=== PATIENT | female | born 1965 | race Caucasian/White ===

== ENCOUNTER → 2016-12-03 | Outpatient (CLI) | payer OTHER ==
[~2016-12-03] MED LIST: *MAMMOGRAM; /ESOM40CA; ACAR50TA2 PO; ACET-654 PO; ALBU17IN INH; ALTA5CAP; ALTACE5 PO; AMBI10TA PO; AMBI12.52 PO; AMBI6.25 PO; AMIT150T; AMITRIP PO; AMITRIP100 PO; ATOR1TAB18 PO; AZIT250T3 PO; CARV12.5 PO; CELE40TA; DOXYCYC100 PO; DRIS50002 PO; FERR325T PO; FERROUS325 PO; GABA600T PO; GLIP5TAB2 PO; GLUC1000 PO; GLUCOTROL5 PO; GLUCULTRA TOPICAL; HALO10AM IM; HALO10TA PO; HYDR-4274 PO; IMDU60TA; INSULANT SC; KEFLEX500 PO; LAMI25TA PO; LANCMIS; LEXA1TAB PO; LIPI80TA PO; LOPR100T; LYRI300C PO; METF-415 PO; METF1000 PO; METFORM100 PO; METO10TA2 PO; METROGEL TOPICAL; NICO14DI20 TD; NORC5TAB PO; OMEP40CA2 PO; PERC5TAB8; PLAV75TA2 PO; PLAV75TA38 PO; PRIL20CA; PRILOSECOT PO; PROA1AER IN; PROM-190 PO; PROZ20CA11 PO; RANO5TAB; SERT25TA85 PO; TIZA4CAP3 PO; TRAM50TA2 PO; TYLENOL#3 PO; VITA200016 PO; ZOLOFT100 PO
== END ==
LOC: M LAB 15:20
PROVIDERS: ATTEND Internal Medicine
DX: E11.40 Type 2 diabetes mellitus with diabetic neuropathy, unspecified (principal)

== ENCOUNTER → 2016-12-12 | Outpatient (CLI) | payer OTHER ==
--- NOTE | 2016-12-12 13:31 | REPMRS ---
Patient History The patient states she has not had a clinical breast exam in over a year. No known family history of cancer. Digital Mammo Screening Bilat: December 12, 2016 - Exam #: [id number] Bilateral CC and MLO view(s) were taken. Technologist: Jasmine Patterson Technologist Prior study comparison: November 01, 2014, bilateral digital mammo screening bilat performed at [facility]. June 18, 2011, bilateral digital mammo screening bilat performed at [facility]. February 05, 2009, bilateral digital mammo screening bilat performed at [facility]. FINDINGS: There are scattered fibroglandular densities. There has been no change in the appearance of the mammogram from the prior studies. There is a mild amount of scattered fibroglandular density which is fairly symmetric. There is no interval development of dominant mass, architectural distortion, or clustered microcalcification suggestive of malignancy. ASSESSMENT: BI-RADS/ACR category 1 mammogram. Negative. Recommendation Routine screening mammogram in 1 year (for women over age 40). This mammogram was interpreted with the aid of an FDA-approved computer-aided dectection system. Electronically Signed By: Mateo Tadeo MD 12/12/16 1275
== END ==
LOC: M RAD 12:49
PROVIDERS: ATTEND Internal Medicine
DX: Z12.31 Encounter for screening mammogram for malignant neoplasm of breast (principal)

== ENCOUNTER 2016-12-26 18:32 | Emergency (ER) | payer OTHER ==
[2016-12-26 20:26] LABS: BASO % 0.4 % (0.0-1.0); EOS # 0.2 K/mm3 (0.0-0.50); EOS % 3.8 % (0.0-3.0); LARGE UNSTAINED CELL # 0.1 K/mm3 (0.0-0.4); LARGE UNSTAINED CELL % 2.1 % (0.0-4.0); LYMPH # 2.1 K/mm3 (1.5-4.5); LYMPH % 32.1 % (24.0-44.0); MEAN CORPUSCULAR HEMOGLOBIN 31.5 pg (27.0-33.0); MEAN CORPUSCULAR HGB CONC 33.2 g/dl (32.0-36.5); MEAN CORPUSCULAR VOLUME 94.8 fl (80.0-96.0); MONO # 0.3 K/mm3 (0.0-0.8); MONO % 4.2 % (0.0-5.0); NEUTROPHILS # 3.7 K/mm3 (1.8-7.7); NEUTROPHILS % 57.4 % (36.0-66.0); PLATELET COUNT, AUTOMATED 197 k/mm3 (150-450); RED CELL DISTRIBUTION WIDTH 13.9 % (11.5-14.5); WHITE BLOOD COUNT 6.4 K/mm3 (4.0-10.0)
[2016-12-26 21:14] LABS: ANION GAP 8 MEQ/L (8-16); BLOOD UREA NITROGEN 17 MG/DL (7-18); CARBON DIOXIDE LEVEL 29 MEQ/L (21-32); CHLORIDE LEVEL 109 MEQ/L (98-107); CREATININE FOR GFR 0.98 MG/DL (0.55-1.02); GLOMERULAR FILTRATION RATE > 60.0 (>51); GLUCOSE, FASTING 174 MG/DL (70-105); POTASSIUM SERUM 3.8 MEQ/L (3.5-5.1); SODIUM LEVEL 146 MEQ/L (136-145)
--- NOTE | 2016-12-26 21:15 | REP ---
CHEST, PA AND LATERAL: 12/26/2016. Clinical history: Dyspnea. Comparison: 01/17/2016. Findings: The lung rocha are well inflated. There is no pleural effusion, acute infiltrate, pleural thickening, atelectasis, nodule or mass. No apical scarring or pneumothorax. The heart size is not grossly enlarged. There is no specific chamber enlargement, vascular redistribution or pulmonary edema. The aorta is normal for age. Airway is intact. No mediastinal or hilar mass. Bony thorax shows marginal osteophytes without compression deformity. No free air the diaphragm. Impression: 1. No acute cardiopulmonary change. Stable exam. Signed by Yusuf Montyoa MD 12/27/2016 07:22 P
--- NOTE | 2016-12-26 22:52 | EDDOCDS ---
Physician Documentation [facility] Name: Cristina Chung Age: 50 yrs Sex: Female : 1965 Arrival Date: 12/26/2016 Time: 18:32 Bed 17 Private MD: Disposition: 12/26/16 22:36 Discharged to Home/Self Care. Impression: Shortness of breath. - Condition is Stable. - Discharge Instructions: Shortness of Breath, Shortness of Breath, [id number]. - Medication Reconciliation, Local Pharmacy Hours form. - Follow up: [facility]; When: 4 - 5 days; Reason: Continuance of care. - Problem is an acute exacerbation. - Symptoms have improved. Historical: - Allergies: Aspirin (Hives); Zofran (Hives); - Home Meds: 1. zolpidem 12.5 mg Oral TbMP 1 tab once daily 2. Plavix 75 mg Oral tab 1 tab once daily 3. Vitamin D Oral 2000 unit daily 4. pregabalin 300 mg Oral cap 1 cap 2 times per day 5. metformin 1,000 mg Oral tr24 1 tab twice a day 6. hydroxyzine HCl 25 mg Oral tab 1 tab every 6 hours as needed 7. escitalopram oxalate 10 mg oral tab 1 tab once daily 8. atorvastatin 80 mg oral tab 1 tab once daily 9. albuterol sulfate 90 mcg/actuation Inhl HFAA 2 puffs every 4 hours 10. acarbose 50 mg Oral tab 1 tab 3 times per day 11. trujelo 10 unit nightly - PMHx: Diabetes - IDDM: uncontrolled; MS; Pancreatitis; Renal Failure w/o Dialysis; - PSHx: Tubal ligation; Cardiac stents; Carpal Tunnel Repair- Bilateral; Cholecystectomy; - Social history: Smoking status: Patient uses tobacco products, current every day smoker. No barriers to communication noted, The patient speaks fluent Maori. - Family history: Not pertinent. - : The pt / caregiver states he / she is on anticoagulants: Plavix. Home medication list is obtained from the patient. - Exposure Risk Screening:: None identified. 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 2 in. (157.48 cm) (R); Pain 0/10; 19:34 Pulse 60 MON; cf2 19:47 Pulse 62 MON; cf2 19:53 Pulse 58 MON; cf2 19:59 Pulse 58 MON; cf2 20:00 BP 139 / 88; Pulse 72; Resp 16; Temp 97.9; Pulse Ox 98% on R/A; Pain 0/10; cf2 20:06 Pulse 64 MON; cf2 20:14 Pulse 60 MON; cf2 20:21 Pulse 58 MON; cf2 20:29 Pulse 56 MON; cf2 20:36 Pulse 58 MON; cf2 20:42 Pulse 56 MON; cf2 20:47 Pulse 60 MON; cf2 20:53 Pulse 56 MON; cf2 21:04 Pulse 74 MON; cf2 21:09 Pulse 62 MON; cf2 21:17 Pulse 58 MON; cf2 21:24 Pulse 60 MON; cf2 21:29 Pulse 60 MON; cf2 21:42 Pulse 58 MON; cf2 21:49 Pulse 58 MON; cf2 21:54 Pulse 60 MON; cf2 22:01 Pulse 62 MON; cf2 22:07 Pulse 58 MON; cf2 22:15 Pulse 64 MON; cf2 22:20 Pulse 60 MON; cf2 22:26 Pulse 60 MON; cf2 22:31 Pulse 62 MON; cf2 22:37 Pulse 58 MON; cf2 22:41 Pulse 56 MON; cf2 22:45 Pulse 62 MON; cf2 22:46 BP 126 / 81; Pulse 64; Resp 16; Temp 97.5; Pulse Ox 98% on R/A; Pain 0/10; cf2 18:34 Body Mass Index 25.97 (64.41 kg, 157.48 cm) lr2 MDM: 19:26 -Blood Culture (Adults Only), peripheral from different site, or from device/port/PICC mm11 etc. if present ordered. 19:26 Hospice Patient Care Secretary/Pulse Ox/q 15 min VS ordered. mm11 19:26 IV Saline Lock ordered. mm11 19:26 Rhythm Strip to chart ordered. mm11 19:26 B-Type Natiuretic Peptide Ordered. EDMS 19:26 Basic Metabolic Profile Ordered. EDMS 19:26 CBC with Diff Ordered. EDMS 19:26 Cardiac Injury Profile Ordered. EDMS 19:26 D-Dimer Quant Ordered. EDMS 19:26 Troponin Ordered. EDMS 19:27 -Blood Culture Ordered. EDMS 19:27 Chest, 2 View (pa\E\lat) Ordered. EDMS 19:27 ECG WITH READING ER PHYS+CARDIAG ordered. EDMS 19:32 -Blood Culture (Adults Only), peripheral from different site, or from device/port/PICC jlm etc. if present complete. 19:33 BLOOD CULTURES Ordered. EDMS 20:24 Duplex, Ext LOWER veins, bilat Ordered. EDMS 20:43 Financial registration complete. gjb 20:53 [facility] Payment Agreement was scanned into [employer] and attached to record. gjb 21:12 CBC with Diff Reviewed. mm11 21:12 B-Type Natiuretic Peptide Reviewed. mm11 21:12 D-Dimer Quant Reviewed. mm11 21:41 Basic Metabolic Profile Reviewed. mm11 21:41 Cardiac Injury Profile Reviewed. mm11 21:41 Troponin Reviewed. mm11 21:41 Chest, 2 View (pa\E\lat) Reviewed. mm11 Signatures: Dispatcher [employer] EDMS Hamilton Low, DO DO mm11 Nikki Larkin,RN RN js13 Soraida Willams, [employer] [employer] [facility] Camila Campos [facility] Tri Laird,RN RN cf2 The chart was reviewed and I authenticate all verbal orders and agree with the evaluation and treatment provided.Corrections: (The following items were deleted from the chart) 20:24 19:27 Duplex, Ext,LOWER veins,unilat+US ordered. EDMS EDMS Attachments: 20:53 [facility] Payment Agreement gjb MTDD
--- NOTE | 2016-12-26 22:52 | EDDOCDS ---
Nurse's Notes [facility] Name: Cristina Chung Age: 50 yrs Sex: Female : 1965 Arrival Date: 12/26/2016 Time: 18:32 Bed 17 Private MD: Diagnosis: Shortness of breath Presentation: 12/26 18:44 Presenting complaint: Patient states: Patient states she was sent from Dr. Franco 13 office to be evaluated for her left leg swelling and SOB. Patient states her primary MD wants her to have exam to r/o DVT/ PE. Adult Sepsis Screening: The patient does not have new or worsening altered mentation. Patient's respiratory rate is less than 22. Systolic blood pressure is greater than 100. Patient has a qSOFA score of 0- Negative Sepsis Screen. Suicide/Homicide risk assessment- the patient denies having any suicidal and/or homicidal ideations and does not present with any other emotional, behavioral or mental health complaints. Status: Patient is not a customer servicer or dependent. Transition of care: patient was received from a primary care office; Dr Franco. 18:44 Acuity: BEAU Level 3 [facility] 18:44 Method Of Arrival: Walkin/Carried/Asstd 13 Triage Assessment: 18:50 General: Appears in no apparent distress, Behavior is appropriate for age, cooperative. js13 Pain: Denies pain. Pt Declines HIV testing. Respiratory: Onset: The symptoms/episode began/occurred a couple weeks ago. Derm: Skin is pink, warm & dry. 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 zolpidem 12.5 mg Oral TbMP 1 tab once daily 2. Plavix 75 mg Oral tab 1 tab once daily 3. Vitamin D Oral 2000 unit daily 4. pregabalin 300 mg Oral cap 1 cap 2 times per day 5. metformin 1,000 mg Oral tr24 1 tab twice a day 6. hydroxyzine HCl 25 mg Oral tab 1 tab every 6 hours as needed 7. escitalopram oxalate 10 mg oral tab 1 tab once daily 8. atorvastatin 80 mg oral tab 1 tab once daily 9. albuterol sulfate 90 mcg/actuation Inhl HFAA 2 puffs every 4 hours 10. acarbose 50 mg Oral tab 1 tab 3 times per day 11. trujelo 10 unit nightly - PMHx: Diabetes - IDDM: uncontrolled; [place]; Pancreatitis; Renal Failure w/o Dialysis; - PSHx: Tubal ligation; Cardiac stents; Carpal Tunnel Repair- Bilateral; Cholecystectomy; - Social history: Smoking status: Patient uses tobacco products, current every day smoker. No barriers to communication noted, The patient speaks fluent Vietnamese. - Family history: Not pertinent. - : The pt / caregiver states he / she is on anticoagulants: Plavix. Home medication list is obtained from the patient. - Exposure Risk Screening:: None identified. Screenin:22 Screening information is obtained from the patient. Fall risk: No risks identified. cf2 Assistance ADL's: requires no assistance with activities of daily living. Abuse/DV Screen: The patient / caregiver reports he/she is: not in a situation that causes fear, pain or injury. Nutritional screening: No deficits noted. Advance Directives: Further advance directive information is declined. home support is adequate. Assessment: 20:22 Adult Sepsis Screening: The patient does not have new or worsening altered mentation. cf2 Patient's respiratory rate is less than 22. Systolic blood pressure is greater than 100. Patient has a qSOFA score of 0- Negative Sepsis Screen. General: Appears in no apparent distress, comfortable, Behavior is appropriate for age, cooperative. Pain: Denies pain. Neurological: No deficits noted. EENT: Cardiovascular: Capillary refill < 3 seconds Clubbing of nail beds is absent JVD is absent Rhythm is regular. Cardiovascular: Chest pain is denied Chest pain began Respiratory: Airway is patent Respiratory effort is even, unlabored, Breath sounds are clear. 20:42 Reassessment: Patient appears in no apparent distress at this time. Patient denies pain cf2 at this time. GI: No deficits noted. : No deficits noted. Derm: No deficits noted. Musculoskeletal: No deficits noted. Injury Description: No known injury. 22:46 Reassessment: Patient appears in no apparent distress at this time. Patient denies pain cf2 at this time. Adult Sepsis Screening: The patient does not have new or worsening altered mentation. Patient's respiratory rate is less than 22. Systolic blood pressure is greater than 100. Patient has a qSOFA score of 0- Negative Sepsis Screen. Vital Signs: 18:34 BP 164 / 92; Pulse 64; Resp 17; Temp 96.4(TE); Pulse Ox 94% on R/A; Weight 64.41 kg lr2 (R); Height 5 ft. 2 in. (157.48 cm) (R); Pain 0/10; 19:34 Pulse 60 MON; cf2 19:47 Pulse 62 MON; cf2 19:53 Pulse 58 MON; cf2 19:59 Pulse 58 MON; cf2 20:00 BP 139 / 88; Pulse 72; Resp 16; Temp 97.9; Pulse Ox 98% on R/A; Pain 0/10; cf2 20:06 Pulse 64 MON; cf2 20:14 Pulse 60 MON; cf2 20:21 Pulse 58 MON; cf2 20:29 Pulse 56 MON; cf2 20:36 Pulse 58 MON; cf2 20:42 Pulse 56 MON; cf2 20:47 Pulse 60 MON; cf2 20:53 Pulse 56 MON; cf2 21:04 Pulse 74 MON; cf2 21:09 Pulse 62 MON; cf2 21:17 Pulse 58 MON; cf2 21:24 Pulse 60 MON; cf2 21:29 Pulse 60 MON; cf2 21:42 Pulse 58 MON; cf2 21:49 Pulse 58 MON; cf2 21:54 Pulse 60 MON; cf2 22:01 Pulse 62 MON; cf2 22:07 Pulse 58 MON; cf2 22:15 Pulse 64 MON; cf2 22:20 Pulse 60 MON; cf2 22:26 Pulse 60 MON; cf2 22:31 Pulse 62 MON; cf2 22:37 Pulse 58 MON; cf2 22:41 Pulse 56 MON; cf2 22:45 Pulse 62 MON; cf2 22:46 BP 126 / 81; Pulse 64; Resp 16; Temp 97.5; Pulse Ox 98% on R/A; Pain 0/10; cf2 18:34 Body Mass Index 25.97 (64.41 kg, 157.48 cm) lr2 Vitals: 18:34 Log In Time: December 26, 2016 at 18:32. lr2 ED Course: 18:33 Patient visited by Christi Angeles. lr2 18:33 Patient moved to Waiting lr2 18:38 Patient moved to Pre RCE lr2 18:46 Triage Initiated js13 18:51 Patient visited by Nikki Larkin RN. js13 18:51 Patient moved to Triage 1 rs6 19:03 Patient moved to 17 nn1 19:09 Tri Laird,MARÍA is Primary Nurse. cf2 19:09 Patient visited by Tri Laird RN. cf2 19:10 Patient visited by Tri Laird RN. cf2 19:14 Hamilton Low DO is Attending Physician. mm11 19:14 Patient visited by Hamilton Low DO. mm11 19:24 Patient visited by Hamilton Low DO. mm11 19:40 EKG done. (by ED staff). Reviewed by Hamilton Low DO. jmv 19:41 Patient visited by Lito López PCA. jmv 19:55 -Blood Culture Sent. mb9 19:55 B-Type Natiuretic Peptide Sent. mb9 19:55 Basic Metabolic Profile Sent. mb9 19:55 CBC with Diff Sent. mb9 19:55 Cardiac Injury Profile Sent. mb9 19:55 D-Dimer Quant Sent. mb9 19:55 Troponin Sent. mb9 19:55 Inserted saline lock: 18 gauge in left forearm and blood collected. The patient mb9 tolerated the procedure well. 20:11 Patient visited by Tri Laird RN. cf2 20:22 Patient visited by Tri Laird RN. cf2 20:22 The patient / caregiver is instructed regarding the plan of care and ED course. Patient cf2 has correct armband on for positive identification. Placed in gown. Bed in low position. Call light in reach. Side rails up X 1. Side rails up X2. nurse discharge on. Pulse ox on. NIBP on. Property :Personal belongings accompany Pt. Door closed. Noise minimized. Visitors limited. Lights dimmed. Moved to private room. Verbal reassurance given. Warm blanket given. Pillow given. Head of bed elevated. 20:22 No procedures done that require assistance. cf2 20:25 Patient visited by Tri Laird RN. cf2 20:44 Patient visited by Tri Laird RN. cf2 20:53 [facility] Payment Agreement was scanned into [employer] and attached to record. gjb 21:23 Chest, 2 View (pa\E\lat) Returned. EDMS 21:31 Patient visited by Tri Laird RN. cf2 22:02 Patient visited by Tri Laird RN. cf2 22:34 Patient visited by Hamilton Low DO. mm11 22:35 [facility] is Referral Physician. mm11 22:39 Patient visited by Tri Laird RN. cf2 22:46 Patient visited by Tri Laird RN. cf2 22:50 Discontinued lock. cf2 Order Results: Lab Order: B-Type Natiuretic Peptide; SPEC'M 12/26/16 19:52 Test: BRAIN NATRIURETIC PEPTIDE; Value: 10.6; Range: <100; Units: PG/ML; Status: F Lab Order: Basic Metabolic Profile; SPEC'M 12/26/16 20:34 Test: GLUCOSE, FASTING; Value: 174; Range: 70-105; Abnormal: Above high normal; Units: MG/DL; Status: F Test: BLOOD UREA NITROGEN; Value: 17; Range: 7-18; Units: MG/DL; Status: F Test: CREATININE FOR GFR; Value: 0.98; Range: 0.55-1.02; Units: MG/DL; Status: F Test: GLOMERULAR FILTRATION RATE; Value: > 60.0; Range: >51; Status: F Test: SODIUM LEVEL; Value: 146; Range: 136-145; Abnormal: Above high normal; Units: MEQ/L; Status: F Test: POTASSIUM SERUM; Value: 3.8; Range: 3.5-5.1; Units: MEQ/L; Status: F Test: CHLORIDE LEVEL; Value: 109; Range: 98-107; Abnormal: Above high normal; Units: MEQ/L; Status: F Test: CARBON DIOXIDE LEVEL; Value: 29; Range: 21-32; Units: MEQ/L; Status: F Test: ANION GAP; Value: 8; Range: 8-16; Units: MEQ/L; Status: F Test: CALCIUM LEVEL; Value: 9.0; Range: 8.5-10.1; Units: MG/DL; Status: F Test Note: ; Units are mL/min/1.73 m2 Chronic Kidney Disease Staging per NKF: Stage I & II GFR >=60 Normal to Mildly Decreased Stage III GFR 30-59 Moderately Decreased Stage IV GFR 15-29 Severely Decreased Stage V GFR <15 Very Little GFR Left ESRD GFR <15 on HEATING FIXTURE TENDER Lab Order: CBC with Diff; RONNELL'M 12/26/16 19:52 Test: WHITE BLOOD COUNT; Value: 6.4; Range: 4.0-10.0; Units: K/mm3; Status: F Test: RED BLOOD COUNT; Value: 4.22; Range: 4.00-5.40; Units: M/mm3; Status: F Test: HEMOGLOBIN; Value: 13.3; Range: 12.0-16.0; Units: g/dl; Status: F Test: HEMATOCRIT; Value: 40.0; Range: 36.0-47.0; Units: %; Status: F Test: MEAN CORPUSCULAR VOLUME; Value: 94.8; Range: 80.0-96.0; Units: fl; Status: F Test: MEAN CORPUSCULAR HEMOGLOBIN; Value: 31.5; Range: 27.0-33.0; Units: pg; Status: F Test: MEAN CORPUSCULAR HGB CONC; Value: 33.2; Range: 32.0-36.5; Units: g/dl; Status: F Test: RED CELL DISTRIBUTION WIDTH; Value: 13.9; Range: 11.5-14.5; Units: %; Status: F Test: PLATELET COUNT, AUTOMATED; Value: 197; Range: 150-450; Units: k/mm3; Status: F Test: NEUTROPHILS %; Value: 57.4; Range: 36.0-66.0; Units: %; Status: F Test: LYMPH %; Value: 32.1; Range: 24.0-44.0; Units: %; Status: F Test: MONO %; Value: 4.2; Range: 0.0-5.0; Units: %; Status: F Test: EOS %; Value: 3.8; Range: 0.0-3.0; Abnormal: Above high normal; Units: %; Status: F Test: BASO %; Value: 0.4; Range: 0.0-1.0; Units: %; Status: F Test: LARGE UNSTAINED CELL %; Value: 2.1; Range: 0.0-4.0; Units: %; Status: F Test: NEUTROPHILS #; Value: 3.7; Range: 1.8-7.7; Units: K/mm3; Status: F Test: LYMPH #; Value: 2.1; Range: 1.5-4.5; Units: K/mm3; Status: F Test: MONO #; Value: 0.3; Range: 0.0-0.8; Units: K/mm3; Status: F Test: EOS #; Value: 0.2; Range: 0.0-0.50; Units: K/mm3; Status: F Test: BASO #; Value: 0.0; Range: 0.0-0.2; Units: K/mm3; Status: F Test: LARGE UNSTAINED CELL #; Value: 0.1; Range: 0.0-0.4; Units: K/mm3; Status: F Lab Order: Cardiac Injury Profile; [facility] 12/26/16 20:34 Test: CPK CREATINE PHOSPHOKINASE; Value: 97; Range: 26-192; Units: U/L; Status: F Test: CK-MB VALUE MASS; Value: 2.3; Range: 0.0-3.6; Units: NG/ML; Status: F Test: MB/CK RELATIVE INDEX; Value: 2.37; Range: < OR =4; Status: F Test Note: ; DIAGNOSIS CRITERIA MMB ng/ml Relative Index (RI) NON-AMI < or = 5 N/A CAMPA ZONE > 5 < or = 4 AMI > 5 > 4 Lab Order: D-Dimer Quant; [facility]' 12/26/16 19:52 Test: D-DIMER QUANT; Value: < 270.0; Range: <500; Units: ng/ml; Status: F Lab Order: Troponin; [facility]' 12/26/16 20:34 Test: TROPONIN I; Value: < 0.02; Range: < 0.10; Units: NG/ML; Status: F Test Note: ; Troponin I Reference Interval for Celotor LOCI: 99th Percentile= 0.00-0.045 ng/ml Risk Stratification: <= 0.10 ng/ml Decreased Risk for Adverse Clinical Events. 0.10-1.50 ng/ml Increased Risk for Adverse Clinical Events. Evaluation of additional criterion and/or repeat testing in 2-6 hours is suggested to rule out myocardial damage. >= 1.50 ng/ml Indicative of Myocardial Injury. Radiology Order: Chest, 2 View (pa\E\lat) Test: Chest, 2 View (pa\E\lat) REASON FOR EXAMINATION: Shortness of Breath; CHEST, PA AND LATERAL: 12/26/2016.; ; Clinical history: Dyspnea.; ; Comparison: 01/17/2016.; ; Findings: The lung rocha are well inflated. There is no pleural effusion, acute; infiltrate, pleural thickening, atelectasis, nodule or mass. No apical scarring; or pneumothorax. The heart size is not grossly enlarged. There is no specific; chamber enlargement, vascular redistribution or pulmonary edema. The aorta is; normal for age. Airway is intact. No mediastinal or hilar mass. Bony thorax; shows marginal osteophytes without compression deformity. No free air the; diaphragm.; ; Impression:; No acute cardiopulmonary change. Stable exam.; ; ; ; ; Unreviewed; Outcome: 22:36 Discharge ordered by Provider. mm11 22:50 Discharge Assessment: Patient awake, alert and oriented x 3. No cognitive and/or cf2 functional deficits noted. Patient verbalized understanding of disposition instructions. Patient awake and alert. Oriented to person, place and time. patient administered narcotics - no. The following High Risk Discharge criteria are identified: None. Discharged to home ambulatory, with family, with significant other. Condition: stable Condition: improved. Discharge instructions given to patient, family, Instructed on discharge instructions, follow up and referral plans. Demonstrated understanding of instructions, Pt was receptive of discharge instructions/ teaching. No special radiology studies were completed. 22:51 Patient left the ED. cf2 Signatures: Dispatcher [employer] EDMS Hamilton Low, DO mm11 Nikki Larkin,RN RN js13 Rajinder SwiftRN RN mb9 Susi Daniel, PUBLIC HEALTH SPECIALIST PUBLIC HEALTH SPECIALIST rs6 Juanita HuertaRN RN nn1 Camila Augustin ChristinaRN RN cf2 Lito López, PUBLIC HEALTH SPECIALIST PUBLIC HEALTH SPECIALIST vannessav Christi Angeles2 MTDD
--- NOTE | 2016-12-27 12:52 | ECGEPIP ---
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
--- NOTE | 2016-12-28 23:53 | EDDOCDS ---
Physician Documentation [facility] Name: Cristina Chung Age: 50 yrs Sex: Female : 1965 Arrival Date: 12/26/2016 Time: 18:32 Bed 17 Private MD: Disposition: 12/26/16 22:36 Discharged to Home/Self Care. Impression: Shortness of breath. - Condition is Stable. - Discharge Instructions: Shortness of Breath, Shortness of Breath, [id number]-Glia. - Medication Reconciliation, Local Pharmacy Hours form. - [facility]: [facility]; When: 4 - 5 days; Reason: Continuance of care. - Problem is an acute exacerbation. - Symptoms have improved. Historical: - Allergies: Aspirin (Hives); Zofran (Hives); - Home Meds: 1. zolpidem 12.5 mg Oral TbMP 1 tab once daily 2. Plavix 75 mg Oral tab 1 tab once daily 3. Vitamin D Oral 2000 unit daily 4. pregabalin 300 mg Oral cap 1 cap 2 times per day 5. metformin 1,000 mg Oral tr24 1 tab twice a day 6. hydroxyzine HCl 25 mg Oral tab 1 tab every 6 hours as needed 7. escitalopram oxalate 10 mg oral tab 1 tab once daily 8. atorvastatin 80 mg oral tab 1 tab once daily 9. albuterol sulfate 90 mcg/actuation Inhl HFAA 2 puffs every 4 hours 10. acarbose 50 mg Oral tab 1 tab 3 times per day 11. trujelo 10 unit nightly - PMHx: Diabetes - IDDM: uncontrolled; [place]; Pancreatitis; Renal Failure w/o Dialysis; - PSHx: Tubal ligation; Cardiac stents; Carpal Tunnel Repair- Bilateral; Cholecystectomy; - Social history: Smoking status: Patient uses tobacco products, current every day smoker. No barriers to communication noted, The patient speaks fluent Bengali. - Family history: Not pertinent. - : The pt / caregiver states he / she is on anticoagulants: Plavix. Home medication list is obtained from the patient. - Exposure Risk Screening:: None identified. 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 2 in. (157.48 cm) (R); Pain 0/10; 19:34 Pulse 60 MON; cf2 19:47 Pulse 62 MON; cf2 19:53 Pulse 58 MON; cf2 19:59 Pulse 58 MON; cf2 20:00 BP 139 / 88; Pulse 72; Resp 16; Temp 97.9; Pulse Ox 98% on R/A; Pain 0/10; cf2 20:06 Pulse 64 MON; cf2 20:14 Pulse 60 MON; cf2 20:21 Pulse 58 MON; cf2 20:29 Pulse 56 MON; cf2 20:36 Pulse 58 MON; cf2 20:42 Pulse 56 MON; cf2 20:47 Pulse 60 MON; cf2 20:53 Pulse 56 MON; cf2 21:04 Pulse 74 MON; cf2 21:09 Pulse 62 MON; cf2 21:17 Pulse 58 MON; cf2 21:24 Pulse 60 MON; cf2 21:29 Pulse 60 MON; cf2 21:42 Pulse 58 MON; cf2 21:49 Pulse 58 MON; cf2 21:54 Pulse 60 MON; cf2 22:01 Pulse 62 MON; cf2 22:07 Pulse 58 MON; cf2 22:15 Pulse 64 MON; cf2 22:20 Pulse 60 MON; cf2 22:26 Pulse 60 MON; cf2 22:31 Pulse 62 MON; cf2 22:37 Pulse 58 MON; cf2 22:41 Pulse 56 MON; cf2 22:45 Pulse 62 MON; cf2 22:46 BP 126 / 81; Pulse 64; Resp 16; Temp 97.5; Pulse Ox 98% on R/A; Pain 0/10; cf2 18:34 Body Mass Index 25.97 (64.41 kg, 157.48 cm) lr2 MDM: 19:26 -Blood Culture (Adults Only), peripheral from different site, or from device/port/PICC mm11 etc. if present ordered. 19:26 Modern Greek Studies Professor/Pulse Ox/q 15 min VS ordered. mm11 19:26 IV Saline Lock ordered. mm11 19:26 Rhythm Strip to chart ordered. mm11 19:26 B-Type Natiuretic Peptide Ordered. EDMS 19:26 Basic Metabolic Profile Ordered. EDMS 19:26 CBC with Diff Ordered. EDMS 19:26 Cardiac Injury Profile Ordered. EDMS 19:26 D-Dimer Quant Ordered. EDMS 19:26 Troponin Ordered. EDMS 19:27 -Blood Culture Ordered. EDMS 19:27 Chest, 2 View (pa\E\lat) Ordered. EDMS 19:27 ECG WITH READING ER PHYS+CARDIAG ordered. EDMS 19:32 -Blood Culture (Adults Only), peripheral from different site, or from device/port/PICC jlm etc. if present complete. 19:33 BLOOD CULTURES Ordered. EDMS 20:24 Duplex, Ext LOWER veins, bilat Ordered. EDMS 20:43 Financial registration complete. [facility] 20:53 [facility] Payment Agreement was scanned into [employer] and attached to record. gjb 21:12 CBC with Diff Reviewed. mm11 21:12 B-Type Natiuretic Peptide Reviewed. mm11 21:12 D-Dimer Quant Reviewed. mm11 21:41 Basic Metabolic Profile Reviewed. mm11 21:41 Cardiac Injury Profile Reviewed. mm11 21:41 Troponin Reviewed. mm11 21:41 Chest, 2 View (pa\E\lat) Reviewed. mm11 12/27 10:25 T-Sheet-- Draft Copy was scanned into [employer]it and attached to record. gb 16:19 ECG/EKG was scanned into [employer]it and attached to record. gb 16:19 Radiology Report was scanned into [employer] and attached to record. gb Signatures: Dispatcher [employer] EDAK Em Marie, Reg Reg gb Hamilton Low, DO mm11 Nikki Larkin,RN RN js13 Soraida Willams, Urban Planning Professor Unit Camila Campos [facility] Tri Laird,RN RN cf2 The chart was reviewed and I authenticate all verbal orders and agree with the evaluation and treatment provided.Corrections: (The following items were deleted from the chart) 12/26 20:24 19:27 Duplex, Ext,LOWER veins,unilat+US ordered. EDMS EDMS Attachments: 20:53 [facility] Payment Agreement [facility] 12/27 10:25 T-Sheet-- Draft Copy gb 16:19 ECG/EKG gb Chart Complete MTDD
--- NOTE | 2016-12-28 23:53 | EDDOCDS ---
Physician Documentation [facility] Name: Cristina Chung Age: 50 yrs Sex: Female : 1965 Arrival Date: 12/26/2016 Time: 18:32 Bed 17 Private MD: Disposition: 12/26/16 22:36 Discharged to Home/Self Care. Impression: Shortness of breath. - Condition is Stable. - Discharge Instructions: Shortness of Breath, Shortness of Breath, [id number]. - Medication Reconciliation, Local Pharmacy Hours form. - Follow up: [facility]; When: 4 - 5 days; Reason: Continuance of care. - Problem is an acute exacerbation. - Symptoms have improved. Historical: - Allergies: Aspirin (Hives); Zofran (Hives); - Home Meds: 1. zolpidem 12.5 mg Oral TbMP 1 tab once daily 2. Plavix 75 mg Oral tab 1 tab once daily 3. Vitamin D Oral 2000 unit daily 4. pregabalin 300 mg Oral cap 1 cap 2 times per day 5. metformin 1,000 mg Oral tr24 1 tab twice a day 6. hydroxyzine HCl 25 mg Oral tab 1 tab every 6 hours as needed 7. escitalopram oxalate 10 mg oral tab 1 tab once daily 8. atorvastatin 80 mg oral tab 1 tab once daily 9. albuterol sulfate 90 mcg/actuation Inhl HFAA 2 puffs every 4 hours 10. acarbose 50 mg Oral tab 1 tab 3 times per day 11. trujelo 10 unit nightly - PMHx: Diabetes - IDDM: uncontrolled; [place]; Pancreatitis; Renal Failure w/o Dialysis; - PSHx: Tubal ligation; Cardiac stents; Carpal Tunnel Repair- Bilateral; Cholecystectomy; - Social history: Smoking status: Patient uses tobacco products, current every day smoker. No barriers to communication noted, The patient speaks fluent Azeri. - Family history: Not pertinent. - : The pt / caregiver states he / she is on anticoagulants: Plavix. Home medication list is obtained from the patient. - Exposure Risk Screening:: None identified. 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 2 in. (157.48 cm) (R); Pain 0/10; 19:34 Pulse 60 MON; cf2 19:47 Pulse 62 MON; cf2 19:53 Pulse 58 MON; cf2 19:59 Pulse 58 MON; cf2 20:00 BP 139 / 88; Pulse 72; Resp 16; Temp 97.9; Pulse Ox 98% on R/A; Pain 0/10; cf2 20:06 Pulse 64 MON; cf2 20:14 Pulse 60 MON; cf2 20:21 Pulse 58 MON; cf2 20:29 Pulse 56 MON; cf2 20:36 Pulse 58 MON; cf2 20:42 Pulse 56 MON; cf2 20:47 Pulse 60 MON; cf2 20:53 Pulse 56 MON; cf2 21:04 Pulse 74 MON; cf2 21:09 Pulse 62 MON; cf2 21:17 Pulse 58 MON; cf2 21:24 Pulse 60 MON; cf2 21:29 Pulse 60 MON; cf2 21:42 Pulse 58 MON; cf2 21:49 Pulse 58 MON; cf2 21:54 Pulse 60 MON; cf2 22:01 Pulse 62 MON; cf2 22:07 Pulse 58 MON; cf2 22:15 Pulse 64 MON; cf2 22:20 Pulse 60 MON; cf2 22:26 Pulse 60 MON; cf2 22:31 Pulse 62 MON; cf2 22:37 Pulse 58 MON; cf2 22:41 Pulse 56 MON; cf2 22:45 Pulse 62 MON; cf2 22:46 BP 126 / 81; Pulse 64; Resp 16; Temp 97.5; Pulse Ox 98% on R/A; Pain 0/10; cf2 18:34 Body Mass Index 25.97 (64.41 kg, 157.48 cm) lr2 MDM: 19:26 -Blood Culture (Adults Only), peripheral from different site, or from device/port/PICC mm11 etc. if present ordered. 19:26 Director Of Student Financial Services/Pulse Ox/q 15 min VS ordered. mm11 19:26 IV Saline Lock ordered. mm11 19:26 Rhythm Strip to chart ordered. mm11 19:26 B-Type Natiuretic Peptide Ordered. EDMS 19:26 Basic Metabolic Profile Ordered. EDMS 19:26 CBC with Diff Ordered. EDMS 19:26 Cardiac Injury Profile Ordered. EDMS 19:26 D-Dimer Quant Ordered. EDMS 19:26 Troponin Ordered. EDMS 19:27 -Blood Culture Ordered. EDMS 19:27 Chest, 2 View (pa\E\lat) Ordered. EDMS 19:27 ECG WITH READING ER PHYS+CARDIAG ordered. EDMS 19:32 -Blood Culture (Adults Only), peripheral from different site, or from device/port/PICC jlm etc. if present complete. 19:33 BLOOD CULTURES Ordered. EDMS 20:24 Duplex, Ext LOWER veins, bilat Ordered. EDMS 20:43 Financial registration complete. [facility] 20:53 [facility] Payment Agreement was scanned into [employer] and attached to record. gjb 21:12 CBC with Diff Reviewed. mm11 21:12 B-Type Natiuretic Peptide Reviewed. mm11 21:12 D-Dimer Quant Reviewed. mm11 21:41 Basic Metabolic Profile Reviewed. mm11 21:41 Cardiac Injury Profile Reviewed. mm11 21:41 Troponin Reviewed. mm11 21:41 Chest, 2 View (pa\E\lat) Reviewed. mm11 12/27 10:25 T-Sheet-- Draft Copy was scanned into [employer] and attached to record. gb 16:19 ECG/EKG was scanned into [employer] and attached to record. gb 16:19 Radiology Report was scanned into [employer] and attached to record. gb Signatures: Dispatcher [employer] EDKS Em Marie, Reg Reg gb Hamilton Low, DO mm11 Nikki Larkin,RN RN js13 Soraida Willams, Vinyl Flooring Installer Unit Camila Campos [facility] Tri Laird,RN RN cf2 The chart was reviewed and I authenticate all verbal orders and agree with the evaluation and treatment provided.Corrections: (The following items were deleted from the chart) 12/26 20:24 19:27 Duplex, Ext,LOWER veins,unilat+US ordered. EDMS EDMS Attachments: 20:53 [facility] Payment Agreement [facility] 12/27 10:25 T-Sheet-- Draft Copy gb 16:19 ECG/EKG gb Chart Complete MTDD
--- NOTE | 2016-12-28 23:54 | EDDOCDS ---
Nurse's Notes [facility] Name: Vikash Chung Age: 50 yrs Sex: Female : 1965 Arrival Date: 12/26/2016 Time: 18:32 Bed 17 Private MD: Diagnosis: Shortness of breath Presentation: 12/26 18:44 Presenting complaint: Patient states: Patient states she was sent from Dr. Franco 13 office to be evaluated for her left leg swelling and SOB. Patient states her primary MD wants her to have exam to r/o DVT/ PE. Adult Sepsis Screening: The patient does not have new or worsening altered mentation. Patient's respiratory rate is less than 22. Systolic blood pressure is greater than 100. Patient has a qSOFA score of 0- Negative Sepsis Screen. Suicide/Homicide risk assessment- the patient denies having any suicidal and/or homicidal ideations and does not present with any other emotional, behavioral or mental health complaints. Status: Patient is not a emergency services director or dependent. Transition of care: patient was received from a primary care office; Dr Franco. 18:44 Acuity: BEAU Level 3 [facility] 18:44 Method Of Arrival: Walkin/Carried/Asstd 13 Triage Assessment: 18:50 General: Appears in no apparent distress, Behavior is appropriate for age, cooperative. js13 Pain: Denies pain. Pt Declines HIV testing. Respiratory: Onset: The symptoms/episode began/occurred a couple weeks ago. Derm: Skin is pink, warm & dry. VICE ADMIRAL: 18:50 LMP N/A - Post-menopause js13 Historical: - Allergies: Aspirin (Hives); Zofran (Hives); - Home Meds: 1. zolpidem 12.5 mg Oral TbMP 1 tab once daily 2. Plavix 75 mg Oral tab 1 tab once daily 3. Vitamin D Oral 2000 unit daily 4. pregabalin 300 mg Oral cap 1 cap 2 times per day 5. metformin 1,000 mg Oral tr24 1 tab twice a day 6. hydroxyzine HCl 25 mg Oral tab 1 tab every 6 hours as needed 7. escitalopram oxalate 10 mg oral tab 1 tab once daily 8. atorvastatin 80 mg oral tab 1 tab once daily 9. albuterol sulfate 90 mcg/actuation Inhl HFAA 2 puffs every 4 hours 10. acarbose 50 mg Oral tab 1 tab 3 times per day 11. trujelo 10 unit nightly - PMHx: Diabetes - IDDM: uncontrolled; [place]; Pancreatitis; Renal Failure w/o Dialysis; - PSHx: Tubal ligation; Cardiac stents; Carpal Tunnel Repair- Bilateral; Cholecystectomy; - Social history: Smoking status: Patient uses tobacco products, current every day smoker. No barriers to communication noted, The patient speaks fluent Palestinian. - Family history: Not pertinent. - : The pt / caregiver states he / she is on anticoagulants: Plavix. Home medication list is obtained from the patient. - Exposure Risk Screening:: None identified. Screenin:22 Screening information is obtained from the patient. Fall risk: No risks identified. cf2 Assistance ADL's: requires no assistance with activities of daily living. Abuse/DV Screen: The patient / caregiver reports he/she is: not in a situation that causes fear, pain or injury. Nutritional screening: No deficits noted. Advance Directives: Further advance directive information is declined. home support is adequate. Assessment: 20:22 Adult Sepsis Screening: The patient does not have new or worsening altered mentation. cf2 Patient's respiratory rate is less than 22. Systolic blood pressure is greater than 100. Patient has a qSOFA score of 0- Negative Sepsis Screen. General: Appears in no apparent distress, comfortable, Behavior is appropriate for age, cooperative. Pain: Denies pain. Neurological: No deficits noted. EENT: Cardiovascular: Capillary refill < 3 seconds Clubbing of nail beds is absent JVD is absent Rhythm is regular. Cardiovascular: Chest pain is denied Chest pain began Respiratory: Airway is patent Respiratory effort is even, unlabored, Breath sounds are clear. 20:42 Reassessment: Patient appears in no apparent distress at this time. Patient denies pain cf2 at this time. GI: No deficits noted. : No deficits noted. Derm: No deficits noted. Musculoskeletal: No deficits noted. Injury Description: No known injury. 22:46 Reassessment: Patient appears in no apparent distress at this time. Patient denies pain cf2 at this time. Adult Sepsis Screening: The patient does not have new or worsening altered mentation. Patient's respiratory rate is less than 22. Systolic blood pressure is greater than 100. Patient has a qSOFA score of 0- Negative Sepsis Screen. Vital Signs: 18:34 BP 164 / 92; Pulse 64; Resp 17; Temp 96.4(TE); Pulse Ox 94% on R/A; Weight 64.41 kg lr2 (R); Height 5 ft. 2 in. (157.48 cm) (R); Pain 0/10; 19:34 Pulse 60 MON; cf2 19:47 Pulse 62 MON; cf2 19:53 Pulse 58 MON; cf2 19:59 Pulse 58 MON; cf2 20:00 BP 139 / 88; Pulse 72; Resp 16; Temp 97.9; Pulse Ox 98% on R/A; Pain 0/10; cf2 20:06 Pulse 64 MON; cf2 20:14 Pulse 60 MON; cf2 20:21 Pulse 58 MON; cf2 20:29 Pulse 56 MON; cf2 20:36 Pulse 58 MON; cf2 20:42 Pulse 56 MON; cf2 20:47 Pulse 60 MON; cf2 20:53 Pulse 56 MON; cf2 21:04 Pulse 74 MON; cf2 21:09 Pulse 62 MON; cf2 21:17 Pulse 58 MON; cf2 21:24 Pulse 60 MON; cf2 21:29 Pulse 60 MON; cf2 21:42 Pulse 58 MON; cf2 21:49 Pulse 58 MON; cf2 21:54 Pulse 60 MON; cf2 22:01 Pulse 62 MON; cf2 22:07 Pulse 58 MON; cf2 22:15 Pulse 64 MON; cf2 22:20 Pulse 60 MON; cf2 22:26 Pulse 60 MON; cf2 22:31 Pulse 62 MON; cf2 22:37 Pulse 58 MON; cf2 22:41 Pulse 56 MON; cf2 22:45 Pulse 62 MON; cf2 22:46 BP 126 / 81; Pulse 64; Resp 16; Temp 97.5; Pulse Ox 98% on R/A; Pain 0/10; cf2 18:34 Body Mass Index 25.97 (64.41 kg, 157.48 cm) lr2 Vitals: 18:34 Log In Time: December 26, 2016 at 18:32. lr2 ED Course: 18:33 Patient visited by Christi Angeles. lr2 18:33 Patient moved to Waiting lr2 18:38 Patient moved to Pre RCE lr2 18:46 Triage Initiated js13 18:51 Patient visited by Nikki Larkin RN. js13 18:51 Patient moved to Triage 1 rs6 19:03 Patient moved to 17 nn1 19:09 Tri Laird,MARÍA is Primary Nurse. cf2 19:09 Patient visited by Tri Laird RN. cf2 19:10 Patient visited by Tri Laird RN. cf2 19:14 Alon Low DO is Attending Physician. mm11 19:14 Patient visited by Alon Low DO. mm11 19:24 Patient visited by Alon Low DO. mm11 19:40 EKG done. (by ED staff). Reviewed by Alon Low DO. jmv 19:41 Patient visited by Lito López PCA. jmv 19:55 -Blood Culture Sent. mb9 19:55 B-Type Natiuretic Peptide Sent. mb9 19:55 Basic Metabolic Profile Sent. mb9 19:55 CBC with Diff Sent. mb9 19:55 Cardiac Injury Profile Sent. mb9 19:55 D-Dimer Quant Sent. mb9 19:55 Troponin Sent. mb9 19:55 Inserted saline lock: 18 gauge in left forearm and blood collected. The patient mb9 tolerated the procedure well. 20:11 Patient visited by Tri Laird RN. cf2 20:22 Patient visited by Tri Laird RN. cf2 20:22 The patient / caregiver is instructed regarding the plan of care and ED course. Patient cf2 has correct armband on for positive identification. Placed in gown. Bed in low position. Call light in reach. Side rails up X 1. Side rails up X2. monitoring and evaluation advisor on. Pulse ox on. NIBP on. Property :Personal belongings accompany Pt. Door closed. Noise minimized. Visitors limited. Lights dimmed. Moved to private room. Verbal reassurance given. Warm blanket given. Pillow given. Head of bed elevated. 20:22 No procedures done that require assistance. cf2 20:25 Patient visited by Tri Laird RN. cf2 20:44 Patient visited by Tri Laird RN. cf2 20:53 [facility] Payment Agreement was scanned into Jig[employer] and attached to record. gjb 21:23 Chest, 2 View (pa\E\lat) Returned. EDMS 21:31 Patient visited by Tri Laird RN. cf2 22:02 Patient visited by Tri Laird RN. cf2 22:34 Patient visited by Alon Low DO. mm11 22:35 [facility] is Referral Physician. mm11 22:39 Patient visited by Tri Laird RN. cf2 22:46 Patient visited by Tri Laird RN. cf2 22:50 Discontinued lock. cf2 12/27 10:25 T-Sheet-- Draft Copy was scanned into Jiglu and attached to record. gb 13:27 EKG-ADULT Returned. EDMS 16:19 ECG/EKG was scanned into [employer] and attached to record. gb 16:19 Radiology Report was scanned into MED[employer] and attached to record. gb 19:39 Chest, 2 View (pa\E\lat) Returned. EDMS Order Results: Lab Order: -Blood Culture; [facility] 12/26/16 20:34 Test: BLOOD CULTURE; Value: No growth after 24 hours . All specimens observed; Status: F Test: BLOOD CULTURE; Value: for 5 days. Results final at that time.; Status: F Test: BLOOD CULTURE; Value: No Growth after 48 hours. All Specimens observed; Status: F Test: BLOOD CULTURE; Value: for 7 days. Results final at that time.; Status: F Lab Order: B-Type Natiuretic Peptide; [facility] 12/26/16 19:52 Test: BRAIN NATRIURETIC PEPTIDE; Value: 10.6; Range: <100; Units: PG/ML; Status: F Lab Order: Basic Metabolic Profile; [facility] 12/26/16 20:34 Test: GLUCOSE, FASTING; Value: 174; Range: 70-105; Abnormal: Above high normal; Units: MG/DL; Status: F Test: BLOOD UREA NITROGEN; Value: 17; Range: 7-18; Units: MG/DL; Status: F Test: CREATININE FOR GFR; Value: 0.98; Range: 0.55-1.02; Units: MG/DL; Status: F Test: GLOMERULAR FILTRATION RATE; Value: > 60.0; Range: >51; Status: F Test: SODIUM LEVEL; Value: 146; Range: 136-145; Abnormal: Above high normal; Units: MEQ/L; Status: F Test: POTASSIUM SERUM; Value: 3.8; Range: 3.5-5.1; Units: MEQ/L; Status: F Test: CHLORIDE LEVEL; Value: 109; Range: 98-107; Abnormal: Above high normal; Units: MEQ/L; Status: F Test: CARBON DIOXIDE LEVEL; Value: 29; Range: 21-32; Units: MEQ/L; Status: F Test: ANION GAP; Value: 8; Range: 8-16; Units: MEQ/L; Status: F Test: CALCIUM LEVEL; Value: 9.0; Range: 8.5-10.1; Units: MG/DL; Status: F Test Note: ; Units are mL/min/1.73 m2 Chronic Kidney Disease Staging per NKF: Stage I & II GFR >=60 Normal to Mildly Decreased Stage III GFR 30-59 Moderately Decreased Stage IV GFR 15-29 Severely Decreased Stage V GFR <15 Very Little GFR Left ESRD GFR <15 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 Lab Order: CBC with Diff; SPEC'M 12/26/16 19:52 Test: WHITE BLOOD COUNT; Value: 6.4; Range: 4.0-10.0; Units: K/mm3; Status: F Test: RED BLOOD COUNT; Value: 4.22; Range: 4.00-5.40; Units: M/mm3; Status: F Test: HEMOGLOBIN; Value: 13.3; Range: 12.0-16.0; Units: g/dl; Status: F Test: HEMATOCRIT; Value: 40.0; Range: 36.0-47.0; Units: %; Status: F Test: MEAN CORPUSCULAR VOLUME; Value: 94.8; Range: 80.0-96.0; Units: fl; Status: F Test: MEAN CORPUSCULAR HEMOGLOBIN; Value: 31.5; Range: 27.0-33.0; Units: pg; Status: F Test: MEAN CORPUSCULAR HGB CONC; Value: 33.2; Range: 32.0-36.5; Units: g/dl; Status: F Test: RED CELL DISTRIBUTION WIDTH; Value: 13.9; Range: 11.5-14.5; Units: %; Status: F Test: PLATELET COUNT, AUTOMATED; Value: 197; Range: 150-450; Units: k/mm3; Status: F Test: NEUTROPHILS %; Value: 57.4; Range: 36.0-66.0; Units: %; Status: F Test: LYMPH %; Value: 32.1; Range: 24.0-44.0; Units: %; Status: F Test: MONO %; Value: 4.2; Range: 0.0-5.0; Units: %; Status: F Test: EOS %; Value: 3.8; Range: 0.0-3.0; Abnormal: Above high normal; Units: %; Status: F Test: BASO %; Value: 0.4; Range: 0.0-1.0; Units: %; Status: F Test: LARGE UNSTAINED CELL %; Value: 2.1; Range: 0.0-4.0; Units: %; Status: F Test: NEUTROPHILS #; Value: 3.7; Range: 1.8-7.7; Units: K/mm3; Status: F Test: LYMPH #; Value: 2.1; Range: 1.5-4.5; Units: K/mm3; Status: F Test: MONO #; Value: 0.3; Range: 0.0-0.8; Units: K/mm3; Status: F Test: EOS #; Value: 0.2; Range: 0.0-0.50; Units: K/mm3; Status: F Test: BASO #; Value: 0.0; Range: 0.0-0.2; Units: K/mm3; Status: F Test: LARGE UNSTAINED CELL #; Value: 0.1; Range: 0.0-0.4; Units: K/mm3; Status: F Lab Order: Cardiac Injury Profile; SPEC'M 12/26/16 20:34 Test: CPK CREATINE PHOSPHOKINASE; Value: 97; Range: 26-192; Units: U/L; Status: F Test: CK-MB VALUE MASS; Value: 2.3; Range: 0.0-3.6; Units: NG/ML; Status: F Test: MB/CK RELATIVE INDEX; Value: 2.37; Range: < OR =4; Status: F Test Note: ; DIAGNOSIS CRITERIA MMB ng/ml Relative Index (RI) NON-AMI < or = 5 N/A CAMPA ZONE > 5 < or = 4 AMI > 5 > 4 Lab Order: D-Dimer Quant; SPEC'M 12/26/16 19:52 Test: D-DIMER QUANT; Value: < 270.0; Range: <500; Units: ng/ml; Status: F Lab Order: Troponin; SPEC'M 12/26/16 20:34 Test: TROPONIN I; Value: < 0.02; Range: < 0.10; Units: NG/ML; Status: F Test Note: ; Troponin I Reference Interval for [employer] LOCI: 99th Percentile= 0.00-0.045 ng/ml Risk Stratification: <= 0.10 ng/ml Decreased Risk for Adverse Clinical Events. 0.10-1.50 ng/ml Increased Risk for Adverse Clinical Events. Evaluation of additional criterion and/or repeat testing in 2-6 hours is suggested to rule out myocardial damage. >= 1.50 ng/ml Indicative of Myocardial Injury. Lab Order: BLOOD CULTURES; SPEC'M 12/26/16 19:52 Test: BLOOD CULTURE; Value: No growth after 24 hours . All specimens observed; Status: F Test: BLOOD CULTURE; Value: for 5 days. Results final at that time.; Status: F Test: BLOOD CULTURE; Value: No Growth after 48 hours. All Specimens observed; Status: F Test: BLOOD CULTURE; Value: for 7 days. Results final at that time.; Status: F Radiology Order: Chest, 2 View (pa\E\lat) Test: Chest, 2 View (pa\E\lat) REASON FOR EXAMINATION: Shortness of Breath; CHEST, PA AND LATERAL: 12/26/2016.; ; Clinical history: Dyspnea.; ; Comparison: 01/17/2016.; ; Findings: The lung rocha are well inflated. There is no pleural effusion, acute; infiltrate, pleural thickening, atelectasis, nodule or mass. No apical scarring; or pneumothorax. The heart size is not grossly enlarged. There is no specific; chamber enlargement, vascular redistribution or pulmonary edema. The aorta is; normal for age. Airway is intact. No mediastinal or hilar mass. Bony thorax; shows marginal osteophytes without compression deformity. No free air the; diaphragm.; ; Impression:; ; 1. No acute cardiopulmonary change. 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 mm11 22:50 Discharge Assessment: Patient awake, alert and oriented x 3. No cognitive and/or cf2 functional deficits noted. Patient verbalized understanding of disposition instructions. Patient awake and alert. Oriented to person, place and time. patient administered narcotics - no. The following High Risk Discharge criteria are identified: None. Discharged to home ambulatory, with family, with significant other. Condition: stable Condition: improved. Discharge instructions given to patient, family, Instructed on discharge instructions, follow up and referral plans. Demonstrated understanding of instructions, Pt was receptive of discharge instructions/ teaching. No special radiology studies were completed. 22:51 Patient left the ED. cf2 Signatures: Dispatcher [employer] EDMS Em Marie, Alon Shelley, DO mm11 Nikki Larkin,RN RN js13 Rajinder Swift,MARÍA RN mb9 Susi Daniel, REJECT OPENER AND FILLER REJECT OPENER AND FILLER rs6 Juanita Huerta,RN RN nn1 Camila Augustin ChristinaRN RN cf2 Lito López, REJECT OPENER AND FILLER REJECT OPENER AND FILLER vannessav Christi Angeles2 Chart Complete MTDD
--- NOTE | 2016-12-29 06:26 | REPUSA ---
Clinical history: Pain, swelling. Findings: The common femoral, superficial femoral, popliteal, and other deep venous structures compre ss normally and demonstrate normal color Doppler flow. Normal venous waveforms with augmentation are seen. Impression: No evidence of deep vein thrombosis in either femoral popliteal venous system.
== END 2016-12-26 22:51 | disposition home or self-care (01) ==
LOC: M ED 18:32
DX: R06.02 Shortness of breath (principal); E10.9 Type 1 diabetes mellitus without complications; N18.9 Chronic kidney disease, unspecified; I25.2 Old myocardial infarction; Z72.0 Tobacco use; Z98.61 Coronary angioplasty status; Z79.02 Long term (current) use of antithrombotics/antiplatelets; Z92.240 Personal history of inhaled steroid therapy; Z79.4 Long term (current) use of insulin; Z79.899 Other long term (current) drug therapy; Z88.6 Allergy status to analgesic agent; Z88.8 Allergy status to other drugs, medicaments and biological substances

== ENCOUNTER → 2016-12-26 | Outpatient (REF) | payer OTHER | LOC: M SFHCPLAZ 17:12 | DX: E11.40 Type 2 diabetes mellitus with diabetic neuropathy, unspecified (principal) ==

== ENCOUNTER → 2017-01-01 | Outpatient (CLI) | payer OTHER | LOC: M LAB 15:20 | PROVIDERS: ATTEND Student in an Organized Health Care Education/Training Program | DX: R06.02 Shortness of breath (principal) ==

== ENCOUNTER → 2017-01-01 | Outpatient (CLI) | payer OTHER ==
[~2017-01-01] MED LIST changes: +ISOVUE-370 76% 100ML VIAL (Q9967) As Ordered ONE
--- NOTE | 2017-01-01 15:32 | REP ---
Clinical: Acute chest pain and shortness of breath. Technique: Axial contrast enhanced images from the thoracic inlet to the upper abdomen using 100 ml Isovue 370 intravenous contrast material with coronal and sagittal re-formations. Findings: Satisfactory enhancement of the pulmonary vasculature is achieved and no filling defects are identified to suggest pulmonary embolus. Thoracic aorta is normal caliber without aneurysm or dissection. Heart and pericardium are normal. Bilateral lung rocha are well aerated and clear without acute pulmonary parenchymal consolidation or atelectasis. No nodule or mass lesion. No pleural effusion/reaction. No pneumothorax. No adenopathy. Impression: No evidence for pulmonary embolus. No acute pleuroparenchymal or mediastinal process. Signed by Piyush Mcdonald MD 01/01/2017 03:23 P
== END ==
LOC: M RAD 14:54
PROVIDERS: ATTEND Internal Medicine
DX: R06.02 Shortness of breath (principal)

== ENCOUNTER → 2017-04-16 | Outpatient (REF) | payer OTHER ==
[~2017-04-16] MED LIST changes: -ISOVUE-370 76% 100ML VIAL (Q9967) As Ordered ONE; +NORC1TAB4 PO; -NORC5TAB PO; +SERT25TA PO; -SERT25TA85 PO
== END ==
LOC: M SFHCPLAZ 15:12
DX: E11.65 Type 2 diabetes mellitus with hyperglycemia (principal)

== ENCOUNTER → 2017-04-29 | Outpatient (CLI) | payer OTHER ==
[2017-04-29 16:16] LABS: ALBUMIN 4.1 GM/DL (3.2-5.2); ALBUMIN/GLOBULIN RATIO 1.46 (1.00-1.93); ALKALINE PHOSPHATASE 113 U/L (45-117); ALT/SGPT 68 U/L (12-78); ANION GAP 8 MEQ/L (8-16); AST/SGOT 39 U/L (15-37); BILIRUBIN,TOTAL 0.4 MG/DL (0.2-1.0); BLOOD UREA NITROGEN 18 MG/DL (7-18); CALCIUM LEVEL 9.6 MG/DL (8.5-10.1); CARBON DIOXIDE LEVEL 27 MEQ/L (21-32); CHLORIDE LEVEL 111 MEQ/L (98-107); CHOLESTEROL LEVEL 91 MG/DL (<200); GLOMERULAR FILTRATION RATE > 60.0 (>51); GLUCOSE, FASTING 78 MG/DL (70-105); SODIUM LEVEL 146 MEQ/L (136-145); TOTAL PROTEIN 6.9 GM/DL (6.4-8.2); TRIGLYCERIDES LEVEL 96 MG/DL (<150)
== END ==
LOC: M LAB 14:28
PROVIDERS: ATTEND Internal Medicine
DX: E11.65 Type 2 diabetes mellitus with hyperglycemia (principal)

== ENCOUNTER → 2017-04-29 | Outpatient (CLI) | payer OTHER ==
--- NOTE | 2017-04-29 15:45 | REP ---
MRCP: MRCP exam is accomplished utilizing multiple heavily T2-weighted sequences in the axial and coronal planes. MIP reconstruction images are performed. Comparison made with prior study of 10/27/2008. Patient has had a prior cholecystectomy. There is not significant intrahepatic or extrahepatic biliary dilatation. The common bile duct had maximum diameter of 5 to 6 mm. There is again no evidence of dilatation of the pancreatic duct. The main pancreatic duct once again appears to drain through the minor papilla compatible with pancreas divisum. There is no stricture or filling defect of the common bile duct. Adjacent upper abdominal structures appear unremarkable and unchanged. No free fluid or adenopathy is seen in the visualized abdomen. IMPRESSION: Status post cholecystectomy. No biliary dilatation. There are again findings compatible with pancreas divisum. Signed by Rocco Maldonado MD 04/29/2017 07:48 P
== END ==
LOC: M RAD 13:21
PROVIDERS: ATTEND Internal Medicine
DX: K86.1 Other chronic pancreatitis (principal)

== ENCOUNTER → 2017-07-06 | Outpatient (CLI) | payer OTHER ==
[~2017-07-06] MED LIST changes: -ACET-654 PO; +ACET1TAB17 PO; +AMAN100T PO; -ATOR1TAB18 PO; +ATOR80TA59 PO; +AZIT-12 PO; -AZIT250T3 PO; +BUPR75TA5 PO; +CHLO125TA PO; +DIPH50TA3 PO; -HALO10TA PO; +HALO10TA2 PO; +HYDR-3363 PO; -HYDR-4274 PO; +HYDR50TA70 PO; +LAMO150T PO; -METF1000 PO; +METF10004 PO; +METO5TAB2 PO; +MIRT15TA3 PO; +NEXI20CA PO; +PLAV1TAB2 PO; -PLAV75TA38 PO; -PROA1AER IN; +PROAAER10 IN; +REGL5TAB2 PO; +RISP0.5T3 PO; +SERO200T PO; +TOUJ1.2I SC; +TRAZO50TA PO; +VENL150C43 PO; +VENL75CA47 PO; +ZOFR4TAB3 PO
[2017-07-06 18:22] LABS: BASO % 0.3 % (0.0-1.0); EOS # 0.2 K/mm3 (0.0-0.50); LARGE UNSTAINED CELL # 0.1 K/mm3 (0.0-0.4); LARGE UNSTAINED CELL % 1.8 % (0.0-4.0); LYMPH # 2.1 K/mm3 (1.5-4.5); LYMPH % 35.9 % (24.0-44.0); MEAN CORPUSCULAR HEMOGLOBIN 32.3 pg (27.0-33.0); MEAN CORPUSCULAR HGB CONC 33.4 g/dl (32.0-36.5); MEAN CORPUSCULAR VOLUME 96.7 fl (80.0-96.0); MONO # 0.3 K/mm3 (0.0-0.8); MONO % 5.1 % (0.0-5.0); NEUTROPHILS % 52.8 % (36.0-66.0); PLATELET COUNT, AUTOMATED 191 k/mm3 (150-450); RED CELL DISTRIBUTION WIDTH 14.4 % (11.5-14.5); WHITE BLOOD COUNT 5.7 K/mm3 (4.0-10.0)
[2017-07-06 18:51] LABS: ERYTHROCYTE SEDIMENTATION RATE 14 mm/hr (0-30)
[2017-07-06 20:26] LABS: VITAMIN B12 LEVEL 315 PG/ML
[2017-07-06 20:27] LABS: FOLATE > 24.0 NG/ML
[2017-07-06 20:35] LABS: ALBUMIN 4.3 GM/DL (3.2-5.2); ALBUMIN/GLOBULIN RATIO 1.65 (1.00-1.93); ALKALINE PHOSPHATASE 101 U/L (45-117); ALT/SGPT 151 U/L (12-78); ANION GAP 13 MEQ/L (8-16); AST/SGOT 72 U/L (15-37); BILIRUBIN,TOTAL 0.5 MG/DL (0.2-1.0); BLOOD UREA NITROGEN 21 MG/DL (7-18); CALCIUM LEVEL 8.1 MG/DL (8.5-10.1); CARBON DIOXIDE LEVEL 23 MEQ/L (21-32); CHLORIDE LEVEL 112 MEQ/L (98-107); CREATININE FOR GFR 1.33 MG/DL (0.55-1.02); GLOMERULAR FILTRATION RATE 44.6 (>51); GLUCOSE, FASTING 103 MG/DL (70-105); POTASSIUM SERUM 4.3 MEQ/L (3.5-5.1); SODIUM LEVEL 148 MEQ/L (136-145); TOTAL PROTEIN 6.9 GM/DL (6.4-8.2)
[2017-07-07 12:01] LABS: ALBUMIN 4.49 GM/DL (3.29-5.55); GAMMA GLOBULIN % 8.3 % (11.1-18.8)
[2017-07-10 00:07] LABS: VITAMIN E LEVEL 6.4 mg/L (5.3-16.8)
[2017-07-24 06:50] LABS: Lyme Disease IgM Ab Quantitati <0.80
[2017-07-24 06:51] LABS: Lyme Disease IgG/IgM Antibodie <0.91
== END ==
LOC: M LAB 15:25
PROVIDERS: ATTEND Psychiatry & Neurology Neurology
DX: G62.9 Polyneuropathy, unspecified (principal)

== ENCOUNTER 2017-07-20 13:52 | Emergency (ER) | payer OTHER ==
[~2017-07-20] VITALS: Ht 157.5 cm; Wt 54.0 kg
[~2017-07-20 13:52] MED LIST changes: -AMAN100T PO; -BUPR75TA5 PO; -CHLO125TA PO; -DIPH50TA3 PO; -HYDR-3363 PO; -LAMO150T PO; -METO5TAB2 PO; -MIRT15TA3 PO; -NEXI20CA PO; -REGL5TAB2 PO; -RISP0.5T3 PO; -SERO200T PO; -TOUJ1.2I SC; -TRAZO50TA PO; -VENL150C43 PO; -VENL75CA47 PO; -ZOFR4TAB3 PO
[2017-07-20] MEDS ORDERED: MORPHINE 2 MG/ML 1ML SYRINGE IV ONE (16:15)
[2017-07-20] MEDS ORDERED: NS 1,000 ML IV ONE ×2 (16:15→17:45)
[2017-07-20 17:09] LABS: BASO % 0.2 % (0.0-1.0); EOS # 0.1 K/mm3 (0.0-0.50); EOS % 1.6 % (0.0-3.0); LARGE UNSTAINED CELL # 0.2 K/mm3 (0.0-0.4); LARGE UNSTAINED CELL % 1.9 % (0.0-4.0); LYMPH # 2.8 K/mm3 (1.5-4.5); LYMPH % 33.1 % (24.0-44.0); MEAN CORPUSCULAR HEMOGLOBIN 32.3 pg (27.0-33.0); MEAN CORPUSCULAR HGB CONC 35.4 g/dl (32.0-36.5); MEAN CORPUSCULAR VOLUME 91.2 fl (80.0-96.0); MONO # 0.6 K/mm3 (0.0-0.8); MONO % 7.3 % (0.0-5.0); NEUTROPHILS # 4.5 K/mm3 (1.8-7.7); NEUTROPHILS % 55.8 % (36.0-66.0); PLATELET COUNT, AUTOMATED 246 k/mm3 (150-450); RED CELL DISTRIBUTION WIDTH 13.6 % (11.5-14.5)
[2017-07-20 17:27] LABS: INR 1.12
[2017-07-20 17:31] LABS: ALBUMIN 4.6 GM/DL (3.2-5.2); ALBUMIN/GLOBULIN RATIO 1.48 (1.00-1.93); BILIRUBIN,DIRECT 0.1 MG/DL (0.0-0.2); BILIRUBIN,TOTAL 0.5 MG/DL (0.2-1.0); CALCIUM LEVEL 9.3 MG/DL (8.5-10.1); CREATININE FOR GFR 1.24 MG/DL (0.55-1.02); GLOMERULAR FILTRATION RATE 48.4 (>51); POTASSIUM SERUM 3.5 MEQ/L (3.5-5.1); TOTAL PROTEIN 7.7 GM/DL (6.4-8.2)
--- NOTE | 2017-07-20 17:37 | REP ---
Clinical: Lower chest and abdominal pain . Comparison: 12/26/2016 . Findings: The mediastinum and cardiac silhouette are stable and within normal limits for portable technique. The lung rocha are clear without acute consolidation, effusion, or pneumothorax. Skeletal structures are intact. Impression: No acute cardiopulmonary process appreciated. Signed by Piyush Mcdonald MD 07/20/2017 05:29 P
[2017-07-20] MEDS ORDERED: LYRI300C PO (17:48)
[2017-07-20] MEDS ORDERED: SERO200T PO (17:48)
[2017-07-20] MEDS ORDERED: VENL150C43 PO (17:48)
[2017-07-20] MEDS ORDERED: TOUJ1.2I SC (17:48)
[2017-07-20] MEDS ORDERED: VENL75CA47 PO (17:48)
[2017-07-20] MEDS ORDERED: AMAN100T PO (17:48)
[2017-07-20] MEDS ORDERED: METF10004 PO (17:48)
[2017-07-20] MEDS ORDERED: MIRT15TA3 PO (17:48)
[2017-07-20] MEDS ORDERED: LAMO150T PO (17:48)
[2017-07-20] MEDS ORDERED: PLAV1TAB2 PO (17:48)
[2017-07-20] MEDS ORDERED: NEXI20CA PO (17:48)
[2017-07-20] MEDS ORDERED: ATOR80TA59 PO (17:48)
[2017-07-20] MEDS ORDERED: CARV12.5 PO (17:48)
[2017-07-20] MEDS ORDERED: VITA200016 PO (17:48)
[2017-07-20] MEDS ORDERED: BUPR75TA5 PO (17:48)
[2017-07-20] MEDS ORDERED: ISOVUE-370 76% 100ML VIAL (Q9967) As Ordered ONE (17:51)
--- NOTE | 2017-07-20 18:15 | REP ---
Clinical: Acute abdominal pain. Technique: Axial contrast enhanced images from the lung bases to the pubic symphysis using 100 ml Isovue 370 intravenous contrast material with coronal and sagittal re-formations. Comparison: 01/17/2016. Findings: Lung bases are clear. Visualized heart and pericardium within normal limits. Liver, spleen, pancreas, bilateral adrenal glands and kidneys are normal. The patient is status post cholecystectomy. The enteric system is without obstruction or acute inflammatory process and a normal terminal ileum and appendix are identified in the right lower quadrant. Pelvis demonstrates normal bladder and age-appropriate uterus / adnexa. Evidence for bilateral tubal ligation. No ascites. No free air. No obvious adenopathy. Abdominal aorta without aneurysm or dissection. Musculoskeletal structures demonstrate degenerative disc disease at the L4-5 level. Impression: 1. No acute abdominopelvic pathology appreciated. 2. Advanced degenerative disc osteophyte complex at the L4-5 level. Signed by Piyush Mcdonald MD 07/20/2017 06:07 P
[2017-07-20] MEDS ORDERED: ZOFR4TAB3 PO (19:43)
[2017-07-20] MEDS ORDERED: REGL5TAB2 PO (19:52)
[2017-07-20 20:07] VITALS: BP 136/75
[2017-07-21] MEDS ORDERED: METO5TAB2 PO (17:22)
== END 2017-07-20 21:00 | disposition home or self-care (01) ==
LOC: M ED 13:52
DX: R11.10 Vomiting, unspecified (principal); R19.7 Diarrhea, unspecified; I25.10 Atherosclerotic heart disease of native coronary artery without angina pectoris; I25.2 Old myocardial infarction; E10.9 Type 1 diabetes mellitus without complications; I10 Essential (primary) hypertension; G47.30 Sleep apnea, unspecified; F41.9 Anxiety disorder, unspecified; F32.9 Major depressive disorder, single episode, unspecified; Z95.5 Presence of coronary angioplasty implant and graft; M25.78 Osteophyte, vertebrae; Z79.899 Other long term (current) drug therapy; Z79.84 Long term (current) use of oral hypoglycemic drugs; Z88.6 Allergy status to analgesic agent; Z88.0 Allergy status to penicillin; Z88.8 Allergy status to other drugs, medicaments and biological substances; Z91.040 Latex allergy status
CPT/HCPCS: 71010; 74177; 80048; 80076; 82150; 83605; 83690; 85025; 85610; 85730; 87040; 96374; 99283; Q9967

== ENCOUNTER 2017-07-21 12:44 | Inpatient (IN) | payer OTHER ==
[~2017-07-21] VITALS: Ht 157.5 cm; Wt 47.4 kg
[2017-07-21] MEDS: VENLAFAXINE **XR** 75MG CAPSULE PO SCH (09:00)
[2017-07-21] MEDS: CLOPIDOGREL 75 MG TAB PO SCH (09:00)
[2017-07-21] MEDS: VITAMIN D 1,000 INTERNATIONAL UNITS TABLET PO SCH (09:00)
[2017-07-21] MEDS: buPROPion 75 MG TAB PO SCH (09:00)
[~2017-07-21 12:44] MED LIST changes: +AMAN100T PO; +BUPR75TA5 PO; +LAMO150T PO; +MIRT15TA3 PO; +NEXI20CA PO; +REGL5TAB2 PO; +SERO200T PO; +TOUJ1.2I SC; +VENL150C43 PO; +VENL75CA47 PO; +ZOFR4TAB3 PO
[2017-07-21] MEDS ORDERED: LORazepam 0.5 MG TAB PO ONE (15:00)
[2017-07-21 15:29] LABS: MEAN CORPUSCULAR HEMOGLOBIN 32.5 pg (27.0-33.0); MEAN CORPUSCULAR HGB CONC 34.3 g/dl (32.0-36.5); MEAN CORPUSCULAR VOLUME 94.7 fl (80.0-96.0); RED CELL DISTRIBUTION WIDTH 13.8 % (11.5-14.5); WHITE BLOOD COUNT 8.2 K/mm3 (4.0-10.0)
[2017-07-21 16:01] LABS: METHADONE URINE NEGATIVE (NEGATIVE)
[2017-07-21 16:02] LABS: ALBUMIN 4.8 GM/DL (3.2-5.2); ALBUMIN/GLOBULIN RATIO 1.66 (1.00-1.93); ALKALINE PHOSPHATASE 126 U/L (45-117); ALT/SGPT 98 U/L (12-78); ANION GAP 10 MEQ/L (8-16); AST/SGOT 59 U/L (15-37); BILIRUBIN,DIRECT < 0.1 MG/DL (0.0-0.2); BILIRUBIN,TOTAL 0.5 MG/DL (0.2-1.0); BLOOD UREA NITROGEN 30 MG/DL (7-18); CALCIUM LEVEL 9.8 MG/DL (8.5-10.1); CARBON DIOXIDE LEVEL 22 MEQ/L (21-32); CHLORIDE LEVEL 114 MEQ/L (98-107); GLOMERULAR FILTRATION RATE > 60.0 (>51); GLUCOSE, FASTING 169 MG/DL (70-105); POTASSIUM SERUM 4.6 MEQ/L (3.5-5.1); SODIUM LEVEL 146 MEQ/L (136-145); TOTAL PROTEIN 7.7 GM/DL (6.4-8.2)
[2017-07-21] MEDS ORDERED: METO5TAB2 PO (17:22)
[2017-07-21] MEDS: MIRTAZAPINE 15 MG TAB PO SCH (20:49)
[2017-07-21] MEDS: metFORMIN (GLUCOPHAGE) 1000 MG TABLET PO SCH (20:49)
[2017-07-21] MEDS: QUEtiapine FUMARATE 200 MG TAB PO SCH (20:49)
[2017-07-21] MEDS: ATORVASTATIN 20 MG TAB PO SCH (20:50)
[2017-07-21] MEDS: PREGABALIN 75 MG CAP(LYRICA) PO SCH (20:50)
[2017-07-21] MEDS: HumaLOG INSULIN (NovoLOG) PER UNIT SC SCH (21:00)
[2017-07-21] MEDS: PANTOPRAZOLE 20 MG TAB PO SCH (21:00)
[2017-07-21] MEDS: METOCLOPRAMIDE 5 MG TAB PO SCH (21:00)
[2017-07-21] MEDS: CARVedilol 12.5 MG TAB PO SCH (21:11)
[2017-07-21] MEDS: cloNIDine 0.1 MG TAB PO SCH (21:12)
[2017-07-22] MEDS: HumaLOG INSULIN (NovoLOG) PER UNIT SC SCH ×4 (06:39→21:00)
[2017-07-22] MEDS: METOCLOPRAMIDE 5 MG TAB PO SCH ×5 (06:45→21:11)
[2017-07-22 07:00] VITALS: BP_SYST 118; BP_SYST 141; BP_DIAS 66; BP_DIAS 71
[2017-07-22] MEDS: buPROPion 75 MG TAB PO SCH (09:37)
[2017-07-22] MEDS: PREGABALIN 75 MG CAP(LYRICA) PO SCH ×2 (09:37→21:10)
[2017-07-22] MEDS: PANTOPRAZOLE 20 MG TAB PO SCH ×2 (09:37→21:09)
[2017-07-22] MEDS: CARVedilol 12.5 MG TAB PO SCH ×2 (09:37→21:09)
[2017-07-22] MEDS: VENLAFAXINE **XR** 75MG CAPSULE PO SCH (09:37)
[2017-07-22] MEDS: VITAMIN D 1,000 INTERNATIONAL UNITS TABLET PO SCH (09:38)
[2017-07-22] MEDS: CLOPIDOGREL 75 MG TAB PO SCH (09:38)
[2017-07-22] MEDS: cloNIDine 0.1 MG TAB PO SCH ×3 (09:38→21:00)
[2017-07-22] MEDS: metFORMIN (GLUCOPHAGE) 1000 MG TABLET PO SCH ×2 (09:38→17:02)
--- NOTE | 2017-07-22 15:55 | MHHPEPDOC ---
[facility] History & Physical History and Physical DATE OF ADMISSION: Jul 21, 2017 at 17:20 LEGAL STATUS AT ADMISSION: 9.39 CHIEF COMPLAINT: " I was having a nervous breakdown". Patient couldn't explain in detail because she didn't remember at all why she was brought to the hospital. HISTORY OF THE PRESENT ILLNESS: According to history, the patient was brought to the Ed by EMS because her sister found her shaking and shivering, completely naked in a corner of her house. According to her sister, patient grabbed a hammer and was about to hammer her head with it. At the Emergency room she was pacing and was heard when she talked to herself saying "PLEASE STOP". She was observed to be restless, paranoid and responding to internal stimuli. has a history of bipolar disorder, medication non compliance and trauma. Her sister said at the ED she tought patient had not been taking her medications and sister thought patient had been having command A/V hallucinations for the past week. Apparently she thought jeremy sutton she was served at lunch time was a cockroach. This morning she expressed she knew she was here because she had a nervous breakdown and stated she was not taking her medications because she had diarrhea but she said she would take them now, at the [facility]. she also expressed having memory problems. She coundn't contribute to provide more information because she was very sleepy and confused. PSYCHIATRIC REVIEW OF SYSTEMS: Affective: Anxious Anxiety: High Trauma: Couldn't be assessed due to patients's mental status Psychosis: She's responding to internal stimuli Personally: Needs further assessment PAST PSYCHIATRIC HISTORY: Prior Psychiatric Disorder: H/O bipolar disorder Outpatient Treatment: Could not be assessed due to patient's mental status ( confused and sleepy) Suicidal/Self injurious: Could not be assessed. Psychotropic Medication History: She has been on several psychiatric medications. ALLERGIES: Please see below. FAMILY PSYCHIATRIC HISTORY: Could not be assessed due to patient's mental status. SOCIAL HISTORY: Early Relations/development: Could not be assessed due to patient's mental status Sibling order: Could not be assessed due to patient's mental status Paternal relationships: Could not be assessed due to patient's mental status. Education: Could not be assessed due to patient's mental status. Occupational: Could not be assessed due to patient's mental status. Legal: Could not be assessed due to patient's mental status. Martial: Could not be assessed due to patient's mental status. Economic: Could not be assessed due to patient's mental status. Supports: Could not be assessed due to patient's mental status. Abuse/trauma: Could not be assessed due to patient's altered mental status. SUBSTANCE ABUSE HISTORY: Could not be assessed at this time. PAST MEDICAL/SURGICAL HISTORY: 1. GERD 2. HYPERTENSION 3. HYPOTHYROIDISM VITAL SIGNS: See below MENTAL STATUS EXAMINATION: General appearance: Patient is a 51-year old female, who is sleepy, cooperative , dressed in [facility], with very poor eye contact, confused Speech: Sparse, soft spoken. Thought processes: Disorganized. Thought content: Not goal-directed. Abstract reasoning and computation: Unable to assess at this time due to altered mental status. Description of associations: Unable to assess at this time, patient almost didn' t speak. Description of abnormal or psychotic thoughts: Patient is responding to internal stimuli. Judgment: Poor Insight: Poor Orientation: Patient is not oriented Recent and remote memory: Poor Attention span and concentration: Poor Fund of knowledge: Unable to assess due to altered mental status Mood: Affect: Blunted DIAGNOSES: 1. Unspecified psychotic disorder; rule out bipolar disorder; rule out schizophrenia ASSESSMENT: Patient will need to be reassessed tomorrow because due to her confusion on, as sleepiness and altered perceptions couldn't be fully evaluated. She spoke very little, closed her eyes and remained with her eyes closed for long periods of time as if she will be responding to internal stimuli. Then she expressed having problems with memory because she hasn't had "her nervous breakdown" PROBLEM LIST: 1. Altered thoughts. 2. Altered perceptions. 3. Noncompliance 4. Risk for self injury. INITIAL TREATMENT PLAN: 1. Patient was admitted on a 9. 39 2. Complete history was obtained. 3. With patients permission, family will be contacted and database will be expanded. 4. Patients medication regimen will be reviewed and changed accordingly. 5. Patient will be provided with protected environment. 6. Patient will be treated with individual, group, and milieu therapies. 7. Patient will receive supportive psych-education. 8. Discharge planning will commence immediately. 9. Outpatient follow-up treatment will be strongly recommended. 10. The initial treatment plan will focus initially on: * Depression. * Risk for suicide. * Substance abuse. ESTIMATED LENGTH OF STAY: 7-10 DAYS. TIME SPENT COUNSELING AND COORDINATING INITIAL CARE: 30 minutes. Laboratory Data 24H Labs Laboratory Tests 2 07/21/17 20:46: Bedside Glucose (Misc Panel) 108H 07/22/17 06:32: Bedside Glucose (Misc Panel) 98 07/22/17 11:46: Bedside Glucose (Misc Panel) 96 FSBS Laboratory Tests Test 07/21/17 20:46 07/22/17 06:32 07/22/17 11:46 Range/Units Bedside Glucose (Misc Panel) 108 98 96 70-105 MG/DL Medications Scheduled (Rona Medina) 300 Unit/Ml Inj, 8 UNIT SC BID, (Reported) Amantadine HCl (Amantadine HCl) 100 Mg Tab, 100 MG PO BID, (Reported) Atorvastatin Calcium (Atorvastatin Calcium) 80 Mg Tab, 80 MG PO QHS, (Reported) Bupropion HCl (Bupropion HCl) 75 Mg Tab, 75 MG PO DAILY, (Reported) Carvedilol (Carvedilol) 12.5 Mg Tab, 12.5 MG PO BID, (Reported) Clopidogrel Bisulfate (Plavix) 75 Mg Tab, 75 MG PO DAILY, (Reported) Esomeprazole Magnesium Trihydr (Nexium) 20 Mg Cap, 20 MG PO BID, (Reported) Lamotrigine (Lamotrigine) 150 Mg Tab, 150 MG PO DAILY, (Reported) Metformin Hydrochloride (Metformin HCl) 1,000 Mg Tab, 1,000 MG PO BID, (Reported ) Metoclopramide HCl (Metoclopramide HCl) 5 Mg Tab, 5 MG PO ACHS, (Reported) Mirtazapine (Mirtazapine) 15 Mg Tab, 15 MG PO QHS, (Reported) Pregabalin (Lyrica) 300 Mg Cap, 300 MG PO BID, (Reported) Quetiapine Fumerate (Seroquel) 200 Mg Tab, 200 MG PO QHS, (Reported) Venlafaxine HCl (Venlafaxine HCl ER) 75 Mg Capcr, 75 MG PO DAILY, (Reported) 225MG TOTAL DAILY Venlafaxine Hydrochloride (Venlafaxine HCl ER) 150 Mg Cap, 150 MG PO DAILY, ( Reported) 225MG TOTAL DAILY Vitamin D (Vitamin D) 2,000 Unit Cap, 2,000 UNIT PO DAILY, (Reported) Scheduled PRN Trazodone HCl (Trazodone HCl) 50 Mg Tab, 50 MG PO QHSP PRN for INSOMNIA Allergies Coded Allergies: Aspirin (Verified Allergy, Severe, HIVES, DIFFICULTY BREATHING, 07/21/17) Ondansetron (Unverified Allergy, Intermediate, HIVES, 01/17/16) Latex (Verified Allergy, Unknown, 07/21/17) Penicillins (Verified Allergy, Unknown, 07/20/17) Alprazolam (Verified Adverse Reaction, Mild, FLIPS OUT, 07/21/17) DANNIE RUBALCAVA MD Jul 22, 2017 15:55
[2017-07-22 18:00] VITALS: BP 92/50
[2017-07-22] MEDS: MIRTAZAPINE 15 MG TAB PO SCH (21:10)
[2017-07-22] MEDS: ATORVASTATIN 20 MG TAB PO SCH (21:11)
[2017-07-22] MEDS: QUEtiapine FUMARATE 200 MG TAB PO SCH (21:11)
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
[2017-07-23] MEDS: HumaLOG INSULIN (NovoLOG) PER UNIT SC SCH ×4 (06:34→21:00)
[2017-07-23] MEDS: METOCLOPRAMIDE 5 MG TAB PO SCH ×4 (06:35→21:06)
[2017-07-23 06:54] VITALS: BP 109/55
[2017-07-23] MEDS: cloNIDine 0.1 MG TAB PO SCH ×3 (09:00→21:00)
[2017-07-23] MEDS: CARVedilol 12.5 MG TAB PO SCH ×2 (09:00→21:06)
[2017-07-23] MEDS: buPROPion 75 MG TAB PO SCH (09:03)
[2017-07-23] MEDS: PANTOPRAZOLE 20 MG TAB PO SCH ×2 (09:03→21:06)
[2017-07-23] MEDS: metFORMIN (GLUCOPHAGE) 1000 MG TABLET PO SCH ×2 (09:03→17:22)
[2017-07-23] MEDS: VENLAFAXINE **XR** 75MG CAPSULE PO SCH (09:04)
[2017-07-23] MEDS: VITAMIN D 1,000 INTERNATIONAL UNITS TABLET PO SCH (09:04)
[2017-07-23] MEDS: PREGABALIN 75 MG CAP(LYRICA) PO SCH ×2 (09:04→21:07)
[2017-07-23] MEDS: CLOPIDOGREL 75 MG TAB PO SCH (09:04)
[2017-07-23 18:00] VITALS: BP 133/78
[2017-07-23] MEDS: MIRTAZAPINE 15 MG TAB PO SCH (21:06)
[2017-07-23] MEDS: QUEtiapine FUMARATE 200 MG TAB PO SCH (21:06)
[2017-07-23] MEDS: ATORVASTATIN 20 MG TAB PO SCH (21:07)
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
[2017-07-23] MEDS ORDERED: MAALOX 30 ML SUSP *UDC PO PRN (23:15)
[2017-07-23] MEDS ORDERED: ACETAMINOPHEN TAB 650MG DOSE (2X325MG) PO PRN (23:15)
[2017-07-23] MEDS ORDERED: MOM 30ML SUSPENSION UDC PO PRN (23:15)
[2017-07-23] MEDS ORDERED: traZODone 50 MG TAB PO PRN (23:15)
[2017-07-24 05:17] LABS: BILIRUBIN,TOTAL 0.2 MG/DL (0.2-1.0); CALCIUM LEVEL 8.7 MG/DL (8.5-10.1); GLOMERULAR FILTRATION RATE 27.4 (>51); POTASSIUM SERUM 4.2 MEQ/L (3.5-5.1); TOTAL PROTEIN 5.3 GM/DL (6.4-8.2)
[2017-07-24 05:18] LABS: ALBUMIN 3.3 GM/DL (3.2-5.2); ALBUMIN/GLOBULIN RATIO 1.65 (1.00-1.93)
[2017-07-24 05:28] LABS: THYROXINE (T4) 6.7 UG/DL (4.5-12.0)
[2017-07-24 05:29] LABS: CREATININE FOR GFR 2.03 MG/DL (0.55-1.02)
[2017-07-24 07:12] VITALS: BP 118/60
[2017-07-24] MEDS: HumaLOG INSULIN (NovoLOG) PER UNIT SC SCH ×4 (07:26→20:38)
[2017-07-24] MEDS: METOCLOPRAMIDE 5 MG TAB PO SCH ×4 (07:27→20:37)
[2017-07-24] MEDS: metFORMIN (GLUCOPHAGE) 1000 MG TABLET PO SCH ×2 (07:27→17:30)
[2017-07-24] MEDS: cloNIDine 0.1 MG TAB PO SCH ×3 (09:00→20:38)
[2017-07-24] MEDS: CARVedilol 12.5 MG TAB PO SCH ×2 (09:17→20:37)
[2017-07-24] MEDS: CLOPIDOGREL 75 MG TAB PO SCH (09:17)
[2017-07-24] MEDS: VITAMIN D 1,000 INTERNATIONAL UNITS TABLET PO SCH (09:17)
[2017-07-24] MEDS: buPROPion 75 MG TAB PO SCH (09:17)
[2017-07-24] MEDS: PANTOPRAZOLE 20 MG TAB PO SCH ×2 (09:17→20:37)
[2017-07-24] MEDS: PREGABALIN 75 MG CAP(LYRICA) PO SCH ×2 (09:18→20:36)
[2017-07-24] MEDS: VENLAFAXINE **XR** 75MG CAPSULE PO SCH (09:18)
[2017-07-24] MEDS: AMANTADINE 100 MG CAP PO SCH ×2 (11:03→20:36)
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
[2017-07-24 18:00] VITALS: BP 113/64
[2017-07-24] MEDS: MIRTAZAPINE 15 MG TAB PO SCH (20:36)
[2017-07-24] MEDS: QUEtiapine FUMARATE 200 MG TAB PO SCH (20:37)
[2017-07-24] MEDS: ATORVASTATIN 20 MG TAB PO SCH (20:38)
[2017-07-25] MEDS: METOCLOPRAMIDE 5 MG TAB PO SCH ×4 (06:39→21:10)
[2017-07-25] MEDS: HumaLOG INSULIN (NovoLOG) PER UNIT SC SCH ×4 (06:40→21:00)
[2017-07-25 06:53] VITALS: BP 93/60
[2017-07-25] MEDS: PANTOPRAZOLE 20 MG TAB PO SCH ×2 (09:00→21:10)
[2017-07-25] MEDS: AMANTADINE 100 MG CAP PO SCH ×2 (09:00→21:09)
[2017-07-25] MEDS: VENLAFAXINE **XR** 75MG CAPSULE PO SCH (09:00)
[2017-07-25] MEDS: cloNIDine 0.1 MG TAB PO SCH ×3 (09:00→21:00)
[2017-07-25] MEDS ORDERED: VENLAFAXINE **XR** 75MG CAPSULE PO SCH (09:00)
[2017-07-25] MEDS: buPROPion 75 MG TAB PO SCH (09:01)
[2017-07-25] MEDS: metFORMIN (GLUCOPHAGE) 1000 MG TABLET PO SCH ×2 (09:01→17:12)
[2017-07-25] MEDS: CLOPIDOGREL 75 MG TAB PO SCH (09:01)
[2017-07-25] MEDS: VITAMIN D 1,000 INTERNATIONAL UNITS TABLET PO SCH (09:01)
[2017-07-25] MEDS: PREGABALIN 75 MG CAP(LYRICA) PO SCH ×2 (09:01→21:09)
[2017-07-25] MEDS: CARVedilol 12.5 MG TAB PO SCH ×2 (09:06→21:10)
[2017-07-25 18:20] VITALS: BP 98/58
[2017-07-25] MEDS: MIRTAZAPINE 15 MG TAB PO SCH (21:10)
[2017-07-25] MEDS: QUEtiapine FUMARATE 200 MG TAB PO SCH (21:10)
[2017-07-25] MEDS: ATORVASTATIN 20 MG TAB PO SCH (21:10)
[2017-07-26] MEDS: METOCLOPRAMIDE 5 MG TAB PO SCH ×4 (06:36→20:38)
[2017-07-26] MEDS: HumaLOG INSULIN (NovoLOG) PER UNIT SC SCH ×4 (06:36→20:33)
[2017-07-26] MEDS: VENLAFAXINE **XR** 75MG CAPSULE PO SCH (09:00)
[2017-07-26] MEDS: CARVedilol 12.5 MG TAB PO SCH ×2 (09:00→20:39)
[2017-07-26] MEDS: PANTOPRAZOLE 20 MG TAB PO SCH ×2 (09:00→20:38)
[2017-07-26] MEDS: AMANTADINE 100 MG CAP PO SCH ×2 (09:00→20:38)
[2017-07-26] MEDS: cloNIDine 0.1 MG TAB PO SCH ×3 (09:00→20:32)
[2017-07-26] MEDS: metFORMIN (GLUCOPHAGE) 1000 MG TABLET PO SCH ×2 (09:00→17:01)
[2017-07-26] MEDS: PREGABALIN 75 MG CAP(LYRICA) PO SCH ×2 (09:00→20:38)
[2017-07-26] MEDS: VITAMIN D 1,000 INTERNATIONAL UNITS TABLET PO SCH (09:01)
[2017-07-26] MEDS: CLOPIDOGREL 75 MG TAB PO SCH (09:01)
[2017-07-26] MEDS: buPROPion 75 MG TAB PO SCH (09:01)
[2017-07-26 18:17] VITALS: BP 120/62
[2017-07-26] MEDS: ATORVASTATIN 20 MG TAB PO SCH (20:38)
--- NOTE | 2017-07-26 21:06 | MHIPN ---
DATE: 07/25/2017 SUBJECTIVE: The patient today states, "I'm doing better to go home." She says that she slept well. She says she has not heard any voices for the past two days. MENTAL STATUS EXAMINATION: This patient is alert and oriented times three. Eye contact is fairly good. Psychomotor activity is normal. There is no formal thought disorder noted. She says that her mood is good. Affect is constricted but appropriate. She denies hearing any voices. Concentration is fair. Memory is fair. Insight and judgment are poor. DIAGNOSES: 1. Unspecified psychotic disorder. 2. Rule out bipolar disorder. 3. Rule out schizophrenia. TREATMENT PLAN: At this point, we will further observe and evaluate this patient for continued resolution of her psychotic symptoms, and continue stabilization of her mood. ALANNAH
[2017-07-26] MEDS: QUEtiapine FUMARATE 200 MG TAB PO SCH (21:43)
[2017-07-26] MEDS: MIRTAZAPINE 15 MG TAB PO SCH (21:43)
[2017-07-27] MEDS: METOCLOPRAMIDE 5 MG TAB PO SCH ×2 (06:46→12:00)
[2017-07-27] MEDS: HumaLOG INSULIN (NovoLOG) PER UNIT SC SCH ×2 (06:57→12:00)
[2017-07-27] MEDS: VENLAFAXINE **XR** 75MG CAPSULE PO SCH (08:21)
[2017-07-27] MEDS: metFORMIN (GLUCOPHAGE) 1000 MG TABLET PO SCH (08:21)
[2017-07-27] MEDS: CLOPIDOGREL 75 MG TAB PO SCH (08:21)
[2017-07-27] MEDS: VITAMIN D 1,000 INTERNATIONAL UNITS TABLET PO SCH (08:21)
[2017-07-27] MEDS: PANTOPRAZOLE 20 MG TAB PO SCH (08:21)
[2017-07-27] MEDS: AMANTADINE 100 MG CAP PO SCH (08:22)
[2017-07-27] MEDS: PREGABALIN 75 MG CAP(LYRICA) PO SCH (08:22)
[2017-07-27] MEDS: buPROPion 75 MG TAB PO SCH (08:22)
[2017-07-27] MEDS: cloNIDine 0.1 MG TAB PO SCH (08:25)
[2017-07-27 08:26] VITALS: BP 98/63
[2017-07-27] MEDS: CARVedilol 12.5 MG TAB PO SCH (08:26)
[2017-07-27] MEDS ORDERED: TRAZO50TA PO (10:25)
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
== END 2017-07-27 12:10 | disposition home or self-care (01) | DRG 751 ==
LOC: M ED 12:44 → M ED INP 17:20 → M PSY 18:15
PROVIDERS: ADMIT Psychiatry & Neurology Psychiatry; ATTEND Psychiatry & Neurology Psychiatry
DX: F29 Unspecified psychosis not due to a substance or known physiological condition (principal); K76.0 Fatty (change of) liver, not elsewhere classified; F20.9 Schizophrenia, unspecified; E55.9 Vitamin D deficiency, unspecified; E11.9 Type 2 diabetes mellitus without complications; G62.9 Polyneuropathy, unspecified; F31.9 Bipolar disorder, unspecified; F43.10 Post-traumatic stress disorder, unspecified; Z62.810 Personal history of physical and sexual abuse in childhood; Z79.899 Other long term (current) drug therapy; Z79.82 Long term (current) use of aspirin; Z88.0 Allergy status to penicillin; Z91.040 Latex allergy status; Z88.8 Allergy status to other drugs, medicaments and biological substances; G47.00 Insomnia, unspecified; J45.909 Unspecified asthma, uncomplicated; I25.10 Atherosclerotic heart disease of native coronary artery without angina pectoris; E78.5 Hyperlipidemia, unspecified; I10 Essential (primary) hypertension; F41.9 Anxiety disorder, unspecified; Z95.810 Presence of automatic (implantable) cardiac defibrillator; K21.9 Gastro-esophageal reflux disease without esophagitis; M54.5 Low back pain; N39.3 Stress incontinence (female) (male); Z68.1 Body mass index [BMI] 19.9 or less, adult; F17.200 Nicotine dependence, unspecified, uncomplicated

== ENCOUNTER → 2017-08-27 | Outpatient (REF) | payer OTHER ==
[~2017-08-27] MED LIST changes: +CHLO125TA PO; +DIPH50TA3 PO; +HYDR-3363 PO; +METO5TAB2 PO; +RISP0.5T3 PO; +TRAZO50TA PO
[2017-08-27 19:08] LABS: ANION GAP 8 MEQ/L (8-16); BLOOD UREA NITROGEN 21 MG/DL (7-18); CALCIUM LEVEL 9.5 MG/DL (8.5-10.1); CARBON DIOXIDE LEVEL 29 MEQ/L (21-32); CHLORIDE LEVEL 106 MEQ/L (98-107); CREATININE FOR GFR 0.89 MG/DL (0.55-1.02); GLOMERULAR FILTRATION RATE > 60.0 (>51); GLUCOSE, FASTING 170 MG/DL (70-105); POTASSIUM SERUM 4.3 MEQ/L (3.5-5.1); SODIUM LEVEL 143 MEQ/L (136-145)
== END ==
LOC: M SFHCPLAZ 14:10
PROVIDERS: ATTEND Family Medicine
DX: R60.0 Localized edema (principal); E11.9 Type 2 diabetes mellitus without complications

== ENCOUNTER 2017-09-01 11:28 | Emergency (ER) | payer OTHER ==
[~2017-09-01] VITALS: Ht 157.5 cm; Wt 55.1 kg
[~2017-09-01 11:28] MED LIST changes: -CHLO125TA PO; -DIPH50TA3 PO; -HYDR-3363 PO; -RISP0.5T3 PO
[2017-09-01] MEDS ORDERED: RISP0.5T3 PO (12:05)
[2017-09-01] MEDS ORDERED: DIPH50TA3 PO (12:05)
[2017-09-01] MEDS ORDERED: CHLO125TA PO (12:05)
--- NOTE | 2017-09-01 12:43 | REP ---
CT Head without contrast HISTORY: Altered mental status COMPARISON: 01/20/2016 There is no intraparenchymal hemorrhage, acute infarct, mass or midline shift. The ventricular system is normal in appearance. There is no extra cerebral collection. There is no fracture. The visualized sinuses are clear. IMPRESSION: There is no intracranial lesion. Signed by Timur Yeh MD 09/01/2017 12:34 P
[2017-09-01 13:20] LABS: MEAN CORPUSCULAR HEMOGLOBIN 31.1 pg (27.0-33.0); MEAN CORPUSCULAR HGB CONC 33.1 g/dl (32.0-36.5); RED CELL DISTRIBUTION WIDTH 14.8 % (11.5-14.5)
[2017-09-01 13:59] LABS: METHADONE URINE NEGATIVE (NEGATIVE)
[2017-09-01 14:00] LABS: ALBUMIN 3.8 GM/DL (3.2-5.2); ALBUMIN/GLOBULIN RATIO 1.31 (1.00-1.93); ALKALINE PHOSPHATASE 122 U/L (45-117); ALT/SGPT 56 U/L (12-78); ANION GAP 10 MEQ/L (8-16); AST/SGOT 35 U/L (15-37); BILIRUBIN,DIRECT 0.2 MG/DL (0.0-0.2); BILIRUBIN,TOTAL 0.4 MG/DL (0.2-1.0); BLOOD UREA NITROGEN 20 MG/DL (7-18); CALCIUM LEVEL 9.2 MG/DL (8.5-10.1); CARBON DIOXIDE LEVEL 24 MEQ/L (21-32); CHLORIDE LEVEL 109 MEQ/L (98-107); CREATININE FOR GFR 0.77 MG/DL (0.55-1.02); GLOMERULAR FILTRATION RATE > 60.0 (>51); GLUCOSE, FASTING 66 MG/DL (70-105); POTASSIUM SERUM 3.9 MEQ/L (3.5-5.1); SODIUM LEVEL 143 MEQ/L (136-145); TOTAL PROTEIN 6.7 GM/DL (6.4-8.2)
[2017-09-01] MEDS ORDERED: HYDR-3363 PO (14:28)
[2017-09-01 14:48] VITALS: BP 125/75
== END 2017-09-01 14:50 | disposition home or self-care (01) ==
LOC: M ED 11:28
DX: F31.89 Other bipolar disorder (principal); I25.10 Atherosclerotic heart disease of native coronary artery without angina pectoris; I10 Essential (primary) hypertension; G43.909 Migraine, unspecified, not intractable, without status migrainosus; Z98.61 Coronary angioplasty status; Z88.0 Allergy status to penicillin; Z88.6 Allergy status to analgesic agent; Z88.8 Allergy status to other drugs, medicaments and biological substances; Z91.048 Other nonmedicinal substance allergy status; Z79.84 Long term (current) use of oral hypoglycemic drugs; Z79.899 Other long term (current) drug therapy

== ENCOUNTER 2017-12-11 19:43 | Emergency (ER) | payer OTHER, MEDICAID | END 2017-12-11 22:43 | disposition home or self-care (01) | LOC: M ED 19:43 | DX: F60.4 Histrionic personality disorder (principal); I51.9 Heart disease, unspecified; E11.9 Type 2 diabetes mellitus without complications; I10 Essential (primary) hypertension; K21.9 Gastro-esophageal reflux disease without esophagitis; F17.200 Nicotine dependence, unspecified, uncomplicated; Z79.84 Long term (current) use of oral hypoglycemic drugs; Z79.899 Other long term (current) drug therapy; Z88.6 Allergy status to analgesic agent; Z88.0 Allergy status to penicillin; Z88.8 Allergy status to other drugs, medicaments and biological substances; Z91.89 Other specified personal risk factors, not elsewhere classified | CPT/HCPCS: 99284 ==

== ENCOUNTER 2017-12-19 13:59 | Inpatient (IN) | payer MEDICAID, OTHER ==
[2017-12-19 15:22] LABS: MEAN CORPUSCULAR HEMOGLOBIN 29.5 pg (27.0-33.0); MEAN CORPUSCULAR HGB CONC 33.3 g/dl (32.0-36.5); MEAN CORPUSCULAR VOLUME 88.4 fl (80.0-96.0); PLATELET COUNT, AUTOMATED 259 10^3/uL (150-450); RED BLOOD COUNT 4.41 10^6/uL (4.00-5.40); RED CELL DISTRIBUTION WIDTH 14.4 % (11.5-14.5)
[2017-12-19 15:48] LABS: ALBUMIN 4.5 GM/DL (3.2-5.2); ALKALINE PHOSPHATASE 130 U/L (45-117); ALT/SGPT 44 U/L (12-78); ANION GAP 6 MEQ/L (8-16); AST/SGOT 49 U/L (7-37); BILIRUBIN,DIRECT 0.1 MG/DL (0.0-0.2); BILIRUBIN,TOTAL 0.3 MG/DL (0.2-1.0); BLOOD UREA NITROGEN 18 MG/DL (7-18); CALCIUM LEVEL 9.1 MG/DL (8.5-10.1); CARBON DIOXIDE LEVEL 28 MEQ/L (21-32); CHLORIDE LEVEL 108 MEQ/L (98-107); CREATININE FOR GFR 0.89 MG/DL (0.55-1.30); ETHYL ALCOHOL (ETHANOL) 0.004 % (0.000-0.010); GLOMERULAR FILTRATION RATE > 60.0 (>51); GLUCOSE, FASTING 127 MG/DL (70-100); POTASSIUM SERUM 4.1 MEQ/L (3.5-5.1); SALICYLATE LEVEL 6.2 MG/DL (5.0-30.0); SODIUM LEVEL 142 MEQ/L (136-145); THYROID STIMULATING HORMONE 0.434 uIU/ML (0.358-3.740); TOTAL PROTEIN 7.5 GM/DL (6.4-8.2)
[2017-12-19 15:50] LABS: ACETAMINOPHEN LEVEL < 2.0 UG/ML (10.0-30.0)
[2017-12-19 16:20] LABS: AMPHETAMINES LEVEL URINE NEGATIVE (NEGATIVE); BARBITURATES URINE NEGATIVE (NEGATIVE); BENZODIAZEPINES URINE NEGATIVE (NEGATIVE); CANNABINOIDS URINE POSITIVE (NEGATIVE); COCAINE METABOLITE URINE NEGATIVE (NEGATIVE); METHADONE URINE NEGATIVE (NEGATIVE); OPIATES URINE NEGATIVE (NEGATIVE); PHENCYCLIDINE URINE NEGATIVE (NEGATIVE)
[2017-12-19] MEDS: ACETAMINOPHEN 325 MG TAB PO (17:50)
[2017-12-19] MEDS ORDERED: MOM 30ML SUSPENSION UDC PO (18:15)
[2017-12-19] MEDS ORDERED: MAALOX 30 ML SUSP *UDC PO (18:15)
[2017-12-19] MEDS: traZODone 50 MG TAB PO (21:45)
[2017-12-19] MEDS: ACETAMINOPHEN TAB 650MG DOSE (2X325MG) PO (21:52)
[2017-12-20] MEDS ORDERED: GLUCOSE 4 GM CHEW TABLET PO (12:00)
[2017-12-20] MEDS ORDERED: GLUCAGON FOR INJ 1 MG VIAL (J1610) SC (12:00)
[2017-12-20] MEDS ORDERED: DEXTROSE 50% 50 ML SYRINGE IV (12:00)
[2017-12-20] MEDS: HumaLOG INSULIN (NovoLOG) PER UNIT SC ×2 (12:48→17:29)
[2017-12-20] MEDS: FUROSEMIDE 20 MG TAB PO (13:03)
[2017-12-20] MEDS: CLOPIDOGREL 75 MG TAB PO (13:03)
[2017-12-20] MEDS: VITAMIN D 1,000 INTERNATIONAL UNITS TABLET PO (13:03)
[2017-12-20] MEDS: metFORMIN (GLUCOPHAGE) 1000 MG TABLET PO (17:25)
[2017-12-20 17:46] LABS: BEDSIDE GLUCOSE 151 MG/DL (70-105)
[2017-12-20] MEDS: METHOCARBAMOL 750 MG TAB PO (18:04)
[2017-12-20] MEDS: LEVEMIR (INSULIN DETEMIR) 1 UNITS/0.01ML SC (23:38)
[2017-12-20] MEDS: PANTOPRAZOLE 20 MG TAB PO (23:39)
[2017-12-20] MEDS: CARVedilol 6.25 MG TAB PO (23:39)
[2017-12-20] MEDS: GABAPENTIN 300 MG CAP PO (23:41)
[2017-12-20] MEDS: ATORVASTATIN 20 MG TAB PO (23:41)
[2017-12-21] MEDS: HumaLOG INSULIN (NovoLOG) PER UNIT SC ×3 (06:53→17:04)
[2017-12-21] MEDS: PANTOPRAZOLE 20 MG TAB PO ×2 (08:22→20:44)
[2017-12-21] MEDS: CLOPIDOGREL 75 MG TAB PO (08:22)
[2017-12-21] MEDS: metFORMIN (GLUCOPHAGE) 1000 MG TABLET PO ×2 (08:22→17:04)
[2017-12-21] MEDS: FUROSEMIDE 20 MG TAB PO (08:22)
[2017-12-21] MEDS: METHOCARBAMOL 750 MG TAB PO (08:22)
[2017-12-21] MEDS: VITAMIN D 1,000 INTERNATIONAL UNITS TABLET PO (08:22)
[2017-12-21] MEDS: CARVedilol 6.25 MG TAB PO ×2 (08:23→20:44)
[2017-12-21] MEDS: ACETAMINOPHEN TAB 650MG DOSE (2X325MG) PO (08:23)
[2017-12-21 09:12] LABS: ALBUMIN 4.3 GM/DL (3.2-5.2); ALKALINE PHOSPHATASE 131 U/L (45-117); ALT/SGPT 36 U/L (12-78); AMYLASE 103 U/L (25-115); AST/SGOT 28 U/L (7-37); BILIRUBIN,DIRECT < 0.1 MG/DL (0.0-0.2); BILIRUBIN,TOTAL 0.3 MG/DL (0.2-1.0); CHOLESTEROL LEVEL 154 MG/DL (<200); CHOLESTEROL RISK RATIO 2.566 (<5); ESTIMATED AVERAGE GLUCOSE 163 MG/DL (60-110); HDL CHOLESTEROL 60 MG/DL (>40); HEMOGLOBIN A1c 7.3 %; LDL CHOLESTEROL 61.2 MG/DL (<100); LIPASE 502 U/L (73-393); NON-HDL-C 94 MG/DL; TOTAL PROTEIN 7.6 GM/DL (6.4-8.2); TRIGLYCERIDES LEVEL 164 MG/DL (<150)
[2017-12-21 11:29] LABS: BEDSIDE GLUCOSE 251 MG/DL (70-105)
[2017-12-21] MEDS: VENLAFAXINE **XR** 75MG CAPSULE PO (11:59)
[2017-12-21] MEDS: risperiDONE 1 MG TAB PO (11:59)
[2017-12-21 12:37] LABS: BEDSIDE GLUCOSE 218 MG/DL (70-105)
[2017-12-21 12:37] LABS: BEDSIDE GLUCOSE 260 MG/DL (70-105)
[2017-12-21 12:37] LABS: BEDSIDE GLUCOSE 145 MG/DL (70-105)
[2017-12-21 17:06] LABS: BEDSIDE GLUCOSE 139 MG/DL (70-105)
[2017-12-21] MEDS: risperiDONE 2 MG TAB PO (20:44)
[2017-12-21] MEDS: GABAPENTIN 300 MG CAP PO (20:44)
[2017-12-21] MEDS: ATORVASTATIN 20 MG TAB PO (20:44)
[2017-12-21] MEDS: LEVEMIR (INSULIN DETEMIR) 1 UNITS/0.01ML SC (20:46)
[2017-12-21 20:47] LABS: BEDSIDE GLUCOSE 124 MG/DL (70-105)
[2017-12-22 06:41] LABS: BEDSIDE GLUCOSE 158 MG/DL (70-105)
[2017-12-22] MEDS: HumaLOG INSULIN (NovoLOG) PER UNIT SC ×3 (06:44→17:05)
[2017-12-22] MEDS: FUROSEMIDE 20 MG TAB PO (08:44)
[2017-12-22] MEDS: VITAMIN D 1,000 INTERNATIONAL UNITS TABLET PO (08:44)
[2017-12-22] MEDS: PANTOPRAZOLE 20 MG TAB PO ×2 (08:44→20:21)
[2017-12-22] MEDS: VENLAFAXINE **XR** 75MG CAPSULE PO (08:44)
[2017-12-22] MEDS: metFORMIN (GLUCOPHAGE) 1000 MG TABLET PO ×2 (08:44→17:05)
[2017-12-22] MEDS: CLOPIDOGREL 75 MG TAB PO (08:45)
[2017-12-22] MEDS: risperiDONE 1 MG TAB PO (08:45)
[2017-12-22] MEDS: CARVedilol 6.25 MG TAB PO ×2 (08:45→20:22)
[2017-12-22 09:48] LABS: ALBUMIN 4.5 GM/DL (3.2-5.2); ALBUMIN/GLOBULIN RATIO 1.32 (1.00-1.93); ALKALINE PHOSPHATASE 136 U/L (45-117); ALT/SGPT 37 U/L (12-78); AMYLASE 84 U/L (25-115); ANION GAP 4 MEQ/L (8-16); AST/SGOT 37 U/L (7-37); BILIRUBIN,TOTAL 0.4 MG/DL (0.2-1.0); BLOOD UREA NITROGEN 22 MG/DL (7-18); CALCIUM LEVEL 10.1 MG/DL (8.5-10.1); CARBON DIOXIDE LEVEL 31 MEQ/L (21-32); CHLORIDE LEVEL 103 MEQ/L (98-107); CREATININE FOR GFR 0.94 MG/DL (0.55-1.30); GLOMERULAR FILTRATION RATE > 60.0 (>51); GLUCOSE, FASTING 189 MG/DL (70-100); LIPASE 271 U/L (73-393); POTASSIUM SERUM 4.3 MEQ/L (3.5-5.1); SODIUM LEVEL 138 MEQ/L (136-145); TOTAL PROTEIN 7.9 GM/DL (6.4-8.2)
[2017-12-22] MEDS ORDERED: traZODone 100 MG TAB PO (10:15)
[2017-12-22] MEDS: risperiDONE 2 MG TAB PO ×2 (10:37→20:22)
[2017-12-22 11:59] LABS: BEDSIDE GLUCOSE 192 MG/DL (70-105)
[2017-12-22 16:52] LABS: BEDSIDE GLUCOSE 133 MG/DL (70-105)
[2017-12-22] MEDS: ATORVASTATIN 20 MG TAB PO (20:21)
[2017-12-22] MEDS: GABAPENTIN 300 MG CAP PO (20:22)
[2017-12-22] MEDS: LEVEMIR (INSULIN DETEMIR) 1 UNITS/0.01ML SC (20:24)
[2017-12-22 20:32] LABS: BEDSIDE GLUCOSE 124 MG/DL (70-105)
[2017-12-23] MEDS: HumaLOG INSULIN (NovoLOG) PER UNIT SC ×3 (06:34→17:03)
[2017-12-23 06:36] LABS: BEDSIDE GLUCOSE 115 MG/DL (70-105)
[2017-12-23] MEDS ORDERED: **PENDING PPD ENTRY XX (09:00)
[2017-12-23] MEDS: VENLAFAXINE **XR** 75MG CAPSULE PO (09:35)
[2017-12-23] MEDS: FUROSEMIDE 20 MG TAB PO (09:35)
[2017-12-23] MEDS: risperiDONE 2 MG TAB PO (09:35)
[2017-12-23] MEDS: PANTOPRAZOLE 20 MG TAB PO ×2 (09:35→20:27)
[2017-12-23] MEDS: metFORMIN (GLUCOPHAGE) 1000 MG TABLET PO ×2 (09:35→17:03)
[2017-12-23] MEDS: VITAMIN D 1,000 INTERNATIONAL UNITS TABLET PO (09:36)
[2017-12-23] MEDS: CLOPIDOGREL 75 MG TAB PO (09:36)
[2017-12-23] MEDS: CARVedilol 6.25 MG TAB PO ×2 (09:36→20:27)
[2017-12-23] MEDS: TUBERCULIN PPD 5 UNITS/0.1 ML ID ×2 (11:00→14:58)
[2017-12-23 11:24] LABS: BEDSIDE GLUCOSE 291 MG/DL (70-105)
[2017-12-23] MEDS: risperiDONE LONG-ACTING 37.5 MG/2 ML INJ (J2794) IM (12:17)
[2017-12-23 17:34] LABS: BEDSIDE GLUCOSE 194 MG/DL (70-105)
[2017-12-23] MEDS: risperiDONE 3 MG TAB PO (20:27)
[2017-12-23] MEDS: GABAPENTIN 300 MG CAP PO (20:27)
[2017-12-23] MEDS: ATORVASTATIN 20 MG TAB PO (20:27)
[2017-12-23 20:29] LABS: BEDSIDE GLUCOSE 211 MG/DL (70-105)
[2017-12-23] MEDS: LEVEMIR (INSULIN DETEMIR) 1 UNITS/0.01ML SC (20:29)
[2017-12-24 06:41] LABS: BEDSIDE GLUCOSE 164 MG/DL (70-105)
[2017-12-24] MEDS: HumaLOG INSULIN (NovoLOG) PER UNIT SC ×3 (07:50→17:03)
[2017-12-24] MEDS: VITAMIN D 1,000 INTERNATIONAL UNITS TABLET PO (08:20)
[2017-12-24] MEDS: CLOPIDOGREL 75 MG TAB PO (08:20)
[2017-12-24] MEDS: risperiDONE 3 MG TAB PO ×2 (08:20→21:52)
[2017-12-24] MEDS: CARVedilol 6.25 MG TAB PO ×2 (08:21→21:52)
[2017-12-24] MEDS: FUROSEMIDE 20 MG TAB PO (08:21)
[2017-12-24] MEDS: PANTOPRAZOLE 20 MG TAB PO ×2 (08:21→21:51)
[2017-12-24] MEDS: metFORMIN (GLUCOPHAGE) 1000 MG TABLET PO ×2 (08:21→17:01)
[2017-12-24] MEDS: VENLAFAXINE **XR** 75MG CAPSULE PO (08:22)
[2017-12-24 11:44] LABS: BEDSIDE GLUCOSE 98 MG/DL (70-105)
[2017-12-24 17:07] LABS: BEDSIDE GLUCOSE 221 MG/DL (70-105)
[2017-12-24] MEDS: METHOCARBAMOL 750 MG TAB PO (18:40)
[2017-12-24] MEDS: GABAPENTIN 300 MG CAP PO (21:51)
[2017-12-24] MEDS: ATORVASTATIN 20 MG TAB PO (21:51)
[2017-12-24] MEDS: LEVEMIR (INSULIN DETEMIR) 1 UNITS/0.01ML SC (21:52)
[2017-12-24 21:56] LABS: BEDSIDE GLUCOSE 153 MG/DL (70-105)
[2017-12-25 06:27] LABS: BEDSIDE GLUCOSE 160 MG/DL (70-105)
[2017-12-25] MEDS: HumaLOG INSULIN (NovoLOG) PER UNIT SC ×4 (06:35→17:02)
[2017-12-25] MEDS: CARVedilol 6.25 MG TAB PO ×2 (08:47→20:40)
[2017-12-25] MEDS: PANTOPRAZOLE 20 MG TAB PO ×2 (08:48→20:39)
[2017-12-25] MEDS: metFORMIN (GLUCOPHAGE) 1000 MG TABLET PO ×2 (08:48→17:02)
[2017-12-25] MEDS: risperiDONE 3 MG TAB PO (08:48)
[2017-12-25] MEDS: CLOPIDOGREL 75 MG TAB PO (08:48)
[2017-12-25] MEDS: VITAMIN D 1,000 INTERNATIONAL UNITS TABLET PO (08:48)
[2017-12-25] MEDS: VENLAFAXINE **XR** 75MG CAPSULE PO (08:48)
[2017-12-25] MEDS: FUROSEMIDE 20 MG TAB PO (08:48)
[2017-12-25] MEDS ORDERED: PPD DOCUMENTATION ENTRY MISC XX (10:00)
[2017-12-25 11:44] LABS: BEDSIDE GLUCOSE 175 MG/DL (70-105)
[2017-12-25] MEDS: PPD DOCUMENTATION ENTRY MISC XX (15:28)
[2017-12-25 17:07] LABS: BEDSIDE GLUCOSE 173 MG/DL (70-105)
[2017-12-25] MEDS: hydrOXYzine 50 MG TAB PO (17:08)
[2017-12-25] MEDS: ATORVASTATIN 20 MG TAB PO (20:39)
[2017-12-25] MEDS: GABAPENTIN 300 MG CAP PO (20:39)
[2017-12-25] MEDS: risperiDONE 2 MG TAB PO (20:40)
[2017-12-25] MEDS: LEVEMIR (INSULIN DETEMIR) 1 UNITS/0.01ML SC (20:40)
[2017-12-25 20:41] LABS: BEDSIDE GLUCOSE 125 MG/DL (70-105)
[2017-12-26] MEDS: HumaLOG INSULIN (NovoLOG) PER UNIT SC ×3 (06:32→17:00)
[2017-12-26 06:35] LABS: BEDSIDE GLUCOSE 170 MG/DL (70-105)
[2017-12-26] MEDS: metFORMIN (GLUCOPHAGE) 1000 MG TABLET PO ×2 (07:28→17:01)
[2017-12-26] MEDS: CLOPIDOGREL 75 MG TAB PO (08:03)
[2017-12-26] MEDS: FUROSEMIDE 20 MG TAB PO (08:03)
[2017-12-26] MEDS: risperiDONE 2 MG TAB PO ×2 (08:03→20:44)
[2017-12-26] MEDS: VENLAFAXINE **XR** 75MG CAPSULE PO (08:03)
[2017-12-26] MEDS: CARVedilol 6.25 MG TAB PO ×2 (08:04→20:44)
[2017-12-26] MEDS: VITAMIN D 1,000 INTERNATIONAL UNITS TABLET PO (08:04)
[2017-12-26] MEDS: PANTOPRAZOLE 20 MG TAB PO ×2 (08:04→20:44)
[2017-12-26 11:57] LABS: BEDSIDE GLUCOSE 241 MG/DL (70-105)
[2017-12-26 17:18] LABS: BEDSIDE GLUCOSE 173 MG/DL (70-105)
[2017-12-26] MEDS: hydrOXYzine 50 MG TAB PO (18:07)
[2017-12-26] MEDS: GABAPENTIN 300 MG CAP PO (20:44)
[2017-12-26] MEDS: ATORVASTATIN 20 MG TAB PO (20:44)
[2017-12-26] MEDS: LEVEMIR (INSULIN DETEMIR) 1 UNITS/0.01ML SC (20:45)
[2017-12-26 20:48] LABS: BEDSIDE GLUCOSE 125 MG/DL (70-105)
[2017-12-27 06:30] LABS: BEDSIDE GLUCOSE 112 MG/DL (70-105)
[2017-12-27] MEDS: HumaLOG INSULIN (NovoLOG) PER UNIT SC ×3 (06:31→17:29)
[2017-12-27] MEDS: CLOPIDOGREL 75 MG TAB PO (08:27)
[2017-12-27] MEDS: PANTOPRAZOLE 20 MG TAB PO ×2 (08:27→20:17)
[2017-12-27] MEDS: CARVedilol 6.25 MG TAB PO ×2 (08:27→20:18)
[2017-12-27] MEDS: VENLAFAXINE **XR** 75MG CAPSULE PO (08:27)
[2017-12-27] MEDS: VITAMIN D 1,000 INTERNATIONAL UNITS TABLET PO (08:28)
[2017-12-27] MEDS: metFORMIN (GLUCOPHAGE) 1000 MG TABLET PO ×2 (08:28→17:31)
[2017-12-27] MEDS: risperiDONE 2 MG TAB PO ×2 (08:28→20:18)
[2017-12-27] MEDS: FUROSEMIDE 20 MG TAB PO (08:28)
[2017-12-27 12:25] LABS: BEDSIDE GLUCOSE 151 MG/DL (70-105)
[2017-12-27] MEDS: METHOCARBAMOL 750 MG TAB PO (13:40)
[2017-12-27] MEDS: hydrOXYzine 50 MG TAB PO (13:40)
[2017-12-27 17:42] LABS: BEDSIDE GLUCOSE 245 MG/DL (70-105)
[2017-12-27] MEDS: LEVEMIR (INSULIN DETEMIR) 1 UNITS/0.01ML SC (20:17)
[2017-12-27] MEDS: ATORVASTATIN 20 MG TAB PO (20:17)
[2017-12-27] MEDS: GABAPENTIN 300 MG CAP PO (20:17)
[2017-12-27 20:31] LABS: BEDSIDE GLUCOSE 136 MG/DL (70-105)
[2017-12-28] MEDS: HumaLOG INSULIN (NovoLOG) PER UNIT SC ×3 (06:36→17:23)
[2017-12-28 06:52] LABS: BEDSIDE GLUCOSE 214 MG/DL (70-105)
[2017-12-28] MEDS: VENLAFAXINE **XR** 75MG CAPSULE PO (08:29)
[2017-12-28] MEDS: VITAMIN D 1,000 INTERNATIONAL UNITS TABLET PO (08:29)
[2017-12-28] MEDS: risperiDONE 2 MG TAB PO ×2 (08:29→20:18)
[2017-12-28] MEDS: metFORMIN (GLUCOPHAGE) 1000 MG TABLET PO ×2 (08:29→18:13)
[2017-12-28] MEDS: PANTOPRAZOLE 20 MG TAB PO ×2 (08:33→20:20)
[2017-12-28] MEDS: CARVedilol 6.25 MG TAB PO ×2 (08:33→20:19)
[2017-12-28] MEDS: FUROSEMIDE 20 MG TAB PO (08:33)
[2017-12-28] MEDS: CLOPIDOGREL 75 MG TAB PO (08:33)
[2017-12-28 15:14] LABS: BEDSIDE GLUCOSE 256 MG/DL (70-105)
[2017-12-28 17:48] LABS: BEDSIDE GLUCOSE 145 MG/DL (70-105)
[2017-12-28] MEDS: GABAPENTIN 300 MG CAP PO (20:20)
[2017-12-28] MEDS: DOXEPIN 25 MG CAP PO (20:20)
[2017-12-28] MEDS: ATORVASTATIN 20 MG TAB PO (20:20)
[2017-12-28] MEDS: LEVEMIR (INSULIN DETEMIR) 1 UNITS/0.01ML SC (20:21)
[2017-12-28 20:24] LABS: BEDSIDE GLUCOSE 153 MG/DL (70-105)
[2017-12-29] MEDS: HumaLOG INSULIN (NovoLOG) PER UNIT SC ×3 (06:39→17:07)
[2017-12-29 06:43] LABS: BEDSIDE GLUCOSE 148 MG/DL (70-105)
[2017-12-29] MEDS: risperiDONE 2 MG TAB PO ×2 (08:36→20:29)
[2017-12-29] MEDS: CLOPIDOGREL 75 MG TAB PO (08:36)
[2017-12-29] MEDS: FUROSEMIDE 20 MG TAB PO (08:36)
[2017-12-29] MEDS: VITAMIN D 1,000 INTERNATIONAL UNITS TABLET PO (08:36)
[2017-12-29] MEDS: metFORMIN (GLUCOPHAGE) 1000 MG TABLET PO ×2 (08:36→17:06)
[2017-12-29] MEDS: CARVedilol 6.25 MG TAB PO ×2 (08:36→20:34)
[2017-12-29] MEDS: PANTOPRAZOLE 20 MG TAB PO ×2 (08:36→20:29)
[2017-12-29] MEDS: VENLAFAXINE **XR** 75MG CAPSULE PO (08:36)
[2017-12-29 11:41] LABS: BEDSIDE GLUCOSE 199 MG/DL (70-105)
[2017-12-29 17:32] LABS: BEDSIDE GLUCOSE 212 MG/DL (70-105)
[2017-12-29] MEDS: DOXEPIN 25 MG CAP PO (20:28)
[2017-12-29] MEDS: LEVEMIR (INSULIN DETEMIR) 1 UNITS/0.01ML SC (20:28)
[2017-12-29] MEDS: ATORVASTATIN 20 MG TAB PO (20:29)
[2017-12-29] MEDS: GABAPENTIN 300 MG CAP PO (20:29)
[2017-12-29 20:30] LABS: BEDSIDE GLUCOSE 123 MG/DL (70-105)
[2017-12-30 06:32] LABS: BEDSIDE GLUCOSE 134 MG/DL (70-105)
[2017-12-30] MEDS: HumaLOG INSULIN (NovoLOG) PER UNIT SC ×3 (06:34→17:22)
[2017-12-30] MEDS: VITAMIN D 1,000 INTERNATIONAL UNITS TABLET PO (09:00)
[2017-12-30] MEDS: metFORMIN (GLUCOPHAGE) 1000 MG TABLET PO ×2 (09:00→18:30)
[2017-12-30] MEDS: PANTOPRAZOLE 20 MG TAB PO ×2 (09:02→20:08)
[2017-12-30] MEDS: CARVedilol 6.25 MG TAB PO ×2 (09:02→20:12)
[2017-12-30] MEDS: CLOPIDOGREL 75 MG TAB PO (09:02)
[2017-12-30] MEDS: risperiDONE 2 MG TAB PO ×2 (09:02→20:09)
[2017-12-30] MEDS: FUROSEMIDE 20 MG TAB PO (09:03)
[2017-12-30] MEDS: VENLAFAXINE **XR** 75MG CAPSULE PO (09:03)
[2017-12-30 12:15] LABS: BEDSIDE GLUCOSE 203 MG/DL (70-105)
[2017-12-30] MEDS: DOXEPIN 25 MG CAP PO (20:08)
[2017-12-30] MEDS: GABAPENTIN 300 MG CAP PO (20:08)
[2017-12-30] MEDS: ATORVASTATIN 20 MG TAB PO (20:09)
[2017-12-30 20:11] LABS: BEDSIDE GLUCOSE 165 MG/DL (70-105)
[2017-12-30] MEDS: LEVEMIR (INSULIN DETEMIR) 1 UNITS/0.01ML SC (20:13)
[2017-12-31] MEDS: HumaLOG INSULIN (NovoLOG) PER UNIT SC ×3 (06:49→17:24)
[2017-12-31 06:52] LABS: BEDSIDE GLUCOSE 144 MG/DL (70-105)
[2017-12-31] MEDS: metFORMIN (GLUCOPHAGE) 1000 MG TABLET PO ×2 (07:10→17:24)
[2017-12-31] MEDS: CLOPIDOGREL 75 MG TAB PO (08:33)
[2017-12-31] MEDS: VENLAFAXINE **XR** 75MG CAPSULE PO (08:33)
[2017-12-31] MEDS: risperiDONE 2 MG TAB PO ×2 (08:34→20:08)
[2017-12-31] MEDS: FUROSEMIDE 20 MG TAB PO (08:34)
[2017-12-31] MEDS: PANTOPRAZOLE 20 MG TAB PO ×2 (08:34→20:08)
[2017-12-31] MEDS: CARVedilol 6.25 MG TAB PO ×2 (08:34→20:09)
[2017-12-31] MEDS: VITAMIN D 1,000 INTERNATIONAL UNITS TABLET PO (08:34)
[2017-12-31 12:02] LABS: BEDSIDE GLUCOSE 199 MG/DL (70-105)
[2017-12-31 12:37] LABS: BEDSIDE GLUCOSE 260 MG/DL (70-105)
[2017-12-31] MEDS: ATORVASTATIN 20 MG TAB PO (20:08)
[2017-12-31] MEDS: DOXEPIN 25 MG CAP PO (20:08)
[2017-12-31] MEDS: GABAPENTIN 300 MG CAP PO (20:08)
[2017-12-31] MEDS: LEVEMIR (INSULIN DETEMIR) 1 UNITS/0.01ML SC (20:09)
[2017-12-31 23:06] LABS: BEDSIDE GLUCOSE 168 MG/DL (70-105)
[2018-01-01] MEDS: HumaLOG INSULIN (NovoLOG) PER UNIT SC ×3 (06:35→17:41)
[2018-01-01 06:56] LABS: BEDSIDE GLUCOSE 135 MG/DL (70-105)
[2018-01-01] MEDS: ACETAMINOPHEN TAB 650MG DOSE (2X325MG) PO ×2 (07:05→15:29)
[2018-01-01] MEDS: metFORMIN (GLUCOPHAGE) 1000 MG TABLET PO ×2 (08:24→17:40)
[2018-01-01] MEDS: VITAMIN D 1,000 INTERNATIONAL UNITS TABLET PO (08:25)
[2018-01-01] MEDS: CARVedilol 6.25 MG TAB PO ×2 (08:25→20:25)
[2018-01-01] MEDS: PANTOPRAZOLE 20 MG TAB PO ×2 (08:25→20:21)
[2018-01-01] MEDS: VENLAFAXINE **XR** 75MG CAPSULE PO (08:25)
[2018-01-01] MEDS: FUROSEMIDE 20 MG TAB PO (08:25)
[2018-01-01] MEDS: CLOPIDOGREL 75 MG TAB PO (08:25)
[2018-01-01] MEDS: risperiDONE 2 MG TAB PO ×2 (08:25→20:22)
[2018-01-01] MEDS: METHOCARBAMOL 750 MG TAB PO ×2 (08:27→20:22)
[2018-01-01 12:03] LABS: BEDSIDE GLUCOSE 222 MG/DL (70-105)
[2018-01-01 12:34] LABS: BEDSIDE GLUCOSE 171 MG/DL (70-105)
[2018-01-01] MEDS: hydrOXYzine 50 MG TAB PO (16:08)
[2018-01-01 16:49] LABS: BEDSIDE GLUCOSE 199 MG/DL (70-105)
[2018-01-01] MEDS: ATORVASTATIN 20 MG TAB PO (20:21)
[2018-01-01] MEDS: GABAPENTIN 300 MG CAP PO (20:22)
[2018-01-01] MEDS: DOXEPIN 25 MG CAP PO (20:22)
[2018-01-01] MEDS: LEVEMIR (INSULIN DETEMIR) 1 UNITS/0.01ML SC (20:34)
[2018-01-02 06:48] LABS: BEDSIDE GLUCOSE 140 MG/DL (70-105)
[2018-01-02] MEDS: metFORMIN (GLUCOPHAGE) 1000 MG TABLET PO ×2 (07:38→17:14)
[2018-01-02] MEDS: HumaLOG INSULIN (NovoLOG) PER UNIT SC ×3 (07:41→17:15)
[2018-01-02] MEDS: CARVedilol 6.25 MG TAB PO ×2 (08:22→20:20)
[2018-01-02] MEDS: CLOPIDOGREL 75 MG TAB PO (08:22)
[2018-01-02] MEDS: VENLAFAXINE **XR** 75MG CAPSULE PO (08:22)
[2018-01-02] MEDS: FUROSEMIDE 20 MG TAB PO (08:22)
[2018-01-02] MEDS: PANTOPRAZOLE 20 MG TAB PO ×2 (08:22→20:21)
[2018-01-02] MEDS: VITAMIN D 1,000 INTERNATIONAL UNITS TABLET PO (08:22)
[2018-01-02] MEDS: risperiDONE 2 MG TAB PO ×2 (08:22→20:21)
[2018-01-02 12:13] LABS: BEDSIDE GLUCOSE 125 MG/DL (70-105)
[2018-01-02] MEDS: METHOCARBAMOL 750 MG TAB PO (17:16)
[2018-01-02] MEDS: GABAPENTIN 300 MG CAP PO (20:21)
[2018-01-02] MEDS: DOXEPIN 25 MG CAP PO (20:21)
[2018-01-02] MEDS: ATORVASTATIN 20 MG TAB PO (20:21)
[2018-01-02] MEDS: LEVEMIR (INSULIN DETEMIR) 1 UNITS/0.01ML SC (20:22)
[2018-01-02 20:50] LABS: BEDSIDE GLUCOSE 175 MG/DL (70-105)
[2018-01-03 06:38] LABS: BEDSIDE GLUCOSE 138 MG/DL (70-105)
[2018-01-03] MEDS: HumaLOG INSULIN (NovoLOG) PER UNIT SC ×3 (06:47→17:13)
[2018-01-03] MEDS: metFORMIN (GLUCOPHAGE) 1000 MG TABLET PO ×2 (07:09→17:12)
[2018-01-03] MEDS: FUROSEMIDE 20 MG TAB PO (08:17)
[2018-01-03] MEDS: PANTOPRAZOLE 20 MG TAB PO ×2 (08:17→20:03)
[2018-01-03] MEDS: risperiDONE 2 MG TAB PO ×2 (08:17→20:03)
[2018-01-03] MEDS: CARVedilol 6.25 MG TAB PO ×2 (08:17→20:04)
[2018-01-03] MEDS: CLOPIDOGREL 75 MG TAB PO (08:17)
[2018-01-03] MEDS: VENLAFAXINE **XR** 75MG CAPSULE PO (08:17)
[2018-01-03] MEDS: METHOCARBAMOL 750 MG TAB PO ×2 (08:17→15:09)
[2018-01-03] MEDS: VITAMIN D 1,000 INTERNATIONAL UNITS TABLET PO (08:17)
[2018-01-03 13:38] LABS: BEDSIDE GLUCOSE 188 MG/DL (70-105)
[2018-01-03 17:07] LABS: BEDSIDE GLUCOSE 225 MG/DL (70-105)
[2018-01-03] MEDS: GABAPENTIN 300 MG CAP PO (20:03)
[2018-01-03] MEDS: ATORVASTATIN 20 MG TAB PO (20:03)
[2018-01-03] MEDS: DOXEPIN 25 MG CAP PO (20:03)
[2018-01-03 20:06] LABS: BEDSIDE GLUCOSE 82 MG/DL (70-105)
[2018-01-03] MEDS: LEVEMIR (INSULIN DETEMIR) 1 UNITS/0.01ML SC (20:06)
[2018-01-03 20:43] LABS: BEDSIDE GLUCOSE 96 MG/DL (70-105)
[2018-01-04] MEDS: HumaLOG INSULIN (NovoLOG) PER UNIT SC ×3 (06:39→17:01)
[2018-01-04 06:45] LABS: BEDSIDE GLUCOSE 144 MG/DL (70-105)
[2018-01-04] MEDS: CLOPIDOGREL 75 MG TAB PO (08:10)
[2018-01-04] MEDS: VITAMIN D 1,000 INTERNATIONAL UNITS TABLET PO (08:11)
[2018-01-04] MEDS: risperiDONE 2 MG TAB PO ×2 (08:11→20:10)
[2018-01-04] MEDS: VENLAFAXINE **XR** 75MG CAPSULE PO (08:11)
[2018-01-04] MEDS: CARVedilol 6.25 MG TAB PO ×2 (08:11→20:10)
[2018-01-04] MEDS: FUROSEMIDE 20 MG TAB PO (08:11)
[2018-01-04] MEDS: metFORMIN (GLUCOPHAGE) 1000 MG TABLET PO ×2 (08:11→17:01)
[2018-01-04] MEDS: PANTOPRAZOLE 20 MG TAB PO ×2 (08:11→20:10)
[2018-01-04] MEDS: METHOCARBAMOL 750 MG TAB PO ×2 (11:50→20:13)
[2018-01-04 12:01] LABS: BEDSIDE GLUCOSE 172 MG/DL (70-105)
[2018-01-04 15:55] LABS: BEDSIDE GLUCOSE 106 MG/DL (70-105)
[2018-01-04] MEDS: ATORVASTATIN 20 MG TAB PO (20:10)
[2018-01-04] MEDS: DOXEPIN 25 MG CAP PO (20:10)
[2018-01-04] MEDS: GABAPENTIN 300 MG CAP PO (20:10)
[2018-01-04] MEDS: LEVEMIR (INSULIN DETEMIR) 1 UNITS/0.01ML SC (20:11)
[2018-01-04] MEDS: QUEtiapine FUMARATE 12.5 MG HALF-TAB PO (20:14)
[2018-01-05] MEDS: HumaLOG INSULIN (NovoLOG) PER UNIT SC ×3 (06:30→17:09)
[2018-01-05] MEDS: BENZTROPINE 1 MG TAB PO ×2 (08:28→20:36)
[2018-01-05] MEDS: risperiDONE 3 MG TAB PO ×2 (08:28→20:36)
[2018-01-05] MEDS: CLOPIDOGREL 75 MG TAB PO (08:28)
[2018-01-05] MEDS: CARVedilol 6.25 MG TAB PO ×2 (08:28→20:37)
[2018-01-05] MEDS: VENLAFAXINE **XR** 75MG CAPSULE PO (08:28)
[2018-01-05] MEDS: metFORMIN (GLUCOPHAGE) 1000 MG TABLET PO ×2 (08:28→17:09)
[2018-01-05] MEDS: VITAMIN D 1,000 INTERNATIONAL UNITS TABLET PO (08:29)
[2018-01-05] MEDS: FUROSEMIDE 20 MG TAB PO (08:29)
[2018-01-05] MEDS: PANTOPRAZOLE 20 MG TAB PO ×2 (08:29→20:36)
[2018-01-05 08:57] LABS: BEDSIDE GLUCOSE 127 MG/DL (70-105)
[2018-01-05 08:57] LABS: BEDSIDE GLUCOSE 187 MG/DL (70-105)
[2018-01-05 08:57] LABS: BEDSIDE GLUCOSE 171 MG/DL (70-105)
[2018-01-05 11:51] LABS: BEDSIDE GLUCOSE 116 MG/DL (70-105)
[2018-01-05] MEDS: METHOCARBAMOL 750 MG TAB PO ×2 (15:26→20:36)
[2018-01-05 17:25] LABS: BEDSIDE GLUCOSE 140 MG/DL (70-105)
[2018-01-05 20:19] LABS: BEDSIDE GLUCOSE 95 MG/DL (70-105)
[2018-01-05] MEDS: GABAPENTIN 300 MG CAP PO (20:36)
[2018-01-05] MEDS: DOXEPIN 25 MG CAP PO (20:36)
[2018-01-05] MEDS: ATORVASTATIN 20 MG TAB PO (20:36)
[2018-01-05] MEDS: LEVEMIR (INSULIN DETEMIR) 1 UNITS/0.01ML SC (20:37)
[2018-01-06 06:31] LABS: BEDSIDE GLUCOSE 164 MG/DL (70-105)
[2018-01-06] MEDS: metFORMIN (GLUCOPHAGE) 1000 MG TABLET PO ×2 (06:48→17:05)
[2018-01-06] MEDS: HumaLOG INSULIN (NovoLOG) PER UNIT SC ×3 (06:48→16:52)
[2018-01-06] MEDS: CLOPIDOGREL 75 MG TAB PO (08:01)
[2018-01-06] MEDS: VENLAFAXINE **XR** 75MG CAPSULE PO (08:01)
[2018-01-06] MEDS: BENZTROPINE 1 MG TAB PO ×2 (08:01→20:18)
[2018-01-06] MEDS: VITAMIN D 1,000 INTERNATIONAL UNITS TABLET PO (08:01)
[2018-01-06] MEDS: FUROSEMIDE 20 MG TAB PO (08:01)
[2018-01-06] MEDS: risperiDONE 3 MG TAB PO ×2 (08:01→20:19)
[2018-01-06] MEDS: PANTOPRAZOLE 20 MG TAB PO ×2 (08:01→20:18)
[2018-01-06] MEDS: CARVedilol 6.25 MG TAB PO ×2 (08:03→20:19)
[2018-01-06] MEDS: risperiDONE LONG-ACTING 37.5 MG/2 ML INJ (J2794) IM (09:31)
[2018-01-06 11:58] LABS: BEDSIDE GLUCOSE 128 MG/DL (70-105)
[2018-01-06] MEDS: ACETAMINOPHEN TAB 650MG DOSE (2X325MG) PO (16:54)
[2018-01-06 17:29] LABS: BEDSIDE GLUCOSE 207 MG/DL (70-105)
[2018-01-06] MEDS: DOXEPIN 25 MG CAP PO (20:18)
[2018-01-06] MEDS: GABAPENTIN 300 MG CAP PO (20:19)
[2018-01-06] MEDS: ATORVASTATIN 20 MG TAB PO (20:19)
[2018-01-06] MEDS: METHOCARBAMOL 750 MG TAB PO (20:22)
[2018-01-06 20:23] LABS: BEDSIDE GLUCOSE 133 MG/DL (70-105)
[2018-01-06] MEDS: LEVEMIR (INSULIN DETEMIR) 1 UNITS/0.01ML SC (20:45)
[2018-01-07 06:24] LABS: BEDSIDE GLUCOSE 166 MG/DL (70-105)
[2018-01-07] MEDS: HumaLOG INSULIN (NovoLOG) PER UNIT SC ×2 (06:33→12:18)
[2018-01-07] MEDS: VENLAFAXINE **XR** 75MG CAPSULE PO (08:18)
[2018-01-07] MEDS: BENZTROPINE 1 MG TAB PO (08:18)
[2018-01-07] MEDS: CLOPIDOGREL 75 MG TAB PO (08:18)
[2018-01-07] MEDS: FUROSEMIDE 20 MG TAB PO (08:18)
[2018-01-07] MEDS: metFORMIN (GLUCOPHAGE) 1000 MG TABLET PO (08:19)
[2018-01-07] MEDS: VITAMIN D 1,000 INTERNATIONAL UNITS TABLET PO (08:19)
[2018-01-07] MEDS: PANTOPRAZOLE 20 MG TAB PO (08:19)
[2018-01-07] MEDS: risperiDONE 3 MG TAB PO (08:19)
[2018-01-07] MEDS: CARVedilol 6.25 MG TAB PO (08:19)
[2018-01-07 11:55] LABS: BEDSIDE GLUCOSE 158 MG/DL (70-105)
[2018-01-07] MEDS: METHOCARBAMOL 750 MG TAB PO (14:09)
[2018-01-07] MEDS: hydrOXYzine 50 MG TAB PO (14:09)
== END 2018-01-07 14:15 | DRG 885 ==
LOC: M PSY 12-20 08:33 → M ED 13:59 → M ED INP 18:13 → M PSY 20:28
DX: F31.9 Bipolar disorder, unspecified (principal); K86.1 Other chronic pancreatitis; F43.10 Post-traumatic stress disorder, unspecified; F12.10 Cannabis abuse, uncomplicated; Z79.899 Other long term (current) drug therapy; Z88.0 Allergy status to penicillin; Z88.8 Allergy status to other drugs, medicaments and biological substances; Z88.6 Allergy status to analgesic agent; F17.210 Nicotine dependence, cigarettes, uncomplicated; J45.909 Unspecified asthma, uncomplicated; I25.10 Atherosclerotic heart disease of native coronary artery without angina pectoris; E11.9 Type 2 diabetes mellitus without complications; Z79.4 Long term (current) use of insulin; Z95.810 Presence of automatic (implantable) cardiac defibrillator; I10 Essential (primary) hypertension; M54.5 Low back pain; K21.9 Gastro-esophageal reflux disease without esophagitis; E78.5 Hyperlipidemia, unspecified; G62.9 Polyneuropathy, unspecified; F41.9 Anxiety disorder, unspecified; Z62.810 Personal history of physical and sexual abuse in childhood

== ENCOUNTER → 2018-05-18 | Outpatient (CLI) | payer OTHER ==
[2018-05-18 16:26] LABS: BASO % 0.5 % (0.0-1.0); EOS # 0.3 10^3/uL (0.0-0.50); EOS % 3.7 % (0.0-3.0); HEMATOCRIT 39.4 % (36.0-47.0); HEMOGLOBIN 12.2 g/dl (12.0-15.5); LYMPH # 2.2 10^3/uL (1.5-4.5); LYMPH % 26.4 % (24.0-44.0); MEAN CORPUSCULAR HEMOGLOBIN 24.3 pg (27.0-33.0); MEAN CORPUSCULAR VOLUME 78.5 fl (80.0-96.0); MONO # 0.5 10^3/uL (0.0-0.8); MONO % 6.3 % (0.0-5.0); NEUTROPHILS # 5.1 10^3/uL (1.8-7.7); NEUTROPHILS % 62.1 % (36.0-66.0); PLATELET COUNT, AUTOMATED 295 10^3/uL (150-450); RED BLOOD COUNT 5.02 10^6/uL (4.00-5.40); RED CELL DISTRIBUTION WIDTH 16.5 % (11.5-14.5); WHITE BLOOD COUNT 8.2 10^3/uL (4.0-10.0)
[2018-05-18 16:45] LABS: ESTIMATED AVERAGE GLUCOSE 260 MG/DL (60-110); HEMOGLOBIN A1c 10.7 %
[2018-05-18 16:49] LABS: ALBUMIN 3.6 GM/DL (3.2-5.2); ALBUMIN/GLOBULIN RATIO 1.09 (1.00-1.93); ALKALINE PHOSPHATASE 164 U/L (45-117); ALT/SGPT 34 U/L (12-78); ANION GAP 12 MEQ/L (8-16); AST/SGOT 15 U/L (7-37); BILIRUBIN,TOTAL 0.3 MG/DL (0.2-1.0); BLOOD UREA NITROGEN 16 MG/DL (7-18); CALCIUM LEVEL 8.9 MG/DL (8.5-10.1); CARBON DIOXIDE LEVEL 25 MEQ/L (21-32); CHLORIDE LEVEL 102 MEQ/L (98-107); CREATININE FOR GFR 1.03 MG/DL (0.55-1.30); FERRITIN 4 NG/ML (8-252); GLOMERULAR FILTRATION RATE 59.7 (>51); GLUCOSE, FASTING 366 MG/DL (70-100); POTASSIUM SERUM 4.2 MEQ/L (3.5-5.1); RHEUMATOID FACTOR QUANT < 10.0 IU/ML (<15.0); SODIUM LEVEL 139 MEQ/L (136-145); THYROID STIMULATING HORMONE 0.495 uIU/ML (0.358-3.740); TOTAL PROTEIN 6.9 GM/DL (6.4-8.2)
[2018-05-18 17:29] LABS: ERYTHROCYTE SEDIMENTATION RATE 19 mm/hr (0-30)
[2018-05-19 10:56] LABS: VITAMIN B12 LEVEL 454 PG/ML (247-911)
[2018-05-19 10:57] LABS: FOLATE > 24.0 NG/ML (>5.4)
[2018-05-20 11:54] LABS: ALBUMIN 4.15 GM/DL (3.29-5.55); ALBUMIN % 60.1 % (55.8-66.1); ALPHA-1-GLOBULIN % 4.6 % (2.9-4.9); ALPHA-1-GLOBULINS 0.32 GM/DL (0.17-0.41); ALPHA-2-GLOBULINS 0.93 GM/DL (0.42-0.99); ALPHA-2-GLOBULINS % 13.5 % (7.1-11.8); BETA-1-GLOBULINS 0.54 GM/DL (0.28-0.60); BETA-1-GLOBULINS % 7.8 % (4.7-7.2); BETA-2-GLOBULINS 0.32 GM/DL (0.19-0.55); BETA-2-GLOBULINS % 4.7 % (3.2-6.5); GAMMA GLOBULIN % 9.3 % (11.1-18.8); GAMMA GLOBULINS 0.64 GM/DL (0.65-1.58)
[2018-05-25 08:53] LABS: DRVV SCREEN 49.2 SEC
[2018-05-25 08:59] LABS: PTT LUPUS TYPE ANTICOAG SCREEN 1.1 (0-1.2)
[2018-05-26 10:32] LABS: ANTINUCLEAR ANTIBODIES DIRECT Negative (Negative); VITAMIN B1 LEVEL WHOLE BLOOD 181.6 nmol/L (66.5-200.0); VITAMIN B6,PYRIDOXAL PHOSPHATE 11.8 ug/L (2.0-32.8); VITAMIN E(ALPHA TOCOPHEROL) 9.1 mg/L (7.0-25.1); VITAMIN E(GAMMA TOCOPHEROL) 2.5 mg/L (0.5-5.5)
== END ==
LOC: M WUC 13:25
DX: G62.9 Polyneuropathy, unspecified (principal)
CPT/HCPCS: 82746

== ENCOUNTER → 2018-11-05 | Outpatient (REF) | payer OTHER ==
[~2018-11-05] MED LIST changes: -ACET1TAB17 PO; +ACET1TAB55 PO; +AMAN100C18 PO; +BENZ-18 PO; +CARV6.25 PO; +CHLO125TA PO; +CLOP75TA2 PO; +COGE1INJ PO; +DIPH50CA PO; +DIPH50TA3 PO; +DOXE100CA PO; -DRIS50002 PO; +DRIS50003 PO; +EFFE150C2 PO; +FURO20TA2 PO; -GABA600T PO; +GABA600T4 PO; +HYDR-3363 PO; +HYDR-643 PO; +INSUDET SC; +LAMI1TAB8 PO; -LAMO150T PO; +LAMO150T2 PO; +LASI20TA3 PO; +METH75TA PO; +NEUR600T PO; +PROT20TA11 PO; +RISP0.5T3 PO; +RISP1TAB3 PO; +RISP37INJ IM; +RISP3TAB20 PO; +SERT50TA PO; +TIZA4CAP PO; -TIZA4CAP3 PO; +TRAZ-163 PO; +VIST50CA PO; +VITAD1000T PO; +ZOFR4TAB14 PO; -ZOFR4TAB3 PO
[2018-11-05 16:01] LABS: CALCIUM LEVEL 9.4 MG/DL (8.5-10.1); CREATININE FOR GFR 1.09 MG/DL (0.55-1.30); GLOMERULAR FILTRATION RATE 55.9 (>51); POTASSIUM SERUM 4.1 MEQ/L (3.5-5.1)
[2018-11-05 16:30] LABS: HEMOGLOBIN A1c 13.2 %
== END ==
LOC: M SFHCPLAZ 14:05
DX: E11.40 Type 2 diabetes mellitus with diabetic neuropathy, unspecified (principal)

== ENCOUNTER → 2018-11-11 | Outpatient (REF) | payer OTHER ==
[2018-11-11 16:57] LABS: CREATININE, URINE 56.7 MG/DL; MALB URINE SIEMENS 26.6 MG/L; MAU/CREAT RATIO 46.9 MCG/MG (0.0-30.0)
== END ==
LOC: M LAB REF 13:40
PROVIDERS: ATTEND Internal Medicine
DX: E11.40 Type 2 diabetes mellitus with diabetic neuropathy, unspecified (principal)

== ENCOUNTER → 2018-11-18 | Outpatient (REF) | payer OTHER | LOC: M SFHCPLAZ 19:23 | PROVIDERS: ATTEND Internal Medicine | DX: Z12.4 Encounter for screening for malignant neoplasm of cervix (principal) ==

== ENCOUNTER → 2018-12-01 | Outpatient (CLI) | payer OTHER ==
--- NOTE | 2018-12-01 11:34 | REPMRS ---
Patient History The patient states she has not had a clinical breast exam in over a year. Patient is postmenopausal. No known family history of cancer. Digital Woman Screen Mammo: December 01, 2018 - Exam #: [id number] Bilateral CC and MLO view(s) were taken. Technologist: Seble Bustillo, Technologist Prior study comparison: December 12, 2016, bilateral digital mammo screening bilat, performed at [facility]. November 01, 2014, bilateral digital mammo screening bilat, performed at [facility]. June 18, 2011, bilateral digital mammo screening bilat, performed at [facility]. FINDINGS: There are scattered fibroglandular densities. There has been no change in the appearance of the mammogram from the prior studies. There is a mild amount of scattered fibroglandular density which is fairly symmetric. There is no interval development of dominant mass, architectural distortion, or clustered microcalcification suggestive of malignancy. 3-D tomosynthesis shows no additional findings. Assessment: BI-RADS/ACR category 1 mammogram. Negative. Recommendation Routine screening mammogram of both breasts in 1 year (for women over age 40). This patient's Lifetime Breast Cancer RIsk is estimated at 8.7 %. This mammogram was interpreted with the aid of an FDA-approved computer-aided dectection system. Electronically Signed By: Mateo Tadeo MD 12/01/18 [id number]
== END ==
LOC: M WHC 10:44
PROVIDERS: ATTEND Internal Medicine
DX: Z12.31 Encounter for screening mammogram for malignant neoplasm of breast (principal)

== ENCOUNTER → 2018-12-09 | Outpatient (CLI) | payer OTHER ==
[2018-12-14 00:19] LABS: DOXEPIN 39 ng/mL (Not Estab.)
== END ==
LOC: M WUC 10:52
PROVIDERS: ATTEND Psychiatry & Neurology Psychiatry
DX: F33.3 Major depressive disorder, recurrent, severe with psychotic symptoms (principal)
CPT/HCPCS: 36415; G0480

== ENCOUNTER → 2019-05-12 | Outpatient (REF) | payer OTHER ==
[~2019-05-12] MED LIST changes: -/ESOM40CA; +NEXI1CAP3; -NORC1TAB4 PO; +NORC1TAB7 PO; +SERT-141 PO; -SERT25TA PO; +SERT25TA85 PO; -SERT50TA PO; +TRAZ1TAB10 PO; -TRAZO50TA PO
[2019-05-12 16:17] LABS: ALBUMIN 3.8 GM/DL (3.2-5.2); ALT/SGPT 30 U/L (12-78); BILIRUBIN,TOTAL 0.3 MG/DL (0.2-1.0); BLOOD UREA NITROGEN 18 MG/DL (7-18); CALCIUM LEVEL 9.6 MG/DL (8.5-10.1); CARBON DIOXIDE LEVEL 25 MEQ/L (21-32); CHLORIDE LEVEL 105 MEQ/L (98-107); GLOMERULAR FILTRATION RATE 55.1 (>51); GLUCOSE, FASTING 239 MG/DL (70-100); IMMUNOGLOBULIN A 97.8 MG/DL (70-400); POTASSIUM SERUM 4.3 MEQ/L (3.5-5.1); SODIUM LEVEL 138 MEQ/L (136-145); TOTAL PROTEIN 7.3 GM/DL (6.4-8.2)
[2019-05-12 16:27] LABS: MAU/CREAT RATIO 111.1 MCG/MG (0.0-30.0)
[2019-05-12 16:47] LABS: HEMOGLOBIN A1c 12.5 %
[2019-05-13 10:16] LABS: HEPATITIS B SURFACE ANTIGEN NEGATIVE (NEGATIVE)
[2019-05-13 10:45] LABS: HEPATITIS C VIRUS ABY INDEX 0.1 INDEX (<0.8)
[2019-05-15 00:07] LABS: ALPHA 1 ANTITRYPSIN 149 mg/dL (90-200); ANTI-MITOCHONDRIAL ANTIBODY 52.6 Units (0.0-20.0); ANTINUCLEAR ANTIBODIES DIRECT Negative (Negative); CERULOPLASMIN 33.9 mg/dL (19.0-39.0); LIVER-KIDNEY MICROSOMAL ABY <20.1 Units (0.0-20.0)
== END ==
LOC: M SFHCPLAZ 14:43
DX: E11.40 Type 2 diabetes mellitus with diabetic neuropathy, unspecified (principal); R94.5 Abnormal results of liver function studies

== ENCOUNTER → 2019-06-22 | Outpatient (CLI) | payer OTHER ==
[~2019-06-22] MED LIST changes: +CHOL100029 PO; -LAMO150T2 PO; +LAMO150T3 PO; +METH750T2 PO; -METH75TA PO; -OMEP40CA2 PO; +OMEP40CA97 PO; -TRAZ-163 PO; +TRAZ-257 PO; -VITAD1000T PO
--- NOTE | 2019-06-22 15:08 | REP ---
MRCP: Limited MRCP exam is accomplished with heavily T2-weighted sequences performed in the axial and coronal planes. The patient became claustrophobic and the later imaging sequences, including the MIP images could not be performed. Correlation made with prior CT 07/20/2017. There is no evidence of intrahepatic or extrahepatic biliary dilatation, common bile duct has a maximum diameter of 6 mm. There is no evidence of choledocholithiasis. The patient has had prior cholecystectomy. There is no pancreatic duct dilatation. There appears to be pancreas divisum. The visualized portions of the liver, spleen, adrenals, pancreas and kidneys are otherwise unremarkable. I do not see adenopathy or free fluid in the visualized abdomen. IMPRESSION: Somewhat limited exam as discussed above, however, there is no evidence of intrahepatic or extrahepatic biliary dilatation and no evidence of choledocholithiasis. Pancreatic duct is normal in caliber. There appears to be pancreas divisum. Patient is status post cholecystectomy. Electronically Signed by Rocco Maldonado MD 06/23/2019 07:46 A
== END ==
LOC: M RAD 12:39
PROVIDERS: ATTEND Internal Medicine
DX: R94.5 Abnormal results of liver function studies (principal); R76.8 Other specified abnormal immunological findings in serum

== ENCOUNTER → 2019-08-05 | Outpatient (REF) | payer OTHER ==
[~2019-08-05] MED LIST changes: +LAMO150T2 PO; -LAMO150T3 PO; +OMEP40CA2 PO; -OMEP40CA97 PO; +TRAZ-163 PO; -TRAZ-257 PO
[2019-08-05 19:33] LABS: CALCIUM LEVEL 9.7 MG/DL (8.5-10.1); CREATININE FOR GFR 1.36 MG/DL (0.55-1.30); GLOMERULAR FILTRATION RATE 43.1 (>51); POTASSIUM SERUM 5.5 MEQ/L (3.5-5.1)
[2019-08-05 19:34] LABS: ALBUMIN 3.7 GM/DL (3.2-5.2); BILIRUBIN,TOTAL 0.2 MG/DL (0.2-1.0); TOTAL PROTEIN 7.2 GM/DL (6.4-8.2)
[2019-08-05 19:43] LABS: HEMATOCRIT 41.6 % (36.0-47.0); HEMOGLOBIN 12.9 g/dl (12.0-15.5); MEAN CORPUSCULAR HEMOGLOBIN 24.2 pg (27.0-33.0); MEAN CORPUSCULAR VOLUME 77.9 fl (80.0-96.0); PLATELET COUNT, AUTOMATED 348 10^3/uL (150-450); RED BLOOD COUNT 5.34 10^6/uL (4.00-5.40); WHITE BLOOD COUNT 10.9 10^3/uL (4.0-10.0)
[2019-08-05 19:49] LABS: HEMOGLOBIN A1c 9.5 %
== END ==
LOC: M SFHCPLAZ 15:12
DX: E11.40 Type 2 diabetes mellitus with diabetic neuropathy, unspecified (principal); R94.5 Abnormal results of liver function studies; D63.8 Anemia in other chronic diseases classified elsewhere

== ENCOUNTER → 2019-09-09 | Outpatient (CLI) | payer OTHER ==
[~2019-09-09] MED LIST changes: -OMEP40CA2 PO; +OMEP40CA97 PO
[2019-09-13 00:07] LABS: DOXEPIN 48 ng/mL (Not Estab.)
== END ==
LOC: M WUC 13:29
PROVIDERS: ATTEND Psychiatry & Neurology Psychiatry
DX: F33.3 Major depressive disorder, recurrent, severe with psychotic symptoms (principal)
CPT/HCPCS: 36415; G0480

== ENCOUNTER → 2019-12-30 | Outpatient (REF) | payer OTHER ==
[~2019-12-30] MED LIST changes: -ACAR50TA2 PO; +ACAR50TA3 PO; -LAMO150T2 PO; +LAMO150T3 PO; -TRAZ-163 PO; +TRAZ-257 PO
[2019-12-30 17:07] LABS: BASO # 0.1 10^3/uL (0.0-0.2); BASO % 0.5 % (0.0-1.0); EOS # 0.4 10^3/uL (0.0-0.5); EOS % 4.2 % (0.0-3.0); HEMATOCRIT 50.1 % (36.0-47.0); HEMOGLOBIN 16.4 g/dl (12.0-15.5); LYMPH # 2.7 10^3/uL (1.5-5.0); MEAN CORPUSCULAR HEMOGLOBIN 29.2 pg (27.0-33.0); MEAN CORPUSCULAR HGB CONC 32.7 g/dl (32.0-36.5); MEAN CORPUSCULAR VOLUME 89.3 fl (80.0-96.0); MONO # 0.5 10^3/uL (0.0-0.8); MONO % 5.4 % (0.0-5.0); NEUTROPHILS # 5.6 10^3/uL (1.5-8.5); NEUTROPHILS % 60.2 % (36.0-66.0); PLATELET COUNT, AUTOMATED 236 10^3/uL (150-450); RED BLOOD COUNT 5.61 10^6/uL (4.00-5.40); WHITE BLOOD COUNT 9.3 10^3/uL (4.0-10.0)
[2019-12-30 17:34] LABS: HEMOGLOBIN A1c 13.4 %
[2019-12-30 19:18] LABS: CALCIUM LEVEL 9.3 MG/DL (8.5-10.1); CREATININE FOR GFR 1.1 MG/DL (0.55-1.30); GLOMERULAR FILTRATION RATE 54.9 (>51); POTASSIUM SERUM 4.4 MEQ/L (3.5-5.1)
== END ==
LOC: M SFHCPLAZ 14:11
DX: E11.40 Type 2 diabetes mellitus with diabetic neuropathy, unspecified (principal); D63.8 Anemia in other chronic diseases classified elsewhere

== ENCOUNTER 2020-03-02 18:39 | Emergency (ER) | payer OTHER ==
[~2020-03-02] VITALS: Ht 157.5 cm; Wt 71.2 kg
[2020-03-02] MEDS ORDERED: BASA100I (19:05)
[2020-03-02] MEDS ORDERED: AUGM875T28 PO (21:00)
[2020-03-02] MEDS ORDERED: AUGMENTIN 875 MG TAB PO ONE (21:15)
[2020-03-02 21:18] VITALS: BP 134/77
== END 2020-03-02 21:19 | disposition home or self-care (01) ==
LOC: M ED 18:39
DX: N75.1 Abscess of Bartholin's gland (principal); E11.9 Type 2 diabetes mellitus without complications; I10 Essential (primary) hypertension; E78.5 Hyperlipidemia, unspecified; I25.2 Old myocardial infarction; F17.210 Nicotine dependence, cigarettes, uncomplicated; Z79.02 Long term (current) use of antithrombotics/antiplatelets; Z91.048 Other nonmedicinal substance allergy status; Z88.8 Allergy status to other drugs, medicaments and biological substances; Z88.6 Allergy status to analgesic agent

== ENCOUNTER → 2020-07-05 | Outpatient (CLI) | payer OTHER ==
[~2020-07-05] MED LIST changes: +AUGM875T28 PO; +BASA100I
[2020-07-05 19:27] LABS: BASO % 0.3 % (0.0-1.0); EOS # 0.2 10^3/uL (0.0-0.5); EOS % 1.7 % (0.0-3.0); HEMATOCRIT 49.4 % (36.0-47.0); HEMOGLOBIN 16.5 g/dl (12.0-15.5); LYMPH # 3.2 10^3/uL (1.5-5.0); LYMPH % 27.4 % (24.0-44.0); MEAN CORPUSCULAR HEMOGLOBIN 31.1 pg (27.0-33.0); MEAN CORPUSCULAR HGB CONC 33.4 g/dl (32.0-36.5); MEAN CORPUSCULAR VOLUME 93.2 fl (80.0-96.0); MONO # 0.7 10^3/uL (0.0-0.8); NEUTROPHILS # 7.3 10^3/uL (1.5-8.5); NEUTROPHILS % 63.9 % (36.0-66.0); PLATELET COUNT, AUTOMATED 280 10^3/uL (150-450); WHITE BLOOD COUNT 11.5 10^3/uL (4.0-10.0)
[2020-07-05 19:52] LABS: ALBUMIN 3.6 GM/DL (3.2-5.2); BILIRUBIN,TOTAL 0.3 MG/DL (0.2-1.0); CALCIUM LEVEL 9.4 MG/DL (8.5-10.1); CREATININE FOR GFR 1.13 MG/DL (0.55-1.30); GLOMERULAR FILTRATION RATE 53.2 (>51)
== END ==
LOC: M WUC 15:47
PROVIDERS: ATTEND Physician Assistant
DX: R10.9 Unspecified abdominal pain (principal)

== ENCOUNTER → 2021-01-24 | Outpatient (REF) | payer OTHER ==
[~2021-01-24] MED LIST changes: +METH-1165 PO; -METH750T2 PO; +RISP-7 PO; +RISP-8 PO; -RISP0.5T3 PO; -RISP1TAB3 PO
[2021-01-24 19:16] LABS: HEMOGLOBIN A1c 12.5 %
== END ==
LOC: M SFHCPLAZ 15:16
DX: E11.40 Type 2 diabetes mellitus with diabetic neuropathy, unspecified (principal)

== ENCOUNTER → 2021-05-02 | Outpatient (CLI) | payer OTHER ==
[~2021-05-02] MED LIST changes: +OMEP40CA4 PO; -OMEP40CA97 PO
[2021-05-02 16:05] LABS: HEMOGLOBIN A1c 11.7 %
== END ==
LOC: M LAB 14:49
PROVIDERS: ATTEND Student in an Organized Health Care Education/Training Program
DX: E11.40 Type 2 diabetes mellitus with diabetic neuropathy, unspecified (principal)

== ENCOUNTER → 2021-05-02 | Outpatient (REF) | payer OTHER | LOC: M SFHCPLAZ 14:26 | DX: Z53.9 Procedure and treatment not carried out, unspecified reason (principal); E11.40 Type 2 diabetes mellitus with diabetic neuropathy, unspecified ==

== ENCOUNTER → 2021-05-23 | Outpatient (REF) | payer OTHER | LOC: M SFHCPLAZ 11:55 | DX: Z13.9 Encounter for screening, unspecified (principal) ==

== ENCOUNTER → 2021-06-25 | Outpatient (CLI) | payer OTHER ==
--- NOTE | 2021-06-25 16:31 | REPMRS ---
Patient History The patient states she has not had a clinical breast exam in over a year. No known family history of cancer. Patient states no breast complaints today. Patient has signed MRS History Sheet. Digital Woman Screen Mammo: June 25, 2021 - Exam #: [id number] Bilateral CC and MLO view(s) were taken. Technologist: Seble Bustillo, Technologist Prior study comparison: December 01, 2018, bilateral digital woman screen mammo performed at [facility] and [facility]. December 12, 2016, bilateral digital mammo screening bilat, performed at [facility]. November 01, 2014, bilateral digital mammo screening bilat, performed at [facility]. FINDINGS: There are scattered fibroglandular densities. The Volpara volumetric breast density category is:B. There has been no change in the appearance of the mammogram from the prior studies. There is a mild amount of scattered fibroglandular density which is fairly symmetric. There is no interval development of dominant mass, architectural distortion, or grouped microcalcification suggestive of malignancy. 3-D tomosynthesis shows no additional findings. Assessment: BI-RADS/ACR category 1 mammogram. Negative Mammogram. Recommendation Routine screening mammogram of both breasts in 1 year (for women over age 40). This patient's [facility] Lifetime Breast Cancer Risk is estimated at 8.1 %. This mammogram was interpreted with the aid of an FDA-approved computer-aided dectection system. Electronically Signed By: Mateo Tadeo MD 06/25/21 0913
== END ==
LOC: M WHC 15:44
PROVIDERS: ATTEND Student in an Organized Health Care Education/Training Program
DX: Z12.31 Encounter for screening mammogram for malignant neoplasm of breast (principal)

== ENCOUNTER → 2021-09-06 | Outpatient (REF) | payer OTHER | LOC: M SFHCPLAZ 09:54 | PROVIDERS: ATTEND Family Medicine | DX: Z53.9 Procedure and treatment not carried out, unspecified reason (principal) ==

== ENCOUNTER → 2021-09-17 | Outpatient (CLI) | payer OTHER ==
[2021-09-17 15:00] LABS: CHOLESTEROL LEVEL 159 MG/DL (<200); HDL CHOLESTEROL 30 MG/DL (>40); HEPATITIS B SURFACE ANTIBODY NEGATIVE (POSITIVE); NON-HDL-C 129 MG/DL; TRIGLYCERIDES LEVEL 698 MG/DL (<150)
[2021-09-17 15:21] LABS: HEMOGLOBIN A1c 11.4 %
[2021-09-19 23:12] LABS: HEPATITIS BE ANTIBODY Negative (Negative); HIV-1 RNA BY PCR Negative (Negative)
== END ==
LOC: M LAB 12:37
PROVIDERS: ATTEND Student in an Organized Health Care Education/Training Program
DX: E11.40 Type 2 diabetes mellitus with diabetic neuropathy, unspecified (principal)

== ENCOUNTER → 2021-10-17 | Outpatient (CLI) | payer OTHER ==
--- NOTE | 2021-10-17 10:20 | REP ---
INDICATION: SMOKER COMPARISON: Chest CT dated 06/22/2014, 01/01/2017 TECHNIQUE: Axial noncontrast images from the thoracic inlet to the upper abdomen using low-dose lung screening technique (LDCT). FINDINGS: Bilateral lung rocha are relatively well aerated and essentially clear. No acute consolidation, suspicious nodule or mass. No effusion. No pneumothorax. Tracheobronchial tree is patent. Mediastinum is grossly normal. IMPRESSION: Lung-RADS category 1. Management recommendations include annual low-dose CT surveillance. <Electronically signed by Piyush Mcdonald > 10/17/21 [id number]
== END ==
LOC: M RAD 09:21
PROVIDERS: ATTEND Student in an Organized Health Care Education/Training Program
DX: Z12.2 Encounter for screening for malignant neoplasm of respiratory organs (principal); Z87.891 Personal history of nicotine dependence

== ENCOUNTER → 2021-12-09 | Outpatient (CLI) | payer OTHER ==
[~2021-12-09] MED LIST changes: -BASA100I; +BASA100I SC; +BENZ-52 PO; +EZET10TA21 PO; +FERR325T19 PO; +PANT20TA6 PO; +STEG5TAB PO
== END ==
LOC: M LABSMTC 10:58
PROVIDERS: ATTEND Anesthesiology
DX: Z01.812 Encounter for preprocedural laboratory examination (principal); Z20.822 Contact with and (suspected) exposure to COVID-19

== ENCOUNTER → 2021-12-13 | Day surgery (SDC) | payer OTHER ==
[~2021-12-13] VITALS: Ht 157.5 cm; Wt 68.0 kg
[~2021-12-13] MED LIST changes: +NS 1,000 ML IV ONE
== END | disposition home or self-care (01) ==
LOC: M OPP 06:43
PROVIDERS: ATTEND Internal Medicine Gastroenterology
DX: Z86.010 Personal history of colon polyps (principal); Z53.8 Procedure and treatment not carried out for other reasons

== ENCOUNTER → 2021-12-18 | Outpatient (CLI) | payer OTHER ==
[~2021-12-18] MED LIST changes: -NS 1,000 ML IV ONE
== END ==
LOC: M LABSMTC 10:38
PROVIDERS: ATTEND Anesthesiology
DX: Z01.818 Encounter for other preprocedural examination (principal); Z11.52 Encounter for screening for COVID-19

== ENCOUNTER 2021-12-23 13:01 | Day surgery (SDC) | payer OTHER ==
[~2021-12-23] VITALS: Ht 157.5 cm; Wt 66.7 kg
[~2021-12-23 13:01] MED LIST changes: +NS 1,000 ML IV ONE
[2021-12-23] MEDS ORDERED: LIDOCAINE 2% 100MG/5ML SDV (FOR ANES.) As Ordered ONE (14:24)
[2021-12-23] MEDS ORDERED: propofoL 200 MG/20 ML VIAL As Ordered ONE (14:24)
[2021-12-23 15:15] VITALS: BP 173/88
== END 2021-12-23 15:17 | disposition home or self-care (01) ==
LOC: M OPP 13:01
PROVIDERS: ATTEND Internal Medicine Gastroenterology
DX: Z86.010 Personal history of colon polyps (principal); Z09 Encounter for follow-up examination after completed treatment for conditions other than malignant neoplasm; Z80.0 Family history of malignant neoplasm of digestive organs; Z79.84 Long term (current) use of oral hypoglycemic drugs; Z79.891 Long term (current) use of opiate analgesic; Z79.899 Other long term (current) drug therapy; Z88.8 Allergy status to other drugs, medicaments and biological substances; Z91.048 Other nonmedicinal substance allergy status; F17.210 Nicotine dependence, cigarettes, uncomplicated

== ENCOUNTER → 2022-03-17 | Outpatient (CLI) | payer OTHER ==
[~2022-03-17] MED LIST changes: -NS 1,000 ML IV ONE
== END ==
LOC: M LABSMTC 09:34
PROVIDERS: ATTEND Anesthesiology
DX: Z20.828 Contact with and (suspected) exposure to other viral communicable diseases (principal); Z11.59 Encounter for screening for other viral diseases

== ENCOUNTER 2022-03-21 06:46 | Day surgery (SDC) | payer OTHER ==
[~2022-03-21] VITALS: Ht 157.5 cm; Wt 65.3 kg
[~2022-03-21 06:46] MED LIST changes: +NS 1,000 ML IV ONE
[2022-03-21 07:20] VITALS: BP 154/82
[2022-03-21] MEDS ORDERED: HumuLIN R (REGULAR) INSULIN (NovoLIN R) **100U/ML** PER UNIT SQ ONE (07:45)
== END 2022-03-21 08:35 | disposition home or self-care (01) ==
LOC: M OPP 06:46
PROVIDERS: ATTEND Internal Medicine Gastroenterology
DX: Z86.010 Personal history of colon polyps (principal); Z53.8 Procedure and treatment not carried out for other reasons

== ENCOUNTER → 2023-01-21 | Outpatient (REF) | payer OTHER ==
[~2023-01-21] MED LIST changes: -BENZ-52 PO; +BENZ1TAB5 PO; +CLOP75TA99 PO; -NS 1,000 ML IV ONE; -PLAV1TAB2 PO
[2023-01-21 16:37] LABS: HEMATOCRIT 53.2 % (36.0-47.0); HEMOGLOBIN 17.6 g/dl (12.0-15.5); MEAN CORPUSCULAR HEMOGLOBIN 31.5 pg (27.0-33.0); MEAN CORPUSCULAR HGB CONC 33.1 g/dl (32.0-36.5); MEAN CORPUSCULAR VOLUME 95.3 fl (80.0-96.0); PLATELET COUNT, AUTOMATED 275 10^3/uL (150-450); RED BLOOD COUNT 5.58 10^6/uL (4.00-5.40); WHITE BLOOD COUNT 9.9 10^3/uL (4.0-10.0)
[2023-01-21 17:02] LABS: ALBUMIN 3.5 G/DL (3.2-5.2); ALKALINE PHOSPHATASE 126 U/L (46-116); ALT/SGPT 23 U/L (7.0-40); AST/SGOT 15 U/L (<34); BILIRUBIN,TOTAL 0.3 MG/DL (0.3-1.2); BLOOD UREA NITROGEN 16 MG/DL (9-23); CALCIUM LEVEL 9.4 MG/DL (8.5-10.1); CARBON DIOXIDE LEVEL 28 MMOL/L (20-31); CHLORIDE LEVEL 104 MMOL/L (98-107); CHOLESTEROL LEVEL 98 MG/DL (<200); CHOLESTEROL RISK RATIO 3.69 (<5); CREATININE FOR GFR 0.76 MG/DL (0.55-1.30); GLOMERULAR FILTRATION RATE > 60.0 (>51); GLUCOSE, FASTING 139 MG/DL (60-100); HDL CHOLESTEROL 26.5 MG/DL (>40); LDL CHOLESTEROL 29.5 MG/DL (<100); NON-HDL-C 71.5 MG/DL; POTASSIUM SERUM 4.4 MMOL/L (3.5-5.1); SODIUM LEVEL 140 MMOL/L (136-145); TOTAL PROTEIN 6.4 G/DL (5.7-8.2); TRIGLYCERIDES LEVEL 210 MG/DL (<150)
[2023-01-21 17:30] LABS: HIV 1&2 SCREEN CENTAUR NEGATIVE (NEGATIVE)
[2023-01-21 17:31] LABS: HEMOGLOBIN A1c 9.8 % (4.0-6.0)
== END ==
LOC: M LAB REF 16:15
PROVIDERS: ATTEND Physician Assistant
DX: Z11.59 Encounter for screening for other viral diseases (principal); E11.65 Type 2 diabetes mellitus with hyperglycemia; Z11.4 Encounter for screening for human immunodeficiency virus [HIV]; Z79.4 Long term (current) use of insulin

== ENCOUNTER → 2023-01-28 | Outpatient (REF) | payer OTHER ==
[2023-01-28 18:21] LABS: CREATININE, URINE 33.8 MG/DL; MAU/CREAT RATIO 23.6 MCG/MG (0.0-30.0)
== END ==
LOC: M LAB REF 16:53
PROVIDERS: ATTEND Physician Assistant
DX: E11.65 Type 2 diabetes mellitus with hyperglycemia (principal); Z79.4 Long term (current) use of insulin

== ENCOUNTER 2023-04-19 12:20 | Inpatient (IN) | payer MEDICAID, OTHER ==
[~2023-04-19] VITALS: Ht 157.5 cm; Wt 58.3 kg
[2023-04-19 14:04] LABS: AMPHETAMINES LEVEL URINE NEGATIVE (NEGATIVE); BARBITURATES URINE NEGATIVE (NEGATIVE); BENZODIAZEPINES URINE NEGATIVE (NEGATIVE); COCAINE METABOLITE URINE NEGATIVE (NEGATIVE); METHADONE URINE NEGATIVE (NEGATIVE); OPIATES URINE NEGATIVE (NEGATIVE); PHENCYCLIDINE URINE NEGATIVE (NEGATIVE)
[2023-04-19 14:05] LABS: CANNABINOIDS URINE POSITIVE (NEGATIVE)
[2023-04-19 14:33] LABS: HEMATOCRIT 55.4 % (36.0-47.0); HEMOGLOBIN 18.4 g/dl (12.0-15.5); MEAN CORPUSCULAR HEMOGLOBIN 31.3 pg (27.0-33.0); MEAN CORPUSCULAR HGB CONC 33.2 g/dl (32.0-36.5); MEAN CORPUSCULAR VOLUME 94.2 fl (80.0-96.0); PLATELET COUNT, AUTOMATED 260 10^3/uL (150-450); RED BLOOD COUNT 5.88 10^6/uL (4.00-5.40); WHITE BLOOD COUNT 12.4 10^3/uL (4.0-10.0)
[2023-04-19 14:54] LABS: ETHYL ALCOHOL (ETHANOL) < 0.003 % (0.000-0.010)
[2023-04-19 14:55] LABS: ACETAMINOPHEN LEVEL < 2.0 UG/ML (10.0-20.0)
[2023-04-19 14:56] LABS: ALBUMIN 4.3 G/DL (3.2-5.2); ALKALINE PHOSPHATASE 133 U/L (46-116); ALT/SGPT 64 U/L (7.0-40); AST/SGOT 58 U/L (<34); BILIRUBIN,DIRECT 0.2 MG/DL (<0.4); BILIRUBIN,TOTAL 0.5 MG/DL (0.3-1.2); BLOOD UREA NITROGEN 14 MG/DL (9-23); CALCIUM LEVEL 9.2 MG/DL (8.5-10.1); CARBON DIOXIDE LEVEL 26 MMOL/L (20-31); CHLORIDE LEVEL 107 MMOL/L (98-107); CREATININE FOR GFR 0.83 MG/DL (0.55-1.30); GLOMERULAR FILTRATION RATE > 60.0 (>51); GLUCOSE, FASTING 104 MG/DL (60-100); POTASSIUM SERUM 4.2 MMOL/L (3.5-5.1); SALICYLATE LEVEL < 3.0 MG/DL (<30); SODIUM LEVEL 142 MMOL/L (136-145); TOTAL PROTEIN 6.9 G/DL (5.7-8.2)
[2023-04-19 14:58] LABS: THYROID STIMULATING HORMONE 1.084 uIU/ML (0.55-4.78)
[2023-04-19] MEDS ORDERED: INVE1.31 PO (15:44)
[2023-04-19] MEDS ORDERED: DOXE75CA2 PO (15:44)
[2023-04-19] MEDS ORDERED: MAALOX 30 ML SUSP *UDC PO PRN (20:05)
[2023-04-19] MEDS ORDERED: MOM 30ML SUSPENSION UDC PO PRN (20:05)
[2023-04-19] MEDS ORDERED: ACETAMINOPHEN TAB 650MG DOSE (2X325MG) PO PRN (20:05)
[2023-04-19] MEDS ORDERED: GABA600T4 PO (20:44)
[2023-04-19] MEDS ORDERED: CARV6.25 PO (20:44)
[2023-04-19] MEDS ORDERED: CLOP75TA2 PO (20:44)
[2023-04-19] MEDS ORDERED: ATOR80TA59 PO (20:44)
[2023-04-19] MEDS ORDERED: RISP-8 PO (20:44)
[2023-04-19] MEDS ORDERED: FERR325T19 PO (20:45)
[2023-04-19] MEDS ORDERED: STEG15TA PO (20:45)
[2023-04-19] MEDS ORDERED: EZET10TA21 PO (20:45)
[2023-04-19] MEDS ORDERED: PANT20TA6 PO (20:45)
[2023-04-19] MEDS ORDERED: DEXTROSE 50% 50ML SYRINGE IV PRN (20:55)
[2023-04-19] MEDS ORDERED: HOME MED LIST COMPLETE! XX SCH (20:55)
[2023-04-19] MEDS ORDERED: GLUCOSE 4GM CHEW TABLET PO PRN (20:55)
[2023-04-19] MEDS ORDERED: GLUCAGON INJ 1MG VIAL SC PRN (20:55)
[2023-04-19] MEDS: INSULIN LISPRO (NovoLOG) PER UNIT SC SCH (21:00)
[2023-04-19 21:26] VITALS: BP 130/72; TEMP 96.8; O2SAT 95
[2023-04-19] MEDS: ATORVASTATIN 20 MG TAB PO SCH (22:07)
[2023-04-19] MEDS: GABAPENTIN 300 MG CAP PO SCH (22:07)
[2023-04-19] MEDS: DOXEPIN 25 MG CAP PO SCH (22:07)
[2023-04-19] MEDS: LEVEMIR (INSULIN DETEMIR) 1 UNITS/0.01ML SC SCH (22:08)
[2023-04-19] MEDS: EZETIMIBE 10MG TABLET (ZETIA) PO SCH (22:20)
[2023-04-19] MEDS: CARVedilol 6.25 MG TAB PO SCH (22:21)
[2023-04-20 06:18] VITALS: BP 143/74; TEMP 96.4; O2SAT 95
[2023-04-20] MEDS: INSULIN LISPRO (NovoLOG) PER UNIT SC SCH ×4 (06:40→20:41)
[2023-04-20] MEDS: PANTOPRAZOLE 20 MG TAB PO SCH (09:00)
[2023-04-20] MEDS: CLOPIDOGREL 75 MG TAB PO SCH (09:42)
[2023-04-20] MEDS: FERROUS SULFATE 325MG TAB PO SCH (09:42)
[2023-04-20] MEDS: CARVedilol 6.25 MG TAB PO SCH ×2 (09:58→20:39)
[2023-04-20] MEDS ORDERED: VENLAFAXINE **XR** 37.5 MG CAPSULE PO ONE (16:00)
[2023-04-20 16:41] VITALS: BP 140/67; TEMP 97.3; O2SAT 95
[2023-04-20] MEDS: EZETIMIBE 10MG TABLET (ZETIA) PO SCH (20:38)
[2023-04-20] MEDS: risperiDONE 2 MG TAB PO SCH (20:39)
[2023-04-20] MEDS: ATORVASTATIN 20 MG TAB PO SCH (20:39)
[2023-04-20] MEDS: GABAPENTIN 300 MG CAP PO SCH (20:39)
[2023-04-20] MEDS: DOXEPIN 25 MG CAP PO SCH (20:39)
[2023-04-20] MEDS: LEVEMIR (INSULIN DETEMIR) 1 UNITS/0.01ML SC SCH (20:41)
[2023-04-21 06:48] VITALS: BP 116/72; TEMP 98.2; O2SAT 95
[2023-04-21] MEDS: INSULIN LISPRO (NovoLOG) PER UNIT SC SCH ×4 (06:57→21:12)
[2023-04-21] MEDS: PANTOPRAZOLE 20 MG TAB PO SCH (09:00)
[2023-04-21] MEDS ORDERED: VENLAFAXINE **XR** 75MG CAPSULE PO SCH (09:00)
[2023-04-21] MEDS: CARVedilol 6.25 MG TAB PO SCH ×2 (09:00→21:08)
[2023-04-21] MEDS: FERROUS SULFATE 325MG TAB PO SCH (09:38)
[2023-04-21] MEDS: CLOPIDOGREL 75 MG TAB PO SCH (09:38)
[2023-04-21] MEDS ORDERED: VENLAFAXINE **XR** 75MG CAPSULE PO ONE (14:50)
[2023-04-21] MEDS: BENZTROPINE 1 MG TAB PO SCH (15:16)
[2023-04-21 16:13] VITALS: BP 148/84; TEMP 96.9; O2SAT 97
[2023-04-21] MEDS: EZETIMIBE 10MG TABLET (ZETIA) PO SCH (21:07)
[2023-04-21] MEDS: DOXEPIN 25 MG CAP PO SCH (21:08)
[2023-04-21] MEDS: GABAPENTIN 300 MG CAP PO SCH (21:08)
[2023-04-21] MEDS: risperiDONE 2 MG TAB PO SCH (21:08)
[2023-04-21] MEDS: ATORVASTATIN 20 MG TAB PO SCH (21:08)
[2023-04-21] MEDS: LEVEMIR (INSULIN DETEMIR) 1 UNITS/0.01ML SC SCH (21:09)
[2023-04-22 06:24] VITALS: BP 134/70; TEMP 96.9; O2SAT 97
[2023-04-22] MEDS: INSULIN LISPRO (NovoLOG) PER UNIT SC SCH ×4 (06:42→21:00)
[2023-04-22] MEDS: PANTOPRAZOLE 20 MG TAB PO SCH (09:00)
[2023-04-22 09:07] VITALS: BP 132/82
[2023-04-22] MEDS: CARVedilol 6.25 MG TAB PO SCH ×2 (09:09→21:29)
[2023-04-22] MEDS: VENLAFAXINE **XR** 75MG CAPSULE PO SCH (09:09)
[2023-04-22] MEDS: risperiDONE 1 MG TAB PO SCH (09:09)
[2023-04-22] MEDS: CLOPIDOGREL 75 MG TAB PO SCH (09:09)
[2023-04-22] MEDS: FERROUS SULFATE 325MG TAB PO SCH (09:09)
[2023-04-22] MEDS: BENZTROPINE 1 MG TAB PO SCH (09:09)
[2023-04-22 15:59] VITALS: BP 139/79; TEMP 97.5; O2SAT 100
[2023-04-22] MEDS: EZETIMIBE 10MG TABLET (ZETIA) PO SCH (21:28)
[2023-04-22] MEDS: GABAPENTIN 300 MG CAP PO SCH (21:28)
[2023-04-22] MEDS: risperiDONE 2 MG TAB PO SCH (21:28)
[2023-04-22] MEDS: DOXEPIN 25 MG CAP PO SCH (21:29)
[2023-04-22] MEDS: ATORVASTATIN 20 MG TAB PO SCH (21:29)
[2023-04-22] MEDS: LEVEMIR (INSULIN DETEMIR) 1 UNITS/0.01ML SC SCH (21:38)
[2023-04-23 06:09] VITALS: BP 130/81; TEMP 96.1; O2SAT 95
[2023-04-23] MEDS: INSULIN LISPRO (NovoLOG) PER UNIT SC SCH ×4 (06:59→21:00)
[2023-04-23 08:43] VITALS: BP 141/67
[2023-04-23] MEDS: CARVedilol 6.25 MG TAB PO SCH ×2 (08:45→21:36)
[2023-04-23] MEDS: CLOPIDOGREL 75 MG TAB PO SCH (08:45)
[2023-04-23] MEDS: PANTOPRAZOLE 20 MG TAB PO SCH (08:45)
[2023-04-23] MEDS: FERROUS SULFATE 325MG TAB PO SCH (08:45)
[2023-04-23] MEDS: BENZTROPINE 1 MG TAB PO SCH (08:46)
[2023-04-23] MEDS: VENLAFAXINE **XR** 75MG CAPSULE PO SCH (08:46)
[2023-04-23] MEDS: risperiDONE 1 MG TAB PO SCH (08:46)
[2023-04-23 18:34] VITALS: BP 152/78; TEMP 98.1; O2SAT 97
[2023-04-23] MEDS: ATORVASTATIN 20 MG TAB PO SCH (21:35)
[2023-04-23] MEDS: GABAPENTIN 300 MG CAP PO SCH (21:35)
[2023-04-23] MEDS: EZETIMIBE 10MG TABLET (ZETIA) PO SCH (21:35)
[2023-04-23] MEDS: DOXEPIN 25 MG CAP PO SCH (21:35)
[2023-04-23] MEDS: risperiDONE 2 MG TAB PO SCH (21:35)
[2023-04-23] MEDS: LEVEMIR (INSULIN DETEMIR) 1 UNITS/0.01ML SC SCH (21:41)
[2023-04-24 06:05] VITALS: BP 136/78; TEMP 98.2; O2SAT 98
[2023-04-24] MEDS: INSULIN LISPRO (NovoLOG) PER UNIT SC SCH ×4 (07:01→21:00)
[2023-04-24 08:43] VITALS: BP 116/68
[2023-04-24] MEDS: CARVedilol 6.25 MG TAB PO SCH ×2 (08:44→21:12)
[2023-04-24] MEDS: CLOPIDOGREL 75 MG TAB PO SCH (08:47)
[2023-04-24] MEDS: FERROUS SULFATE 325MG TAB PO SCH (08:47)
[2023-04-24] MEDS: risperiDONE 1 MG TAB PO SCH (08:47)
[2023-04-24] MEDS: BENZTROPINE 1 MG TAB PO SCH (08:47)
[2023-04-24] MEDS: PANTOPRAZOLE 20 MG TAB PO SCH (08:47)
[2023-04-24] MEDS: VENLAFAXINE **XR** 75MG CAPSULE PO SCH (08:47)
[2023-04-24 16:58] VITALS: BP 134/69; TEMP 97.3; O2SAT 98
[2023-04-24] MEDS: DOXEPIN 25 MG CAP PO SCH (21:11)
[2023-04-24] MEDS: GABAPENTIN 300 MG CAP PO SCH (21:11)
[2023-04-24] MEDS: ATORVASTATIN 20 MG TAB PO SCH (21:11)
[2023-04-24] MEDS: risperiDONE 2 MG TAB PO SCH (21:11)
[2023-04-24] MEDS: EZETIMIBE 10MG TABLET (ZETIA) PO SCH (21:12)
[2023-04-24] MEDS: LEVEMIR (INSULIN DETEMIR) 1 UNITS/0.01ML SC SCH (21:12)
[2023-04-25] MEDS: INSULIN LISPRO (NovoLOG) PER UNIT SC SCH ×4 (06:45→20:41)
[2023-04-25] MEDS: risperiDONE 1 MG TAB PO SCH (08:19)
[2023-04-25] MEDS: PANTOPRAZOLE 20 MG TAB PO SCH (08:19)
[2023-04-25] MEDS: BENZTROPINE 1 MG TAB PO SCH (08:19)
[2023-04-25] MEDS: VENLAFAXINE **XR** 75MG CAPSULE PO SCH (08:19)
[2023-04-25] MEDS: FERROUS SULFATE 325MG TAB PO SCH (08:19)
[2023-04-25] MEDS: CLOPIDOGREL 75 MG TAB PO SCH (08:19)
[2023-04-25] MEDS: CARVedilol 6.25 MG TAB PO SCH ×2 (08:20→20:39)
[2023-04-25 16:17] VITALS: BP 131/80; TEMP 97.2; O2SAT 96
[2023-04-25] MEDS: DOXEPIN 25 MG CAP PO SCH (20:38)
[2023-04-25] MEDS: GABAPENTIN 300 MG CAP PO SCH (20:38)
[2023-04-25] MEDS: ATORVASTATIN 20 MG TAB PO SCH (20:39)
[2023-04-25] MEDS: traZODone 50 MG TAB PO PRN (20:39)
[2023-04-25] MEDS: risperiDONE 2 MG TAB PO SCH (20:39)
[2023-04-25] MEDS: EZETIMIBE 10MG TABLET (ZETIA) PO SCH (20:39)
[2023-04-25] MEDS: LEVEMIR (INSULIN DETEMIR) 1 UNITS/0.01ML SC SCH (20:41)
[2023-04-26] MEDS: INSULIN LISPRO (NovoLOG) PER UNIT SC SCH ×4 (06:40→22:16)
[2023-04-26 06:45] VITALS: BP 116/79; TEMP 97.5; O2SAT 96
[2023-04-26] MEDS: PANTOPRAZOLE 20 MG TAB PO SCH (09:00)
[2023-04-26] MEDS: CARVedilol 6.25 MG TAB PO SCH ×2 (09:00→22:10)
[2023-04-26 09:21] VITALS: BP 118/80
[2023-04-26] MEDS: BENZTROPINE 1 MG TAB PO SCH (09:22)
[2023-04-26] MEDS: risperiDONE 1 MG TAB PO SCH (09:22)
[2023-04-26] MEDS: VENLAFAXINE **XR** 75MG CAPSULE PO SCH (09:22)
[2023-04-26] MEDS: CLOPIDOGREL 75 MG TAB PO SCH (09:22)
[2023-04-26] MEDS: FERROUS SULFATE 325MG TAB PO SCH (09:22)
[2023-04-26 16:21] VITALS: BP 132/69; TEMP 97.8; O2SAT 100
[2023-04-26] MEDS: EZETIMIBE 10MG TABLET (ZETIA) PO SCH (22:10)
[2023-04-26] MEDS: traZODone 50 MG TAB PO PRN (22:10)
[2023-04-26] MEDS: ATORVASTATIN 20 MG TAB PO SCH (22:10)
[2023-04-26] MEDS: risperiDONE 2 MG TAB PO SCH (22:11)
[2023-04-26] MEDS: DOXEPIN 25 MG CAP PO SCH (22:11)
[2023-04-26] MEDS: GABAPENTIN 300 MG CAP PO SCH (22:11)
[2023-04-26] MEDS: LEVEMIR (INSULIN DETEMIR) 1 UNITS/0.01ML SC SCH (22:16)
[2023-04-27 06:28] VITALS: BP 127/84; TEMP 97.6; O2SAT 99
[2023-04-27] MEDS: INSULIN LISPRO (NovoLOG) PER UNIT SC SCH ×2 (07:58→11:57)
[2023-04-27 08:21] VITALS: BP 150/70
[2023-04-27] MEDS: VENLAFAXINE **XR** 75MG CAPSULE PO SCH (09:41)
[2023-04-27] MEDS: CLOPIDOGREL 75 MG TAB PO SCH (09:41)
[2023-04-27] MEDS: PANTOPRAZOLE 20 MG TAB PO SCH (09:41)
[2023-04-27] MEDS: FERROUS SULFATE 325MG TAB PO SCH (09:41)
[2023-04-27 09:42] VITALS: BP 150/70
[2023-04-27] MEDS: BENZTROPINE 1 MG TAB PO SCH (09:42)
[2023-04-27] MEDS: CARVedilol 6.25 MG TAB PO SCH (09:42)
[2023-04-27] MEDS: risperiDONE 1 MG TAB PO SCH (09:42)
== END 2023-04-27 13:18 | disposition home or self-care (01) | DRG 750 ==
LOC: M ED 12:20 → M ED INP 20:02 → M PSY 21:07
PROVIDERS: ADMIT Student in an Organized Health Care Education/Training Program; ATTEND Student in an Organized Health Care Education/Training Program
DX: F20.9 Schizophrenia, unspecified (principal); E11.40 Type 2 diabetes mellitus with diabetic neuropathy, unspecified; I11.0 Hypertensive heart disease with heart failure; K76.0 Fatty (change of) liver, not elsewhere classified; F17.210 Nicotine dependence, cigarettes, uncomplicated; D50.9 Iron deficiency anemia, unspecified; I50.22 Chronic systolic (congestive) heart failure; F79 Unspecified intellectual disabilities; Z88.6 Allergy status to analgesic agent; Z88.5 Allergy status to narcotic agent; Z88.8 Allergy status to other drugs, medicaments and biological substances; Z79.899 Other long term (current) drug therapy; Z79.4 Long term (current) use of insulin; J45.909 Unspecified asthma, uncomplicated; I25.10 Atherosclerotic heart disease of native coronary artery without angina pectoris; I25.2 Old myocardial infarction; Z95.2 Presence of prosthetic heart valve; K21.9 Gastro-esophageal reflux disease without esophagitis; F41.9 Anxiety disorder, unspecified; E78.5 Hyperlipidemia, unspecified; E55.9 Vitamin D deficiency, unspecified; M54.50 Low back pain, unspecified; G89.29 Other chronic pain

== ENCOUNTER 2023-04-28 23:00 | Inpatient (IN) | payer MEDICAID, OTHER ==
[~2023-04-28] VITALS: Ht 154.9 cm; Wt 58.1 kg
[~2023-04-28 23:00] MED LIST changes: +DOXE75CA2 PO; +INVE1.31 PO; +STEG15TA PO
[2023-04-29 00:43] LABS: HEMATOCRIT 48.8 % (36.0-47.0); HEMOGLOBIN 16.4 g/dl (12.0-15.5); MEAN CORPUSCULAR HEMOGLOBIN 31.7 pg (27.0-33.0); MEAN CORPUSCULAR HGB CONC 33.6 g/dl (32.0-36.5); MEAN CORPUSCULAR VOLUME 94.2 fl (80.0-96.0); PLATELET COUNT, AUTOMATED 209 10^3/uL (150-450); RED BLOOD COUNT 5.18 10^6/uL (4.00-5.40); WHITE BLOOD COUNT 8.7 10^3/uL (4.0-10.0)
[2023-04-29 01:06] LABS: ETHYL ALCOHOL (ETHANOL) 0.003 % (0.000-0.010)
[2023-04-29 01:08] LABS: ACETAMINOPHEN LEVEL < 2.0 UG/ML (10.0-20.0); ALBUMIN 3.7 G/DL (3.2-5.2); ALKALINE PHOSPHATASE 113 U/L (46-116); ALT/SGPT 62 U/L (7.0-40); AST/SGOT 27 U/L (<34); BILIRUBIN,DIRECT 0.2 MG/DL (<0.4); BILIRUBIN,TOTAL 0.6 MG/DL (0.3-1.2); BLOOD UREA NITROGEN 18 MG/DL (9-23); CALCIUM LEVEL 9.2 MG/DL (8.5-10.1); CARBON DIOXIDE LEVEL 27 MMOL/L (20-31); CHLORIDE LEVEL 103 MMOL/L (98-107); CREATININE FOR GFR 0.64 MG/DL (0.55-1.30); GLOMERULAR FILTRATION RATE > 60.0 (>51); GLUCOSE, FASTING 285 MG/DL (60-100); POTASSIUM SERUM 4.1 MMOL/L (3.5-5.1); SALICYLATE LEVEL < 3.0 MG/DL (<30); SODIUM LEVEL 137 MMOL/L (136-145); TOTAL PROTEIN 6.3 G/DL (5.7-8.2)
[2023-04-29 01:10] LABS: THYROID STIMULATING HORMONE 0.927 uIU/ML (0.55-4.78)
[2023-04-29] MEDS ORDERED: HOME MED LIST COMPLETE! XX SCH (01:55)
[2023-04-29 05:10] LABS: APPEARANCE, URINE CLEAR (CLEAR); BACTERIA, URINE AUTO NEGATIVE (NEGATIVE); BILIRUBIN, URINE AUTO NEGATIVE (NEGATIVE); BLOOD, URINE BLOOD 2+ (NEGATIVE); COLOR, URINE YELLOW (YELLOW); GLUCOSE, URINE (UA) AUTO 3+ mg/dL (NEGATIVE); KETONE, URINE AUTO NEGATIVE (NEGATIVE); LEUKOCYTE ESTERASE, URINE AUTO NEGATIVE (NEGATIVE); MUCUS, URINE SMALL (NEGATIVE); NITRITE, URINE AUTO NEGATIVE (NEGATIVE); PROTEIN, URINE AUTO 1+ mg/dL (NEGATIVE); RBC, URINE AUTO 5 /HPF (0-3); SPECIFIC GRAVITY URINE AUTO 1.022 (1.002-1.035); SQUAMOUS EPITHELIAL CELL UR AU 1 /HPF (0-6); UROBILINOGEN, URINE AUTO 0.2 mg/dL (0.0-2.0); WBC, URINE AUTO 1 /HPF (0-3)
[2023-04-29 06:41] LABS: AMPHETAMINES LEVEL URINE NEGATIVE (NEGATIVE); BARBITURATES URINE NEGATIVE (NEGATIVE); BENZODIAZEPINES URINE NEGATIVE (NEGATIVE); COCAINE METABOLITE URINE NEGATIVE (NEGATIVE); METHADONE URINE NEGATIVE (NEGATIVE); OPIATES URINE NEGATIVE (NEGATIVE); PHENCYCLIDINE URINE NEGATIVE (NEGATIVE)
[2023-04-29 06:47] LABS: CANNABINOIDS URINE POSITIVE (NEGATIVE)
[2023-04-29] MEDS: PANTOPRAZOLE 20 MG TAB PO SCH (09:00)
[2023-04-29] MEDS ORDERED: VENLAFAXINE **XR** 75MG CAPSULE PO SCH (09:00)
[2023-04-29] MEDS ORDERED: diphenhydrAMINE 25MG CAP PO PRN (12:20)
[2023-04-29] MEDS ORDERED: GLUCAGON INJ 1MG VIAL SC PRN (12:20)
[2023-04-29] MEDS ORDERED: MAALOX 30 ML SUSP *UDC PO PRN (12:20)
[2023-04-29] MEDS ORDERED: MOM 30ML SUSPENSION UDC PO PRN (12:20)
[2023-04-29] MEDS ORDERED: GLUCOSE 4GM CHEW TABLET PO PRN (12:20)
[2023-04-29] MEDS ORDERED: DEXTROSE 50% 50ML SYRINGE IV PRN (12:20)
[2023-04-29] MEDS ORDERED: ACETAMINOPHEN TAB 650MG DOSE (2X325MG) PO PRN (12:20)
[2023-04-29] MEDS ORDERED: OLANZapine 5 MG TAB PO PRN (12:20)
[2023-04-29] MEDS ORDERED: IBUPROFEN 400MG TAB PO PRN (12:20)
[2023-04-29] MEDS ORDERED: METF-877 PO (14:29)
[2023-04-29] MEDS: risperiDONE 1 MG TAB PO SCH (14:30)
[2023-04-29] MEDS: BENZTROPINE 1 MG TAB PO SCH (14:30)
[2023-04-29] MEDS: FERROUS SULFATE 325MG TAB PO SCH (14:30)
[2023-04-29] MEDS: CLOPIDOGREL 75 MG TAB PO SCH (14:31)
[2023-04-29] MEDS: CARVedilol 6.25 MG TAB PO SCH ×2 (14:31→20:45)
[2023-04-29] MEDS: VENLAFAXINE **XR** 75MG CAPSULE PO SCH (14:33)
[2023-04-29] MEDS: INSULIN LISPRO (NovoLOG) PER UNIT SC SCH ×2 (17:46→20:45)
[2023-04-29] MEDS: NICOTINE 21MG/24HR 1 EA TRANSDERMAL TD SCH (17:48)
[2023-04-29] MEDS: ATORVASTATIN 20 MG TAB PO SCH (20:43)
[2023-04-29] MEDS: risperiDONE 2 MG TAB PO SCH (20:43)
[2023-04-29] MEDS: DOXEPIN 25 MG CAP PO SCH (20:43)
[2023-04-29] MEDS: GABAPENTIN 300 MG CAP PO SCH (20:43)
[2023-04-29] MEDS: EZETIMIBE 10MG TABLET (ZETIA) PO SCH (20:43)
[2023-04-29] MEDS: traZODone 50 MG TAB PO PRN (20:43)
[2023-04-29] MEDS: LEVEMIR (INSULIN DETEMIR) 1 UNITS/0.01ML SC SCH (20:45)
[2023-04-30] MEDS: INSULIN LISPRO (NovoLOG) PER UNIT SC SCH ×4 (06:54→20:33)
[2023-04-30 06:56] VITALS: BP 151/85; TEMP 98.9; O2SAT 94
[2023-04-30] MEDS: VENLAFAXINE **XR** 75MG CAPSULE PO SCH (09:57)
[2023-04-30] MEDS: BENZTROPINE 1 MG TAB PO SCH (09:57)
[2023-04-30] MEDS: CLOPIDOGREL 75 MG TAB PO SCH (09:57)
[2023-04-30] MEDS: PANTOPRAZOLE 20 MG TAB PO SCH (09:57)
[2023-04-30] MEDS: FERROUS SULFATE 325MG TAB PO SCH (09:57)
[2023-04-30] MEDS: risperiDONE 1 MG TAB PO SCH (09:57)
[2023-04-30] MEDS: NICOTINE 21MG/24HR 1 EA TRANSDERMAL TD SCH (09:58)
[2023-04-30] MEDS: CARVedilol 6.25 MG TAB PO SCH ×2 (10:40→20:28)
[2023-04-30] MEDS ORDERED: LORazepam 2 MG TAB PO PRN (12:05)
[2023-04-30] MEDS: THIAMINE 100 MG TAB PO SCH ×2 (12:19→20:22)
[2023-04-30] MEDS: FOLIC ACID 1MG TAB PO SCH (12:20)
[2023-04-30] MEDS: MULTIVITAMINS/MINERALS THERAP 1 TAB PO SCH (12:20)
[2023-04-30 14:00] VITALS: BP 130/68
[2023-04-30 14:13] VITALS: BP 130/68; TEMP 96.8; O2SAT 95
[2023-04-30] MEDS: GABAPENTIN 300 MG CAP PO SCH (20:22)
[2023-04-30] MEDS: ATORVASTATIN 20 MG TAB PO SCH (20:22)
[2023-04-30] MEDS: DOXEPIN 25 MG CAP PO SCH (20:22)
[2023-04-30] MEDS: EZETIMIBE 10MG TABLET (ZETIA) PO SCH (20:22)
[2023-04-30] MEDS: risperiDONE 2 MG TAB PO SCH (20:22)
[2023-04-30] MEDS: traZODone 50 MG TAB PO PRN (20:22)
[2023-04-30] MEDS: LEVEMIR (INSULIN DETEMIR) 1 UNITS/0.01ML SC SCH (20:33)
[2023-04-30 22:15] VITALS: BP 148/67
[2023-05-01 06:27] VITALS: BP 142/68; TEMP 98; O2SAT 94
[2023-05-01] MEDS: INSULIN LISPRO (NovoLOG) PER UNIT SC SCH ×4 (06:43→20:47)
[2023-05-01 06:49] VITALS: BP 142/68
[2023-05-01 08:34] VITALS: BP 154/80
[2023-05-01] MEDS: FOLIC ACID 1MG TAB PO SCH (08:34)
[2023-05-01] MEDS: MULTIVITAMINS/MINERALS THERAP 1 TAB PO SCH (08:34)
[2023-05-01] MEDS: FERROUS SULFATE 325MG TAB PO SCH (08:34)
[2023-05-01] MEDS: VENLAFAXINE **XR** 75MG CAPSULE PO SCH (08:34)
[2023-05-01] MEDS: risperiDONE 1 MG TAB PO SCH (08:34)
[2023-05-01] MEDS: CARVedilol 6.25 MG TAB PO SCH ×2 (08:35→20:45)
[2023-05-01] MEDS: PANTOPRAZOLE 20 MG TAB PO SCH (08:35)
[2023-05-01] MEDS: NICOTINE 21MG/24HR 1 EA TRANSDERMAL TD SCH (08:35)
[2023-05-01] MEDS: BENZTROPINE 1 MG TAB PO SCH (08:35)
[2023-05-01] MEDS: THIAMINE 100 MG TAB PO SCH ×2 (08:35→20:43)
[2023-05-01] MEDS: CLOPIDOGREL 75 MG TAB PO SCH (08:35)
[2023-05-01 14:00] VITALS: BP 133/69; TEMP 97.9; O2SAT 97
[2023-05-01] MEDS: risperiDONE 2 MG TAB PO SCH (20:43)
[2023-05-01] MEDS: EZETIMIBE 10MG TABLET (ZETIA) PO SCH (20:43)
[2023-05-01] MEDS: ATORVASTATIN 20 MG TAB PO SCH (20:43)
[2023-05-01] MEDS: DOXEPIN 25 MG CAP PO SCH (20:44)
[2023-05-01] MEDS: GABAPENTIN 300 MG CAP PO SCH (20:44)
[2023-05-01] MEDS: LEVEMIR (INSULIN DETEMIR) 1 UNITS/0.01ML SC SCH (20:47)
[2023-05-02 06:23] VITALS: BP 134/73; TEMP 99.1; O2SAT 96
[2023-05-02] MEDS: INSULIN LISPRO (NovoLOG) PER UNIT SC SCH ×4 (06:52→21:07)
[2023-05-02 08:00] VITALS: BP 138/76
[2023-05-02] MEDS: PANTOPRAZOLE 20 MG TAB PO SCH (08:59)
[2023-05-02] MEDS: THIAMINE 100 MG TAB PO SCH (08:59)
[2023-05-02] MEDS: VENLAFAXINE **XR** 75MG CAPSULE PO SCH (08:59)
[2023-05-02] MEDS: risperiDONE 1 MG TAB PO SCH (09:00)
[2023-05-02] MEDS: FERROUS SULFATE 325MG TAB PO SCH (09:00)
[2023-05-02] MEDS: MULTIVITAMINS/MINERALS THERAP 1 TAB PO SCH (09:00)
[2023-05-02] MEDS: BENZTROPINE 1 MG TAB PO SCH (09:00)
[2023-05-02] MEDS: FOLIC ACID 1MG TAB PO SCH (09:00)
[2023-05-02] MEDS: CARVedilol 6.25 MG TAB PO SCH ×2 (09:01→21:06)
[2023-05-02] MEDS: NICOTINE 21MG/24HR 1 EA TRANSDERMAL TD SCH (09:01)
[2023-05-02] MEDS: CLOPIDOGREL 75 MG TAB PO SCH (09:01)
[2023-05-02 16:30] VITALS: BP 129/64
[2023-05-02 18:00] VITALS: BP 129/64; TEMP 96.7; O2SAT 97
[2023-05-02] MEDS: EZETIMIBE 10MG TABLET (ZETIA) PO SCH (21:03)
[2023-05-02] MEDS: DOXEPIN 25 MG CAP PO SCH (21:04)
[2023-05-02] MEDS: GABAPENTIN 300 MG CAP PO SCH (21:04)
[2023-05-02] MEDS: risperiDONE 2 MG TAB PO SCH (21:04)
[2023-05-02] MEDS: ATORVASTATIN 20 MG TAB PO SCH (21:04)
[2023-05-02] MEDS: LEVEMIR (INSULIN DETEMIR) 1 UNITS/0.01ML SC SCH (21:05)
[2023-05-03 06:48] VITALS: BP 134/67; TEMP 97.5; O2SAT 95
[2023-05-03] MEDS: INSULIN LISPRO (NovoLOG) PER UNIT SC SCH ×4 (07:03→21:07)
[2023-05-03] MEDS: CLOPIDOGREL 75 MG TAB PO SCH (08:52)
[2023-05-03] MEDS: CARVedilol 6.25 MG TAB PO SCH ×2 (08:52→21:06)
[2023-05-03] MEDS: VENLAFAXINE **XR** 75MG CAPSULE PO SCH (08:53)
[2023-05-03] MEDS: risperiDONE 1 MG TAB PO SCH (08:53)
[2023-05-03] MEDS: FERROUS SULFATE 325MG TAB PO SCH (08:53)
[2023-05-03] MEDS: PANTOPRAZOLE 20 MG TAB PO SCH (08:53)
[2023-05-03] MEDS: BENZTROPINE 1 MG TAB PO SCH (08:54)
[2023-05-03] MEDS: NICOTINE 21MG/24HR 1 EA TRANSDERMAL TD SCH (08:59)
[2023-05-03 18:00] VITALS: BP 128/70; TEMP 97.6
[2023-05-03] MEDS: EZETIMIBE 10MG TABLET (ZETIA) PO SCH (21:06)
[2023-05-03] MEDS: GABAPENTIN 300 MG CAP PO SCH (21:06)
[2023-05-03] MEDS: risperiDONE 2 MG TAB PO SCH (21:06)
[2023-05-03] MEDS: traZODone 50 MG TAB PO PRN (21:06)
[2023-05-03] MEDS: ATORVASTATIN 20 MG TAB PO SCH (21:06)
[2023-05-03] MEDS: DOXEPIN 25 MG CAP PO SCH (21:06)
[2023-05-03] MEDS: LEVEMIR (INSULIN DETEMIR) 1 UNITS/0.01ML SC SCH (21:07)
[2023-05-04] MEDS: INSULIN LISPRO (NovoLOG) PER UNIT SC SCH ×4 (06:35→21:23)
[2023-05-04 06:51] VITALS: BP 132/69; TEMP 97.2; O2SAT 95
[2023-05-04] MEDS: FERROUS SULFATE 325MG TAB PO SCH (08:27)
[2023-05-04] MEDS: PANTOPRAZOLE 20 MG TAB PO SCH (08:27)
[2023-05-04] MEDS: risperiDONE 1 MG TAB PO SCH (08:27)
[2023-05-04] MEDS: VENLAFAXINE **XR** 75MG CAPSULE PO SCH (08:27)
[2023-05-04] MEDS: BENZTROPINE 1 MG TAB PO SCH (08:28)
[2023-05-04] MEDS: CARVedilol 6.25 MG TAB PO SCH ×2 (08:28→21:20)
[2023-05-04] MEDS: NICOTINE 21MG/24HR 1 EA TRANSDERMAL TD SCH (08:28)
[2023-05-04] MEDS: CLOPIDOGREL 75 MG TAB PO SCH (08:28)
[2023-05-04 15:10] VITALS: BP 113/61; TEMP 96.8; O2SAT 96
[2023-05-04] MEDS: DOXEPIN 25 MG CAP PO SCH (21:15)
[2023-05-04] MEDS: ATORVASTATIN 20 MG TAB PO SCH (21:15)
[2023-05-04] MEDS: GABAPENTIN 300 MG CAP PO SCH (21:15)
[2023-05-04] MEDS: traZODone 50 MG TAB PO PRN (21:15)
[2023-05-04] MEDS: EZETIMIBE 10MG TABLET (ZETIA) PO SCH (21:15)
[2023-05-04] MEDS: risperiDONE 2 MG TAB PO SCH (21:15)
[2023-05-04] MEDS: LEVEMIR (INSULIN DETEMIR) 1 UNITS/0.01ML SC SCH (21:16)
[2023-05-05] MEDS: INSULIN LISPRO (NovoLOG) PER UNIT SC SCH ×4 (06:36→21:26)
[2023-05-05 07:01] VITALS: BP 124/64; TEMP 97.8; O2SAT 97
[2023-05-05] MEDS: PANTOPRAZOLE 20 MG TAB PO SCH (08:37)
[2023-05-05] MEDS: NICOTINE 21MG/24HR 1 EA TRANSDERMAL TD SCH (08:37)
[2023-05-05] MEDS: VENLAFAXINE **XR** 75MG CAPSULE PO SCH (08:37)
[2023-05-05] MEDS: risperiDONE 1 MG TAB PO SCH (08:37)
[2023-05-05] MEDS: BENZTROPINE 1 MG TAB PO SCH (08:37)
[2023-05-05] MEDS: FERROUS SULFATE 325MG TAB PO SCH (08:37)
[2023-05-05] MEDS: CLOPIDOGREL 75 MG TAB PO SCH (08:37)
[2023-05-05] MEDS: CARVedilol 6.25 MG TAB PO SCH ×2 (08:38→21:24)
[2023-05-05 16:45] VITALS: BP 121/77; TEMP 98.2; O2SAT 100
[2023-05-05] MEDS: ATORVASTATIN 20 MG TAB PO SCH (21:09)
[2023-05-05] MEDS: EZETIMIBE 10MG TABLET (ZETIA) PO SCH (21:09)
[2023-05-05] MEDS: risperiDONE 2 MG TAB PO SCH (21:09)
[2023-05-05] MEDS: DOXEPIN 25 MG CAP PO SCH (21:09)
[2023-05-05] MEDS: LEVEMIR (INSULIN DETEMIR) 1 UNITS/0.01ML SC SCH (21:09)
[2023-05-05] MEDS: traZODone 50 MG TAB PO PRN (21:09)
[2023-05-05] MEDS: GABAPENTIN 300 MG CAP PO SCH (21:09)
[2023-05-06] MEDS: INSULIN LISPRO (NovoLOG) PER UNIT SC SCH ×4 (06:44→21:56)
[2023-05-06 06:46] VITALS: BP 120/65; TEMP 96.8; O2SAT 96
[2023-05-06] MEDS: CARVedilol 6.25 MG TAB PO SCH ×2 (10:06→21:57)
[2023-05-06] MEDS: BENZTROPINE 1 MG TAB PO SCH (10:07)
[2023-05-06] MEDS: risperiDONE 1 MG TAB PO SCH (10:07)
[2023-05-06] MEDS: NICOTINE 21MG/24HR 1 EA TRANSDERMAL TD SCH (10:07)
[2023-05-06] MEDS: VENLAFAXINE **XR** 75MG CAPSULE PO SCH (10:07)
[2023-05-06] MEDS: PANTOPRAZOLE 20 MG TAB PO SCH (10:09)
[2023-05-06] MEDS: CLOPIDOGREL 75 MG TAB PO SCH (10:09)
[2023-05-06] MEDS: FERROUS SULFATE 325MG TAB PO SCH (10:11)
[2023-05-06 16:46] VITALS: BP 138/82; TEMP 97.5; O2SAT 100
[2023-05-06] MEDS: LEVEMIR (INSULIN DETEMIR) 1 UNITS/0.01ML SC SCH (21:56)
[2023-05-06] MEDS: risperiDONE 2 MG TAB PO SCH (21:57)
[2023-05-06] MEDS: GABAPENTIN 300 MG CAP PO SCH (21:57)
[2023-05-06] MEDS: EZETIMIBE 10MG TABLET (ZETIA) PO SCH (21:57)
[2023-05-06] MEDS: ATORVASTATIN 20 MG TAB PO SCH (21:57)
[2023-05-06] MEDS: traZODone 50 MG TAB PO PRN (21:57)
[2023-05-06] MEDS: DOXEPIN 25 MG CAP PO SCH (21:57)
[2023-05-07 06:13] VITALS: BP 106/55; TEMP 97; O2SAT 98
[2023-05-07] MEDS: INSULIN LISPRO (NovoLOG) PER UNIT SC SCH ×4 (06:53→21:11)
[2023-05-07] MEDS: FERROUS SULFATE 325MG TAB PO SCH (09:54)
[2023-05-07] MEDS: PANTOPRAZOLE 20 MG TAB PO SCH (09:54)
[2023-05-07] MEDS: CLOPIDOGREL 75 MG TAB PO SCH (09:54)
[2023-05-07] MEDS: VENLAFAXINE **XR** 75MG CAPSULE PO SCH (09:55)
[2023-05-07] MEDS: risperiDONE 1 MG TAB PO SCH (09:55)
[2023-05-07] MEDS: BENZTROPINE 1 MG TAB PO SCH (09:55)
[2023-05-07] MEDS: NICOTINE 21MG/24HR 1 EA TRANSDERMAL TD SCH (09:56)
[2023-05-07 10:04] VITALS: BP 121/70
[2023-05-07] MEDS: CARVedilol 6.25 MG TAB PO SCH ×2 (10:04→21:05)
[2023-05-07 18:55] VITALS: BP 123/79; TEMP 98.9
[2023-05-07] MEDS: traZODone 50 MG TAB PO PRN (21:05)
[2023-05-07] MEDS: risperiDONE 2 MG TAB PO SCH (21:05)
[2023-05-07] MEDS: DOXEPIN 25 MG CAP PO SCH (21:05)
[2023-05-07] MEDS: GABAPENTIN 300 MG CAP PO SCH (21:05)
[2023-05-07] MEDS: ATORVASTATIN 20 MG TAB PO SCH (21:05)
[2023-05-07] MEDS: EZETIMIBE 10MG TABLET (ZETIA) PO SCH (21:06)
[2023-05-07] MEDS: LEVEMIR (INSULIN DETEMIR) 1 UNITS/0.01ML SC SCH (21:10)
[2023-05-08 06:20] VITALS: BP 113/60; TEMP 96.6; O2SAT 95
[2023-05-08] MEDS: INSULIN LISPRO (NovoLOG) PER UNIT SC SCH ×4 (06:50→22:12)
[2023-05-08] MEDS: CARVedilol 6.25 MG TAB PO SCH ×2 (08:46→21:16)
[2023-05-08] MEDS: BENZTROPINE 1 MG TAB PO SCH (08:47)
[2023-05-08] MEDS: CLOPIDOGREL 75 MG TAB PO SCH (08:47)
[2023-05-08] MEDS: FERROUS SULFATE 325MG TAB PO SCH (08:47)
[2023-05-08] MEDS: VENLAFAXINE **XR** 75MG CAPSULE PO SCH (08:47)
[2023-05-08] MEDS: PANTOPRAZOLE 20 MG TAB PO SCH (08:48)
[2023-05-08] MEDS: risperiDONE 1 MG TAB PO SCH (08:48)
[2023-05-08] MEDS: NICOTINE 21MG/24HR 1 EA TRANSDERMAL TD SCH (08:49)
[2023-05-08] MEDS ORDERED: PILL CUTTER 1 EACH XX PRN (11:25)
[2023-05-08 18:00] VITALS: BP 102/61; TEMP 98.1
[2023-05-08] MEDS: traZODone 50 MG TAB PO PRN (21:16)
[2023-05-08] MEDS: DOXEPIN 25 MG CAP PO SCH (21:16)
[2023-05-08] MEDS: LEVEMIR (INSULIN DETEMIR) 1 UNITS/0.01ML SC SCH (21:16)
[2023-05-08] MEDS: EZETIMIBE 10MG TABLET (ZETIA) PO SCH (21:16)
[2023-05-08] MEDS: risperiDONE 2 MG TAB PO SCH (21:16)
[2023-05-08] MEDS: GABAPENTIN 300 MG CAP PO SCH (21:16)
[2023-05-08] MEDS: ATORVASTATIN 20 MG TAB PO SCH (21:16)
[2023-05-09] MEDS: INSULIN LISPRO (NovoLOG) PER UNIT SC SCH ×4 (06:39→21:26)
[2023-05-09 07:07] VITALS: BP 108/89; TEMP 96.9; O2SAT 98
[2023-05-09] MEDS: NICOTINE 21MG/24HR 1 EA TRANSDERMAL TD SCH (09:00)
[2023-05-09] MEDS ORDERED: DONEPEZIL 5 MG TAB PO SCH (09:00)
[2023-05-09] MEDS: CLOPIDOGREL 75 MG TAB PO SCH (09:51)
[2023-05-09] MEDS: PANTOPRAZOLE 20 MG TAB PO SCH (09:51)
[2023-05-09] MEDS: FERROUS SULFATE 325MG TAB PO SCH (09:51)
[2023-05-09] MEDS: BENZTROPINE 1 MG TAB PO SCH (09:51)
[2023-05-09] MEDS: VENLAFAXINE **XR** 75MG CAPSULE PO SCH (09:51)
[2023-05-09] MEDS: risperiDONE 1 MG TAB PO SCH (09:52)
[2023-05-09] MEDS: CARVedilol 6.25 MG TAB PO SCH ×2 (09:54→21:11)
[2023-05-09 17:00] VITALS: BP 144/78; TEMP 97.5; O2SAT 97
[2023-05-09] MEDS: DOXEPIN 25 MG CAP PO SCH (21:10)
[2023-05-09] MEDS: EZETIMIBE 10MG TABLET (ZETIA) PO SCH (21:10)
[2023-05-09] MEDS: GABAPENTIN 300 MG CAP PO SCH (21:10)
[2023-05-09] MEDS: LEVEMIR (INSULIN DETEMIR) 1 UNITS/0.01ML SC SCH (21:11)
[2023-05-09] MEDS: traZODone 50 MG TAB PO PRN (21:11)
[2023-05-09] MEDS: risperiDONE 2 MG TAB PO SCH (21:11)
[2023-05-09] MEDS: ATORVASTATIN 20 MG TAB PO SCH (21:11)
[2023-05-10 06:59] VITALS: BP 131/74; TEMP 97.9; O2SAT 96
[2023-05-10] MEDS: INSULIN LISPRO (NovoLOG) PER UNIT SC SCH ×4 (07:12→21:29)
[2023-05-10] MEDS: BENZTROPINE 1 MG TAB PO SCH (09:33)
[2023-05-10] MEDS: CLOPIDOGREL 75 MG TAB PO SCH (09:33)
[2023-05-10] MEDS: FERROUS SULFATE 325MG TAB PO SCH (09:34)
[2023-05-10] MEDS: NICOTINE 21MG/24HR 1 EA TRANSDERMAL TD SCH (09:34)
[2023-05-10] MEDS: risperiDONE 1 MG TAB PO SCH (09:34)
[2023-05-10] MEDS: PANTOPRAZOLE 20 MG TAB PO SCH (09:34)
[2023-05-10] MEDS: VENLAFAXINE **XR** 75MG CAPSULE PO SCH (09:34)
[2023-05-10] MEDS: CARVedilol 6.25 MG TAB PO SCH ×2 (09:34→21:31)
[2023-05-10 17:00] VITALS: BP 107/61; TEMP 98; O2SAT 96
[2023-05-10] MEDS: risperiDONE 2 MG TAB PO SCH (21:30)
[2023-05-10] MEDS: LEVEMIR (INSULIN DETEMIR) 1 UNITS/0.01ML SC SCH (21:30)
[2023-05-10] MEDS: ATORVASTATIN 20 MG TAB PO SCH (21:30)
[2023-05-10] MEDS: DOXEPIN 25 MG CAP PO SCH (21:30)
[2023-05-10] MEDS: traZODone 50 MG TAB PO PRN (21:31)
[2023-05-10] MEDS: EZETIMIBE 10MG TABLET (ZETIA) PO SCH (21:31)
[2023-05-10] MEDS: GABAPENTIN 300 MG CAP PO SCH (21:31)
[2023-05-11 06:41] VITALS: BP 111/59; TEMP 96.9; O2SAT 97
[2023-05-11] MEDS: INSULIN LISPRO (NovoLOG) PER UNIT SC SCH ×4 (07:00→21:00)
[2023-05-11 09:06] VITALS: BP 110/70
[2023-05-11] MEDS: VENLAFAXINE **XR** 75MG CAPSULE PO SCH (09:07)
[2023-05-11] MEDS: FERROUS SULFATE 325MG TAB PO SCH (09:07)
[2023-05-11] MEDS: BENZTROPINE 1 MG TAB PO SCH (09:07)
[2023-05-11] MEDS: PANTOPRAZOLE 20 MG TAB PO SCH (09:08)
[2023-05-11] MEDS: risperiDONE 1 MG TAB PO SCH (09:08)
[2023-05-11] MEDS: CLOPIDOGREL 75 MG TAB PO SCH (09:08)
[2023-05-11] MEDS: CARVedilol 6.25 MG TAB PO SCH ×2 (09:09→21:17)
[2023-05-11] MEDS: NICOTINE 21MG/24HR 1 EA TRANSDERMAL TD SCH (09:11)
[2023-05-11 18:00] VITALS: BP 114/82; TEMP 97.7
[2023-05-11] MEDS: GABAPENTIN 300 MG CAP PO SCH (21:17)
[2023-05-11] MEDS: EZETIMIBE 10MG TABLET (ZETIA) PO SCH (21:17)
[2023-05-11] MEDS: LEVEMIR (INSULIN DETEMIR) 1 UNITS/0.01ML SC SCH (21:17)
[2023-05-11] MEDS: ATORVASTATIN 20 MG TAB PO SCH (21:18)
[2023-05-11] MEDS: DOXEPIN 25 MG CAP PO SCH (21:18)
[2023-05-11] MEDS: risperiDONE 2 MG TAB PO SCH (21:18)
[2023-05-12 06:31] VITALS: BP 119/56; TEMP 97.3; O2SAT 96
[2023-05-12] MEDS: INSULIN LISPRO (NovoLOG) PER UNIT SC SCH ×4 (06:40→21:14)
[2023-05-12 09:52] VITALS: BP 110/60
[2023-05-12] MEDS: risperiDONE 1 MG TAB PO SCH (09:52)
[2023-05-12] MEDS: CARVedilol 6.25 MG TAB PO SCH ×2 (09:53→21:11)
[2023-05-12] MEDS: VENLAFAXINE **XR** 75MG CAPSULE PO SCH (09:53)
[2023-05-12] MEDS: CLOPIDOGREL 75 MG TAB PO SCH (09:53)
[2023-05-12] MEDS: PANTOPRAZOLE 20 MG TAB PO SCH (09:53)
[2023-05-12] MEDS: FERROUS SULFATE 325MG TAB PO SCH (09:53)
[2023-05-12] MEDS: BENZTROPINE 1 MG TAB PO SCH (09:53)
[2023-05-12] MEDS: NICOTINE 21MG/24HR 1 EA TRANSDERMAL TD SCH (09:54)
[2023-05-12 17:58] VITALS: BP 126/65; TEMP 96.9
[2023-05-12] MEDS: LEVEMIR (INSULIN DETEMIR) 1 UNITS/0.01ML SC SCH (21:05)
[2023-05-12] MEDS: risperiDONE 2 MG TAB PO SCH (21:05)
[2023-05-12] MEDS: ATORVASTATIN 20 MG TAB PO SCH (21:05)
[2023-05-12] MEDS: DOXEPIN 25 MG CAP PO SCH (21:05)
[2023-05-12] MEDS: GABAPENTIN 300 MG CAP PO SCH (21:05)
[2023-05-12] MEDS: EZETIMIBE 10MG TABLET (ZETIA) PO SCH (21:05)
[2023-05-13 06:32] VITALS: BP 101/60; TEMP 97.4; O2SAT 98
[2023-05-13] MEDS: INSULIN LISPRO (NovoLOG) PER UNIT SC SCH ×2 (06:36→12:25)
[2023-05-13] MEDS: BENZTROPINE 1 MG TAB PO SCH (08:51)
[2023-05-13] MEDS: VENLAFAXINE **XR** 75MG CAPSULE PO SCH (08:51)
[2023-05-13] MEDS: PANTOPRAZOLE 20 MG TAB PO SCH (08:51)
[2023-05-13 08:52] VITALS: BP 117/66
[2023-05-13] MEDS: risperiDONE 1 MG TAB PO SCH (08:52)
[2023-05-13] MEDS: CLOPIDOGREL 75 MG TAB PO SCH (08:52)
[2023-05-13 08:53] VITALS: BP 117/66
[2023-05-13] MEDS: CARVedilol 6.25 MG TAB PO SCH (08:53)
[2023-05-13] MEDS: FERROUS SULFATE 325MG TAB PO SCH (08:53)
[2023-05-13] MEDS: NICOTINE 21MG/24HR 1 EA TRANSDERMAL TD SCH (08:53)
== END 2023-05-13 13:54 | disposition home or self-care (01) | DRG 750 ==
LOC: M ED 23:00 → M ED INP 04-29 12:18 → M PSY 04-29 17:09
PROVIDERS: ADMIT Student in an Organized Health Care Education/Training Program; ATTEND Student in an Organized Health Care Education/Training Program
DX: F20.9 Schizophrenia, unspecified (principal); F12.90 Cannabis use, unspecified, uncomplicated; F17.200 Nicotine dependence, unspecified, uncomplicated; F79 Unspecified intellectual disabilities; R41.9 Unspecified symptoms and signs involving cognitive functions and awareness; Z88.8 Allergy status to other drugs, medicaments and biological substances; Z88.6 Allergy status to analgesic agent; Z88.5 Allergy status to narcotic agent; Z79.899 Other long term (current) drug therapy; Z79.4 Long term (current) use of insulin; E78.5 Hyperlipidemia, unspecified; K21.9 Gastro-esophageal reflux disease without esophagitis; E11.51 Type 2 diabetes mellitus with diabetic peripheral angiopathy without gangrene; D50.9 Iron deficiency anemia, unspecified; I10 Essential (primary) hypertension; I25.10 Atherosclerotic heart disease of native coronary artery without angina pectoris; Z95.2 Presence of prosthetic heart valve; G93.41 Metabolic encephalopathy; D75.1 Secondary polycythemia; F10.20 Alcohol dependence, uncomplicated; Z91.128 Patient's intentional underdosing of medication regimen for other reason

== ENCOUNTER 2023-07-15 10:41 | Emergency (ER) | payer MEDICAID, OTHER ==
[~2023-07-15] VITALS: Ht 157.5 cm; Wt 62.7 kg
[2023-07-15] MEDS: THIAMINE 100 MG TAB PO SCH ×2 (09:00→21:23)
[~2023-07-15 10:41] MED LIST changes: +METF-877 PO
[2023-07-15] MEDS ORDERED: OLANZapine ORAL DISINTEGRATING TAB 5MG PO ONE (10:55)
[2023-07-15] MEDS ORDERED: MED REC IN PROGRESS XX SCH (11:15)
[2023-07-15 11:45] LABS: HEMATOCRIT 42.7 % (36.0-47.0); HEMOGLOBIN 14.3 g/dl (12.0-15.5); MEAN CORPUSCULAR HEMOGLOBIN 31.4 pg (27.0-33.0); MEAN CORPUSCULAR HGB CONC 33.5 g/dl (32.0-36.5); MEAN CORPUSCULAR VOLUME 93.6 fl (80.0-96.0); PLATELET COUNT, AUTOMATED 239 10^3/uL (150-450); RED BLOOD COUNT 4.56 10^6/uL (4.00-5.40); WHITE BLOOD COUNT 14.8 10^3/uL (4.0-10.0)
[2023-07-15 12:11] LABS: AMPHETAMINES LEVEL URINE NEGATIVE (NEGATIVE); BARBITURATES URINE NEGATIVE (NEGATIVE); CANNABINOIDS URINE NEGATIVE (NEGATIVE); COCAINE METABOLITE URINE NEGATIVE (NEGATIVE); METHADONE URINE NEGATIVE (NEGATIVE); OPIATES URINE NEGATIVE (NEGATIVE); PHENCYCLIDINE URINE NEGATIVE (NEGATIVE)
[2023-07-15 12:12] LABS: BENZODIAZEPINES URINE NEGATIVE (NEGATIVE)
[2023-07-15 12:13] LABS: ETHYL ALCOHOL (ETHANOL) < 0.003 % (0.000-0.010)
[2023-07-15 12:15] LABS: SALICYLATE LEVEL < 3.0 MG/DL (<30)
[2023-07-15 12:16] LABS: ACETAMINOPHEN LEVEL < 2.0 UG/ML (10.0-20.0); ALBUMIN 3.8 G/DL (3.2-5.2); ALKALINE PHOSPHATASE 125 U/L (46-116); ALT/SGPT 46 U/L (7.0-40); AST/SGOT 30 U/L (<34); BILIRUBIN,DIRECT < 0.1 MG/DL (<0.4); BILIRUBIN,TOTAL 0.3 MG/DL (0.3-1.2); BLOOD UREA NITROGEN 19 MG/DL (9-23); CALCIUM LEVEL 9.6 MG/DL (8.5-10.1); CARBON DIOXIDE LEVEL 26 MMOL/L (20-31); CHLORIDE LEVEL 102 MMOL/L (98-107); GLOMERULAR FILTRATION RATE > 60.0 (>51); GLUCOSE, FASTING 286 MG/DL (60-100); POTASSIUM SERUM 4.4 MMOL/L (3.5-5.1); SODIUM LEVEL 136 MMOL/L (136-145); TOTAL PROTEIN 6.6 G/DL (5.7-8.2)
[2023-07-15 12:17] LABS: THYROID STIMULATING HORMONE 2.363 uIU/ML (0.55-4.78)
[2023-07-15] MEDS ORDERED: MELATON (14:18)
[2023-07-15] MEDS ORDERED: GUMMY PO (14:21)
[2023-07-15] MEDS ORDERED: MELATONIN 10 MG PO (14:21)
[2023-07-15] MEDS ORDERED: HOME MED LIST COMPLETE! XX SCH (14:25)
[2023-07-15] MEDS ORDERED: LORazepam 0.5 MG TAB PO STA (15:01)
[2023-07-15] MEDS: INSULIN LISPRO (NovoLOG) PER UNIT SC SCH (18:02)
[2023-07-15] MEDS ORDERED: LORazepam 2 MG TAB PO PRN (18:55)
[2023-07-15] MEDS ORDERED: traZODone 50 MG TAB PO ONE (19:30)
[2023-07-15] MEDS ORDERED: ATORVASTATIN 20 MG TAB PO SCH (21:00)
[2023-07-15] MEDS ORDERED: EZETIMIBE 10MG TABLET (ZETIA) PO SCH (21:00)
[2023-07-15] MEDS ORDERED: GABAPENTIN 300 MG CAP PO SCH (21:00)
[2023-07-15] MEDS ORDERED: THIAMINE 100 MG TAB PO SCH (21:00)
[2023-07-15] MEDS ORDERED: LEVEMIR (INSULIN DETEMIR) 1 UNITS/0.01ML SC SCH (21:00)
[2023-07-15 21:23] VITALS: BP 169/74
[2023-07-15] MEDS: CARVedilol 6.25 MG TAB PO SCH (21:23)
[2023-07-16] MEDS ORDERED: FOLIC ACID 1MG TAB PO SCH (09:00)
[2023-07-16] MEDS ORDERED: PANTOPRAZOLE 20 MG TAB PO SCH (09:00)
[2023-07-16] MEDS ORDERED: MULTIVITAMINS/MINERALS THERAP 1 TAB PO SCH (09:00)
[2023-07-16] MEDS ORDERED: CLOPIDOGREL 75 MG TAB PO SCH (09:00)
[2023-07-16] MEDS: INSULIN LISPRO (NovoLOG) PER UNIT SC SCH (09:04)
[2023-07-16] MEDS: CARVedilol 6.25 MG TAB PO SCH (09:04)
[2023-07-16] MEDS: THIAMINE 100 MG TAB PO SCH (09:04)
[2023-07-16 11:55] VITALS: BP 151/74; TEMP 97.6; O2SAT 94
== END 2023-07-16 11:59 | disposition home or self-care (01) ==
LOC: EDBD 10:41 → M ED 10:41
DX: F06.70 Mild neurocognitive disorder due to known physiological condition without behavioral disturbance (principal); I25.10 Atherosclerotic heart disease of native coronary artery without angina pectoris; E11.9 Type 2 diabetes mellitus without complications; I10 Essential (primary) hypertension; F20.9 Schizophrenia, unspecified; D50.9 Iron deficiency anemia, unspecified; Z95.5 Presence of coronary angioplasty implant and graft; F17.200 Nicotine dependence, unspecified, uncomplicated
CPT/HCPCS: 80048; 80076; 80143; 80307; 82077; 84443; 85027; 87635; 93005; 99284; J1815

== ENCOUNTER 2023-07-21 02:09 | Emergency (ER) | payer OTHER ==
[~2023-07-21 02:09] MED LIST changes: +GUMMY PO; +MELATON; +MELATONIN 10 MG PO
[2023-07-21] MEDS ORDERED: traZODone 50 MG TAB PO ONE (03:25)
[2023-07-21 03:54] VITALS: TEMP 98.7; O2SAT 98
[2023-07-21 04:00] VITALS: BP 117/62
[2023-07-21] MEDS ORDERED: HumuLIN R (REGULAR) INSULIN (NovoLIN R) **100U/ML** PER UNIT SC ONE (04:10)
[2023-07-21] MEDS ORDERED: TRAZ-189 PO (04:12)
[2023-07-21] MEDS ORDERED: MELA10TA14 PO (16:46)
[2023-07-21] MEDS ORDERED: TRAZ-257 PO (16:52)
== END 2023-07-21 04:30 | disposition home or self-care (01) ==
LOC: M ED 02:09 → EDBD 02:09 → M ED 04:30
DX: F03.918 Unspecified dementia, unspecified severity, with other behavioral disturbance (principal); F02.82 Dementia in other diseases classified elsewhere, unspecified severity, with psychotic disturbance; E11.65 Type 2 diabetes mellitus with hyperglycemia; I10 Essential (primary) hypertension; E78.5 Hyperlipidemia, unspecified; K21.9 Gastro-esophageal reflux disease without esophagitis; Z79.84 Long term (current) use of oral hypoglycemic drugs; Z88.5 Allergy status to narcotic agent; Z88.6 Allergy status to analgesic agent; Z88.8 Allergy status to other drugs, medicaments and biological substances; Z91.048 Other nonmedicinal substance allergy status; Z79.02 Long term (current) use of antithrombotics/antiplatelets; Z79.891 Long term (current) use of opiate analgesic; Z79.899 Other long term (current) drug therapy
CPT/HCPCS: 96372; 99284; J1815

== ENCOUNTER 2023-07-21 08:28 | Inpatient (IN) | payer OTHER ==
[~2023-07-21] VITALS: Ht 157.5 cm; Wt 63.4 kg
[~2023-07-21 08:28] MED LIST changes: +TRAZ-189 PO
[2023-07-21] MEDS ORDERED: NORCO, ANEXSIA 5/325MG TABLET (HYDROcodone/ACETAMINOPHEN) PO ONE (10:15)
[2023-07-21 11:25] LABS: HEMATOCRIT 39.5 % (36.0-47.0); HEMOGLOBIN 13.2 g/dl (12.0-15.5); MEAN CORPUSCULAR HEMOGLOBIN 31.4 pg (27.0-33.0); MEAN CORPUSCULAR HGB CONC 33.4 g/dl (32.0-36.5); MEAN CORPUSCULAR VOLUME 93.8 fl (80.0-96.0); PLATELET COUNT, AUTOMATED 227 10^3/uL (150-450); RED BLOOD COUNT 4.21 10^6/uL (4.00-5.40); WHITE BLOOD COUNT 16.8 10^3/uL (4.0-10.0)
[2023-07-21 11:38] LABS: ETHYL ALCOHOL (ETHANOL) < 0.003 % (0.000-0.010)
[2023-07-21 11:40] LABS: ACETAMINOPHEN LEVEL 5.6 UG/ML (10.0-20.0); SALICYLATE LEVEL < 3.0 MG/DL (<30)
[2023-07-21 11:41] LABS: ALBUMIN 3.9 G/DL (3.2-5.2); ALKALINE PHOSPHATASE 127 U/L (46-116); ALT/SGPT 39 U/L (7.0-40); AST/SGOT 25 U/L (<34); BILIRUBIN,DIRECT 0.1 MG/DL (<0.4); BILIRUBIN,TOTAL 0.3 MG/DL (0.3-1.2); BLOOD UREA NITROGEN 23 MG/DL (9-23); CALCIUM LEVEL 9.1 MG/DL (8.5-10.1); CARBON DIOXIDE LEVEL 25 MMOL/L (20-31); CHLORIDE LEVEL 100 MMOL/L (98-107); GLOMERULAR FILTRATION RATE > 60.0 (>51); GLUCOSE, FASTING 338 MG/DL (60-100); POTASSIUM SERUM 4.7 MMOL/L (3.5-5.1); SODIUM LEVEL 133 MMOL/L (136-145); THYROID STIMULATING HORMONE 1.894 uIU/ML (0.55-4.78); TOTAL PROTEIN 6.4 G/DL (5.7-8.2)
[2023-07-21 11:48] LABS: AMPHETAMINES LEVEL URINE NEGATIVE (NEGATIVE); BARBITURATES URINE NEGATIVE (NEGATIVE); BENZODIAZEPINES URINE NEGATIVE (NEGATIVE); CANNABINOIDS URINE NEGATIVE (NEGATIVE); COCAINE METABOLITE URINE NEGATIVE (NEGATIVE); METHADONE URINE NEGATIVE (NEGATIVE); PHENCYCLIDINE URINE NEGATIVE (NEGATIVE)
[2023-07-21 11:57] LABS: OPIATES URINE POSITIVE (NEGATIVE)
[2023-07-21] MEDS ORDERED: LORazepam 2 MG TAB PO STA (12:00)
[2023-07-21] MEDS ORDERED: NS 1,000 ML IV ONE (12:35)
[2023-07-21] MEDS ORDERED: HumuLIN R (REGULAR) INSULIN (NovoLIN R) **100U/ML** PER UNIT IV ONE (14:40)
[2023-07-21] MEDS ORDERED: MED REC IN PROGRESS XX SCH (16:10)
[2023-07-21] MEDS ORDERED: DEXTROSE 50% 50ML SYRINGE IV PRN (16:20)
[2023-07-21] MEDS ORDERED: MOM 30ML SUSPENSION UDC PO PRN (16:20)
[2023-07-21] MEDS ORDERED: GLUCAGON INJ 1MG VIAL SC PRN (16:20)
[2023-07-21] MEDS ORDERED: ACETAMINOPHEN TAB 650MG DOSE (2X325MG) PO PRN (16:20)
[2023-07-21] MEDS ORDERED: GLUCOSE 4GM CHEW TABLET PO PRN (16:20)
[2023-07-21] MEDS ORDERED: ISOVUE-370 76% 100ML VIAL As Ordered ONE (16:30)
[2023-07-21] MEDS ORDERED: MELA10TA14 PO (16:46)
[2023-07-21] MEDS ORDERED: HOME MED LIST COMPLETE! XX SCH (16:50)
[2023-07-21] MEDS ORDERED: TRAZ-257 PO (16:52)
[2023-07-21] MEDS: LIDOCAINE 5% (LIDODERM) PATCH TD SCH (16:56)
[2023-07-21 17:04] LABS: VENOUS BASE EXCESS -1.4 (-2.0-2.0); VENOUS HCO3 22.3 MMOL/L (23.0-27.0); VENOUS O2 SATURATION 99.4 % (60.0-80.0); VENOUS PARTIAL PRESSURE CO2 34.4 mmHg (38.0-50.0); VENOUS PARTIAL PRESSURE O2 212.4 mmHg (30.0-50.0); VENOUS PH 7.429 UNITS (7.330-7.430); VENOUS STANDARD HCO3 23.3 MMOL/L; VENOUS TOTAL CO2 23.3 MMOL/L (24.0-28.0)
[2023-07-21 17:55] LABS: HEMOGLOBIN A1c 9.5 % (4.0-6.0)
[2023-07-21] MEDS: INSULIN LISPRO (NovoLOG) PER UNIT SC SCH ×2 (18:15→21:16)
[2023-07-21 19:19] LABS: PROCALCITONIN 0.17 ng/ml
[2023-07-21] MEDS: oxyCODONE 5MG TAB PO PRN (20:03)
[2023-07-21] MEDS ORDERED: DOXEPIN 25 MG CAP PO SCH (21:00)
[2023-07-21] MEDS ORDERED: LEVEMIR (INSULIN DETEMIR) 1 UNITS/0.01ML SC SCH (21:00)
[2023-07-21] MEDS: DOCUSATE SODIUM 100MG CAPSULE PO SCH (21:06)
[2023-07-21] MEDS: CARVedilol 6.25 MG TAB PO SCH (21:08)
[2023-07-21] MEDS: ATORVASTATIN 20 MG TAB PO SCH (21:09)
[2023-07-21] MEDS: traZODone 100 MG TAB PO SCH (21:09)
[2023-07-21] MEDS: EZETIMIBE 10MG TABLET (ZETIA) PO SCH (21:10)
[2023-07-21] MEDS: risperiDONE 2 MG TAB PO SCH (21:10)
[2023-07-21] MEDS: GABAPENTIN 300 MG CAP PO SCH (21:10)
[2023-07-21] MEDS: RAMELTEON 8 MG TAB (ROZEREM) PO SCH (21:10)
[2023-07-21] MEDS: METAMUCIL (PSYLLIUM) PACKET PO SCH (21:11)
[2023-07-21] MEDS: MIRALAX *UNIT DOSE* 17GM PACKET PO SCH (21:12)
[2023-07-21 23:00] VITALS: BP 109/69; TEMP 98; O2SAT 95
[2023-07-22] MEDS: ACETAMINOPHEN 500 MG TAB PO PRN ×2 (00:08→21:00)
[2023-07-22] MEDS: oxyCODONE 5MG TAB PO PRN ×5 (00:08→22:48)
[2023-07-22 05:52] VITALS: BP 102/54; TEMP 97.9; O2SAT 91
[2023-07-22 06:10] LABS: HEMATOCRIT 35.7 % (36.0-47.0); HEMOGLOBIN 11.9 g/dl (12.0-15.5); MEAN CORPUSCULAR HEMOGLOBIN 31.3 pg (27.0-33.0); MEAN CORPUSCULAR HGB CONC 33.3 g/dl (32.0-36.5); MEAN CORPUSCULAR VOLUME 93.9 fl (80.0-96.0); PLATELET COUNT, AUTOMATED 219 10^3/uL (150-450); WHITE BLOOD COUNT 9.8 10^3/uL (4.0-10.0)
[2023-07-22 06:42] LABS: BLOOD UREA NITROGEN 19 MG/DL (9-23); CALCIUM LEVEL 8.2 MG/DL (8.5-10.1); CARBON DIOXIDE LEVEL 27 MMOL/L (20-31); CHLORIDE LEVEL 103 MMOL/L (98-107); CREATININE FOR GFR 0.65 MG/DL (0.55-1.30); GLOMERULAR FILTRATION RATE > 60.0 (>51); GLUCOSE, FASTING 320 MG/DL (60-100); POTASSIUM SERUM 4.2 MMOL/L (3.5-5.1); SODIUM LEVEL 135 MMOL/L (136-145)
[2023-07-22] MEDS: ENOXAPARIN 40MG/0.4ML SYRINGE (J1650 PER 10MG) SC SCH (08:22)
[2023-07-22] MEDS: LIDOCAINE 5% (LIDODERM) PATCH TD SCH (08:22)
[2023-07-22] MEDS: risperiDONE 1 MG TAB PO SCH (08:23)
[2023-07-22] MEDS: PANTOPRAZOLE 20 MG TAB PO SCH (08:23)
[2023-07-22] MEDS: DOCUSATE SODIUM 100MG CAPSULE PO SCH ×2 (08:23→20:54)
[2023-07-22] MEDS: CLOPIDOGREL 75 MG TAB PO SCH (08:23)
[2023-07-22] MEDS: SENNA 8.6 MG TAB (SENOKOT) PO SCH ×2 (08:23→20:54)
[2023-07-22] MEDS: METAMUCIL (PSYLLIUM) PACKET PO SCH ×2 (08:24→20:57)
[2023-07-22] MEDS: MIRALAX *UNIT DOSE* 17GM PACKET PO SCH ×2 (08:24→20:53)
[2023-07-22] MEDS: INSULIN LISPRO (NovoLOG) PER UNIT SC SCH ×4 (08:24→20:57)
[2023-07-22 08:25] VITALS: O2SAT 90
[2023-07-22] MEDS: CARVedilol 6.25 MG TAB PO SCH ×2 (08:27→20:55)
[2023-07-22 08:30] VITALS: O2SAT 84
[2023-07-22 08:35] VITALS: O2SAT 90
[2023-07-22] MEDS ORDERED: VENLAFAXINE **XR** 75MG CAPSULE PO SCH (09:00)
[2023-07-22] MEDS: VENLAFAXINE **XR** 75MG CAPSULE PO SCH (14:08)
[2023-07-22 14:10] VITALS: BP 110/72; TEMP 98; O2SAT 92
[2023-07-22] MEDS: LACTULOSE 20GM/30ML SYRUP UDC PO SCH ×2 (16:57→20:53)
[2023-07-22] MEDS: NICOTINE 21MG/24HR 1 EA TRANSDERMAL TD SCH (16:58)
[2023-07-22] MEDS ORDERED: ISOVUE-370 76% 100ML VIAL As Ordered ONE (17:25)
[2023-07-22 20:16] VITALS: BP 134/80; TEMP 97.9; O2SAT 94
[2023-07-22] MEDS: risperiDONE 2 MG TAB PO SCH (20:54)
[2023-07-22] MEDS: EZETIMIBE 10MG TABLET (ZETIA) PO SCH (20:54)
[2023-07-22] MEDS: RAMELTEON 8 MG TAB (ROZEREM) PO SCH (20:54)
[2023-07-22] MEDS: GABAPENTIN 300 MG CAP PO SCH (20:54)
[2023-07-22] MEDS: traZODone 100 MG TAB PO SCH (20:54)
[2023-07-22] MEDS: ATORVASTATIN 20 MG TAB PO SCH (20:54)
[2023-07-22] MEDS: LEVEMIR (INSULIN DETEMIR) 1 UNITS/0.01ML SC SCH (20:56)
[2023-07-23] MEDS: LACTULOSE 20GM/30ML SYRUP UDC PO SCH ×9 (01:00→22:00)
[2023-07-23] MEDS: oxyCODONE 5MG TAB PO PRN ×4 (05:25→21:27)
[2023-07-23 05:34] VITALS: BP 149/81; TEMP 97.3; O2SAT 93
[2023-07-23 06:20] LABS: HEMATOCRIT 35.2 % (36.0-47.0); HEMOGLOBIN 11.7 g/dl (12.0-15.5); MEAN CORPUSCULAR HEMOGLOBIN 31.5 pg (27.0-33.0); MEAN CORPUSCULAR HGB CONC 33.2 g/dl (32.0-36.5); MEAN CORPUSCULAR VOLUME 94.9 fl (80.0-96.0); PLATELET COUNT, AUTOMATED 206 10^3/uL (150-450); RED BLOOD COUNT 3.71 10^6/uL (4.00-5.40); WHITE BLOOD COUNT 9.2 10^3/uL (4.0-10.0)
[2023-07-23] MEDS: ENOXAPARIN 40MG/0.4ML SYRINGE (J1650 PER 10MG) SC SCH (08:18)
[2023-07-23] MEDS: INSULIN LISPRO (NovoLOG) PER UNIT SC SCH ×4 (08:18→21:27)
[2023-07-23] MEDS: VENLAFAXINE **XR** 75MG CAPSULE PO SCH (08:19)
[2023-07-23] MEDS: CARVedilol 6.25 MG TAB PO SCH ×2 (08:19→21:23)
[2023-07-23] MEDS: SENNA 8.6 MG TAB (SENOKOT) PO SCH ×2 (08:19→21:00)
[2023-07-23] MEDS: PANTOPRAZOLE 20 MG TAB PO SCH (08:19)
[2023-07-23 08:20] LABS: TOTAL 25(OH) VITAMIN D 16.2 NG/ML (20.0-100.0)
[2023-07-23] MEDS: DOCUSATE SODIUM 100MG CAPSULE PO SCH ×2 (08:20→21:00)
[2023-07-23] MEDS: NICOTINE 21MG/24HR 1 EA TRANSDERMAL TD SCH (08:20)
[2023-07-23] MEDS: MIRALAX *UNIT DOSE* 17GM PACKET PO SCH ×2 (08:21→21:00)
[2023-07-23] MEDS: LIDOCAINE 5% (LIDODERM) PATCH TD SCH (08:21)
[2023-07-23] MEDS: METAMUCIL (PSYLLIUM) PACKET PO SCH ×2 (08:21→21:00)
[2023-07-23] MEDS: CLOPIDOGREL 75 MG TAB PO SCH (08:21)
[2023-07-23] MEDS ORDERED: CALCIUM/VITAMIN D 500 MG TAB PO SCH (09:00)
[2023-07-23] MEDS: risperiDONE 1 MG TAB PO SCH (10:44)
[2023-07-23 12:11] LABS: BLOOD UREA NITROGEN 12 MG/DL (9-23); CALCIUM LEVEL 8.3 MG/DL (8.5-10.1); CARBON DIOXIDE LEVEL 29 MMOL/L (20-31); CHLORIDE LEVEL 102 MMOL/L (98-107); CREATININE FOR GFR 0.56 MG/DL (0.55-1.30); GLOMERULAR FILTRATION RATE > 60.0 (>51); GLUCOSE, FASTING 207 MG/DL (60-100); POTASSIUM SERUM 4.3 MMOL/L (3.5-5.1); SODIUM LEVEL 135 MMOL/L (136-145)
[2023-07-23 12:55] LABS: HEMATOCRIT 35.7 % (36.0-47.0); MEAN CORPUSCULAR HEMOGLOBIN 31.7 pg (27.0-33.0); MEAN CORPUSCULAR HGB CONC 33.6 g/dl (32.0-36.5); MEAN CORPUSCULAR VOLUME 94.4 fl (80.0-96.0); PLATELET COUNT, AUTOMATED 212 10^3/uL (150-450); RED BLOOD COUNT 3.78 10^6/uL (4.00-5.40); WHITE BLOOD COUNT 9.8 10^3/uL (4.0-10.0)
[2023-07-23] MEDS: VITAMIN D 1,000 INTERNATIONAL UNITS TABLET PO SCH (13:01)
[2023-07-23] MEDS: CALCIUM/VITAMIN D 500 MG TAB PO SCH ×2 (13:02→21:22)
[2023-07-23 14:00] VITALS: BP 136/82; TEMP 97.3; O2SAT 90
[2023-07-23 19:49] VITALS: BP 137/79; TEMP 98.2; O2SAT 93
[2023-07-23] MEDS: EZETIMIBE 10MG TABLET (ZETIA) PO SCH (21:21)
[2023-07-23] MEDS: ATORVASTATIN 20 MG TAB PO SCH (21:21)
[2023-07-23] MEDS: GABAPENTIN 300 MG CAP PO SCH (21:22)
[2023-07-23] MEDS: risperiDONE 2 MG TAB PO SCH (21:25)
[2023-07-23] MEDS: traZODone 100 MG TAB PO SCH (21:25)
[2023-07-23] MEDS: RAMELTEON 8 MG TAB (ROZEREM) PO SCH (21:25)
[2023-07-23] MEDS: LEVEMIR (INSULIN DETEMIR) 1 UNITS/0.01ML SC SCH (21:26)
[2023-07-24 06:37] VITALS: BP 133/74; TEMP 95.9; O2SAT 91
[2023-07-24] MEDS: CLOPIDOGREL 75 MG TAB PO SCH (08:04)
[2023-07-24] MEDS: LIDOCAINE 5% (LIDODERM) PATCH TD SCH (08:04)
[2023-07-24] MEDS: CALCIUM/VITAMIN D 500 MG TAB PO SCH (08:04)
[2023-07-24] MEDS: VITAMIN D 1,000 INTERNATIONAL UNITS TABLET PO SCH (08:04)
[2023-07-24] MEDS: DOCUSATE SODIUM 100MG CAPSULE PO SCH (08:05)
[2023-07-24] MEDS: VENLAFAXINE **XR** 75MG CAPSULE PO SCH (08:05)
[2023-07-24] MEDS: NICOTINE 21MG/24HR 1 EA TRANSDERMAL TD SCH (08:05)
[2023-07-24] MEDS: PANTOPRAZOLE 20 MG TAB PO SCH (08:05)
[2023-07-24 08:06] VITALS: BP 133/74
[2023-07-24] MEDS: ENOXAPARIN 40MG/0.4ML SYRINGE (J1650 PER 10MG) SC SCH (08:06)
[2023-07-24] MEDS: METAMUCIL (PSYLLIUM) PACKET PO SCH (08:07)
[2023-07-24] MEDS: MIRALAX *UNIT DOSE* 17GM PACKET PO SCH (08:07)
[2023-07-24] MEDS: INSULIN LISPRO (NovoLOG) PER UNIT SC SCH ×2 (08:07→12:56)
[2023-07-24] MEDS: SENNA 8.6 MG TAB (SENOKOT) PO SCH (08:08)
[2023-07-24] MEDS ORDERED: CARVedilol 12.5 MG TAB PO SCH (09:00)
[2023-07-24] MEDS ORDERED: LEVEMIR (INSULIN DETEMIR) 1 UNITS/0.01ML SC SCH ×2 (09:00)
[2023-07-24] MEDS: oxyCODONE 5MG TAB PO PRN (12:55)
[2023-07-24] MEDS: risperiDONE 1 MG TAB PO SCH (12:55)
[2023-07-24] MEDS ORDERED: CARV12.5 PO (13:14)
[2023-07-24] MEDS ORDERED: VITAD1000T PO (13:14)
[2023-07-24] MEDS ORDERED: CALCD50TA PO (13:14)
[2023-07-24] MEDS ORDERED: MIRA3350 PO (13:14)
[2023-07-24] MEDS ORDERED: META0.52 PO (13:14)
[2023-07-24] MEDS ORDERED: LIDO5TD TD (13:14)
[2023-07-24] MEDS ORDERED: OXYC-517 PO (13:15)
[2023-07-27] MEDS ORDERED: FERROUS SULFATE 325MG TAB PO SCH (09:00)
== END 2023-07-24 16:10 | disposition home or self-care (01) | DRG 52 ==
LOC: M ED 08:28 → EDBD 08:28 → M ED INP 16:20 → ENRESERV 21:09 → M MS5PR 22:45
PROVIDERS: ADMIT Student in an Organized Health Care Education/Training Program; ATTEND Student in an Organized Health Care Education/Training Program
DX: G93.41 Metabolic encephalopathy (principal); J96.21 Acute and chronic respiratory failure with hypoxia; E11.40 Type 2 diabetes mellitus with diabetic neuropathy, unspecified; E11.51 Type 2 diabetes mellitus with diabetic peripheral angiopathy without gangrene; D50.9 Iron deficiency anemia, unspecified; F12.90 Cannabis use, unspecified, uncomplicated; F20.9 Schizophrenia, unspecified; G30.9 Alzheimer's disease, unspecified; F02.80 Dementia in other diseases classified elsewhere, unspecified severity, without behavioral disturbance, psychotic disturbance, mood disturbance, and anxiety; K59.00 Constipation, unspecified; F32.A Depression, unspecified; R25.1 Tremor, unspecified; E78.5 Hyperlipidemia, unspecified; I25.10 Atherosclerotic heart disease of native coronary artery without angina pectoris; K21.9 Gastro-esophageal reflux disease without esophagitis; S42.201A Unspecified fracture of upper end of right humerus, initial encounter for closed fracture; W01.0XXA Fall on same level from slipping, tripping and stumbling without subsequent striking against object, initial encounter; Y92.009 Unspecified place in unspecified non-institutional (private) residence as the place of occurrence of the external cause; Z88.6 Allergy status to analgesic agent; Z88.5 Allergy status to narcotic agent; Z88.8 Allergy status to other drugs, medicaments and biological substances; Z79.899 Other long term (current) drug therapy; Z79.4 Long term (current) use of insulin; Z95.2 Presence of prosthetic heart valve; F79 Unspecified intellectual disabilities

== ENCOUNTER 2023-07-26 15:37 | Inpatient (IN) | payer OTHER ==
[~2023-07-26] VITALS: Ht 157.5 cm; Wt 64.1 kg
[~2023-07-26 15:37] MED LIST changes: +CALCD50TA PO; +LIDO5TD TD; +MELA10TA14 PO; +META0.52 PO; +MIRA3350 PO; +OXYC-517 PO; +VITAD1000T PO
[2023-07-26] MEDS ORDERED: BENZ1TAB5 (16:02)
[2023-07-26 16:41] LABS: HEMATOCRIT 37.8 % (36.0-47.0); HEMOGLOBIN 12.5 g/dl (12.0-15.5); MEAN CORPUSCULAR HEMOGLOBIN 31.4 pg (27.0-33.0); MEAN CORPUSCULAR HGB CONC 33.1 g/dl (32.0-36.5); PLATELET COUNT, AUTOMATED 277 10^3/uL (150-450); RED BLOOD COUNT 3.98 10^6/uL (4.00-5.40); WHITE BLOOD COUNT 14.9 10^3/uL (4.0-10.0)
[2023-07-26 16:59] LABS: AMPHETAMINES LEVEL URINE NEGATIVE (NEGATIVE); BARBITURATES URINE NEGATIVE (NEGATIVE); BENZODIAZEPINES URINE NEGATIVE (NEGATIVE); CANNABINOIDS URINE NEGATIVE (NEGATIVE); COCAINE METABOLITE URINE NEGATIVE (NEGATIVE); METHADONE URINE NEGATIVE (NEGATIVE); OPIATES URINE NEGATIVE (NEGATIVE); PHENCYCLIDINE URINE NEGATIVE (NEGATIVE)
[2023-07-26 17:02] LABS: ETHYL ALCOHOL (ETHANOL) < 0.003 % (0.000-0.010)
[2023-07-26 17:03] LABS: ACETAMINOPHEN LEVEL < 2.0 UG/ML (10.0-20.0); ALBUMIN 3.2 G/DL (3.2-5.2); ALKALINE PHOSPHATASE 99 U/L (46-116); ALT/SGPT 28 U/L (7.0-40); AST/SGOT 17 U/L (<34); BILIRUBIN,DIRECT 0.2 MG/DL (<0.4); BILIRUBIN,TOTAL 0.7 MG/DL (0.3-1.2); BLOOD UREA NITROGEN 18 MG/DL (9-23); CALCIUM LEVEL 10.1 MG/DL (8.5-10.1); CARBON DIOXIDE LEVEL 31 MMOL/L (20-31); CHLORIDE LEVEL 98 MMOL/L (98-107); CREATININE FOR GFR 0.63 MG/DL (0.55-1.30); GLOMERULAR FILTRATION RATE > 60.0 (>51); GLUCOSE, FASTING 253 MG/DL (60-100); POTASSIUM SERUM 4.3 MMOL/L (3.5-5.1); SALICYLATE LEVEL < 3.0 MG/DL (<30); SODIUM LEVEL 136 MMOL/L (136-145); TOTAL PROTEIN 6.3 G/DL (5.7-8.2)
[2023-07-26 17:06] LABS: THYROID STIMULATING HORMONE 3.768 uIU/ML (0.55-4.78)
[2023-07-26] MEDS ORDERED: cefTRIAXone SOD 2 GM in D5W MINI-BAG PLUS 50 ML IV ONE (20:30)
[2023-07-26] MEDS ORDERED: FERR325T3 PO (21:02)
[2023-07-26] MEDS ORDERED: PANT20TA6 PO (21:02)
[2023-07-26] MEDS ORDERED: MIRA3350 PO (21:02)
[2023-07-26] MEDS ORDERED: VITA500054 PO (21:08)
[2023-07-26] MEDS ORDERED: LIDO1PAD TOP (21:08)
[2023-07-26] MEDS ORDERED: OXYC-517 PO (21:08)
[2023-07-26] MEDS ORDERED: CALCD50TA PO (21:08)
[2023-07-26] MEDS ORDERED: CARV12.5 PO (21:35)
[2023-07-26] MEDS ORDERED: QC F0.52 PO (21:38)
[2023-07-26] MEDS ORDERED: HOME MED LIST COMPLETE! XX SCH (21:40)
[2023-07-26] MEDS ORDERED: SODIUM CHLORIDE 0.9% 1000ML IV STA (23:33)
[2023-07-26] MEDS ORDERED: NICOTINE 21MG/24HR 1 EA TRANSDERMAL TD PRN (23:35)
[2023-07-26] MEDS ORDERED: DEXTROSE 50% 50ML SYRINGE IV PRN (23:35)
[2023-07-26] MEDS ORDERED: GLUCAGON INJ 1MG VIAL SC PRN (23:35)
[2023-07-26] MEDS ORDERED: GLUCOSE 4GM CHEW TABLET PO PRN (23:35)
[2023-07-26] MEDS ORDERED: MOM 30ML SUSPENSION UDC PO PRN (23:35)
[2023-07-27] VITALS (8 sets, daily range): BP systolic 116–149; BP diastolic 58–77; TEMP 97.5–99.4; O2SAT 86–97
[2023-07-27] MEDS: risperiDONE 2 MG TAB PO SCH ×2 (00:13→20:01)
[2023-07-27] MEDS: GABAPENTIN 300 MG CAP PO SCH ×2 (00:14→19:58)
[2023-07-27] MEDS: DOCUSATE SODIUM 100MG CAPSULE PO SCH ×3 (00:14→19:58)
[2023-07-27] MEDS: CARVedilol 12.5 MG TAB PO SCH ×3 (00:14→20:10)
[2023-07-27] MEDS: EZETIMIBE 10MG TABLET (ZETIA) PO SCH ×2 (00:14→19:58)
[2023-07-27] MEDS: ULTRACET TAB PO PRN ×2 (00:17→16:42)
[2023-07-27] MEDS: LIDOCAINE 5% (LIDODERM) PATCH TD SCH (01:20)
[2023-07-27] MEDS: ACETAMINOPHEN TAB 650MG DOSE (2X325MG) PO PRN ×2 (03:56→19:58)
[2023-07-27 04:38] LABS: MEAN CORPUSCULAR HEMOGLOBIN 31.3 pg (27.0-33.0); MEAN CORPUSCULAR HGB CONC 32.9 g/dl (32.0-36.5); MEAN CORPUSCULAR VOLUME 95.1 fl (80.0-96.0); PLATELET COUNT, AUTOMATED 259 10^3/uL (150-450); RED BLOOD COUNT 3.26 10^6/uL (4.00-5.40); WHITE BLOOD COUNT 10.2 10^3/uL (4.0-10.0)
[2023-07-27 04:52] LABS: HEMOGLOBIN 10.2 g/dl (12.0-15.5)
[2023-07-27 04:58] LABS: ALBUMIN 2.6 G/DL (3.2-5.2); ALKALINE PHOSPHATASE 86 U/L (46-116); ALT/SGPT 21 U/L (7.0-40); AST/SGOT 11 U/L (<34); BILIRUBIN,TOTAL 0.3 MG/DL (0.3-1.2); BLOOD UREA NITROGEN 16 MG/DL (9-23); CALCIUM LEVEL 8.5 MG/DL (8.5-10.1); CARBON DIOXIDE LEVEL 27 MMOL/L (20-31); CHLORIDE LEVEL 104 MMOL/L (98-107); GLOMERULAR FILTRATION RATE > 60.0 (>51); GLUCOSE, FASTING 264 MG/DL (60-100); SODIUM LEVEL 138 MMOL/L (136-145); TOTAL PROTEIN 5.1 G/DL (5.7-8.2)
[2023-07-27] MEDS: INSULIN LISPRO (NovoLOG) PER UNIT SC SCH ×3 (08:36→18:34)
[2023-07-27] MEDS ORDERED: VENLAFAXINE **XR** 75MG CAPSULE PO SCH (09:00)
[2023-07-27] MEDS: ENOXAPARIN 40MG/0.4ML SYRINGE (J1650 PER 10MG) SC SCH (09:55)
[2023-07-27] MEDS: VENLAFAXINE **XR** 75MG CAPSULE PO SCH (09:56)
[2023-07-27] MEDS: PANTOPRAZOLE 20 MG TAB PO SCH (09:56)
[2023-07-27] MEDS: CLOPIDOGREL 75 MG TAB PO SCH (09:56)
[2023-07-27] MEDS: risperiDONE 1 MG TAB PO SCH ×2 (09:56→19:58)
[2023-07-27] MEDS ORDERED: ATORVASTATIN 20 MG TAB PO SCH (21:00)
[2023-07-27] MEDS ORDERED: cefTRIAXone SOD 1 GM in D5W MINI-BAG PLUS 50 ML IV SCH (21:00)
[2023-07-27] MEDS ORDERED: INSULIN LISPRO (NovoLOG) PER UNIT SC SCH (21:00)
[2023-07-27] MEDS ORDERED: RAMELTEON 8 MG TAB (ROZEREM) PO SCH (21:00)
[2023-07-28] MEDS: LIDOCAINE 5% (LIDODERM) PATCH TD SCH (03:46)
[2023-07-28] MEDS: ULTRACET TAB PO PRN ×2 (03:49→11:46)
[2023-07-28 06:34] VITALS: BP 141/80; TEMP 98.6; O2SAT 93
[2023-07-28] MEDS: CLOPIDOGREL 75 MG TAB PO SCH (08:35)
[2023-07-28] MEDS: PANTOPRAZOLE 20 MG TAB PO SCH (08:36)
[2023-07-28] MEDS: risperiDONE 1 MG TAB PO SCH (08:36)
[2023-07-28] MEDS: DOCUSATE SODIUM 100MG CAPSULE PO SCH (08:36)
[2023-07-28] MEDS: VENLAFAXINE **XR** 75MG CAPSULE PO SCH (08:36)
[2023-07-28] MEDS: INSULIN LISPRO (NovoLOG) PER UNIT SC SCH ×2 (08:36→11:48)
[2023-07-28 08:37] VITALS: BP 141/80
[2023-07-28] MEDS: ENOXAPARIN 40MG/0.4ML SYRINGE (J1650 PER 10MG) SC SCH (08:37)
[2023-07-28] MEDS: CARVedilol 12.5 MG TAB PO SCH (08:37)
[2023-07-28] MEDS: ACETAMINOPHEN TAB 650MG DOSE (2X325MG) PO PRN (08:41)
[2023-07-28] MEDS ORDERED: LEVO1TAB40 PO (12:56)
[2023-07-28] MEDS ORDERED: ROZE8TAB16 PO (18:18)
[2023-07-30] MEDS ORDERED: LEVO1TAB40 PO (11:58)
[2023-07-30] MEDS ORDERED: ROZE8TAB16 PO (11:58)
== END 2023-07-28 15:00 | disposition home or self-care (01) | DRG 720 ==
LOC: M ED 15:37 → M ED INP 23:33 → ENRESERV 07-27 00:21 → M ICU 07-27 00:48 → M MS5PR 07-27 18:15
PROVIDERS: ADMIT Family Medicine; ATTEND Family Medicine
DX: A41.9 Sepsis, unspecified organism (principal); G93.40 Encephalopathy, unspecified; E11.42 Type 2 diabetes mellitus with diabetic polyneuropathy; R45.851 Suicidal ideations; F20.9 Schizophrenia, unspecified; G30.9 Alzheimer's disease, unspecified; F02.80 Dementia in other diseases classified elsewhere, unspecified severity, without behavioral disturbance, psychotic disturbance, mood disturbance, and anxiety; E78.5 Hyperlipidemia, unspecified; I10 Essential (primary) hypertension; I25.10 Atherosclerotic heart disease of native coronary artery without angina pectoris; K21.9 Gastro-esophageal reflux disease without esophagitis; N39.0 Urinary tract infection, site not specified; Z88.6 Allergy status to analgesic agent; Z88.5 Allergy status to narcotic agent; Z88.8 Allergy status to other drugs, medicaments and biological substances; Z79.899 Other long term (current) drug therapy; Z79.4 Long term (current) use of insulin; Z95.2 Presence of prosthetic heart valve; F17.200 Nicotine dependence, unspecified, uncomplicated; F12.90 Cannabis use, unspecified, uncomplicated; G47.33 Obstructive sleep apnea (adult) (pediatric)

== ENCOUNTER 2023-07-29 02:25 | Emergency (ER) | payer OTHER ==
[~2023-07-29] VITALS: Ht 157.5 cm; Wt 64.1 kg
[2023-07-29 02:25] VITALS: BP 177/79; TEMP 98.8; O2SAT 98
[~2023-07-29 02:25] MED LIST changes: +BENZ1TAB5; +FERR325T3 PO; +LEVO1TAB40 PO; +LIDO1PAD TOP; +QC F0.52 PO; +ROZE8TAB16 PO; +VITA500054 PO
[2023-07-30] MEDS ORDERED: ROZE8TAB16 PO (11:58)
[2023-07-30] MEDS ORDERED: LEVO1TAB40 PO (11:58)
== END 2023-07-29 04:07 | disposition left against medical advice (07) ==
LOC: M ED 02:25
DX: Z53.21 Procedure and treatment not carried out due to patient leaving prior to being seen by health care provider (principal)

== ENCOUNTER 2023-07-29 04:47 | Emergency (ER) | payer OTHER ==
[~2023-07-29] VITALS: Ht 157.5 cm; Wt 64.1 kg
[2023-07-29] MEDS ORDERED: LIDOCAINE 5% (LIDODERM) PATCH TD ONE ×2 (05:25→11:10)
[2023-07-29] MEDS ORDERED: NICOTINE 21MG/24HR 1 EA TRANSDERMAL TD ONE (05:25)
[2023-07-29 05:44] LABS: HEMATOCRIT 36.2 % (36.0-47.0); HEMOGLOBIN 11.9 g/dl (12.0-15.5); MEAN CORPUSCULAR HEMOGLOBIN 31.2 pg (27.0-33.0); MEAN CORPUSCULAR HGB CONC 32.9 g/dl (32.0-36.5); PLATELET COUNT, AUTOMATED 330 10^3/uL (150-450); RED BLOOD COUNT 3.81 10^6/uL (4.00-5.40); WHITE BLOOD COUNT 12.7 10^3/uL (4.0-10.0)
[2023-07-29 06:09] LABS: ETHYL ALCOHOL (ETHANOL) < 0.003 % (0.000-0.010)
[2023-07-29 06:10] LABS: SALICYLATE LEVEL < 3.0 MG/DL (<30)
[2023-07-29 06:11] LABS: ACETAMINOPHEN LEVEL < 2.0 UG/ML (10.0-20.0)
[2023-07-29 06:13] LABS: THYROID STIMULATING HORMONE 3.377 uIU/ML (0.55-4.78)
[2023-07-29 06:18] LABS: ALBUMIN 3.2 G/DL (3.2-5.2); ALKALINE PHOSPHATASE 107 U/L (46-116); ALT/SGPT 24 U/L (7.0-40); AST/SGOT 10 U/L (<34); BILIRUBIN,DIRECT 0.2 MG/DL (<0.4); BILIRUBIN,TOTAL 0.5 MG/DL (0.3-1.2); BLOOD UREA NITROGEN 21 MG/DL (9-23); CARBON DIOXIDE LEVEL 28 MMOL/L (20-31); CHLORIDE LEVEL 101 MMOL/L (98-107); GLOMERULAR FILTRATION RATE > 60.0 (>51); GLUCOSE, FASTING 286 MG/DL (60-100); POTASSIUM SERUM 4.2 MMOL/L (3.5-5.1); SODIUM LEVEL 139 MMOL/L (136-145); TOTAL PROTEIN 6.2 G/DL (5.7-8.2)
[2023-07-29 06:19] LABS: AMPHETAMINES LEVEL URINE NEGATIVE (NEGATIVE); BARBITURATES URINE NEGATIVE (NEGATIVE); BENZODIAZEPINES URINE NEGATIVE (NEGATIVE); CANNABINOIDS URINE NEGATIVE (NEGATIVE); COCAINE METABOLITE URINE NEGATIVE (NEGATIVE); METHADONE URINE NEGATIVE (NEGATIVE); PHENCYCLIDINE URINE NEGATIVE (NEGATIVE)
[2023-07-29 06:20] LABS: OPIATES URINE POSITIVE (NEGATIVE)
[2023-07-29] MEDS ORDERED: ACETAMINOPHEN 500 MG TAB PO PRN (08:10)
[2023-07-29] MEDS ORDERED: MED REC CURRENTLY UNOBTAINABLE XX SCH (08:30)
[2023-07-29] MEDS ORDERED: HOME MED LIST COMPLETE! XX SCH (16:25)
[2023-07-29 18:25] VITALS: BP 186/76; TEMP 98.4; O2SAT 96
[2023-07-30] MEDS ORDERED: ROZE8TAB16 PO (11:58)
[2023-07-30] MEDS ORDERED: LEVO1TAB40 PO (11:58)
== END 2023-07-29 18:40 | disposition home or self-care (01) ==
LOC: M ED 04:47
DX: F03.90 Unspecified dementia, unspecified severity, without behavioral disturbance, psychotic disturbance, mood disturbance, and anxiety (principal); R45.851 Suicidal ideations; E11.9 Type 2 diabetes mellitus without complications; I10 Essential (primary) hypertension; K21.9 Gastro-esophageal reflux disease without esophagitis; E78.5 Hyperlipidemia, unspecified; G30.9 Alzheimer's disease, unspecified; F17.200 Nicotine dependence, unspecified, uncomplicated; Z88.5 Allergy status to narcotic agent; Z88.6 Allergy status to analgesic agent; Z88.8 Allergy status to other drugs, medicaments and biological substances; Z91.048 Other nonmedicinal substance allergy status; Z79.02 Long term (current) use of antithrombotics/antiplatelets; Z79.4 Long term (current) use of insulin; Z79.891 Long term (current) use of opiate analgesic; Z79.899 Other long term (current) drug therapy

== ENCOUNTER → 2023-09-07 | Outpatient (REF) | payer OTHER ==
[~2023-09-07] MED LIST changes: +HALO5TAB33 PO; +HUMA100I5 SC; +INSU100I48 SQ; +MIRT-10 PO; +PERCOCET PO; +PRED20TA PO; +TRAZ-252 PO
[2023-09-07 18:27] LABS: BASO % 0.4 % (0.0-1.0); EOS # 0.2 10^3/uL (0.0-0.5); EOS % 2.2 % (0.0-3.0); HEMATOCRIT 47.4 % (36.0-47.0); HEMOGLOBIN 15.8 g/dl (12.0-15.5); MEAN CORPUSCULAR HGB CONC 33.3 g/dl (32.0-36.5); MONO # 0.5 10^3/uL (0.0-0.8); MONO % 5.1 % (2.0-8.0); NEUTROPHILS # 5.4 10^3/uL (1.5-8.5); NEUTROPHILS % 58.4 % (36.0-66.0); PLATELET COUNT, AUTOMATED 284 10^3/uL (150-450); RED BLOOD COUNT 4.94 10^6/uL (4.00-5.40); WHITE BLOOD COUNT 9.2 10^3/uL (4.0-10.0)
[2023-09-08 04:00] LABS: ALBUMIN 3.8 G/DL (3.2-5.2); ALKALINE PHOSPHATASE 201 U/L (46-116); ALT/SGPT 50 U/L (7.0-40); AST/SGOT 32 U/L (<34); BILIRUBIN,TOTAL 0.2 MG/DL (0.3-1.2); BLOOD UREA NITROGEN 14 MG/DL (9-23); CARBON DIOXIDE LEVEL 27 MMOL/L (20-31); CHLORIDE LEVEL 103 MMOL/L (98-107); CHOLESTEROL LEVEL 99 MG/DL (<200); CREATININE FOR GFR 0.66 MG/DL (0.55-1.30); GLOMERULAR FILTRATION RATE > 60.0 (>51); GLUCOSE, FASTING 235 MG/DL (60-100); HDL CHOLESTEROL 41.2 MG/DL (>40); LDL CHOLESTEROL 14.8 MG/DL (<100); MAGNESIUM LEVEL 1.6 MG/DL (1.8-2.4); NON-HDL-C 57.8 MG/DL; POTASSIUM SERUM 4.8 MMOL/L (3.5-5.1); SODIUM LEVEL 137 MMOL/L (136-145); THYROID STIMULATING HORMONE 1.507 uIU/ML (0.55-4.78); TOTAL 25(OH) VITAMIN D 35.5 NG/ML (20.0-100.0); TOTAL PROTEIN 6.6 G/DL (5.7-8.2); TRIGLYCERIDES LEVEL 215 MG/DL (<150)
== END ==
LOC: M LAB REF 17:00
PROVIDERS: ATTEND Nurse Practitioner Family
DX: Z13.228 Encounter for screening for other metabolic disorders (principal)

== ENCOUNTER → 2023-09-11 | Outpatient (CLI) | payer OTHER | LOC: M PLAIMG 11:16 | PROVIDERS: ATTEND Orthopaedic Surgery | DX: S42.211A Unspecified displaced fracture of surgical neck of right humerus, initial encounter for closed fracture (principal) ==

== ENCOUNTER → 2023-10-29 | Outpatient (CLI) | payer OTHER ==
[~2023-10-29] MED LIST changes: +CEFD1CAP9 PO; -EFFE150C2 PO; +EFFE150C3 PO; +MIRT1TAB16 PO
== END ==
LOC: M SOG 10:42
PROVIDERS: ATTEND Orthopaedic Surgery
DX: S42.291P Other displaced fracture of upper end of right humerus, subsequent encounter for fracture with malunion (principal); Y93.9 Activity, unspecified; Y92.9 Unspecified place or not applicable

== ENCOUNTER 2023-11-02 09:32 | Observation (INO) | payer OTHER ==
[~2023-11-02] VITALS: Ht 157.5 cm; Wt 63.1 kg
[2023-11-02 10:38] LABS: APPEARANCE, URINE CLEAR (CLEAR); BACTERIA, URINE AUTO NEGATIVE (NEGATIVE); BILIRUBIN, URINE AUTO NEGATIVE (NEGATIVE); BLOOD, URINE BLOOD 1+ (NEGATIVE); COLOR, URINE STRAW (YELLOW); GLUCOSE, URINE (UA) AUTO 3+ mg/dL (NEGATIVE); KETONE, URINE AUTO NEGATIVE (NEGATIVE); LEUKOCYTE ESTERASE, URINE AUTO NEGATIVE (NEGATIVE); NITRITE, URINE AUTO NEGATIVE (NEGATIVE); PROTEIN, URINE AUTO NEGATIVE (NEGATIVE); RBC, URINE AUTO 0 /HPF (0-3); SPECIFIC GRAVITY URINE AUTO 1.006 (1.002-1.035); SQUAMOUS EPITHELIAL CELL UR AU 0 /HPF (0-6); UROBILINOGEN, URINE AUTO 0.2 mg/dL (0.0-2.0); WBC, URINE AUTO 0 /HPF (0-3)
[2023-11-02 12:03] LABS: BASO # 0.1 10^3/uL (0.0-0.2); BASO % 0.4 % (0.0-1.0); EOS # 0.3 10^3/uL (0.0-0.5); EOS % 2.9 % (0.0-3.0); HEMATOCRIT 43.7 % (36.0-47.0); HEMOGLOBIN 14.5 g/dl (12.0-15.5); LYMPH # 3.4 10^3/uL (1.5-5.0); LYMPH % 29.7 % (24.0-44.0); MEAN CORPUSCULAR HEMOGLOBIN 30.5 pg (27.0-33.0); MEAN CORPUSCULAR HGB CONC 33.2 g/dl (32.0-36.5); MONO # 0.7 10^3/uL (0.0-0.8); MONO % 5.6 % (2.0-8.0); NEUTROPHILS % 60.5 % (36.0-66.0); PLATELET COUNT, AUTOMATED 316 10^3/uL (150-450); RED BLOOD COUNT 4.75 10^6/uL (4.00-5.40); WHITE BLOOD COUNT 11.6 10^3/uL (4.0-10.0)
[2023-11-02 12:31] LABS: ETHYL ALCOHOL (ETHANOL) < 0.003 % (0.000-0.010)
[2023-11-02 12:33] LABS: ALBUMIN 3.6 G/DL (3.2-5.2); ALKALINE PHOSPHATASE 150 U/L (46-116); ALT/SGPT 46 U/L (7.0-40); AST/SGOT 33 U/L (<34); BILIRUBIN,DIRECT < 0.1 MG/DL (<0.4); BILIRUBIN,TOTAL 0.2 MG/DL (0.3-1.2); BLOOD UREA NITROGEN 14 MG/DL (9-23); CALCIUM LEVEL 10.2 MG/DL (8.5-10.1); CARBON DIOXIDE LEVEL 24 MMOL/L (20-31); CHLORIDE LEVEL 107 MMOL/L (98-107); CREATININE FOR GFR 0.56 MG/DL (0.55-1.30); GLOMERULAR FILTRATION RATE > 60.0 (>51); GLUCOSE, FASTING 130 MG/DL (60-100); POTASSIUM SERUM 4.4 MMOL/L (3.5-5.1); SALICYLATE LEVEL < 3.0 MG/DL (<30); SODIUM LEVEL 140 MMOL/L (136-145); TOTAL PROTEIN 6.4 G/DL (5.7-8.2)
[2023-11-02 12:35] LABS: THYROID STIMULATING HORMONE 1.566 uIU/ML (0.55-4.78)
[2023-11-02] MEDS ORDERED: NS 1,000 ML IV ONE (12:45)
[2023-11-02 12:47] LABS: RSV AMPLIFICATION NEGATIVE (NEGATIVE)
[2023-11-02 13:20] LABS: AMPHETAMINES LEVEL URINE NEGATIVE (NEGATIVE); BARBITURATES URINE NEGATIVE (NEGATIVE); BENZODIAZEPINES URINE NEGATIVE (NEGATIVE); COCAINE METABOLITE URINE NEGATIVE (NEGATIVE); METHADONE URINE NEGATIVE (NEGATIVE)
[2023-11-02 13:21] LABS: CANNABINOIDS URINE NEGATIVE (NEGATIVE); OPIATES URINE NEGATIVE (NEGATIVE); PHENCYCLIDINE URINE NEGATIVE (NEGATIVE)
[2023-11-02] MEDS ORDERED: MED REC IN PROGRESS XX SCH (13:25)
[2023-11-02] MEDS ORDERED: HOME MED LIST COMPLETE! XX SCH (14:00)
[2023-11-02] MEDS ORDERED: ACETAMINOPHEN TAB 650MG DOSE (2X325MG) PO PRN (14:25)
[2023-11-02] MEDS ORDERED: MOM 30ML SUSPENSION UDC PO PRN (14:25)
[2023-11-02 14:26] LABS: VITAMIN B12 LEVEL 433 PG/ML (211-911)
[2023-11-02 14:35] LABS: PROCALCITONIN <0.04 ng/ml
[2023-11-02 14:37] LABS: FOLATE 20.17 NG/ML (>5.4)
[2023-11-02] MEDS: NS 1,000 ML IV SCH ×2 (15:21→23:46)
[2023-11-02] MEDS ORDERED: GLUCOSE 4GM CHEW TABLET PO PRN (15:45)
[2023-11-02] MEDS ORDERED: DEXTROSE 50% 50ML SYRINGE IV PRN (15:45)
[2023-11-02] MEDS ORDERED: GLUCAGON INJ 1MG VIAL SC PRN (15:45)
[2023-11-02] MEDS: INSULIN LISPRO (NovoLOG) PER UNIT SC SCH (17:12)
[2023-11-02] MEDS ORDERED: INSULIN LISPRO (NovoLOG) PER UNIT SC SCH ×2 (17:30→21:00)
[2023-11-02] MEDS ORDERED: PROHANCE 279.3MG/ML 5ML VIAL As Ordered ONE (18:08)
[2023-11-02] MEDS: DOCUSATE SODIUM 100MG CAPSULE PO SCH (20:21)
[2023-11-02] MEDS: CARVedilol 12.5 MG TAB PO SCH (20:21)
[2023-11-02 20:22] VITALS: BP 131/83; TEMP 97.2; O2SAT 96
[2023-11-02] MEDS: LEVEMIR (INSULIN DETEMIR) 1 UNITS/0.01ML SC SCH (20:22)
[2023-11-02] MEDS ORDERED: ATORVASTATIN 20 MG TAB PO SCH (21:00)
[2023-11-02] MEDS ORDERED: EZETIMIBE 10MG TABLET (ZETIA) PO SCH (21:00)
[2023-11-02] MEDS ORDERED: GABAPENTIN 300 MG CAP PO SCH (21:00)
[2023-11-02] MEDS ORDERED: risperiDONE 1 MG TAB PO SCH (21:00)
[2023-11-02] MEDS ORDERED: MIRTAZAPINE 15 MG TAB PO SCH (23:40)
[2023-11-03 05:18] VITALS: BP 157/99; TEMP 97.7; O2SAT 97
[2023-11-03 06:35] LABS: HEMOGLOBIN 13.5 g/dl (12.0-15.5); MEAN CORPUSCULAR HEMOGLOBIN 31.1 pg (27.0-33.0); MEAN CORPUSCULAR HGB CONC 33.8 g/dl (32.0-36.5); MEAN CORPUSCULAR VOLUME 92.2 fl (80.0-96.0); PLATELET COUNT, AUTOMATED 291 10^3/uL (150-450); RED BLOOD COUNT 4.34 10^6/uL (4.00-5.40)
[2023-11-03 07:03] LABS: BLOOD UREA NITROGEN 13 MG/DL (9-23); CALCIUM LEVEL 9.5 MG/DL (8.5-10.1); CARBON DIOXIDE LEVEL 25 MMOL/L (20-31); CHLORIDE LEVEL 109 MMOL/L (98-107); CREATININE FOR GFR 0.58 MG/DL (0.55-1.30); GLOMERULAR FILTRATION RATE > 60.0 (>51); GLUCOSE, FASTING 104 MG/DL (60-100); POTASSIUM SERUM 4.1 MMOL/L (3.5-5.1); SODIUM LEVEL 141 MMOL/L (136-145)
[2023-11-03] MEDS ORDERED: VENLAFAXINE **XR** 75MG CAPSULE PO SCH ×2 (09:00)
[2023-11-03] MEDS ORDERED: CLOPIDOGREL 75 MG TAB PO SCH (09:00)
[2023-11-03] MEDS ORDERED: PANTOPRAZOLE 20 MG TAB PO SCH (09:00)
[2023-11-03] MEDS ORDERED: ENOXAPARIN 40MG/0.4ML SYRINGE (J1650 PER 10MG) SC SCH (09:00)
[2023-11-03] MEDS: INSULIN LISPRO (NovoLOG) PER UNIT SC SCH ×3 (09:53→18:43)
[2023-11-03] MEDS: LEVEMIR (INSULIN DETEMIR) 1 UNITS/0.01ML SC SCH (09:53)
[2023-11-03] MEDS: NS 1,000 ML IV SCH (09:55)
[2023-11-03] MEDS: DOCUSATE SODIUM 100MG CAPSULE PO SCH (09:55)
[2023-11-03 09:56] VITALS: BP 160/94
[2023-11-03] MEDS: CARVedilol 12.5 MG TAB PO SCH (09:56)
[2023-11-03 14:00] VITALS: BP 160/91; TEMP 97.5; O2SAT 97
[2023-11-03] MEDS ORDERED: HALO1TAB19 PO (17:10)
[2023-11-03] MEDS ORDERED: LEVEMIR (INSULIN DETEMIR) 1 UNITS/0.01ML SC SCH (21:00)
== END 2023-11-03 19:40 | disposition home or self-care (01) ==
LOC: M ED 09:32 → M ED INP 13:11 → ENRESERV 14:20 → M MSPAV 15:17
PROVIDERS: ADMIT Internal Medicine; ATTEND Internal Medicine
DX: R41.82 Altered mental status, unspecified (principal); G31.84 Mild cognitive impairment of uncertain or unknown etiology; F70 Mild intellectual disabilities; F03.90 Unspecified dementia, unspecified severity, without behavioral disturbance, psychotic disturbance, mood disturbance, and anxiety; E11.9 Type 2 diabetes mellitus without complications; G62.9 Polyneuropathy, unspecified; E78.5 Hyperlipidemia, unspecified; K21.9 Gastro-esophageal reflux disease without esophagitis; I10 Essential (primary) hypertension; I25.10 Atherosclerotic heart disease of native coronary artery without angina pectoris; Z98.61 Coronary angioplasty status; F20.9 Schizophrenia, unspecified; Z79.899 Other long term (current) drug therapy; Z79.4 Long term (current) use of insulin; Z79.84 Long term (current) use of oral hypoglycemic drugs; Z88.8 Allergy status to other drugs, medicaments and biological substances; Z88.5 Allergy status to narcotic agent
CPT/HCPCS: 36415; 70450; 70553; 71045; 80048; 80076; 80143; 80307; 81001; 82077; 82140; 82607; 82746; 83605; 84145; 84443; 85025; 85027; 87040; 87086; 87631; 93005; 93041; 94760; 96361; 96372; 96374; 97161; 97165; 97535; 99285; A9576; J1650; J1815

== ENCOUNTER 2023-11-10 00:07 | Inpatient (IN) | payer MEDICAID, OTHER ==
[~2023-11-10] VITALS: Ht 157.5 cm; Wt 64.5 kg
[~2023-11-10 00:07] MED LIST changes: +HALO1TAB19 PO; +INVE1.31 INJ; +MAGN400T2 PO; +MIRT-11 PO
[2023-11-10 00:42] LABS: HEMATOCRIT 44.3 % (36.0-47.0); HEMOGLOBIN 14.9 g/dl (12.0-15.5); MEAN CORPUSCULAR HEMOGLOBIN 31.2 pg (27.0-33.0); MEAN CORPUSCULAR HGB CONC 33.6 g/dl (32.0-36.5); MEAN CORPUSCULAR VOLUME 92.9 fl (80.0-96.0); PLATELET COUNT, AUTOMATED 287 10^3/uL (150-450); RED BLOOD COUNT 4.77 10^6/uL (4.00-5.40); WHITE BLOOD COUNT 23.4 10^3/uL (4.0-10.0)
[2023-11-10] MEDS ORDERED: NICOTINE 21MG/24HR 1 EA TRANSDERMAL TD ONE ×2 (00:50→15:00)
[2023-11-10 01:04] LABS: PHENCYCLIDINE URINE NEGATIVE (NEGATIVE)
[2023-11-10 01:05] LABS: AMPHETAMINES LEVEL URINE NEGATIVE (NEGATIVE); BARBITURATES URINE NEGATIVE (NEGATIVE); BENZODIAZEPINES URINE NEGATIVE (NEGATIVE); CANNABINOIDS URINE NEGATIVE (NEGATIVE); COCAINE METABOLITE URINE NEGATIVE (NEGATIVE); METHADONE URINE NEGATIVE (NEGATIVE); OPIATES URINE NEGATIVE (NEGATIVE)
[2023-11-10 01:06] LABS: ETHYL ALCOHOL (ETHANOL) < 0.003 % (0.000-0.010)
[2023-11-10 01:08] LABS: SALICYLATE LEVEL < 3.0 MG/DL (<30)
[2023-11-10 01:09] LABS: ALBUMIN 3.9 G/DL (3.2-5.2); ALKALINE PHOSPHATASE 138 U/L (46-116); ALT/SGPT 32 U/L (7.0-40); AST/SGOT 23 U/L (<34); BILIRUBIN,DIRECT 0.1 MG/DL (<0.4); BILIRUBIN,TOTAL 0.4 MG/DL (0.3-1.2); BLOOD UREA NITROGEN 25 MG/DL (9-23); CALCIUM LEVEL 9.4 MG/DL (8.5-10.1); CARBON DIOXIDE LEVEL 26 MMOL/L (20-31); CHLORIDE LEVEL 103 MMOL/L (98-107); CREATININE FOR GFR 0.78 MG/DL (0.55-1.30); GLOMERULAR FILTRATION RATE > 60.0 (>51); GLUCOSE, FASTING 220 MG/DL (60-100); POTASSIUM SERUM 4.4 MMOL/L (3.5-5.1); SODIUM LEVEL 135 MMOL/L (136-145); TOTAL PROTEIN 6.8 G/DL (5.7-8.2)
[2023-11-10 01:11] LABS: THYROID STIMULATING HORMONE 2.374 uIU/ML (0.55-4.78)
[2023-11-10] MEDS ORDERED: MAGN400T35 PO (01:17)
[2023-11-10] MEDS ORDERED: MED REC IN PROGRESS XX SCH (01:20)
[2023-11-10] MEDS ORDERED: GLUCOSE 4GM CHEW TABLET PO PRN (10:25)
[2023-11-10] MEDS ORDERED: DEXTROSE 50% 50ML SYRINGE IV PRN (10:25)
[2023-11-10] MEDS ORDERED: GLUCAGON INJ 1MG VIAL SC PRN (10:25)
[2023-11-10] MEDS ORDERED: HOME MED LIST COMPLETE! XX SCH (10:35)
[2023-11-10 10:49] LABS: BASO % 0.2 % (0.0-1.0); EOS # 0.2 10^3/uL (0.0-0.5); EOS % 1.8 % (0.0-3.0); HEMATOCRIT 42.9 % (36.0-47.0); HEMOGLOBIN 14.3 g/dl (12.0-15.5); LYMPH % 16.2 % (24.0-44.0); MEAN CORPUSCULAR HEMOGLOBIN 30.9 pg (27.0-33.0); MEAN CORPUSCULAR HGB CONC 33.3 g/dl (32.0-36.5); MEAN CORPUSCULAR VOLUME 92.7 fl (80.0-96.0); MONO # 0.8 10^3/uL (0.0-0.8); MONO % 6.4 % (2.0-8.0); NEUTROPHILS # 9.1 10^3/uL (1.5-8.5); NEUTROPHILS % 75.1 % (36.0-66.0); PLATELET COUNT, AUTOMATED 268 10^3/uL (150-450); RED BLOOD COUNT 4.63 10^6/uL (4.00-5.40); WHITE BLOOD COUNT 12.1 10^3/uL (4.0-10.0)
[2023-11-10] MEDS ORDERED: IBUPROFEN 400MG TAB PO PRN (12:35)
[2023-11-10] MEDS ORDERED: MOM 30ML SUSPENSION UDC PO PRN (12:35)
[2023-11-10] MEDS ORDERED: diphenhydrAMINE 25MG CAP PO PRN (12:35)
[2023-11-10] MEDS ORDERED: MAALOX 30 ML SUSP *UDC PO PRN (12:35)
[2023-11-10] MEDS: INSULIN LISPRO (NovoLOG) PER UNIT SC SCH ×2 (14:15→19:06)
[2023-11-10 20:47] VITALS: BP 125/61; TEMP 96.3; O2SAT 95
[2023-11-10] MEDS ORDERED: CARVedilol 12.5 MG TAB PO SCH (21:00)
[2023-11-10] MEDS ORDERED: metFORMIN (GLUCOPHAGE) 1000MG TABLET PO SCH (21:00)
[2023-11-10] MEDS ORDERED: risperiDONE 1 MG TAB PO SCH (21:00)
[2023-11-10] MEDS ORDERED: EZETIMIBE 10MG TABLET (ZETIA) PO SCH (21:00)
[2023-11-10] MEDS ORDERED: GABAPENTIN 300 MG CAP PO SCH (21:00)
[2023-11-10] MEDS ORDERED: ATORVASTATIN 20 MG TAB PO SCH (21:00)
[2023-11-10] MEDS ORDERED: MAGNESIUM OXIDE 400MG TAB (MAG-OX) PO SCH (21:00)
[2023-11-10] MEDS ORDERED: INSULIN LISPRO (NovoLOG) PER UNIT SC SCH (21:00)
[2023-11-10] MEDS: traZODone 50 MG TAB PO PRN (23:10)
[2023-11-11] MEDS ORDERED: PANTOPRAZOLE 20 MG TAB PO SCH (09:00)
[2023-11-11] MEDS ORDERED: VENLAFAXINE **XR** 75MG CAPSULE PO SCH ×2 (09:00)
[2023-11-11] MEDS ORDERED: CLOPIDOGREL 75 MG TAB PO SCH (09:00)
[2023-11-11] MEDS: LEVEMIR (INSULIN DETEMIR) 1 UNITS/0.01ML SC SCH (09:04)
[2023-11-11] MEDS ORDERED: PALIPERIDONE PAL 234MG/1.5ML INJ (INVEGA)(FREE PSY INPT ONLY) IM ONE (10:35)
[2023-11-11] MEDS ORDERED: GLUCAGON INJ 1MG VIAL SC PRN (11:00)
[2023-11-11] MEDS: CLOPIDOGREL 75 MG TAB PO SCH (11:00)
[2023-11-11] MEDS ORDERED: DEXTROSE 50% 50ML SYRINGE IV PRN (11:00)
[2023-11-11] MEDS ORDERED: GLUCOSE 4GM CHEW TABLET PO PRN (11:00)
[2023-11-11] MEDS: ACETAMINOPHEN TAB 650MG DOSE (2X325MG) PO PRN ×2 (11:01→21:23)
[2023-11-11] MEDS: BENZTROPINE 1 MG TAB PO SCH ×2 (11:49→20:45)
[2023-11-11] MEDS: metFORMIN (GLUCOPHAGE) 1000MG TABLET PO SCH ×2 (11:49→20:46)
[2023-11-11] MEDS: VENLAFAXINE **XR** 75MG CAPSULE PO SCH (11:49)
[2023-11-11] MEDS: MAGNESIUM OXIDE 400MG TAB (MAG-OX) PO SCH ×2 (11:54→20:47)
[2023-11-11] MEDS: NICOTINE 21MG/24HR 1 EA TRANSDERMAL TD PRN (11:55)
[2023-11-11] MEDS: INSULIN LISPRO (NovoLOG) PER UNIT SC SCH ×3 (12:22→20:47)
[2023-11-11] MEDS: CARVedilol 12.5 MG TAB PO SCH ×2 (13:15→20:45)
[2023-11-11] MEDS: PANTOPRAZOLE 20 MG TAB PO SCH (13:15)
[2023-11-11] MEDS: BACITRACIN OINTMENT 30GM TUBE TOP SCH ×2 (14:56→20:46)
[2023-11-11] MEDS: EZETIMIBE 10MG TABLET (ZETIA) PO SCH (20:46)
[2023-11-11] MEDS: GABAPENTIN 300 MG CAP PO SCH (20:46)
[2023-11-11] MEDS: ATORVASTATIN 20 MG TAB PO SCH (20:46)
[2023-11-11] MEDS: MIRTAZAPINE 15 MG TAB PO SCH (20:46)
[2023-11-11] MEDS: risperiDONE 1 MG TAB PO SCH (20:47)
[2023-11-11] MEDS ORDERED: LEVEMIR (INSULIN DETEMIR) 1 UNITS/0.01ML SC SCH (21:00)
[2023-11-12 06:27] VITALS: BP 104/57; TEMP 97.3; O2SAT 97
[2023-11-12] MEDS: INSULIN LISPRO (NovoLOG) PER UNIT SC SCH ×4 (06:52→21:01)
[2023-11-12 07:08] LABS: CHOLESTEROL RISK RATIO 2.99 (<5); HDL CHOLESTEROL 33.7 MG/DL (>40); LDL CHOLESTEROL 35.7 MG/DL (<100); NON-HDL-C 67.3 MG/DL
[2023-11-12] MEDS: metFORMIN (GLUCOPHAGE) 1000MG TABLET PO SCH ×2 (09:18→20:44)
[2023-11-12] MEDS: VENLAFAXINE **XR** 75MG CAPSULE PO SCH (09:18)
[2023-11-12] MEDS: PANTOPRAZOLE 20 MG TAB PO SCH (09:18)
[2023-11-12] MEDS: MAGNESIUM OXIDE 400MG TAB (MAG-OX) PO SCH ×2 (09:18→20:44)
[2023-11-12] MEDS: CLOPIDOGREL 75 MG TAB PO SCH (09:18)
[2023-11-12] MEDS: LEVEMIR (INSULIN DETEMIR) 1 UNITS/0.01ML SC SCH ×2 (09:18→21:02)
[2023-11-12] MEDS: BENZTROPINE 1 MG TAB PO SCH ×2 (09:18→20:44)
[2023-11-12] MEDS: BACITRACIN OINTMENT 30GM TUBE TOP SCH ×2 (09:19→20:43)
[2023-11-12] MEDS: CARVedilol 12.5 MG TAB PO SCH ×2 (09:29→20:44)
[2023-11-12 17:58] VITALS: BP 129/76; TEMP 97; O2SAT 95
[2023-11-12] MEDS: GABAPENTIN 300 MG CAP PO SCH (20:43)
[2023-11-12] MEDS: EZETIMIBE 10MG TABLET (ZETIA) PO SCH (20:44)
[2023-11-12] MEDS: ATORVASTATIN 20 MG TAB PO SCH (20:45)
[2023-11-12] MEDS: risperiDONE 1 MG TAB PO SCH (20:46)
[2023-11-12] MEDS: MIRTAZAPINE 15 MG TAB PO SCH (20:46)
[2023-11-12 20:55] VITALS: BP 126/92
[2023-11-13 06:42] VITALS: BP 111/18; TEMP 98.4; O2SAT 98
[2023-11-13] MEDS: INSULIN LISPRO (NovoLOG) PER UNIT SC SCH ×4 (06:56→21:21)
[2023-11-13] MEDS: VENLAFAXINE **XR** 75MG CAPSULE PO SCH (08:35)
[2023-11-13] MEDS: MAGNESIUM OXIDE 400MG TAB (MAG-OX) PO SCH ×2 (08:35→21:06)
[2023-11-13] MEDS: BENZTROPINE 1 MG TAB PO SCH ×2 (08:35→21:06)
[2023-11-13] MEDS: CARVedilol 12.5 MG TAB PO SCH ×2 (08:35→21:15)
[2023-11-13] MEDS: metFORMIN (GLUCOPHAGE) 1000MG TABLET PO SCH ×2 (08:35→21:05)
[2023-11-13] MEDS: BACITRACIN OINTMENT 30GM TUBE TOP SCH ×2 (08:35→21:06)
[2023-11-13] MEDS: PANTOPRAZOLE 20 MG TAB PO SCH (08:36)
[2023-11-13] MEDS: CLOPIDOGREL 75 MG TAB PO SCH (08:36)
[2023-11-13] MEDS: LEVEMIR (INSULIN DETEMIR) 1 UNITS/0.01ML SC SCH ×2 (08:37→21:21)
[2023-11-13 17:22] VITALS: BP 146/91; TEMP 97.3
[2023-11-13] MEDS: MIRTAZAPINE 15 MG TAB PO SCH (21:05)
[2023-11-13] MEDS: ATORVASTATIN 20 MG TAB PO SCH (21:05)
[2023-11-13] MEDS: GABAPENTIN 300 MG CAP PO SCH (21:05)
[2023-11-13] MEDS: risperiDONE 1 MG TAB PO SCH (21:06)
[2023-11-13] MEDS: EZETIMIBE 10MG TABLET (ZETIA) PO SCH (21:06)
[2023-11-14 06:40] VITALS: BP 118/66; TEMP 97; O2SAT 98
[2023-11-14] MEDS: INSULIN LISPRO (NovoLOG) PER UNIT SC SCH ×5 (06:52→20:29)
[2023-11-14] MEDS: LEVEMIR (INSULIN DETEMIR) 1 UNITS/0.01ML SC SCH ×2 (09:00→20:29)
[2023-11-14] MEDS: BENZTROPINE 1 MG TAB PO SCH ×2 (09:27→20:18)
[2023-11-14] MEDS: VENLAFAXINE **XR** 75MG CAPSULE PO SCH (09:27)
[2023-11-14] MEDS: PANTOPRAZOLE 20 MG TAB PO SCH (09:27)
[2023-11-14] MEDS: MAGNESIUM OXIDE 400MG TAB (MAG-OX) PO SCH ×2 (09:27→20:19)
[2023-11-14] MEDS: metFORMIN (GLUCOPHAGE) 1000MG TABLET PO SCH ×2 (09:27→20:18)
[2023-11-14] MEDS: CLOPIDOGREL 75 MG TAB PO SCH (09:27)
[2023-11-14] MEDS: CARVedilol 12.5 MG TAB PO SCH ×2 (09:28→20:19)
[2023-11-14] MEDS: BACITRACIN OINTMENT 30GM TUBE TOP SCH ×2 (09:29→20:19)
[2023-11-14] MEDS: NICOTINE 21MG/24HR 1 EA TRANSDERMAL TD PRN (10:56)
[2023-11-14] MEDS ORDERED: LEVEMIR (INSULIN DETEMIR) 1 UNITS/0.01ML SC ONE (12:30)
[2023-11-14] MEDS: risperiDONE 1 MG TAB PO SCH (20:18)
[2023-11-14] MEDS: EZETIMIBE 10MG TABLET (ZETIA) PO SCH (20:18)
[2023-11-14] MEDS: ATORVASTATIN 20 MG TAB PO SCH (20:18)
[2023-11-14] MEDS: GABAPENTIN 300 MG CAP PO SCH (20:18)
[2023-11-14] MEDS: MIRTAZAPINE 15 MG TAB PO SCH (20:18)
[2023-11-15] MEDS: ACETAMINOPHEN TAB 650MG DOSE (2X325MG) PO PRN ×2 (00:34→22:35)
[2023-11-15 06:34] VITALS: BP 109/69; TEMP 97.6; O2SAT 96
[2023-11-15] MEDS: INSULIN LISPRO (NovoLOG) PER UNIT SC SCH ×7 (06:54→20:23)
[2023-11-15] MEDS: BENZTROPINE 1 MG TAB PO SCH ×2 (08:07→20:18)
[2023-11-15] MEDS: CLOPIDOGREL 75 MG TAB PO SCH (08:07)
[2023-11-15] MEDS: VENLAFAXINE **XR** 75MG CAPSULE PO SCH (08:07)
[2023-11-15] MEDS: PANTOPRAZOLE 20 MG TAB PO SCH (08:08)
[2023-11-15] MEDS: MAGNESIUM OXIDE 400MG TAB (MAG-OX) PO SCH ×2 (08:08→20:18)
[2023-11-15] MEDS: metFORMIN (GLUCOPHAGE) 1000MG TABLET PO SCH ×2 (08:08→20:17)
[2023-11-15] MEDS: CARVedilol 12.5 MG TAB PO SCH ×2 (08:08→20:20)
[2023-11-15] MEDS: LEVEMIR (INSULIN DETEMIR) 1 UNITS/0.01ML SC SCH ×2 (08:09→20:26)
[2023-11-15] MEDS: BACITRACIN OINTMENT 30GM TUBE TOP SCH ×2 (08:09→20:24)
[2023-11-15] MEDS: NICOTINE 21MG/24HR 1 EA TRANSDERMAL TD PRN (08:10)
[2023-11-15 18:00] VITALS: BP 138/78; TEMP 97.8
[2023-11-15] MEDS: MIRTAZAPINE 15 MG TAB PO SCH (20:18)
[2023-11-15] MEDS: ATORVASTATIN 20 MG TAB PO SCH (20:18)
[2023-11-15] MEDS: traZODone 50 MG TAB PO PRN (20:18)
[2023-11-15] MEDS: EZETIMIBE 10MG TABLET (ZETIA) PO SCH (20:18)
[2023-11-15] MEDS: risperiDONE 1 MG TAB PO SCH (20:18)
[2023-11-15] MEDS: GABAPENTIN 300 MG CAP PO SCH (20:18)
[2023-11-16 06:25] VITALS: BP 109/62; TEMP 97.6; O2SAT 94
[2023-11-16] MEDS: INSULIN LISPRO (NovoLOG) PER UNIT SC SCH ×7 (06:39→20:30)
[2023-11-16] MEDS: MAGNESIUM OXIDE 400MG TAB (MAG-OX) PO SCH ×2 (08:55→20:20)
[2023-11-16] MEDS: NICOTINE 21MG/24HR 1 EA TRANSDERMAL TD PRN (08:55)
[2023-11-16] MEDS: PANTOPRAZOLE 20 MG TAB PO SCH (08:55)
[2023-11-16] MEDS: ACETAMINOPHEN TAB 650MG DOSE (2X325MG) PO PRN ×2 (08:56→21:34)
[2023-11-16] MEDS: metFORMIN (GLUCOPHAGE) 1000MG TABLET PO SCH ×2 (08:56→20:21)
[2023-11-16] MEDS: CLOPIDOGREL 75 MG TAB PO SCH (08:58)
[2023-11-16] MEDS: CARVedilol 12.5 MG TAB PO SCH ×2 (08:59→20:28)
[2023-11-16] MEDS: BENZTROPINE 1 MG TAB PO SCH ×2 (08:59→20:21)
[2023-11-16] MEDS: VENLAFAXINE **XR** 75MG CAPSULE PO SCH (08:59)
[2023-11-16] MEDS: LEVEMIR (INSULIN DETEMIR) 1 UNITS/0.01ML SC SCH ×2 (09:00→20:30)
[2023-11-16] MEDS ORDERED: PALIPERIDONE PAL 156MG/1ML INJ(INVEGA)(FREE PSY INPT ONLY) IM ONE (09:40)
[2023-11-16 16:13] VITALS: BP 144/70; TEMP 98; O2SAT 97
[2023-11-16] MEDS: risperiDONE 1 MG TAB PO SCH (20:20)
[2023-11-16] MEDS: EZETIMIBE 10MG TABLET (ZETIA) PO SCH (20:20)
[2023-11-16] MEDS: MIRTAZAPINE 15 MG TAB PO SCH (20:21)
[2023-11-16] MEDS: ATORVASTATIN 20 MG TAB PO SCH (20:21)
[2023-11-16] MEDS: GABAPENTIN 300 MG CAP PO SCH (20:21)
[2023-11-17] MEDS: INSULIN LISPRO (NovoLOG) PER UNIT SC SCH ×4 (06:45→12:00)
[2023-11-17 06:50] VITALS: BP 111/57; TEMP 97.6; O2SAT 97
[2023-11-17] MEDS ORDERED: BENZ1TAB5 PO (08:30)
[2023-11-17] MEDS ORDERED: HALO5TAB33 PO ×2 (08:30)
[2023-11-17] MEDS ORDERED: RISP-8 PO (08:30)
[2023-11-17] MEDS ORDERED: VENL75CA47 PO (08:30)
[2023-11-17] MEDS ORDERED: NICO21PAT TD (08:30)
[2023-11-17] MEDS ORDERED: MIRT-11 PO (08:30)
[2023-11-17] MEDS: LEVEMIR (INSULIN DETEMIR) 1 UNITS/0.01ML SC SCH (08:33)
[2023-11-17] MEDS: CLOPIDOGREL 75 MG TAB PO SCH (08:33)
[2023-11-17] MEDS: metFORMIN (GLUCOPHAGE) 1000MG TABLET PO SCH (08:34)
[2023-11-17] MEDS: MAGNESIUM OXIDE 400MG TAB (MAG-OX) PO SCH (08:34)
[2023-11-17] MEDS: VENLAFAXINE **XR** 75MG CAPSULE PO SCH (08:34)
[2023-11-17 08:39] VITALS: BP 132/76
[2023-11-17] MEDS: PANTOPRAZOLE 20 MG TAB PO SCH (08:39)
[2023-11-17] MEDS: BENZTROPINE 1 MG TAB PO SCH (08:39)
[2023-11-17] MEDS: CARVedilol 12.5 MG TAB PO SCH (08:39)
[2023-11-17] MEDS ORDERED: PALIPERIDONE PAL 156MG/1ML INJ(INVEGA)(FREE PSY INPT ONLY) IM ONE (10:00)
== END 2023-11-17 13:10 | disposition home or self-care (01) | DRG 750 ==
LOC: M ED 00:07 → M ED INP 12:35 → M PSY 20:50
PROVIDERS: ADMIT Student in an Organized Health Care Education/Training Program; ATTEND Student in an Organized Health Care Education/Training Program
DX: F25.0 Schizoaffective disorder, bipolar type (principal); E11.40 Type 2 diabetes mellitus with diabetic neuropathy, unspecified; R45.851 Suicidal ideations; F02.80 Dementia in other diseases classified elsewhere, unspecified severity, without behavioral disturbance, psychotic disturbance, mood disturbance, and anxiety; F79 Unspecified intellectual disabilities; G30.9 Alzheimer's disease, unspecified; F60.3 Borderline personality disorder; G47.33 Obstructive sleep apnea (adult) (pediatric); G24.01 Drug induced subacute dyskinesia; Z79.899 Other long term (current) drug therapy; Z88.6 Allergy status to analgesic agent; Z88.8 Allergy status to other drugs, medicaments and biological substances; Z88.5 Allergy status to narcotic agent; Z79.4 Long term (current) use of insulin; K21.9 Gastro-esophageal reflux disease without esophagitis; I25.10 Atherosclerotic heart disease of native coronary artery without angina pectoris; F17.210 Nicotine dependence, cigarettes, uncomplicated

== ENCOUNTER → 2024-01-28 | Outpatient (CLI) | payer MEDICAID, OTHER ==
[~2024-01-28] MED LIST changes: +MAGN400T35 PO; +NICO21PAT TD; +RISP-105 PO; -RISP-7 PO; -RISP-8 PO; +RISP0.5T82 PO
== END ==
LOC: M SOG 13:56
PROVIDERS: ATTEND Orthopaedic Surgery
DX: S42.291P Other displaced fracture of upper end of right humerus, subsequent encounter for fracture with malunion (principal)

== ENCOUNTER → 2024-02-03 | Outpatient (CLI) | payer OTHER ==
[2024-02-03 18:44] LABS: BLOOD UREA NITROGEN 20 MG/DL (9-23); CARBON DIOXIDE LEVEL 28 MMOL/L (20-31); CHLORIDE LEVEL 110 MMOL/L (98-107); CREATININE FOR GFR 0.64 MG/DL (0.55-1.30); GLOMERULAR FILTRATION RATE > 60.0 (>51); GLUCOSE, FASTING 88 MG/DL (60-100); POTASSIUM SERUM 4.7 MMOL/L (3.5-5.1); SODIUM LEVEL 142 MMOL/L (136-145)
[2024-02-03 18:46] LABS: HEMOGLOBIN A1c 6.4 % (4.0-6.0)
== END ==
LOC: M PLALAB 15:18
PROVIDERS: ATTEND Nurse Practitioner Family
DX: E11.65 Type 2 diabetes mellitus with hyperglycemia (principal)

== ENCOUNTER 2024-03-03 15:51 | Emergency (ER) | payer OTHER ==
[~2024-03-03] VITALS: Ht 157.5 cm; Wt 58.5 kg
[2024-03-03 17:18] LABS: BASO % 0.3 % (0.0-1.0); EOS # 0.2 10^3/uL (0.0-0.5); EOS % 1.7 % (0.0-3.0); HEMATOCRIT 45.1 % (36.0-47.0); HEMOGLOBIN 15.1 g/dl (12.0-15.5); LYMPH # 3.5 10^3/uL (1.5-5.0); LYMPH % 29.5 % (24.0-44.0); MEAN CORPUSCULAR HEMOGLOBIN 31.5 pg (27.0-33.0); MEAN CORPUSCULAR HGB CONC 33.5 g/dl (32.0-36.5); MONO # 0.6 10^3/uL (0.0-0.8); MONO % 5.2 % (2.0-8.0); NEUTROPHILS # 7.5 10^3/uL (1.5-8.5); NEUTROPHILS % 62.5 % (36.0-66.0); PLATELET COUNT, AUTOMATED 277 10^3/uL (150-450)
[2024-03-03 17:30] LABS: PROTHROMBIN TIME 12.9 SECONDS (12.5-14.5)
[2024-03-03 17:44] LABS: LIPASE 35 U/L (12-53)
[2024-03-03 17:45] LABS: CK-MB VALUE MASS < 1.0 NG/ML (<3.6)
[2024-03-03 17:46] LABS: ALBUMIN 3.4 G/DL (3.2-5.2); ALKALINE PHOSPHATASE 137 U/L (46-116); ALT/SGPT 22 U/L (7.0-40); AST/SGOT 16 U/L (<34); BILIRUBIN,DIRECT 0.1 MG/DL (<0.4); BILIRUBIN,TOTAL 0.3 MG/DL (0.3-1.2); BLOOD UREA NITROGEN 23 MG/DL (9-23); CALCIUM LEVEL 9.2 MG/DL (8.5-10.1); CARBON DIOXIDE LEVEL 25 MMOL/L (20-31); CHLORIDE LEVEL 107 MMOL/L (98-107); CREATININE FOR GFR 0.69 MG/DL (0.55-1.30); GLOMERULAR FILTRATION RATE > 60.0 (>51); GLUCOSE, FASTING 158 MG/DL (60-100); POTASSIUM SERUM 4.2 MMOL/L (3.5-5.1); SODIUM LEVEL 140 MMOL/L (136-145); TOTAL PROTEIN 6.5 G/DL (5.7-8.2)
[2024-03-03 17:47] LABS: CPK CREATINE PHOSPHOKINASE 77 U/L (34-145); MB/CK RELATIVE INDEX 1.29 (< OR =4)
[2024-03-03 18:03] VITALS: TEMP 97.3
[2024-03-03 18:55] LABS: MB/CK RELATIVE INDEX 1.25 (< OR =4)
[2024-03-03 19:45] LABS: APPEARANCE, URINE CLEAR (CLEAR); BACTERIA, URINE AUTO NEGATIVE (NEGATIVE); BILIRUBIN, URINE AUTO NEGATIVE (NEGATIVE); BLOOD, URINE BLOOD 2+ (NEGATIVE); COLOR, URINE YELLOW (YELLOW); GLUCOSE, URINE (UA) AUTO 3+ mg/dL (NEGATIVE); KETONE, URINE AUTO NEGATIVE (NEGATIVE); LEUKOCYTE ESTERASE, URINE AUTO NEGATIVE (NEGATIVE); NITRITE, URINE AUTO NEGATIVE (NEGATIVE); PROTEIN, URINE AUTO NEGATIVE (NEGATIVE); RBC, URINE AUTO 6 /HPF (0-3); SQUAMOUS EPITHELIAL CELL UR AU 2 /HPF (0-6); UROBILINOGEN, URINE AUTO 0.2 mg/dL (0.0-2.0); WBC, URINE AUTO 0 /HPF (0-3)
[2024-03-03 20:13] VITALS: BP 142/80; O2SAT 98
== END 2024-03-03 20:15 | disposition home or self-care (01) ==
LOC: M ED 15:51
DX: R07.9 Chest pain, unspecified (principal); I25.2 Old myocardial infarction; E11.9 Type 2 diabetes mellitus without complications; E78.5 Hyperlipidemia, unspecified; I10 Essential (primary) hypertension; J44.9 Chronic obstructive pulmonary disease, unspecified; G47.33 Obstructive sleep apnea (adult) (pediatric); F41.9 Anxiety disorder, unspecified; F32.A Depression, unspecified; M79.7 Fibromyalgia; F17.210 Nicotine dependence, cigarettes, uncomplicated; Z88.8 Allergy status to other drugs, medicaments and biological substances; Z79.899 Other long term (current) drug therapy; Z79.4 Long term (current) use of insulin; Z79.84 Long term (current) use of oral hypoglycemic drugs

== ENCOUNTER 2024-03-07 09:05 | Emergency (ER) | payer OTHER ==
[~2024-03-07] VITALS: Ht 157.5 cm; Wt 60.2 kg
[2024-03-07 10:42] LABS: HEMATOCRIT 43.9 % (36.0-47.0); HEMOGLOBIN 14.6 g/dl (12.0-15.5); MEAN CORPUSCULAR HEMOGLOBIN 30.5 pg (27.0-33.0); MEAN CORPUSCULAR HGB CONC 33.3 g/dl (32.0-36.5); MEAN CORPUSCULAR VOLUME 91.8 fl (80.0-96.0); PLATELET COUNT, AUTOMATED 281 10^3/uL (150-450); RED BLOOD COUNT 4.78 10^6/uL (4.00-5.40); WHITE BLOOD COUNT 15.2 10^3/uL (4.0-10.0)
[2024-03-07 11:06] LABS: HCG, SERUM QUALITATIVE NEGATIVE (NEGATIVE)
[2024-03-07 11:11] LABS: ETHYL ALCOHOL (ETHANOL) < 0.003 % (0.000-0.010)
[2024-03-07 11:13] LABS: ALBUMIN 3.5 G/DL (3.2-5.2); ALKALINE PHOSPHATASE 144 U/L (46-116); ALT/SGPT 21 U/L (7.0-40); AST/SGOT 18 U/L (<34); BILIRUBIN,DIRECT 0.1 MG/DL (<0.4); BILIRUBIN,TOTAL 0.3 MG/DL (0.3-1.2); BLOOD UREA NITROGEN 25 MG/DL (9-23); CALCIUM LEVEL 9.2 MG/DL (8.5-10.1); CARBON DIOXIDE LEVEL 27 MMOL/L (20-31); CHLORIDE LEVEL 105 MMOL/L (98-107); CREATININE FOR GFR 0.75 MG/DL (0.55-1.30); GLOMERULAR FILTRATION RATE > 60.0 (>51); GLUCOSE, FASTING 97 MG/DL (60-100); POTASSIUM SERUM 4.2 MMOL/L (3.5-5.1); SALICYLATE LEVEL < 3.0 MG/DL (<30); SODIUM LEVEL 139 MMOL/L (136-145); TOTAL PROTEIN 6.4 G/DL (5.7-8.2)
[2024-03-07 11:15] LABS: AMPHETAMINES LEVEL URINE NEGATIVE (NEGATIVE); BARBITURATES URINE NEGATIVE (NEGATIVE); BENZODIAZEPINES URINE NEGATIVE (NEGATIVE); COCAINE METABOLITE URINE NEGATIVE (NEGATIVE); METHADONE URINE NEGATIVE (NEGATIVE); OPIATES URINE NEGATIVE (NEGATIVE)
[2024-03-07 11:16] LABS: PHENCYCLIDINE URINE NEGATIVE (NEGATIVE)
[2024-03-07 11:18] LABS: CANNABINOIDS URINE POSITIVE (NEGATIVE)
[2024-03-07 14:18] VITALS: BP 155/69; TEMP 97.2; O2SAT 98
== END 2024-03-07 15:01 | disposition home or self-care (01) ==
LOC: M ED 09:05
DX: F20.9 Schizophrenia, unspecified (principal); I25.119 Atherosclerotic heart disease of native coronary artery with unspecified angina pectoris; E11.9 Type 2 diabetes mellitus without complications; K21.9 Gastro-esophageal reflux disease without esophagitis; I10 Essential (primary) hypertension; E78.5 Hyperlipidemia, unspecified; J44.9 Chronic obstructive pulmonary disease, unspecified; F17.210 Nicotine dependence, cigarettes, uncomplicated; F12.10 Cannabis abuse, uncomplicated; Z88.8 Allergy status to other drugs, medicaments and biological substances; Z79.899 Other long term (current) drug therapy; Z79.4 Long term (current) use of insulin; Z79.84 Long term (current) use of oral hypoglycemic drugs

== ENCOUNTER → 2024-03-10 | Outpatient (CLI) | payer OTHER | LOC: M SOG 10:17 | PROVIDERS: ATTEND Orthopaedic Surgery | DX: S42.214D Unspecified nondisplaced fracture of surgical neck of right humerus, subsequent encounter for fracture with routine healing (principal) ==

== ENCOUNTER 2024-03-12 11:02 | Inpatient (IN) | payer MEDICAID, OTHER ==
[~2024-03-12] VITALS: Ht 157.5 cm; Wt 59.4 kg
[2024-03-12 11:27] LABS: HEMATOCRIT 46.2 % (36.0-47.0); HEMOGLOBIN 15.4 g/dl (12.0-15.5); MEAN CORPUSCULAR HEMOGLOBIN 30.4 pg (27.0-33.0); MEAN CORPUSCULAR HGB CONC 33.3 g/dl (32.0-36.5); MEAN CORPUSCULAR VOLUME 91.3 fl (80.0-96.0); PLATELET COUNT, AUTOMATED 299 10^3/uL (150-450); RED BLOOD COUNT 5.06 10^6/uL (4.00-5.40); WHITE BLOOD COUNT 13.8 10^3/uL (4.0-10.0)
[2024-03-12 11:55] LABS: ETHYL ALCOHOL (ETHANOL) 0.005 % (0.000-0.010)
[2024-03-12 11:56] LABS: SALICYLATE LEVEL < 3.0 MG/DL (<30)
[2024-03-12 11:57] LABS: ALKALINE PHOSPHATASE 154 U/L (46-116); ALT/SGPT 23 U/L (7.0-40); AST/SGOT 26 U/L (<34); BILIRUBIN,DIRECT 0.1 MG/DL (<0.4); BILIRUBIN,TOTAL 0.4 MG/DL (0.3-1.2); BLOOD UREA NITROGEN 18 MG/DL (9-23); CALCIUM LEVEL 9.9 MG/DL (8.5-10.1); CARBON DIOXIDE LEVEL 27 MMOL/L (20-31); CHLORIDE LEVEL 107 MMOL/L (98-107); CREATININE FOR GFR 0.79 MG/DL (0.55-1.30); GLOMERULAR FILTRATION RATE > 60.0 (>51); GLUCOSE, FASTING 105 MG/DL (60-100); POTASSIUM SERUM 4.2 MMOL/L (3.5-5.1); SODIUM LEVEL 141 MMOL/L (136-145); TOTAL PROTEIN 6.8 G/DL (5.7-8.2)
[2024-03-12 11:59] LABS: THYROID STIMULATING HORMONE 1.316 uIU/ML (0.55-4.78)
[2024-03-12 12:05] LABS: AMPHETAMINES LEVEL URINE NEGATIVE (NEGATIVE); BARBITURATES URINE NEGATIVE (NEGATIVE); BENZODIAZEPINES URINE NEGATIVE (NEGATIVE); COCAINE METABOLITE URINE NEGATIVE (NEGATIVE)
[2024-03-12 12:06] LABS: METHADONE URINE NEGATIVE (NEGATIVE); OPIATES URINE NEGATIVE (NEGATIVE); PHENCYCLIDINE URINE NEGATIVE (NEGATIVE)
[2024-03-12 12:07] LABS: CANNABINOIDS URINE POSITIVE (NEGATIVE)
[2024-03-12 12:25] LABS: ERYTHROCYTE SEDIMENTATION RATE 28 mm/hr (0-30)
[2024-03-12 12:32] LABS: C REACTIVE PROTEIN QUANTITATIV < 0.40 MG/DL (<1.0)
[2024-03-12] MEDS: BACITRACIN OINTMENT 30GM TUBE TOP ONE (12:42)
[2024-03-12] MEDS ORDERED: JARD1TAB PO (14:50)
[2024-03-12] MEDS ORDERED: ACET650T15 PO (14:50)
[2024-03-12] MEDS ORDERED: VENTAER INH (14:50)
[2024-03-12] MEDS ORDERED: INVE234I IM (14:50)
[2024-03-12] MEDS ORDERED: BENZ0.5T2 PO (14:50)
[2024-03-12] MEDS ORDERED: MIRT-89 PO (14:50)
[2024-03-12] MEDS ORDERED: GABA600T4 PO (14:50)
[2024-03-12] MEDS ORDERED: HALO5TAB33 PO ×2 (14:50)
[2024-03-12] MEDS ORDERED: HOME MED LIST COMPLETE! XX SCH (14:55)
[2024-03-12] MEDS ORDERED: DEXTROSE 50% 50ML SYRINGE IV PRN (15:05)
[2024-03-12] MEDS ORDERED: PANTOPRAZOLE 20 MG TAB PO PRN (15:05)
[2024-03-12] MEDS ORDERED: GLUCOSE 4 GM CHEW PO PRN (15:05)
[2024-03-12] MEDS ORDERED: MAALOX 30 ML SUSP *UDC PO PRN (15:05)
[2024-03-12] MEDS ORDERED: GLUCAGON INJ 1MG VIAL SC PRN (15:05)
[2024-03-12] MEDS: metFORMIN (GLUCOPHAGE) 1000MG TABLET PO SCH (17:12)
[2024-03-12] MEDS: CLOPIDOGREL 75 MG TAB PO SCH (17:13)
[2024-03-12] MEDS: INSULIN LISPRO (NovoLOG) PER UNIT SC SCH ×2 (17:14→20:08)
[2024-03-12] MEDS: MAGNESIUM OXIDE 400MG TAB (MAG-OX) PO SCH (20:03)
[2024-03-12] MEDS: PILL CUTTER 1 EACH XX PRN (20:03)
[2024-03-12] MEDS: MIRTAZAPINE 15 MG TAB PO SCH (20:03)
[2024-03-12] MEDS: CARVedilol 12.5 MG TAB PO SCH (20:03)
[2024-03-12] MEDS: risperiDONE 1 MG TAB PO SCH (20:03)
[2024-03-12] MEDS: GABAPENTIN 300 MG CAP PO SCH (20:04)
[2024-03-12] MEDS: traZODone 50 MG TAB PO PRN (20:04)
[2024-03-12] MEDS: ATORVASTATIN 20 MG TAB PO SCH (20:04)
[2024-03-12] MEDS: EZETIMIBE 10MG TABLET (ZETIA) PO SCH (20:04)
[2024-03-12] MEDS: BENZTROPINE 0.5 MG TAB PO SCH (20:04)
[2024-03-13 06:12] VITALS: BP 108/66; TEMP 97.7; O2SAT 95
[2024-03-13] MEDS: VENLAFAXINE **XR** 75MG CAPSULE PO SCH (08:59)
[2024-03-13] MEDS ORDERED: VENLAFAXINE **XR** 75MG CAPSULE PO SCH (09:00)
[2024-03-13] MEDS: ALBUTEROL 90 MCG/ACT 8GM HFA INHALER INH PRN (15:08)
[2024-03-13 18:14] VITALS: BP 142/94; TEMP 97.7; O2SAT 94
[2024-03-14] MEDS: ACETAMINOPHEN TAB 650MG DOSE (2X325MG) PO PRN (06:37)
[2024-03-14 06:44] VITALS: BP 152/76; TEMP 97; O2SAT 98
[2024-03-14 08:48] VITALS: BP 111/73
[2024-03-14] MEDS: diphenhydrAMINE 50MG CAP PO STA (13:56)
[2024-03-14] MEDS: LORazepam 2 MG TAB PO STA (13:56)
[2024-03-15 06:16] VITALS: BP 153/78; TEMP 97.2; O2SAT 96
[2024-03-15 08:44] VITALS: BP 127/68
[2024-03-15] MEDS: diphenhydrAMINE 25MG CAP PO PRN (16:41)
[2024-03-15 18:42] VITALS: BP 136/82; TEMP 97.4
[2024-03-16 06:45] VITALS: BP 121/80; TEMP 97.5; O2SAT 95
[2024-03-16 08:15] VITALS: BP 144/78
[2024-03-16] MEDS: PROPRANOLOL 10 MG TAB PO SCH (08:18)
[2024-03-16] MEDS: LORazepam 2 MG TAB PO STA (09:07)
[2024-03-16 18:55] VITALS: BP 112/67; TEMP 98
[2024-03-17 06:10] VITALS: BP 147/70; TEMP 97.8; O2SAT 95
[2024-03-17] MEDS: MOM 30ML SUSPENSION UDC PO PRN (17:22)
[2024-03-17 17:54] VITALS: BP 121/60; TEMP 97.7; O2SAT 96
[2024-03-17] MEDS: LORazepam 1 MG TAB PO PRN (20:30)
[2024-03-18 06:24] VITALS: BP 129/79; TEMP 97.2; O2SAT 95
[2024-03-18] MEDS: LORazepam 1 MG TAB PO STA (09:26)
[2024-03-18 16:08] VITALS: BP 116/63; TEMP 97.3; O2SAT 97
[2024-03-19 06:40] VITALS: BP 130/78; TEMP 97.1; O2SAT 97
[2024-03-19 15:40] VITALS: BP 133/66; TEMP 97.3; O2SAT 98
[2024-03-20 15:42] VITALS: BP 132/66; TEMP 97.9; O2SAT 95
[2024-03-21 06:43] VITALS: BP 114/63; TEMP 96.8; O2SAT 96
[2024-03-21 08:44] VITALS: BP 103/65
[2024-03-21] MEDS: LORazepam 2 MG TAB PO STA (10:01)
[2024-03-21 18:00] VITALS: BP 145/69; TEMP 98.2; O2SAT 99
[2024-03-21] MEDS: MEMANTINE 5MG TABLET (NAMENDA) PO SCH (18:21)
[2024-03-21 21:27] VITALS: BP 140/80
[2024-03-22 06:52] VITALS: BP 156/79; TEMP 97.8; O2SAT 96
[2024-03-22 18:53] VITALS: BP 152/74; TEMP 97.8
[2024-03-22 20:20] VITALS: BP 138/72
[2024-03-23 06:39] VITALS: BP 108/60; TEMP 98.8; O2SAT 94
[2024-03-23 08:09] VITALS: BP 144/70
[2024-03-23 08:13] VITALS: BP 144/70
[2024-03-23] MEDS ORDERED: PROP10TA56 PO ×2 (08:55→22:53)
[2024-03-23] MEDS ORDERED: MEMA1TAB3 PO (08:55)
[2024-03-23] MEDS ORDERED: HALO5TAB33 PO (08:55)
[2024-03-23] MEDS ORDERED: MEMA10TA PO (22:53)
== END 2024-03-23 13:05 | disposition home or self-care (01) | DRG 752 ==
LOC: M ED 11:02 → M ED INP 15:01 → M PSY 16:46
PROVIDERS: ADMIT Student in an Organized Health Care Education/Training Program; ATTEND Student in an Organized Health Care Education/Training Program
DX: F60.3 Borderline personality disorder (principal); E11.51 Type 2 diabetes mellitus with diabetic peripheral angiopathy without gangrene; R45.851 Suicidal ideations; F02.80 Dementia in other diseases classified elsewhere, unspecified severity, without behavioral disturbance, psychotic disturbance, mood disturbance, and anxiety; F79 Unspecified intellectual disabilities; R45.850 Homicidal ideations; G30.9 Alzheimer's disease, unspecified; R41.9 Unspecified symptoms and signs involving cognitive functions and awareness; Z91.018 Allergy to other foods; Z88.6 Allergy status to analgesic agent; Z88.8 Allergy status to other drugs, medicaments and biological substances; Z88.5 Allergy status to narcotic agent; Z79.899 Other long term (current) drug therapy; Z79.4 Long term (current) use of insulin; G47.33 Obstructive sleep apnea (adult) (pediatric); K21.9 Gastro-esophageal reflux disease without esophagitis

== ENCOUNTER 2024-03-23 21:02 | Observation (INO) | payer MEDICAID, OTHER ==
[~2024-03-23] VITALS: Ht 157.5 cm; Wt 59.5 kg
[~2024-03-23 21:02] MED LIST changes: +ACET650T15 PO; +BENZ0.5T2 PO; +INVE234I IM; +JARD1TAB PO; +MEMA1TAB3 PO; +MIRT-89 PO; +PROP10TA56 PO; +VENTAER INH
[2024-03-23 21:32] LABS: HEMATOCRIT 44.7 % (36.0-47.0); MEAN CORPUSCULAR HEMOGLOBIN 30.7 pg (27.0-33.0); MEAN CORPUSCULAR HGB CONC 33.6 g/dl (32.0-36.5); MEAN CORPUSCULAR VOLUME 91.6 fl (80.0-96.0); PLATELET COUNT, AUTOMATED 249 10^3/uL (150-450); RED BLOOD COUNT 4.88 10^6/uL (4.00-5.40); WHITE BLOOD COUNT 19.3 10^3/uL (4.0-10.0)
[2024-03-23 22:02] LABS: ETHYL ALCOHOL (ETHANOL) < 0.003 % (0.000-0.010)
[2024-03-23 22:03] LABS: SALICYLATE LEVEL < 3.0 MG/DL (<30)
[2024-03-23 22:04] LABS: ALBUMIN 3.7 G/DL (3.2-5.2); ALKALINE PHOSPHATASE 121 U/L (46-116); ALT/SGPT 36 U/L (7.0-40); AST/SGOT 35 U/L (<34); BILIRUBIN,DIRECT 0.3 MG/DL (<0.4); BILIRUBIN,TOTAL 0.6 MG/DL (0.3-1.2); BLOOD UREA NITROGEN 27 MG/DL (9-23); CALCIUM LEVEL 9.3 MG/DL (8.5-10.1); CARBON DIOXIDE LEVEL 28 MMOL/L (20-31); CHLORIDE LEVEL 104 MMOL/L (98-107); CREATININE FOR GFR 0.82 MG/DL (0.55-1.30); GLOMERULAR FILTRATION RATE > 60.0 (>51); GLUCOSE, FASTING 162 MG/DL (60-100); POTASSIUM SERUM 4.8 MMOL/L (3.5-5.1); SODIUM LEVEL 139 MMOL/L (136-145); TOTAL PROTEIN 6.4 G/DL (5.7-8.2)
[2024-03-23 22:18] LABS: THYROID STIMULATING HORMONE 1.771 uIU/ML (0.55-4.78)
[2024-03-23 22:49] LABS: AMPHETAMINES LEVEL URINE NEGATIVE (NEGATIVE)
[2024-03-23 22:50] LABS: BARBITURATES URINE NEGATIVE (NEGATIVE); BENZODIAZEPINES URINE NEGATIVE (NEGATIVE); CANNABINOIDS URINE NEGATIVE (NEGATIVE); COCAINE METABOLITE URINE NEGATIVE (NEGATIVE); METHADONE URINE NEGATIVE (NEGATIVE); OPIATES URINE NEGATIVE (NEGATIVE); PHENCYCLIDINE URINE NEGATIVE (NEGATIVE)
[2024-03-23] MEDS ORDERED: MEMA10TA PO (22:53)
[2024-03-23] MEDS ORDERED: PROP10TA56 PO (22:53)
[2024-03-23] MEDS ORDERED: HOME MED LIST COMPLETE! XX SCH (22:55)
[2024-03-24] MEDS ORDERED: GLUCOSE 4 GM CHEW PO PRN (13:30)
[2024-03-24] MEDS ORDERED: PANTOPRAZOLE 20 MG TAB PO PRN (13:30)
[2024-03-24] MEDS ORDERED: GLUCAGON INJ 1MG VIAL SC PRN (13:30)
[2024-03-24] MEDS ORDERED: DEXTROSE 50% 50ML SYRINGE IV PRN (13:30)
[2024-03-24] MEDS ORDERED: INSULIN LISPRO (NovoLOG) PER UNIT SC SCH ×2 (17:30→21:00)
[2024-03-24] MEDS: ACETAMINOPHEN 650MG ER TAB (TYLENOL ARTHRITIS) PO SCH (18:09)
[2024-03-24] MEDS: NICOTINE 14 MG/24 HR TRANSDERMAL TD ONE (18:12)
[2024-03-24] MEDS: INSULIN LISPRO (NovoLOG) PER UNIT SC SCH (18:12)
[2024-03-24] MEDS: BENZTROPINE 0.5 MG TAB PO SCH (20:36)
[2024-03-24] MEDS: LEVEMIR (INSULIN DETEMIR) 1 UNITS/0.01ML SC SCH (20:37)
[2024-03-24] MEDS: CARVedilol 12.5 MG TAB PO SCH (20:37)
[2024-03-24] MEDS: MAGNESIUM OXIDE 400MG TAB (MAG-OX) PO SCH (20:37)
[2024-03-24] MEDS: MIRTAZAPINE 15 MG TAB PO SCH (20:38)
[2024-03-24] MEDS: GABAPENTIN 300 MG CAP PO SCH (20:38)
[2024-03-24] MEDS: ATORVASTATIN 20 MG TAB PO SCH (20:39)
[2024-03-24] MEDS: EZETIMIBE 10MG TABLET (ZETIA) PO SCH (21:09)
[2024-03-25] MEDS: VENLAFAXINE **XR** 75MG CAPSULE PO SCH (08:35)
[2024-03-25] MEDS: ALBUTEROL 90 MCG/ACT 8GM HFA INHALER INH PRN (08:51)
[2024-03-25 13:14] LABS: BASO % 0.2 % (0.0-1.0); EOS # 0.2 10^3/uL (0.0-0.5); EOS % 1.7 % (0.0-3.0); HEMATOCRIT 42.9 % (36.0-47.0); HEMOGLOBIN 14.2 g/dl (12.0-15.5); LYMPH # 3.3 10^3/uL (1.5-5.0); LYMPH % 30.1 % (24.0-44.0); MEAN CORPUSCULAR HEMOGLOBIN 30.9 pg (27.0-33.0); MEAN CORPUSCULAR HGB CONC 33.1 g/dl (32.0-36.5); MEAN CORPUSCULAR VOLUME 93.3 fl (80.0-96.0); MONO # 0.9 10^3/uL (0.0-0.8); MONO % 8.1 % (2.0-8.0); NEUTROPHILS # 6.5 10^3/uL (1.5-8.5); NEUTROPHILS % 59.4 % (36.0-66.0); PLATELET COUNT, AUTOMATED 252 10^3/uL (150-450); WHITE BLOOD COUNT 10.9 10^3/uL (4.0-10.0)
[2024-03-25] MEDS: diphenhydrAMINE 50MG/ML VIAL IM PRN (22:02)
[2024-03-25] MEDS: LORazepam 2 MG/ML 1ML VIAL IM PRN (22:03)
[2024-03-26] MEDS ORDERED: **hydrALAZINE** 10 MG TAB PO PRN (13:15)
[2024-03-26] MEDS: LORazepam 0.5 MG TAB PO STA (22:46)
[2024-03-27] MEDS: CLOPIDOGREL 75 MG TAB PO SCH (18:06)
[2024-03-27] MEDS ORDERED: PILL CUTTER 1 EACH XX ONE (18:22)
[2024-03-27] MEDS ORDERED: diphenhydrAMINE 50MG/ML VIAL As Ordered ONE (21:59)
[2024-03-27] MEDS: diphenhydrAMINE 50MG/ML VIAL IM PRN (22:01)
[2024-03-27] MEDS: LORazepam 2 MG/ML 1ML VIAL IM PRN (22:02)
[2024-03-29 13:03] LABS: HEMATOCRIT 48.7 % (36.0-47.0); HEMOGLOBIN 15.9 g/dl (12.0-15.5); MEAN CORPUSCULAR HEMOGLOBIN 30.8 pg (27.0-33.0); MEAN CORPUSCULAR HGB CONC 32.6 g/dl (32.0-36.5); MEAN CORPUSCULAR VOLUME 94.2 fl (80.0-96.0); PLATELET COUNT, AUTOMATED 284 10^3/uL (150-450); RED BLOOD COUNT 5.17 10^6/uL (4.00-5.40); WHITE BLOOD COUNT 12.4 10^3/uL (4.0-10.0)
[2024-03-29 13:29] LABS: ALKALINE PHOSPHATASE 129 U/L (46-116); ALT/SGPT 56 U/L (7.0-40); AST/SGOT 36 U/L (<34); BILIRUBIN,TOTAL 0.4 MG/DL (0.3-1.2); BLOOD UREA NITROGEN 24 MG/DL (9-23); CALCIUM LEVEL 10.1 MG/DL (8.5-10.1); CARBON DIOXIDE LEVEL 29 MMOL/L (20-31); CHLORIDE LEVEL 103 MMOL/L (98-107); CREATININE FOR GFR 0.72 MG/DL (0.55-1.30); GLOMERULAR FILTRATION RATE > 60.0 (>51); GLUCOSE, FASTING 257 MG/DL (60-100); POTASSIUM SERUM 4.6 MMOL/L (3.5-5.1); SODIUM LEVEL 139 MMOL/L (136-145); TOTAL PROTEIN 6.8 G/DL (5.7-8.2)
[2024-03-29 13:40] LABS: PROCALCITONIN <0.04 ng/ml
[2024-03-29] MEDS ORDERED: **hydrALAZINE** 10 MG TAB PO PRN (13:40)
[2024-03-29] MEDS: LORazepam 1 MG TAB PO PRN (16:17)
[2024-03-29] MEDS: DOCUSATE SODIUM 100MG CAPSULE PO SCH (20:02)
[2024-03-29 20:05] VITALS: BP 148/81; TEMP 97.9; O2SAT 97
[2024-03-29 23:50] VITALS: BP 110/77; TEMP 98.1; O2SAT 97
[2024-03-30 06:00] VITALS: BP 117/64; TEMP 98; O2SAT 97
[2024-03-30 06:32] LABS: HEMATOCRIT 41.9 % (36.0-47.0); MEAN CORPUSCULAR HEMOGLOBIN 30.3 pg (27.0-33.0); MEAN CORPUSCULAR HGB CONC 32.9 g/dl (32.0-36.5); MEAN CORPUSCULAR VOLUME 91.9 fl (80.0-96.0); PLATELET COUNT, AUTOMATED 226 10^3/uL (150-450); RED BLOOD COUNT 4.56 10^6/uL (4.00-5.40); WHITE BLOOD COUNT 7.7 10^3/uL (4.0-10.0)
[2024-03-30 06:45] LABS: HEMOGLOBIN 13.8 g/dl (12.0-15.5)
[2024-03-30 07:01] LABS: BLOOD UREA NITROGEN 25 MG/DL (9-23); CALCIUM LEVEL 8.9 MG/DL (8.5-10.1); CARBON DIOXIDE LEVEL 25 MMOL/L (20-31); CHLORIDE LEVEL 109 MMOL/L (98-107); CREATININE FOR GFR 0.62 MG/DL (0.55-1.30); GLOMERULAR FILTRATION RATE > 60.0 (>51); GLUCOSE, FASTING 210 MG/DL (60-100); MAGNESIUM LEVEL 1.7 MG/DL (1.8-2.4); POTASSIUM SERUM 4.3 MMOL/L (3.5-5.1); SODIUM LEVEL 141 MMOL/L (136-145)
[2024-03-30] MEDS: VENLAFAXINE **XR** 75MG CAPSULE PO SCH (09:35)
[2024-03-30] MEDS: LEVEMIR (INSULIN DETEMIR) 1 UNITS/0.01ML SC SCH (09:38)
[2024-03-30 10:00] VITALS: BP 124/80; TEMP 97.5; O2SAT 96
[2024-03-30 14:30] VITALS: BP 123/74; TEMP 97.3; O2SAT 100
[2024-03-30 16:00] VITALS: BP 137/67; TEMP 97.7; O2SAT 95
[2024-03-30 19:45] VITALS: BP 142/67; TEMP 97.9; O2SAT 97
[2024-03-31 01:20] VITALS: BP 139/68; TEMP 97.5; O2SAT 95
[2024-03-31 05:14] VITALS: BP 133/67; TEMP 97.5; O2SAT 97
[2024-03-31 06:47] LABS: BLOOD UREA NITROGEN 25 MG/DL (9-23); CARBON DIOXIDE LEVEL 27 MMOL/L (20-31); CHLORIDE LEVEL 109 MMOL/L (98-107); CREATININE FOR GFR 0.63 MG/DL (0.55-1.30); GLOMERULAR FILTRATION RATE > 60.0 (>51); GLUCOSE, FASTING 142 MG/DL (60-100); POTASSIUM SERUM 4.2 MMOL/L (3.5-5.1); SODIUM LEVEL 142 MMOL/L (136-145)
[2024-03-31 14:00] VITALS: BP 133/69; TEMP 97.3; O2SAT 99
[2024-03-31 20:25] VITALS: BP 136/72; TEMP 97.5; O2SAT 97
[2024-04-01 05:42] VITALS: BP 126/68; TEMP 97.2; O2SAT 97
[2024-04-01 14:00] VITALS: BP 121/66; TEMP 97.5; O2SAT 96
[2024-04-01 20:00] VITALS: BP 133/70; TEMP 97.5; O2SAT 97
[2024-04-02] VITALS: BP 133/70; TEMP 97.5; O2SAT 97
[2024-04-02 14:00] VITALS: BP 142/71; TEMP 97.7; O2SAT 94
[2024-04-02 20:00] VITALS: BP 156/78; TEMP 97.5; O2SAT 98
[2024-04-03 04:59] VITALS: BP 114/71; TEMP 97.9; O2SAT 93
[2024-04-03 14:00] VITALS: BP 138/78; TEMP 97.3; O2SAT 97
[2024-04-03 20:06] VITALS: BP 118/64; TEMP 97.7; O2SAT 97
[2024-04-04 06:00] VITALS: BP 121/65; TEMP 97.7; O2SAT 94
[2024-04-04 08:21] VITALS: BP 148/86
[2024-04-04] MEDS ORDERED: CHLOR25TA PO (10:56)
== END 2024-04-04 13:16 | disposition home or self-care (01) ==
LOC: M ED 21:02 → M ED INP 23:00 → UNDOADMIN 23:00 → INTOOBSV 03-29 10:49 → M ED INP 03-29 10:49 → M MSPAV 03-29 14:35
PROVIDERS: ADMIT Preventive Medicine Undersea and Hyperbaric Medicine; ATTEND Preventive Medicine Undersea and Hyperbaric Medicine
DX: R41.82 Altered mental status, unspecified (principal); F20.9 Schizophrenia, unspecified; F03.90 Unspecified dementia, unspecified severity, without behavioral disturbance, psychotic disturbance, mood disturbance, and anxiety; N39.0 Urinary tract infection, site not specified; E11.9 Type 2 diabetes mellitus without complications; I10 Essential (primary) hypertension; D72.829 Elevated white blood cell count, unspecified; E78.5 Hyperlipidemia, unspecified; I25.10 Atherosclerotic heart disease of native coronary artery without angina pectoris; Z98.61 Coronary angioplasty status; G30.9 Alzheimer's disease, unspecified; K21.9 Gastro-esophageal reflux disease without esophagitis; Z79.899 Other long term (current) drug therapy; Z79.4 Long term (current) use of insulin; Z79.84 Long term (current) use of oral hypoglycemic drugs; Z88.8 Allergy status to other drugs, medicaments and biological substances; Z91.018 Allergy to other foods; Z88.5 Allergy status to narcotic agent
CPT/HCPCS: 36415; 71045; 80048; 80053; 80076; 80143; 80307; 81001; 82077; 83605; 83735; 84145; 84443; 85025; 85027; 93005; 94640; 94664; 96372; 99285; J1200; J1815; J2060

== ENCOUNTER → 2024-04-28 | Outpatient (REF) | payer OTHER ==
[~2024-04-28] MED LIST changes: +CHLOR25TA PO; +MEMA10TA PO
[2024-04-28 19:22] LABS: BASO % 0.5 % (0.0-1.0); EOS # 0.3 10^3/uL (0.0-0.5); EOS % 3.5 % (0.0-3.0); HEMATOCRIT 48.5 % (36.0-47.0); LYMPH # 2.8 10^3/uL (1.5-5.0); LYMPH % 31.1 % (24.0-44.0); MEAN CORPUSCULAR HEMOGLOBIN 30.9 pg (27.0-33.0); MEAN CORPUSCULAR VOLUME 93.6 fl (80.0-96.0); MONO # 0.6 10^3/uL (0.0-0.8); MONO % 6.7 % (2.0-8.0); NEUTROPHILS % 56.7 % (36.0-66.0); PLATELET COUNT, AUTOMATED 277 10^3/uL (150-450); RED BLOOD COUNT 5.18 10^6/uL (4.00-5.40); WHITE BLOOD COUNT 8.9 10^3/uL (4.0-10.0)
[2024-04-28 19:38] LABS: ALBUMIN 3.9 G/DL (3.2-5.2); ALKALINE PHOSPHATASE 130 U/L (46-116); ALT/SGPT 43 U/L (7.0-40); AST/SGOT 21 U/L (<34); BILIRUBIN,TOTAL 0.2 MG/DL (0.3-1.2); BLOOD UREA NITROGEN 26 MG/DL (9-23); CALCIUM LEVEL 10.2 MG/DL (8.5-10.1); CARBON DIOXIDE LEVEL 30 MMOL/L (20-31); CHLORIDE LEVEL 105 MMOL/L (98-107); CHOLESTEROL LEVEL 85 MG/DL (<200); CREATININE FOR GFR 0.66 MG/DL (0.55-1.30); GLOMERULAR FILTRATION RATE > 60.0 (>51); GLUCOSE, FASTING 149 MG/DL (60-100); HDL CHOLESTEROL 32.6 MG/DL (>40); LDL CHOLESTEROL 27.4 MG/DL (<100); MAGNESIUM LEVEL 1.9 MG/DL (1.8-2.4); NON-HDL-C 52.4 MG/DL; POTASSIUM SERUM 5.2 MMOL/L (3.5-5.1); SODIUM LEVEL 141 MMOL/L (136-145); TOTAL PROTEIN 6.6 G/DL (5.7-8.2); TRIGLYCERIDES LEVEL 125 MG/DL (<150)
== END ==
LOC: M LAB REF 16:42
PROVIDERS: ATTEND Nurse Practitioner Family
DX: E66.3 Overweight (principal)

== ENCOUNTER → 2024-06-09 | Outpatient (CLI) | payer OTHER | LOC: M SOG 13:33 | PROVIDERS: ATTEND Orthopaedic Surgery | DX: S42.211P Unspecified displaced fracture of surgical neck of right humerus, subsequent encounter for fracture with malunion (principal); M25.511 Pain in right shoulder; Y93.9 Activity, unspecified; Y92.9 Unspecified place or not applicable ==

== ENCOUNTER → 2024-07-04 | Outpatient (REF) | payer OTHER ==
[2024-07-04 18:44] LABS: FOLATE > 24.0 NG/ML (>5.4)
[2024-07-04 18:45] LABS: VITAMIN B12 LEVEL 376 PG/ML (211-911)
== END ==
LOC: M LAB REF 16:32
PROVIDERS: ATTEND Nurse Practitioner Family
DX: E66.3 Overweight (principal)

== ENCOUNTER 2024-07-07 18:12 | Emergency (ER) | payer OTHER ==
[~2024-07-07] VITALS: Ht 157.5 cm; Wt 59.5 kg
[~2024-07-07 18:12] MED LIST changes: +GABA-1490 PO; -GABA600T4 PO
[2024-07-07 18:13] VITALS: BP 139/67; TEMP 96.9; O2SAT 98
== END 2024-07-08 00:20 | disposition left against medical advice (07) ==
LOC: M ED 18:12
DX: Z53.21 Procedure and treatment not carried out due to patient leaving prior to being seen by health care provider (principal)

== ENCOUNTER → 2024-10-03 | Outpatient (CLI) | payer OTHER | LOC: M WHC 14:07 | PROVIDERS: ATTEND Nurse Practitioner Family | DX: Z12.31 Encounter for screening mammogram for malignant neoplasm of breast (principal); R92.323 Mammographic fibroglandular density, bilateral breasts ==

== ENCOUNTER → 2025-01-04 | Outpatient (REF) | payer OTHER | LOC: M PLALAB 15:22 | PROVIDERS: ATTEND Obstetrics & Gynecology | DX: Z01.419 Encounter for gynecological examination (general) (routine) without abnormal findings (principal) ==

== ENCOUNTER → 2025-01-12 | Outpatient (REF) | payer OTHER ==
[2025-01-12 14:44] LABS: ALBUMIN 3.5 G/DL (3.2-5.2); ALKALINE PHOSPHATASE 147 U/L (35-104); ALT/SGPT 28 U/L (7.0-40); AST/SGOT 20 U/L (<34); BILIRUBIN,TOTAL 0.4 MG/DL (0.3-1.2); BLOOD UREA NITROGEN 20 MG/DL (9-23); CALCIUM LEVEL 9.1 MG/DL (8.3-10.6); CARBON DIOXIDE LEVEL 27 MMOL/L (20-31); CHLORIDE LEVEL 106 MMOL/L (98-107); CHOLESTEROL LEVEL 78 MG/DL (<200); CREATININE FOR GFR 0.94 MG/DL (0.55-1.30); GLOMERULAR FILTRATION RATE > 60.0 (>45); GLUCOSE, FASTING 149 MG/DL (74-106); LDL CHOLESTEROL 13.8 MG/DL (<100); POTASSIUM SERUM 4.3 MMOL/L (3.5-5.1); SODIUM LEVEL 141 MMOL/L (136-145); TOTAL PROTEIN 6.8 G/DL (5.7-8.2); TRIGLYCERIDES LEVEL 171 MG/DL (<150)
[2025-01-12 15:09] LABS: HEMOGLOBIN A1c 6.6 % (4.0-6.0)
== END ==
LOC: M LAB REF 12:08
PROVIDERS: ATTEND Nurse Practitioner Family
DX: E11.9 Type 2 diabetes mellitus without complications (principal); Z13.29 Encounter for screening for other suspected endocrine disorder; E78.2 Mixed hyperlipidemia

== ENCOUNTER → 2025-06-27 | Outpatient (CLI) | payer OTHER ==
[~2025-06-27] MED LIST changes: +ACET-1515 PO; -ACET650T15 PO; -AMBI10TA PO; -AMBI12.52 PO; -AMBI6.25 PO; -PROZ20CA11 PO; +PROZ20CA12 PO; +ZOLP-533 PO; +ZOLP12.561 PO; +ZOLP6.2544 PO
== END ==
LOC: M RAD 15:23
PROVIDERS: ATTEND Nurse Practitioner Family
DX: Z87.891 Personal history of nicotine dependence (principal)

== ENCOUNTER 2025-07-15 15:26 | Inpatient (IN) | payer OTHER ==
[~2025-07-15] VITALS: Ht 157.5 cm; Wt 59.8 kg
[2025-07-15 16:09] LABS: BASO # 0.0 10^3/uL (0.0-0.2); BASO % 0.3 % (0.0-1.0); EOS # 0.1 10^3/uL (0.0-0.5); EOS % 0.6 % (0.0-3.0); LYMPH # 2.7 10^3/uL (1.5-5.0); LYMPH % 30.3 % (24.0-44.0); MONO # 0.5 10^3/uL (0.0-0.8); MONO % 5.9 % (2.0-8.0); NEUTROPHILS # 5.6 10^3/uL (1.5-8.5); NEUTROPHILS % 62.6 % (36.0-66.0); PLATELET COUNT, AUTOMATED 258 10^3/uL (150-450)
[2025-07-15 16:16] LABS: VENOUS BASE EXCESS -0.8 (-2.0-2.0); VENOUS HCO3 25.3 MMOL/L (23.0-27.0); VENOUS O2 SATURATION 55.7 % (60.0-80.0); VENOUS PARTIAL PRESSURE CO2 47.5 mmHg (38.0-50.0); VENOUS PARTIAL PRESSURE O2 30.0 mmHg (30.0-50.0); VENOUS PH 7.344 UNITS (7.330-7.430); VENOUS STANDARD HCO3 22.9 MMOL/L; VENOUS TOTAL CO2 26.7 MMOL/L (24.0-28.0)
[2025-07-15 16:45] LABS: CK-MB VALUE MASS 1.9 NG/ML (<3.6)
[2025-07-15 16:48] LABS: THYROXINE (T4) 7.4 UG/DL (4.5-10.9)
[2025-07-15 16:59] LABS: ALT/SGPT 22 U/L (7.0-40); AST/SGOT 20 U/L (<34); CALCIUM LEVEL 9.0 MG/DL (8.3-10.6); CARBON DIOXIDE LEVEL 27 MMOL/L (20-31); CHLORIDE LEVEL 109 MMOL/L (98-107); CPK CREATINE PHOSPHOKINASE 46 U/L (34-145); CREATININE FOR GFR 0.69 MG/DL (0.55-1.30); GLOMERULAR FILTRATION RATE > 90.0 (>45); MB/CK RELATIVE INDEX 4.13 (< OR =4); POTASSIUM SERUM 4.4 MMOL/L (3.5-5.1); SODIUM LEVEL 144 MMOL/L (136-145)
[2025-07-15] MEDS: FUROSEMIDE 40 MG/4 ML VIAL IV ONE (17:02)
[2025-07-15] MEDS: cefTRIAXone SOD 1 GM in DEXTROSE 5% (D5W) ADV/MINI-BAG 50 ML IV ONE (18:57)
[2025-07-15] MEDS: DOXYCYCLINE HYCLATE 100 MG TABLET PO ONE (18:57)
[2025-07-15] MEDS: INSULIN LISPRO (NovoLOG) PER UNIT SC SCH (21:00)
[2025-07-15 21:23] LABS: MAGNESIUM LEVEL 1.9 MG/DL (1.8-2.4)
[2025-07-15] MEDS ORDERED: GLUCOSE 4 GM CHEW PO PRN (21:25)
[2025-07-15] MEDS ORDERED: MOM 30 ML SUSPENSION UDC PO PRN (21:25)
[2025-07-15] MEDS ORDERED: NICOTINE 21 MG/24 HR 1 EA TRANSDERMAL TD PRN (21:25)
[2025-07-15] MEDS ORDERED: MAALOX 30 ML SUSP *UDC PO PRN (21:25)
[2025-07-15] MEDS ORDERED: DEXTROSE 50% 50 ML SYRINGE IV PRN (21:25)
[2025-07-15] MEDS ORDERED: ACETAMINOPHEN 325 MG TAB PO PRN (21:25)
[2025-07-15] MEDS ORDERED: GLUCAGON INJ 1 MG VIAL SC PRN (21:25)
[2025-07-15] MEDS ORDERED: MEMA1TAB3 PO (21:54)
[2025-07-15] MEDS ORDERED: INVE234I SC (21:54)
[2025-07-15] MEDS ORDERED: HOME MED LIST COMPLETE! XX SCH (22:00)
[2025-07-15 22:51] LABS: INR 1.03
[2025-07-15 23:08] VITALS: BP 147/89; TEMP 97; O2SAT 92
[2025-07-16] MEDS ORDERED: ALBUTEROL 90 MCG/ACT 8 GM HFA INHALER INH PRN (02:05)
[2025-07-16] MEDS ORDERED: HALOPERIDOL 5 MG TAB PO PRN (02:05)
[2025-07-16] MEDS ORDERED: PANTOPRAZOLE 20 MG TAB PO PRN (02:05)
[2025-07-16] MEDS: HALOPERIDOL 5 MG TAB PO SCH (02:50)
[2025-07-16 04:01] VITALS: BP 101/65; TEMP 97.2; O2SAT 90
[2025-07-16 06:51] LABS: PLATELET COUNT, AUTOMATED 284 10^3/uL (150-450)
[2025-07-16 07:28] LABS: ALT/SGPT 16 U/L (7.0-40); AST/SGOT 15 U/L (<34); CALCIUM LEVEL 8.9 MG/DL (8.3-10.6); CARBON DIOXIDE LEVEL 28 MMOL/L (20-31); CHLORIDE LEVEL 106 MMOL/L (98-107); CREATININE FOR GFR 0.70 MG/DL (0.55-1.30); GLOMERULAR FILTRATION RATE > 90.0 (>45); MAGNESIUM LEVEL 1.5 MG/DL (1.8-2.4); POTASSIUM SERUM 3.5 MMOL/L (3.5-5.1); SODIUM LEVEL 144 MMOL/L (136-145)
[2025-07-16 08:00] VITALS: BP 105/67; TEMP 97.5; O2SAT 96
[2025-07-16] MEDS ORDERED: VENLAFAXINE **XR** 75MG CAPSULE PO SCH (09:00)
[2025-07-16] MEDS ORDERED: FUROSEMIDE 40 MG TAB PO SCH (09:00)
[2025-07-16] MEDS: DOCUSATE SODIUM 100 MG CAPSULE PO SCH (09:00)
[2025-07-16] MEDS: VENLAFAXINE **XR** 75MG CAPSULE PO SCH (09:26)
[2025-07-16] MEDS: MEMANTINE 5 MG TABLET PO SCH (09:27)
[2025-07-16] MEDS: CLOPIDOGREL 75 MG TAB PO SCH (09:27)
[2025-07-16] MEDS: BENZTROPINE 0.5 MG TAB PO SCH (09:27)
[2025-07-16] MEDS: MAGNESIUM OXIDE 400 MG TAB PO SCH (09:27)
[2025-07-16] MEDS: ATORVASTATIN 20 MG TAB PO SCH (09:27)
[2025-07-16] MEDS: ENOXAPARIN 40 MG/0.4 ML SYRINGE (J1650 PER 10MG) SC SCH (09:28)
[2025-07-16] MEDS: INSULIN LISPRO (NovoLOG) PER UNIT SC SCH (09:32)
[2025-07-16 12:00] VITALS: BP 128/90; TEMP 96.8; O2SAT 94
[2025-07-16] MEDS: IPRATROPIUM 0.5 MG/ALBUTEROL 2.5 MG INH SOL UD 3 ML NEB SCH (14:44)
[2025-07-16] MEDS: FUROSEMIDE 40 MG/4 ML VIAL IV ONE (17:30)
[2025-07-16 20:39] VITALS: BP 114/73; TEMP 97.2; O2SAT 94
[2025-07-16] MEDS: GABAPENTIN 300 MG CAP PO SCH (20:42)
[2025-07-16] MEDS: EZETIMIBE 10 MG TABLET PO SCH (20:42)
[2025-07-16] MEDS: INSULIN GLARGINE-YFGN 1 UNITS/0.01 ML SC SCH (20:43)
[2025-07-16] MEDS ORDERED: IPRATROPIUM 0.5 MG/ALBUTEROL 2.5 MG INH SOL UD 3 ML NEB PRN (22:00)
[2025-07-17 04:21] VITALS: BP 90/56; TEMP 97.2; O2SAT 91
[2025-07-17 06:59] LABS: BASO # 0.0 10^3/uL (0.0-0.2); BASO % 0.4 % (0.0-1.0); EOS # 0.1 10^3/uL (0.0-0.5); EOS % 1.2 % (0.0-3.0); LYMPH # 3.9 10^3/uL (1.5-5.0); LYMPH % 43.2 % (24.0-44.0); MONO # 0.8 10^3/uL (0.0-0.8); MONO % 8.8 % (2.0-8.0); NEUTROPHILS # 4.2 10^3/uL (1.5-8.5); NEUTROPHILS % 46.1 % (36.0-66.0); PLATELET COUNT, AUTOMATED 313 10^3/uL (150-450)
[2025-07-17 07:34] LABS: CALCIUM LEVEL 9.1 MG/DL (8.3-10.6); CARBON DIOXIDE LEVEL 30.0 MMOL/L (20-31); CHLORIDE LEVEL 106.0 MMOL/L (98-107); CREATININE FOR GFR 0.98 MG/DL (0.55-1.30); GLOMERULAR FILTRATION RATE 66.1 (>45); POTASSIUM SERUM 3.6 MMOL/L (3.5-5.1); SODIUM LEVEL 143.0 MMOL/L (136-145)
[2025-07-17] MEDS: VENLAFAXINE **XR** 75MG CAPSULE PO SCH (08:28)
[2025-07-17 12:13] VITALS: BP 103/65; TEMP 97.2; O2SAT 90
[2025-07-17] MEDS: SPIRONOLACTONE 25 MG TAB PO SCH (13:30)
[2025-07-17] MEDS: DAPAGLIFLOZIN PROPANEDIOL 10 MG TABLET PO SCH (13:30)
[2025-07-17 13:32] VITALS: BP 104/64
[2025-07-17 20:23] VITALS: BP 100/64; TEMP 97.2; O2SAT 94
[2025-07-17] MEDS: ENTRESTO 24-26 MG TABLET (SACUBITRIL/VALSARTAN) PO SCH (20:27)
[2025-07-18 03:32] VITALS: BP 107/70; TEMP 97.3; O2SAT 90
[2025-07-18 06:10] LABS: BASO # 0.0 10^3/uL (0.0-0.2); BASO % 0.4 % (0.0-1.0); EOS # 0.2 10^3/uL (0.0-0.5); EOS % 2.6 % (0.0-3.0); LYMPH # 3.9 10^3/uL (1.5-5.0); LYMPH % 50.7 % (24.0-44.0); MONO # 0.6 10^3/uL (0.0-0.8); MONO % 8.0 % (2.0-8.0); NEUTROPHILS # 3.0 10^3/uL (1.5-8.5); NEUTROPHILS % 38.0 % (36.0-66.0); PLATELET COUNT, AUTOMATED 297 10^3/uL (150-450)
[2025-07-18 06:43] LABS: CALCIUM LEVEL 9.5 MG/DL (8.3-10.6); CARBON DIOXIDE LEVEL 29.0 MMOL/L (20-31); CHLORIDE LEVEL 108.0 MMOL/L (98-107); CREATININE FOR GFR 0.82 MG/DL (0.55-1.30); GLOMERULAR FILTRATION RATE 81.8 (>45); POTASSIUM SERUM 4.1 MMOL/L (3.5-5.1); SODIUM LEVEL 144.0 MMOL/L (136-145)
[2025-07-18 09:44] VITALS: BP 112/69
[2025-07-18] MEDS ORDERED: FARX1TAB5 PO (12:22)
[2025-07-18] MEDS ORDERED: ALDA25TA2 PO (12:22)
[2025-07-18] MEDS ORDERED: CARV6.25 PO (12:24)
== END 2025-07-18 13:28 | disposition home or self-care (01) | DRG 194 ==
LOC: M ED 15:26 → M ED INP 21:22 → M MSPAV 23:08
PROVIDERS: ADMIT Student in an Organized Health Care Education/Training Program; ATTEND Family Medicine
DX: I11.0 Hypertensive heart disease with heart failure (principal); F03.90 Unspecified dementia, unspecified severity, without behavioral disturbance, psychotic disturbance, mood disturbance, and anxiety; E11.40 Type 2 diabetes mellitus with diabetic neuropathy, unspecified; I25.10 Atherosclerotic heart disease of native coronary artery without angina pectoris; F17.200 Nicotine dependence, unspecified, uncomplicated; J43.9 Emphysema, unspecified; F31.9 Bipolar disorder, unspecified; J98.11 Atelectasis; F60.3 Borderline personality disorder; M79.7 Fibromyalgia; K76.0 Fatty (change of) liver, not elsewhere classified; M54.59 Other low back pain; I50.23 Acute on chronic systolic (congestive) heart failure; K21.9 Gastro-esophageal reflux disease without esophagitis; K44.9 Diaphragmatic hernia without obstruction or gangrene; E78.2 Mixed hyperlipidemia; F79 Unspecified intellectual disabilities; F12.90 Cannabis use, unspecified, uncomplicated; Z62.810 Personal history of physical and sexual abuse in childhood; Z95.2 Presence of prosthetic heart valve; I25.2 Old myocardial infarction; G47.33 Obstructive sleep apnea (adult) (pediatric); D63.8 Anemia in other chronic diseases classified elsewhere; E55.9 Vitamin D deficiency, unspecified; M75.01 Adhesive capsulitis of right shoulder; Z91.018 Allergy to other foods; Z88.5 Allergy status to narcotic agent; Z88.8 Allergy status to other drugs, medicaments and biological substances; Z79.899 Other long term (current) drug therapy; Z79.4 Long term (current) use of insulin

== ENCOUNTER 2025-07-28 12:49 | Emergency (ER) | payer OTHER ==
[~2025-07-28] VITALS: Ht 157.5 cm; Wt 59.4 kg
[~2025-07-28 12:49] MED LIST changes: +ALDA25TA2 PO; -DIPH50CA PO; +DIPH50CA31 PO; -EZET10TA21 PO; +EZET10TA57 PO; +FARX1TAB5 PO; +INVE234I SC
[2025-07-28 15:38] VITALS: BP 91/54; TEMP 96.8; O2SAT 96
== END 2025-07-28 15:40 | disposition home or self-care (01) ==
LOC: M ED 12:49
DX: S93.401A Sprain of unspecified ligament of right ankle, initial encounter (principal); X50.0XXA Overexertion from strenuous movement or load, initial encounter; E11.9 Type 2 diabetes mellitus without complications; K21.9 Gastro-esophageal reflux disease without esophagitis; I25.2 Old myocardial infarction; Z88.5 Allergy status to narcotic agent; Z88.6 Allergy status to analgesic agent; Z88.8 Allergy status to other drugs, medicaments and biological substances; Z91.048 Other nonmedicinal substance allergy status; Z91.018 Allergy to other foods; Z79.52 Long term (current) use of systemic steroids; Z79.02 Long term (current) use of antithrombotics/antiplatelets; Z79.4 Long term (current) use of insulin; Z79.899 Other long term (current) drug therapy; Y99.9 Unspecified external cause status; Y93.89 Activity, other specified; Y92.9 Unspecified place or not applicable

== ENCOUNTER 2025-08-11 14:05 | Emergency (ER) | payer OTHER ==
[~2025-08-11] VITALS: Ht 157.5 cm; Wt 59.6 kg
[2025-08-11] MEDS: IPRATROPIUM 0.5 MG/ALBUTEROL 2.5 MG INH SOL UD 3 ML NEB SCH (15:57)
[2025-08-11 15:58] LABS: BASO # 0.0 10^3/uL (0.0-0.2); BASO % 0.2 % (0.0-1.0); EOS # 0.1 10^3/uL (0.0-0.5); EOS % 1.0 % (0.0-3.0); LYMPH # 2.2 10^3/uL (1.5-5.0); LYMPH % 27.3 % (24.0-44.0); MONO # 0.5 10^3/uL (0.0-0.8); MONO % 6.0 % (2.0-8.0); NEUTROPHILS # 5.3 10^3/uL (1.5-8.5); NEUTROPHILS % 65.3 % (36.0-66.0); PLATELET COUNT, AUTOMATED 274 10^3/uL (150-450)
[2025-08-11 16:11] LABS: ALT/SGPT 31.0 U/L (7.0-40); AST/SGOT 27.0 U/L (<34); CALCIUM LEVEL 8.8 MG/DL (8.3-10.6); CARBON DIOXIDE LEVEL 26.0 MMOL/L (20-31); CHLORIDE LEVEL 106.0 MMOL/L (98-107); CREATININE FOR GFR 0.97 MG/DL (0.55-1.30); GLOMERULAR FILTRATION RATE 66.9 (>45); POTASSIUM SERUM 4.3 MMOL/L (3.5-5.1); SODIUM LEVEL 139.0 MMOL/L (136-145)
[2025-08-11] MEDS ORDERED: FUROSEMIDE 40 MG/4 ML VIAL IV ONE (17:40)
[2025-08-11 17:55] VITALS: BP 116/74; TEMP 96.8; O2SAT 95
== END 2025-08-11 18:14 | disposition home or self-care (01) ==
LOC: M ED 14:05
DX: J44.9 Chronic obstructive pulmonary disease, unspecified (principal); I51.7 Cardiomegaly; R00.0 Tachycardia, unspecified; I45.81 Long QT syndrome; K21.9 Gastro-esophageal reflux disease without esophagitis; I10 Essential (primary) hypertension; E11.9 Type 2 diabetes mellitus without complications; E78.5 Hyperlipidemia, unspecified; F17.200 Nicotine dependence, unspecified, uncomplicated; Z86.79 Personal history of other diseases of the circulatory system; Z88.5 Allergy status to narcotic agent; Z88.6 Allergy status to analgesic agent; Z88.8 Allergy status to other drugs, medicaments and biological substances; Z91.018 Allergy to other foods; Z79.52 Long term (current) use of systemic steroids; Z79.02 Long term (current) use of antithrombotics/antiplatelets; Z79.4 Long term (current) use of insulin; Z79.899 Other long term (current) drug therapy
CPT/HCPCS: 71045; 71250; 80048; 80076; 83880; 85025; 87486; 87581; 87633; 87798; 93005; 93041; 94640; 94760; 96374; 99285; J1100

== ENCOUNTER 2025-08-15 18:48 | Inpatient (IN) | payer OTHER, MEDICAID ==
[~2025-08-15] VITALS: Ht 157.5 cm; Wt 60.4 kg
[~2025-08-15 18:48] MED LIST changes: -INVE234I SC
[2025-08-15 19:29] LABS: BASO # 0.0 10^3/uL (0.0-0.2); BASO % 0.2 % (0.0-1.0); EOS # 0.0 10^3/uL (0.0-0.5); EOS % 0.0 % (0.0-3.0); LYMPH # 1.9 10^3/uL (1.5-5.0); LYMPH % 15.2 % (24.0-44.0); MONO # 1.1 10^3/uL (0.0-0.8); MONO % 8.7 % (2.0-8.0); NEUTROPHILS # 9.2 10^3/uL (1.5-8.5); NEUTROPHILS % 75.2 % (36.0-66.0); PLATELET COUNT, AUTOMATED 239 10^3/uL (150-450)
[2025-08-15] MEDS ORDERED: BUPR-69 PO (19:56)
[2025-08-15] MEDS ORDERED: BENZ1TAB5 PO (19:56)
[2025-08-15] MEDS: CALCIUM GLUCONATE 1,000 MG in DEXTROSE 5% (D5W) MINI-BAG PLU 100 ML IV ONE (19:57)
[2025-08-15] MEDS: NS (Normal Saline) 0.9% 1,700 ML in IV 1 EA IV ONE (19:57)
[2025-08-15] MEDS ORDERED: LEVE0.01 SC ×2 (20:00→20:01)
[2025-08-15 20:05] LABS: VENOUS BASE EXCESS -8.7 (-2.0-2.0); VENOUS HCO3 17.6 MMOL/L (23.0-27.0); VENOUS O2 SATURATION 61.5 % (60.0-80.0); VENOUS PARTIAL PRESSURE CO2 39.3 mmHg (38.0-50.0); VENOUS PARTIAL PRESSURE O2 40.9 mmHg (30.0-50.0); VENOUS PH 7.268 UNITS (7.330-7.430); VENOUS STANDARD HCO3 16.8 MMOL/L; VENOUS TOTAL CO2 18.8 MMOL/L (24.0-28.0)
[2025-08-15 20:11] LABS: ALT/SGPT 1759.0 U/L (7.0-40); AST/SGOT 1558.0 U/L (<34); CALCIUM LEVEL 7.2 MG/DL (8.3-10.6); CARBON DIOXIDE LEVEL 20.0 MMOL/L (20-31); CHLORIDE LEVEL 96.0 MMOL/L (98-107); CK-MB VALUE MASS 1.8 NG/ML (<3.6); CPK CREATINE PHOSPHOKINASE 65.0 U/L (34-145); CREATININE FOR GFR 3.66 MG/DL (0.55-1.30); GLOMERULAR FILTRATION RATE 13.6 (>45); MAGNESIUM LEVEL 4.2 MG/DL (1.8-2.4); MB/CK RELATIVE INDEX 2.76 (< OR =4); POTASSIUM SERUM 6.6 MMOL/L (3.5-5.1); SODIUM LEVEL 127.0 MMOL/L (136-145)
[2025-08-15] MEDS ORDERED: SPIR-10 PO (20:11)
[2025-08-15] MEDS ORDERED: METO1TAB7 PO (20:11)
[2025-08-15] MEDS ORDERED: MED REC COMMENT (20:36)
[2025-08-15] MEDS ORDERED: HOME MED LIST COMPLETE! XX SCH (20:40)
[2025-08-15 21:17] LABS: KETONE, URINE AUTO RFX NEGATIVE (NEGATIVE); LEUKOCYTE ESTERASE UR AUTO RFX NEGATIVE (NEGATIVE); MUCUS, URINE RFX SMALL (NEGATIVE); NITRITE, URINE AUTO RFX NEGATIVE (NEGATIVE); RBC, URINE AUTO RFX 1 /HPF (0-3); SQUAM EPITHELIAL CELL UR AURFX 4 /HPF (0-6); WBC, URINE AUTO RFX 0 /HPF (0-3)
[2025-08-15] MEDS: SODIUM BICARBONATE 8.4% INJ 50ML SYRINGE IV ONE (21:17)
[2025-08-15] MEDS: DEXTROSE 50% 50 ML SYRINGE IV ONE (21:17)
[2025-08-15] MEDS: HumuLIN R (REGULAR) INSULIN (NovoLIN R) **100 U/ML** PER UNIT IV ONE (21:18)
[2025-08-15] MEDS: CEFEPIME HCL 2 GM in DEXTROSE 5% (D5W) ADV/MINI-BAG 50 ML IV ONE (21:28)
[2025-08-15] MEDS: PATIROMER SORBITEX CALCIUM 8.4GM POWDER PACKET PO ONE (21:40)
[2025-08-15] MEDS ORDERED: GLUCAGON INJ 1 MG VIAL SC PRN (23:15)
[2025-08-15] MEDS ORDERED: DEXTROSE 50% 50 ML SYRINGE IV PRN (23:15)
[2025-08-15] MEDS ORDERED: MAALOX 30 ML SUSP *UDC PO PRN (23:15)
[2025-08-15] MEDS ORDERED: GLUCOSE 4 GM CHEW PO PRN (23:15)
[2025-08-15] MEDS ORDERED: MOM 30 ML SUSPENSION UDC PO PRN (23:15)
[2025-08-15 23:40] LABS: ALT/SGPT 1587.0 U/L (7.0-40); AST/SGOT 1371.0 U/L (<34); CALCIUM LEVEL 7.2 MG/DL (8.3-10.6); CARBON DIOXIDE LEVEL 21.0 MMOL/L (20-31); CHLORIDE LEVEL 101.0 MMOL/L (98-107); CREATININE FOR GFR 3.47 MG/DL (0.55-1.30); GLOMERULAR FILTRATION RATE 14.5 (>45); MAGNESIUM LEVEL 4.0 MG/DL (1.8-2.4); PHOSPHORUS LEVEL 9.7 MG/DL (2.4-5.1); POTASSIUM SERUM 5.4 MMOL/L (3.5-5.1); SODIUM LEVEL 129.0 MMOL/L (136-145)
[2025-08-15] MEDS: NS 500 ML IV ONE (23:40)
[2025-08-16] VITALS (95 sets, daily range): BP systolic 72–153; BP diastolic 50–87; TEMP 96.2–99.1; O2SAT 61–100
[2025-08-16] MEDS: NS (Normal Saline) 0.9% 1,000 ML IV SCH (00:09)
[2025-08-16 00:15] LABS: POTASSIUM RANDOM URINE 69.0 MMOL/L
[2025-08-16 00:20] LABS: TOTAL PROTEIN,RANDOM URINE 34.3 MG/DL (0.0-14.0)
[2025-08-16 00:38] LABS: SODIUM,RANDOM URINE < 10 MMOL/L
[2025-08-16] MEDS: D5W IV ONE ×3 (00:40→06:02)
[2025-08-16] MEDS: ACETYLCYSTEINE IV ONE ×3 (00:40→06:02)
[2025-08-16] MEDS: NS (Normal Saline) 0.9% 1,000 ML IV ONE ×2 (00:54→01:10)
[2025-08-16] MEDS ORDERED: D5W IV ONE ×4 (01:00→05:00)
[2025-08-16] MEDS ORDERED: ACETYLCYSTEINE IV ONE ×4 (01:00→05:00)
[2025-08-16] MEDS: SODIUM BICARBONATE 8.4% INJ 50ML SYRINGE IV STA (01:47)
[2025-08-16] MEDS ORDERED: NOREPINEPHRINE 4 MG IN D5W 250 ML IVBAG (16 MCG/ML) As Ordered ONE (01:48)
[2025-08-16] MEDS ORDERED: ATROPINE SULF 1 MG/10 ML SYRINGE As Ordered ONE (01:49)
[2025-08-16] MEDS: NOREPINEPHRINE 4MG IN D5 250ML 4 MG in IV 1 EA IV SCH ×3 (01:49→11:50)
[2025-08-16] MEDS: ATROPINE SULF 1 MG/10 ML SYRINGE IV STA (01:50)
[2025-08-16] MEDS: ROCURONIUM BROMIDE 50MG/5ML VIAL IV SCH (01:59)
[2025-08-16] MEDS: ETOMIDATE 20 MG/10 ML VIAL IV STA (01:59)
[2025-08-16 03:04] LABS: ABG BASE EXCESS -12.9 (-2.0-2.0); ABG HCO3 13.5 MMOL/L (22.0-26.0); ABG O2 SATURATION 94.3 % (95.0-99.0); ABG PARTIAL PRESSURE CO2 33.2 mmHg (35.0-45.0); ABG PARTIAL PRESSURE O2 97.7 mmHg (75.0-100.0); ABG STANDARD HCO3 14.3 MMOL/L. (22.0-26.0); ABG TOTAL CO2 14.5 MMOL/L (23.0-31.0)
[2025-08-16 03:06] LABS: ABG pH (ARTERIAL) 7.228 UNITS (7.350-7.450)
[2025-08-16 03:30] LABS: PLATELET COUNT, AUTOMATED 236 10^3/uL (150-450)
[2025-08-16 03:55] LABS: CALCIUM LEVEL 6.5 MG/DL (8.3-10.6); CARBON DIOXIDE LEVEL 15.0 MMOL/L (20-31); CHLORIDE LEVEL 102.0 MMOL/L (98-107); CREATININE FOR GFR 3.23 MG/DL (0.55-1.30); GLOMERULAR FILTRATION RATE 15.8 (>45); POTASSIUM SERUM 6.0 MMOL/L (3.5-5.1); SODIUM LEVEL 128.0 MMOL/L (136-145)
[2025-08-16] MEDS ORDERED: CEFEPIME HCL 2 GM in DEXTROSE 5% (D5W) ADV/MINI-BAG 50 ML IV SCH (04:50)
[2025-08-16] MEDS: HumuLIN R (REGULAR) INSULIN (NovoLIN R) **100 U/ML** PER UNIT IV STA (05:17)
[2025-08-16] MEDS: DEXTROSE 50% 50 ML SYRINGE IV STA (05:17)
[2025-08-16] MEDS: CALCIUM GLUCONATE 1,000 MG in DEXTROSE 5% (D5W) MINI-BAG PLU 100 ML IV ONE (05:17)
[2025-08-16] MEDS: SODIUM BICARBONATE 8.4% INJ 50ML SYRINGE IV SCH (05:21)
[2025-08-16] MEDS: ALBUTEROL SULFATE 2.5 MG/0.5 ML INH CONCENTRATE NEB SOLN NEB SCH (05:27)
[2025-08-16 06:48] LABS: PLATELET COUNT, AUTOMATED 213 10^3/uL (150-450)
[2025-08-16 07:01] LABS: INR 1.85
[2025-08-16] MEDS ORDERED: INSULIN LISPRO (NovoLOG) PER UNIT SC SCH (07:30)
[2025-08-16 07:52] LABS: HEPATITIS C VIRUS ABY INDEX < 0.02 INDEX (<0.8)
[2025-08-16] MEDS: CALCIUM ACETATE 667 MG GELCAP PO SCH (08:00)
[2025-08-16] MEDS: MIDAZOLAM INJ 2 MG/2 ML VIAL IV STA (08:00)
[2025-08-16] MEDS: DOCUSATE SODIUM 100 MG CAPSULE PO SCH (08:07)
[2025-08-16 08:20] LABS: ALT/SGPT 1548 U/L (7.0-40); AST/SGOT 1160 U/L (<34); CALCIUM LEVEL 6.6 MG/DL (8.3-10.6); CARBON DIOXIDE LEVEL 18 MMOL/L (20-31); CHLORIDE LEVEL 101 MMOL/L (98-107); CREATININE FOR GFR 3.09 MG/DL (0.55-1.30); GLOMERULAR FILTRATION RATE 16.7 (>45); MAGNESIUM LEVEL 3.5 MG/DL (1.8-2.4); POTASSIUM SERUM 5.8 MMOL/L (3.5-5.1); SODIUM LEVEL 127 MMOL/L (136-145)
[2025-08-16] MEDS ORDERED: FENTANYL 1000 MCG As Ordered ONE (08:42)
[2025-08-16] MEDS ORDERED: SODIUM CHLORIDE As Ordered ONE (08:42)
[2025-08-16] MEDS: fentaNYL CITRATE/NaCl 1,000 MCG in IV 1 EA IV SCH (08:45)
[2025-08-16] MEDS ORDERED: FARX1TAB5 PO (08:46)
[2025-08-16] MEDS: CEFEPIME HCL 1 GM in DEXTROSE 5% (D5W) ADV/MINI-BAG 50 ML IV SCH (08:57)
[2025-08-16] MEDS: HEPARIN SOD 5000 UNITS/ML 1 ML VIAL/SYRINGE SC SCH (08:57)
[2025-08-16] MEDS: INSULIN LISPRO (NovoLOG) PER UNIT SC SCH (09:00)
[2025-08-16 10:03] LABS: VENOUS BASE EXCESS -10.3 (-2.0-2.0); VENOUS HCO3 16.2 MMOL/L (23.0-27.0); VENOUS O2 SATURATION 79.1 % (60.0-80.0); VENOUS PARTIAL PRESSURE CO2 37.8 mmHg (38.0-50.0); VENOUS PARTIAL PRESSURE O2 56.0 mmHg (30.0-50.0); VENOUS PH 7.249 UNITS (7.330-7.430); VENOUS STANDARD HCO3 15.9 MMOL/L; VENOUS TOTAL CO2 17.3 MMOL/L (24.0-28.0)
[2025-08-16 10:13] LABS: PLATELET COUNT, AUTOMATED 212 10^3/uL (150-450)
[2025-08-16 10:40] LABS: AMPHETAMINES LEVEL URINE NEGATIVE (NEGATIVE); BARBITURATES URINE NEGATIVE (NEGATIVE); BENZODIAZEPINES URINE NEGATIVE (NEGATIVE); COCAINE METABOLITE URINE NEGATIVE (NEGATIVE); METHADONE URINE NEGATIVE (NEGATIVE); OPIATES URINE NEGATIVE (NEGATIVE); PHENCYCLIDINE URINE NEGATIVE (NEGATIVE)
[2025-08-16 10:42] LABS: CANNABINOIDS URINE POSITIVE (NEGATIVE)
[2025-08-16 10:43] LABS: CK-MB VALUE MASS 2.0 NG/ML (<3.6)
[2025-08-16 10:46] LABS: CPK CREATINE PHOSPHOKINASE 52.0 U/L (34-145); MB/CK RELATIVE INDEX 3.84 (< OR =4)
[2025-08-16 11:06] LABS: ALT/SGPT 1492.0 U/L (7.0-40); AST/SGOT 1013.0 U/L (<34); CALCIUM LEVEL 6.3 MG/DL (8.3-10.6); CARBON DIOXIDE LEVEL 19.0 MMOL/L (20-31); CHLORIDE LEVEL 100.0 MMOL/L (98-107); CREATININE FOR GFR 2.85 MG/DL (0.55-1.30); GLOMERULAR FILTRATION RATE 18.4 (>45); MAGNESIUM LEVEL 3.2 MG/DL (1.8-2.4); POTASSIUM SERUM 4.7 MMOL/L (3.5-5.1); SODIUM LEVEL 128.0 MMOL/L (136-145)
[2025-08-16] MEDS: FUROSEMIDE injection 100 MG, VIAL 2 BAG 13MM ADAPTER 1 EACH in NS 100 ML IV SCH (11:49)
[2025-08-16 16:55] LABS: CENTRAL VEN BASE EXCESS -6.0
[2025-08-16 17:19] LABS: CALCIUM LEVEL 6.7 MG/DL (8.3-10.6); CARBON DIOXIDE LEVEL 21.0 MMOL/L (20-31); CHLORIDE LEVEL 101.0 MMOL/L (98-107); CREATININE FOR GFR 2.49 MG/DL (0.55-1.30); GLOMERULAR FILTRATION RATE 21.6 (>45); MAGNESIUM LEVEL 3.1 MG/DL (1.8-2.4); POTASSIUM SERUM 4.3 MMOL/L (3.5-5.1); SODIUM LEVEL 130.0 MMOL/L (136-145)
[2025-08-16 17:54] LABS: VENOUS BASE EXCESS -6.0 (-2.0-2.0); VENOUS HCO3 20.5 MMOL/L (23.0-27.0); VENOUS PARTIAL PRESSURE CO2 45.1 mmHg (38.0-50.0); VENOUS PARTIAL PRESSURE O2 49.1 mmHg (30.0-50.0); VENOUS PH 7.276 UNITS (7.330-7.430); VENOUS STANDARD HCO3 19.1 MMOL/L; VENOUS TOTAL CO2 21.9 MMOL/L (24.0-28.0)
[2025-08-16 17:55] LABS: VENOUS O2 SATURATION 75.2 % (60.0-80.0)
[2025-08-17] VITALS (96 sets, daily range): BP systolic 84–111; BP diastolic 50–65; TEMP 96.3–97.7; O2SAT 89–99
[2025-08-17 00:23] LABS: BASO # 0.0 10^3/uL (0.0-0.2); BASO % 0.0 % (0.0-1.0); EOS # 0.0 10^3/uL (0.0-0.5); EOS % 0.3 % (0.0-3.0); LYMPH # 2.2 10^3/uL (1.5-5.0); LYMPH % 21.3 % (24.0-44.0); MONO # 0.8 10^3/uL (0.0-0.8); MONO % 7.9 % (2.0-8.0); NEUTROPHILS # 7.4 10^3/uL (1.5-8.5); NEUTROPHILS % 69.9 % (36.0-66.0); PLATELET COUNT, AUTOMATED 190 10^3/uL (150-450)
[2025-08-17] MEDS: dexmedeTOMidine 200 MCG in IV 1 EA IV SCH (00:43)
[2025-08-17 00:56] LABS: ALT/SGPT 990.0 U/L (7.0-40); AST/SGOT 485.0 U/L (<34); CALCIUM LEVEL 7.1 MG/DL (8.3-10.6); CARBON DIOXIDE LEVEL 24.0 MMOL/L (20-31); CHLORIDE LEVEL 103.0 MMOL/L (98-107); CREATININE FOR GFR 1.98 MG/DL (0.55-1.30); GLOMERULAR FILTRATION RATE 28.4 (>45); MAGNESIUM LEVEL 2.8 MG/DL (1.8-2.4); POTASSIUM SERUM 3.4 MMOL/L (3.5-5.1); SODIUM LEVEL 134.0 MMOL/L (136-145)
[2025-08-17] MEDS: MIDAZOLAM INJ 2 MG/2 ML VIAL IV STA ×2 (00:56→18:54)
[2025-08-17 04:44] LABS: CENTRAL VEN BASE EXCESS 0.5
[2025-08-17 04:54] LABS: PLATELET COUNT, AUTOMATED 203 10^3/uL (150-450)
[2025-08-17 05:15] LABS: ALT/SGPT 978.0 U/L (7.0-40); AST/SGOT 437.0 U/L (<34); CALCIUM LEVEL 7.5 MG/DL (8.3-10.6); CARBON DIOXIDE LEVEL 26.0 MMOL/L (20-31); CHLORIDE LEVEL 101.0 MMOL/L (98-107); CREATININE FOR GFR 1.77 MG/DL (0.55-1.30); GLOMERULAR FILTRATION RATE 32.5 (>45); POTASSIUM SERUM 3.1 MMOL/L (3.5-5.1); SODIUM LEVEL 134.0 MMOL/L (136-145)
[2025-08-17 05:46] LABS: ABG BASE EXCESS 2.9 (-2.0-2.0); ABG HCO3 26.4 MMOL/L (22.0-26.0); ABG O2 SATURATION 96.9 % (95.0-99.0); ABG PARTIAL PRESSURE CO2 36.6 mmHg (35.0-45.0); ABG PARTIAL PRESSURE O2 110.8 mmHg (75.0-100.0); ABG STANDARD HCO3 27.0 MMOL/L. (22.0-26.0); ABG TOTAL CO2 27.5 MMOL/L (23.0-31.0); ABG pH (ARTERIAL) 7.476 UNITS (7.350-7.450)
[2025-08-17] MEDS: POTASSIUM CHLORIDE 10% LIQ 20MEQ/15ML UDC PO ONE (06:06)
[2025-08-17] MEDS ORDERED: PROPOFOL 1,000 MG/100 ML VIAL As Ordered ONE (07:58)
[2025-08-17] MEDS: MIDAZOLAM INJ 2 MG/2 ML VIAL IV ONE (08:03)
[2025-08-17] MEDS ORDERED: ASPIRIN 300 MG SUPP PR SCH (09:00)
[2025-08-17] MEDS ORDERED: ASPIRIN 81 MG ENTERIC TABLET PO SCH (09:00)
[2025-08-17] MEDS: KCL 20MEQ IN 100ML SWI (KRUN) 20 MEQ in IV 1 EA IV SCH ×2 (10:59→19:14)
[2025-08-17] MEDS: METOPROLOL TART 12.5 MG PER 1/2 TAB PO SCH (17:31)
[2025-08-17 18:41] LABS: ALT/SGPT 824.0 U/L (7.0-40); AST/SGOT 273.0 U/L (<34); CALCIUM LEVEL 8.2 MG/DL (8.3-10.6); CARBON DIOXIDE LEVEL 31.0 MMOL/L (20-31); CHLORIDE LEVEL 100.0 MMOL/L (98-107); CREATININE FOR GFR 1.21 MG/DL (0.55-1.30); GLOMERULAR FILTRATION RATE 51.3 (>45); MAGNESIUM LEVEL 2.1 MG/DL (1.8-2.4); POTASSIUM SERUM 3.7 MMOL/L (3.5-5.1); SODIUM LEVEL 136.0 MMOL/L (136-145)
[2025-08-17] MEDS: DOCUSATE SOD LIQ 100 MG/10 ML UDC GT SCH (20:18)
[2025-08-17] MEDS: MAG SULF 1GM/100ML (MAG RUN) 1 GM in IV 1 EA IV ONE (20:45)
[2025-08-18] VITALS (87 sets, daily range): BP systolic 82–113; BP diastolic 50–68; TEMP 97.3–98.5; O2SAT 89–96
[2025-08-18 02:58] LABS: ANTI SMITH(Sm) AB <1.0 NEG AI (<1.0 NEG)
[2025-08-18 05:27] LABS: ALT/SGPT 637.0 U/L (7.0-40); AST/SGOT 188.0 U/L (<34); CALCIUM LEVEL 8.0 MG/DL (8.3-10.6); CARBON DIOXIDE LEVEL 33.0 MMOL/L (20-31); CHLORIDE LEVEL 97.0 MMOL/L (98-107); CREATININE FOR GFR 1.11 MG/DL (0.55-1.30); GLOMERULAR FILTRATION RATE 56.9 (>45); POTASSIUM SERUM 3.6 MMOL/L (3.5-5.1); SODIUM LEVEL 138.0 MMOL/L (136-145)
[2025-08-18] MEDS ORDERED: TRES1INJ2 SC ×2 (09:16→09:17)
[2025-08-18] MEDS: PANTOPRAZOLE 40MG VIAL IV SCH (09:58)
[2025-08-18 10:53] LABS: CERULOPLASMIN 37.0 mg/dL (14-48)
[2025-08-18] MEDS: MAG SULF 1GM/100ML (MAG RUN) 1 GM in IV 1 EA IV ONE (11:30)
[2025-08-18] MEDS: KCL 20MEQ IN 100ML SWI (KRUN) 20 MEQ in IV 1 EA IV SCH (12:35)
[2025-08-18] MEDS: VENLAFAXINE 37.5 MG TAB NG SCH (14:17)
[2025-08-18] MEDS: BENZTROPINE 0.5 MG TAB NG SCH (14:17)
[2025-08-18] MEDS: HALOPERIDOL 5 MG TAB NG SCH (14:17)
[2025-08-18] MEDS: PALIPERIDONE PAL 234MG/1.5ML INJ (FREE PSY INPT ONLY) IM ONE (14:18)
[2025-08-18] MEDS: IPRATROPIUM 0.5 MG/ALBUTEROL 2.5 MG INH SOL UD 3 ML NEB PRN (18:12)
[2025-08-18] MEDS: GLYCOPYRROLATE INJ 0.2 MG/ML 2 ML VIAL NEB SCH (18:57)
[2025-08-18] MEDS: GABAPENTIN 300 MG CAP PO SCH (20:25)
[2025-08-18] MEDS: LIDOCAINE 5% PATCH TD SCH (20:27)
[2025-08-18 20:50] LABS: ABG BASE EXCESS 13.8 (-2.0-2.0); ABG HCO3 37.6 MMOL/L (22.0-26.0); ABG O2 SATURATION 96.0 % (95.0-99.0); ABG PARTIAL PRESSURE CO2 44.1 mmHg (35.0-45.0); ABG PARTIAL PRESSURE O2 89.8 mmHg (75.0-100.0); ABG STANDARD HCO3 37.6 MMOL/L. (22.0-26.0); ABG TOTAL CO2 39.0 MMOL/L (23.0-31.0); ABG pH (ARTERIAL) 7.549 UNITS (7.350-7.450)
[2025-08-19] VITALS (74 sets, daily range): BP systolic 81–113; BP diastolic 47–75; TEMP 97–98.6; O2SAT 89–97
[2025-08-19 00:35] LABS: ALT/SGPT 484.0 U/L (7.0-40); AST/SGOT 100.0 U/L (<34); CALCIUM LEVEL 8.6 MG/DL (8.3-10.6); CARBON DIOXIDE LEVEL 40.0 MMOL/L (20-31); CHLORIDE LEVEL 95.0 MMOL/L (98-107); CREATININE FOR GFR 0.86 MG/DL (0.55-1.30); GLOMERULAR FILTRATION RATE 77.3 (>45); MAGNESIUM LEVEL 1.9 MG/DL (1.8-2.4); POTASSIUM SERUM 3.3 MMOL/L (3.5-5.1); SODIUM LEVEL 140.0 MMOL/L (136-145)
[2025-08-19] MEDS: MAGNESIUM OXIDE 400 MG TAB NG ONE (01:19)
[2025-08-19] MEDS: POTASSIUM CHLORIDE 10% LIQ 20MEQ/15ML UDC NG ONE (02:35)
[2025-08-19] MEDS: NYSTATIN 500,000 UNITS/5 ML SUSP UDC PO SCH (05:14)
[2025-08-19 05:46] LABS: ALT/SGPT 445.0 U/L (7.0-40); AST/SGOT 82.0 U/L (<34); CALCIUM LEVEL 8.2 MG/DL (8.3-10.6); CARBON DIOXIDE LEVEL 39.0 MMOL/L (20-31); CHLORIDE LEVEL 96.0 MMOL/L (98-107); CREATININE FOR GFR 0.85 MG/DL (0.55-1.30); GLOMERULAR FILTRATION RATE 78.4 (>45); MAGNESIUM LEVEL 1.8 MG/DL (1.8-2.4); POTASSIUM SERUM 4.2 MMOL/L (3.5-5.1); SODIUM LEVEL 139.0 MMOL/L (136-145)
[2025-08-19 09:55] LABS: BASO # 0.0 10^3/uL (0.0-0.2); BASO % 0.1 % (0.0-1.0); EOS # 0.1 10^3/uL (0.0-0.5); EOS % 0.5 % (0.0-3.0); LYMPH # 1.7 10^3/uL (1.5-5.0); LYMPH % 15.0 % (24.0-44.0); MONO # 0.8 10^3/uL (0.0-0.8); MONO % 6.9 % (2.0-8.0); NEUTROPHILS # 8.9 10^3/uL (1.5-8.5); NEUTROPHILS % 77.2 % (36.0-66.0); PLATELET COUNT, AUTOMATED 163 10^3/uL (150-450)
[2025-08-19] MEDS: CLOPIDOGREL 75 MG TAB PO SCH (10:57)
[2025-08-19] MEDS ORDERED: CHLORASEPTIC SPRAY MT PRN (17:50)
[2025-08-19] MEDS: GABAPENTIN 300 MG CAP PO SCH (20:01)
[2025-08-20] VITALS (18 sets, daily range): BP systolic 90–110; BP diastolic 52–69; TEMP 97.2–97.9; O2SAT 89–97
[2025-08-20 04:32] LABS: BASO # 0.0 10^3/uL (0.0-0.2); BASO % 0.1 % (0.0-1.0); EOS # 0.1 10^3/uL (0.0-0.5); EOS % 1.1 % (0.0-3.0); LYMPH # 1.7 10^3/uL (1.5-5.0); LYMPH % 15.0 % (24.0-44.0); MONO # 0.7 10^3/uL (0.0-0.8); MONO % 6.1 % (2.0-8.0); NEUTROPHILS # 8.5 10^3/uL (1.5-8.5); NEUTROPHILS % 77.2 % (36.0-66.0); PLATELET COUNT, AUTOMATED 161 10^3/uL (150-450)
[2025-08-20 05:08] LABS: ALT/SGPT 318 U/L (7.0-40); AST/SGOT 59 U/L (<34); CALCIUM LEVEL 8.5 MG/DL (8.3-10.6); CARBON DIOXIDE LEVEL 39 MMOL/L (20-31); CHLORIDE LEVEL 97 MMOL/L (98-107); CREATININE FOR GFR 0.75 MG/DL (0.55-1.30); GLOMERULAR FILTRATION RATE > 90.0 (>45); MAGNESIUM LEVEL 2.0 MG/DL (1.8-2.4); PHOSPHORUS LEVEL 2.1 MG/DL (2.4-5.1); POTASSIUM SERUM 3.6 MMOL/L (3.5-5.1); SODIUM LEVEL 142 MMOL/L (136-145)
[2025-08-20] MEDS ORDERED: ONDANSETRON 4MG 2ML VIAL IV PRN (15:00)
[2025-08-20] MEDS ORDERED: HYDROMORPHONE HCL 0.5 MG/0.5 ML SYRINGE IV PRN ×2 (15:00)
[2025-08-20] MEDS: MORPHINE 10 MG/0.5 ML ORAL CONCENTRATE SOLUTION U/D SL PRN (20:44)
[2025-08-20] MEDS: LORazepam 1 MG TAB PO PRN (20:52)
[2025-08-21] MEDS: LORazepam 1 MG TAB PO SCH (14:00)
[2025-08-21] MEDS: MORPHINE 10 MG/0.5 ML ORAL CONCENTRATE SOLUTION U/D SL SCH (14:05)
[2025-08-21] MEDS: MORPHINE 10 MG/0.5 ML ORAL CONCENTRATE SOLUTION U/D SL PRN (21:20)
[2025-08-22] MEDS: ATROPINE SULFATE 1% OPHTH SOLN 2 ML BTL SL PRN (10:12)
[2025-08-22] MEDS: MORPHINE 10 MG/0.5 ML ORAL CONCENTRATE SOLUTION U/D SL SCH (13:33)
[2025-08-22] MEDS ORDERED: MORPHINE 10 MG/0.5 ML ORAL CONCENTRATE SOLUTION U/D SL PRN (15:00)
== END 2025-08-22 22:20 | disposition expired | DRG 196 ==
LOC: EDBD 18:48 → M ED 18:48 → M ED INP 23:15 → INTOOBSV 23:15 → OBSVTOIN 23:38 → M PCU 08-16 00:48 → M ICU 08-16 01:43 → M MS5PR 08-20 16:57
PROVIDERS: ADMIT Student in an Organized Health Care Education/Training Program; ATTEND Internal Medicine Nephrology
PROC: 5A1945Z Respiratory Ventilation, 24-96 Consecutive Hours (ICD-10-PCS; principal; 2025-08-15)
DX: R57.1 Hypovolemic shock (principal); J96.01 Acute respiratory failure with hypoxia; K72.00 Acute and subacute hepatic failure without coma; N17.0 Acute kidney failure with tubular necrosis; G93.41 Metabolic encephalopathy; I50.23 Acute on chronic systolic (congestive) heart failure; E11.42 Type 2 diabetes mellitus with diabetic polyneuropathy; E87.20 Acidosis, unspecified; I11.0 Hypertensive heart disease with heart failure; I13.0 Hypertensive heart and chronic kidney disease with heart failure and stage 1 through stage 4 chronic kidney disease, or unspecified chronic kidney disease; E11.65 Type 2 diabetes mellitus with hyperglycemia; E83.41 Hypermagnesemia; E83.51 Hypocalcemia; F20.9 Schizophrenia, unspecified; J44.9 Chronic obstructive pulmonary disease, unspecified; F03.90 Unspecified dementia, unspecified severity, without behavioral disturbance, psychotic disturbance, mood disturbance, and anxiety; I24.89 Other forms of acute ischemic heart disease; D64.9 Anemia, unspecified; E78.5 Hyperlipidemia, unspecified; K21.9 Gastro-esophageal reflux disease without esophagitis; R41.82 Altered mental status, unspecified; R74.01 Elevation of levels of liver transaminase levels; K91.81 Other intraoperative complications of digestive system; F17.200 Nicotine dependence, unspecified, uncomplicated; Z79.899 Other long term (current) drug therapy; Z79.4 Long term (current) use of insulin; Z88.6 Allergy status to analgesic agent; Z91.018 Allergy to other foods; Z88.8 Allergy status to other drugs, medicaments and biological substances; F12.90 Cannabis use, unspecified, uncomplicated; F43.10 Post-traumatic stress disorder, unspecified; F60.3 Borderline personality disorder; I34.0 Nonrheumatic mitral (valve) insufficiency; I25.2 Old myocardial infarction; M79.7 Fibromyalgia; M75.01 Adhesive capsulitis of right shoulder; Z66 Do not resuscitate; Z51.5 Encounter for palliative care